=== PATIENT | male | born 1940 | race Caucasian/White ===

== ENCOUNTER 2018-03-11 18:12 | Emergency (ER) | payer MEDICARE, OTHER ==
[~2018-03-11] VITALS: Ht 182.9 cm; Wt 95.3 kg
[~2018-03-11 18:12] MED LIST: AC325T PO; ACID REFLUX TAB PO; ALPR.25T PO; ALPR.5T; ASP325T; FEXO180T84 PO; FEXO1TAB42 PO; FEXO60CA19; FISH OIL PO; NAPR500T8 PO; OMEP40CA36 PO; OXYC-12 PO; OXYC-188 PO; TMZP15C PO; ZYPREXA; [UNRECOGNIZED DRUG - CODE]
--- NOTE | 2018-03-11 18:24 | ED EENT ---
History of Present Illness General Stated Complaint: FALL Source: patient, family Exam Limitations: no limitations History of Present Illness Date Seen by Provider: Mar 11, 2018 Time Seen by Provider: 18:22 Initial Comments To ER by daughter with reports of a fall at home and facial injury. Patient was pushing a lawnmower when his legs gave out and he fell face first striking his nose on the ground. There is now a laceration rather deep to the inferior right naris. He is not on any anticoagulants. He is supposed to be on baby aspirin but states that he does not take. Timing/Duration: abrupt Severity: moderate Location: facial Allergies and Home Medications Allergies Coded Allergies: No Known Drug Allergies (Unverified , 06/20/11) Home Medications Amoxicillin/Potassium Clav 1 Each Tablet, 1 EACH PO BID Prescribed by: RENE DING on 03/11/181921 Fexofenadine Hcl 180 Mg Tablet, 180 MG PO DAILY, (Reported) Hydrocodone/Acetaminophen 1 Each Tablet, 1 EACH PO Q6H PRN for PAIN-MODERATE TO SEVERE Prescribed by: RENE DING on 03/11/181921 Naproxen 500 Mg Tablet.dr, 500 MG PO HS, (Reported) Omeprazole 40 Mg Capsule.dr, 40 MG PO DAILY, (Reported) Ondansetron 8 Mg Tab.rapdis, 8 MG PO Q6H PRN for NAUSEA/VOMITING-1ST LINE Prescribed by: RENE DING on 03/11/181921 Patient Home Medication List Home Medication List Reviewed: Yes Review of Systems Constitutional: see HPI Eyes: No Symptoms Reported Ears: No Symptoms Reported Nose: see HPI, other (laceration) Mouth: no symptoms reported Throat: no symptoms reported Respiratory: no symptoms reported Cardiovascular: no symptoms reported Musculoskeletal: no symptoms reported Skin: no symptoms reported Past Wladoql-Dezbna-Svfjla Hx Patient Social History Type Used: Cigarettes Former Smoker, Quit: Aug 23, 2009 Recent Foreign Travel: No Contact w/Someone Who Travel: No Recent Hopitalizations: No Seasonal Allergies Seasonal Allergies: No Past Medical History Currently Using CPAP: No Currently Using BIPAP: No Reproductive Disorders: No Sexually Transmitted Disease: No HIV/AIDS: No Adverse Reaction/Blood Tranf: No Physical Exam Vital Signs Vital Signs - First Documented 03/11/18 18:16 Temp 98.0 Pulse 93 Resp 18 B/P (MAP) 189/95 (126) Pulse Ox 97 O2 Delivery Room Air General Appearance: WD/WN, no apparent distress Eyes: bilateral eye normal inspection, bilateral eye PERRL, bilateral eye EOMI Ears: bilateral ear auricle normal, bilateral ear canal normal, bilateral ear TM normal Nose: other (no active bleeding but there is a very deep laceration at the inferior aspect of the right nare. There is no septal hematoma.) Neck: non-tender, full range of motion Neurologic/Psychiatric: alert, normal mood/affect, oriented x 3 Skin: normal color, warm/dry Procedures/Interventions Wound Location: Nose Wound Length (cm): 3 Wound's Depth, Shape: stellate Wound Explored: contaminated Irrigated w/ Saline (ccs): 60 Anesthesia: Lidocaine w/ Epi Volume Anesthetic (ccs): 2 Suture: Ethlion, Vicryl Suture Size: 3-0, 5-0 Number of Sutures: 12 Layer Closure?: 2 Number Deep Layer Sutures: 2 Progress Area was anesthetized with 2 mL of 2% lidocaine with epinephrine. Wound was then irrigated with chlorhexidine/saline solution. Any visible foreign bodies were removed manually. 2 buried sutures were then placed size 3-0 chromic gut. The skin was then closed with a total of 10 simple interrupted sutures size 5-0 Ethilon. Patient was given Rocephin intramuscularly and I'll place him on Augmentin in the outpatient setting Progress/Results/Core Measures My Orders Orders - RENE DING APRN Ct Head/Face/Cervical Wo (03/11/18 18:21) Ceftriaxone Injection (Rocephin Injectio (03/11/18 18:30) Lidocaine 1% Inj 50 Ml (Xylocaine 1% Inj (03/11/18 18:30) Lidocaine/Epi 2% 1:100,000 (Xylocaine/Ep (03/11/18 18:30) Dipht,Pertuss(Acell),Tet Adult (Boostrix (03/11/18 19:30) Medications Given in ED Current Medications Medications Dose Ordered Sig/Miki Route Start Time Stop Time Status Last Admin Dose Admin Ceftriaxone Sodium 1,000 mg ONCE ONCE IM 18 18:30 18 18:31 DC 03/11/18 18:43 1,000 MG Diphtheria/ Tetanus/Acell Pertussis 0.5 ml ONCE ONCE IM 03/11/18 19:30 4/18/18 19:31 DC 03/11/18 19:24 0.5 ML Lidocaine HCl 2.1 ml ONCE ONCE IJ 03/11/18 18:30 03/11/18 18:31 DC 03/11/18 18:44 2.1 ML Lidocaine/ Epinephrine 2 ml ONCE ONCE INJ 03/11/18 18:30 03/11/18 18:31 DC 03/11/18 18:43 2 ML Vital Signs/I&O 03/11/18 18:16 Temp 98.0 Pulse 93 Resp 18 B/P (MAP) 189/95 (126) Pulse Ox 97 O2 Delivery Room Air Diagonstic Imaging: CT Comments NAME: MARYANN LAU REC#: [id number] PT STATUS: REG ER : 1940 PHYSICIAN: RENE DING APRN ADMIT DATE: 03/11/18/ER Draft Date of Exam:03/11/18 CT HEAD/FACE/CERVICAL WO PROCEDURE: CT head, face, and cervical spine without contrast. TECHNIQUE: Multiple contiguous axial images were obtained through the head, neck, and facial bones without the use of intravenous contrast. Sagittal and coronal reformations through the cervical spine and facial bones were also performed. 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 There is generalized atrophy. There are chronic small vessel ischemic changes with some small lacunar infarcts. There are no masses, hemorrhages or CT evidence of acute infarct. IMPRESSION: Chronic ischemic changes. No acute abnormality is seen. CT FACIAL BONES: The mandible appears to be intact. The nasal bones are intact. Orbital queen and rims appear to be intact. Paranasal sinuses are clear. IMPRESSION: Negative CT facial bones. CT CERVICAL SPINE: Alignment is normal. There are no fractures. There are degenerative changes of the uncovertebral joints and the discs from C2-3 through C7-T1. IMPRESSION: Diffuse degenerative changes of the cervical spine. No fracture, misalignment or acute abnormalities. Dictated on workstation # [id number] Dict: 03/11/18 1843 Trans: 03/11/18 190 [facility] [id number] Interpreted by: BELKIS STAFFORD MD Electronically signed by: Departure Impression Primary Impression: Nasal laceration Disposition: 01 HOME, SELF-CARE Condition: Stable Departure-Patient Inst. Decision time for Depature: 19:20 Referrals: SHERIDAN DIEZ DO (PCP) Primary Care Physician AMNA SPENCE MD Patient Instructions: Laceration Repair With Stitches (DC) Add. Discharge Instructions: 1. Return to ER for any sign of infection which may include swelling redness or worsening pain or fevers. Take antibiotics as directed starting tomorrow. Be aware that the antibiotics may cause an upset stomach if you take this on an empty stomach so you should eat when you take the medications. Take pain medication as directed which unfortunately may also cause nausea. Take nausea medication as needed. I have sent your medications (nausea medication and antibiotic) to [facility]. The hydrocodone has to be taken as a paper copy 2. Call Dr. Spence, ear nose and throat physician tomorrow to make an appointment to be seen within the next week. Return here to the emergency room to have the stitches removed in 5-6 days at your convenience, you do not need an appointment. Scripts Ondansetron (Zofran Odt) 8 Mg Tab.rapdis 8 MG PO Q6H PRN for NAUSEA/VOMITING-1ST LINE, #10 TAB . Prov: RENE DING APRN 03/11/18 Amoxicillin/Potassium Clav (Augmentin 500-125 Tablet) 1 Each Tablet 1 EACH PO BID, #10 TAB . Prov: RENE DING APRN 03/11/18 Hydrocodone/Acetaminophen ([place] 5-325 Tablet) 1 Each Tablet 1 EACH PO Q6H PRN for PAIN-MODERATE TO SEVERE, #10 TAB Prov: RENE DING APRN 03/11/18 Images Mouth/Nose 1 - 2 - RENE DING APRN Mar 11, 2018 18:24
[2018-03-11] MEDS ORDERED: cefTRIAXone 1 GM (ROCEPHIN) VIAL IM ONE (18:30)
[2018-03-11] MEDS ORDERED: LIDOCAINE 1% INJ 50 ML (XYLOCAINE) VIAL IJ ONE (18:30)
[2018-03-11] MEDS ORDERED: LIDOCAINE/EPI 2% 1:100,00 (XYLOCAINE) 20 ML VIAL INJ ONE (18:30)
--- NOTE | 2018-03-11 19:02 | Diagnostic Imaging Report ---
PROCEDURE: CT head, face, and cervical spine without contrast. TECHNIQUE: Multiple contiguous axial images were obtained through the head, neck, and facial bones without the use of intravenous contrast. Sagittal and coronal reformations through the cervical spine and facial bones were also performed. 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 There is generalized atrophy. There are chronic small vessel ischemic changes with some small lacunar infarcts. There are no masses, hemorrhages or CT evidence of acute infarct. IMPRESSION: Chronic ischemic changes. No acute abnormality is seen. CT FACIAL BONES: The mandible appears to be intact. The nasal bones are intact. Orbital queen and rims appear to be intact. Paranasal sinuses are clear. IMPRESSION: Negative CT facial bones. CT CERVICAL SPINE: Alignment is normal. There are no fractures. There are degenerative changes of the uncovertebral joints and the discs from C2-3 through C7-T1. IMPRESSION: Diffuse degenerative changes of the cervical spine. No fracture, misalignment or acute abnormalities. Dictated by: Dictated on workstation # [id number]
[2018-03-11] MEDS ORDERED: ONDA8TAB9 PO ×2 (19:22→19:43)
[2018-03-11] MEDS ORDERED: HYDR-757 PO (19:22)
[2018-03-11] MEDS ORDERED: AMOX-355 PO ×2 (19:22→19:43)
[2018-03-11] MEDS ORDERED: TETANUS,DIPTH,PERTUSS P/F (BOOSTRIX) 0.5 ML VIAL IM ONE (19:30)
[2018-03-11 19:40] VITALS: BP 0/0
== END 2018-03-11 19:40 | disposition home or self-care (01) ==
LOC: EDUNIT# 18:12 → ER 18:13
DX: S01.21XA Laceration without foreign body of nose, initial encounter (principal); Z23 Encounter for immunization; Z87.891 Personal history of nicotine dependence; W01.198A Fall on same level from slipping, tripping and stumbling with subsequent striking against other object, initial encounter; Y92.007 Garden or yard of unspecified non-institutional (private) residence as the place of occurrence of the external cause
CPT/HCPCS: 12011; 70450; 70486; 72125; 90471; 90715; 96372

== ENCOUNTER 2018-03-18 11:23 | Emergency (ER) | payer MEDICARE, OTHER ==
[~2018-03-18] VITALS: Ht 182.9 cm; Wt 86.2 kg
[~2018-03-18 11:23] MED LIST changes: +AMOX-355 PO; +HYDR-757 PO; +ONDA8TAB9 PO
[2018-03-18 11:43] VITALS: BP 122/69
== END 2018-03-18 11:43 | disposition home or self-care (01) ==
LOC: EDUNIT# 11:23 → ER 11:24
DX: S01.21XD Laceration without foreign body of nose, subsequent encounter (principal); X58.XXXD Exposure to other specified factors, subsequent encounter

== ENCOUNTER → 2019-08-10 | Outpatient (CLI) | payer MEDICARE, OTHER ==
[~2019-08-10] MED LIST changes: +HYDR-4226 PO; -HYDR-757 PO
[2019-08-10 14:14] LABS: BASOPHILS % (AUTO) 0 % (0-10); EOSINOPHILS # (AUTO) 0.2 10^3/uL (0.0-0.3); EOSINOPHILS % (AUTO) 2 % (0-10); HEMATOCRIT 42 % (40-54); HEMOGLOBIN 14.7 G/DL (13.3-17.7); LYMPHOCYTES # (AUTO) 1.6 X 10^3 (1.0-4.0); LYMPHOCYTES % (AUTO) 16 % (12-44); MEAN CORPUSCULAR HEMOGLOBIN 32 PG (25-34); MEAN CORPUSCULAR HGB CONC 35 G/DL (32-36); MEAN CORPUSCULAR VOLUME 93 FL (80-99); MEAN PLATELET VOLUME 10.5 FL (7.4-10.4); MONOCYTES # (AUTO) 1.1 X 10^3 (0.0-1.0); MONOCYTES % (AUTO) 11 % (0-12); NEUTROPHILS # (AUTO) 7.2 X 10^3 (1.8-7.8); NEUTROPHILS % (AUTO) 71 % (42-75); PLATELET COUNT 222 10^3/uL (130-400); RED CELL DISTRIBUTION WIDTH 13.1 % (10.0-14.5)
[2019-08-10 14:35] LABS: ALANINE AMINOTRANSFERASE 16 U/L (0-55); ALBUMIN 4.1 GM/DL (3.2-4.5); ALKALINE PHOSPHATASE 109 U/L (40-136); BILIRUBIN,TOTAL 0.7 MG/DL (0.1-1.0); BUN/CREATININE RATIO 10; CALCIUM 8.8 MG/DL (8.5-10.1); CARBON DIOXIDE 26 MMOL/L (21-32); CHLORIDE 103 MMOL/L (98-107); CREATININE SERUM 0.68 MG/DL (0.60-1.30); GFR ESTIMATED > 60; GLUCOSE 97 MG/DL (70-105); POTASSIUM 4.3 MMOL/L (3.6-5.0); SODIUM 137 MMOL/L (135-145); TOTAL PROTEIN 6.7 GM/DL (6.4-8.2)
== END ==
LOC: CARD 13:52
PROVIDERS: ATTEND Family Medicine
DX: I49.9 Cardiac arrhythmia, unspecified (principal); R41.0 Disorientation, unspecified
CPT/HCPCS: 36415; 80053; 83735; 84443; 85025

== ENCOUNTER 2021-05-30 18:10 | Inpatient (IN) | payer MEDICARE, OTHER ==
[~2021-05-30] VITALS: Ht 180.4 cm; Wt 85.2 kg
[2021-05-30 18:40] LABS: BASOPHILS # (AUTO) 0.1 10^3/uL (0.0-0.1); BASOPHILS % (AUTO) 1 % (0-10); EOSINOPHILS % (AUTO) 0 % (0-10); HEMATOCRIT 45 % (40-54); HEMOGLOBIN 15.4 g/dL (13.3-17.7); LYMPHOCYTES # (AUTO) 1.6 10^3/uL (1.0-4.0); LYMPHOCYTES % (AUTO) 16 % (12-44); MEAN CORPUSCULAR HEMOGLOBIN 32 pg (25-34); MEAN CORPUSCULAR HGB CONC 34 g/dL (32-36); MEAN CORPUSCULAR VOLUME 93 fL (80-99); MEAN PLATELET VOLUME 10.6 fL (9.0-12.2); MONOCYTES % (AUTO) 11 % (0-12); NEUTROPHILS # (AUTO) 7.1 10^3/uL (1.8-7.8); NEUTROPHILS % (AUTO) 73 % (42-75); PLATELET COUNT 250 10^3/uL (130-400); WHITE BLOOD COUNT 9.8 10^3/uL (4.3-11.0)
--- NOTE | 2021-05-30 18:58 | ED Neurological Problem ---
General Chief Complaint: Neuro-Stroke Like Symptoms Stated Complaint: STROKE Nursing Triage Note: REPORTS HE HAS BEEN UNABLE TO WALK SINCE May. WAS BROUGHT IN BY EMS TO ROOM 3, PAGED OUT A STROKE ACTIVATION. Source: patient, EMS Exam Limitations: no limitations History of Present Illness Date Seen by Provider: May 30, 2021 Time Seen by Provider: 18:12 Initial Comments This is 80-year-old gentleman presents to the emergency room via EMS with right sided facial droop, weakness, and dysarthria. He called his family today stating that he could not walk. He had been crawling around the house and has abrasions on his knees and a skin tear on his right elbow. He denies any neck pain but to be because communication barrier with dysarthria is present, and a c-collar was placed. He reports being this way and unable to walk since May. He is alert and oriented but has notable dysarthria. He states he has no balance. Blood sugar for EMS was 69 and was 95 on arrival. He has history of right hip fracture and repair, hypertension, and GERD. He has a prior smoking history but does not currently smoke. He denies any alcohol use but his prior medical history notes a 6 pack daily drinker for 50 years on an H&P from 2016. Stroke activation was paged because the exact last known well time is uncertain. EMS reports oxygen saturation was 90% on room air. Nasal cannula was applied. Patient reports dual Covid vaccination. Allergies and Home Medications Allergies Coded Allergies: No Known Drug Allergies (Unverified , 06/20/11) Home Medications Amoxicillin/Potassium Clav 1 Each Tablet, 1 EACH PO BID . Prescribed by: RENE DING on 03/11/181942 Fexofenadine Hcl 180 Mg Tablet, 180 MG PO DAILY, (Reported) Hydrocodone/Acetaminophen 1 Each Tablet, 1 EACH PO Q6H PRN for PAIN-MODERATE TO SEVERE Prescribed by: RENE DING on 03/11/181921 Naproxen 500 Mg Tablet., 500 MG PO HS, (Reported) Omeprazole 40 Mg Capsule., 40 MG PO DAILY, (Reported) Ondansetron 8 Mg Tab.rapdis, 8 MG PO Q6H PRN for NAUSEA/VOMITING-1ST LINE . Prescribed by: RENE DING on 03/11/181942 Patient Home Medication List Home Medication List Reviewed: Yes Review of Systems Review of Systems Constitutional: no symptoms reported Eyes: No Symptoms Reported Ears, Nose, Mouth, Throat: no symptoms reported Respiratory: no symptoms reported Cardiovascular: no symptoms reported Gastrointestinal: no symptoms reported Genitourinary: no symptoms reported Musculoskeletal: no symptoms reported Skin: see HPI Psychiatric/Neurological: See HPI Endocrine: No Symptoms Reported Hematologic/Lymphatic: No Symptoms Reported Past Thpfkxs-Kbwver-Nluiwm Hx Patient Social History Tobacco Use?: No Smoking Status: Former Smoker Alcohol Use?: Yes (Prior daily drinker) Seasonal Allergies Seasonal Allergies: No Past Medical History Surgeries: Yes (T&A,HERNIA REPAIR [GROIN],CARPAL TUNNEL) Abdominal (Hernia), Adenoidectomy, Orthopedic (Right hip ORIF, carpal tunnel), Tonsillectomy Respiratory: No Currently Using CPAP: No Currently Using BIPAP: No Cardiac: No Neurological: No Reproductive Disorders: No Sexually Transmitted Disease: No HIV/AIDS: No Genitourinary: No Gastrointestinal: No Musculoskeletal: Yes Fractures (Hip) Endocrine: No HEENT: No Cancer: No Psychosocial: No Integumentary: No Blood Disorders: No Adverse Reaction/Blood Tranf: No Physical Exam Vital Signs Vital Signs - First Documented 05/30/21 18:10 Temp 36.4 Pulse 84 Resp 20 B/P (MAP) 163/85 (111) Pulse Ox 91 O2 Delivery Room Air Capillary Refill : Less Than 3 Seconds Height, Weight, BMI Height: 6'11.00" Weight: 190lbs. 6.4oz. 86.233107yx; 26.00 BMI Method:Estimated General Appearance: WD/WN, no apparent distress HEENT: normal ENT inspection, other (Mucous membranes dry) Neck: non-tender, normal inspection Respiratory: lungs clear, normal breath sounds, no respiratory distress Cardiovascular: regular rate, rhythm, no edema, no murmur Gastrointestinal: normal bowel sounds, non tender, soft Extremities: no pedal edema, other (Minor abrasions and erythema to the knees bilaterally. Skin tear to the right elbow with minor tenderness) Neurologic/Psychiatric: other (Right-sided facial droop and decreased hypertrichologist on the right. Stated disequilibrium has not yet been tested. Dysarthria.) Crainal Nerves: normal hearing, abnormal speech (Dysarthria), facial droop (Right side), gaze palsy (Reluctance with left lateral gaze) Motor/Sensory: weak motor strength RUE Skin: normal color, warm/dry, other (See above) Stroke NIH Stroke Scale Assessment Select: Initial Level of Consciousness: 0=Alert (0), Level of Consciousness- Questions: 0=Answers both month/age (0), LOC Commands: 0=Performs both tasks (0), Gaze: Partial Gaze Palsy (1), Visual Blanco: 0=No visual loss (0), Facial Movement (Facial Paresis): 1=Minor paralysis (1), Motor Function-Arms Right: 1=Drift (1), Motor Function-Arms Left: 0=No drift (0), Motor Function- Legs Right: 0=No drift (0), Motor Function-Legs Left: 0=No drift (0), Limb Ataxia: 1=Present in one limb (1), Sensory: 0=Normal:no loss (0), Best Language: 0=No aphasia (0), Dysarthria: 0=Normal (0), Extinction & Inattention: 0=No abnormality (0), Total: 4 Procedures/Interventions Suture Size: 3-0, 5-0 Progress/Results/Core Measures Results/Orders Lab Results Laboratory Tests Test 05/30/21 18:21 05/30/21 18:30 05/30/21 18:37 05/30/21 20:00 Range/Units Glucometer 95 70-110 MG/DL White Blood Count 9.8 4.3-11.0 10^3/uL Red Blood Count 4.88 4.30-5.52 10^6/uL Hemoglobin 15.4 13.3-17.7 g/dL Hematocrit 45 40-54 % Mean Corpuscular Volume 93 80-99 fL Mean Corpuscular Hemoglobin 32 25-34 pg Mean Corpuscular Hemoglobin Concent 34 32-36 g/dL Red Cell Distribution Width 12.8 10.0-14.5 % Platelet Count 250 130-400 10^3/uL Mean Platelet Volume 10.6 9.0-12.2 fL Immature Granulocyte % (Auto) 0 % Neutrophils (%) (Auto) 73 42-75 % Lymphocytes (%) (Auto) 16 12-44 % Monocytes (%) (Auto) 11 0-12 % Eosinophils (%) (Auto) 0 0-10 % Basophils (%) (Auto) 1 0-10 % Neutrophils # (Auto) 7.1 1.8-7.8 10^3/uL Lymphocytes # (Auto) 1.6 1.0-4.0 10^3/uL Monocytes # (Auto) 1.0 0.0-1.0 10^3/uL Eosinophils # (Auto) 0.0 0.0-0.3 10^3/uL Basophils # (Auto) 0.1 0.0-0.1 10^3/uL Immature Granulocyte # (Auto) 0.0 0.0-0.1 10^3/uL Prothrombin Time 15.6 H 12.2-14.7 SEC INR Comment 1.2 0.8-1.4 Activated Partial Thromboplast Time 30 24-35 SEC D-Dimer 0.69 H 0.00-0.49 UG/ML Sodium Level 142 135-145 MMOL/L Potassium Level 3.7 3.6-5.0 MMOL/L Chloride Level 106 98-107 MMOL/L Carbon Dioxide Level 21 21-32 MMOL/L Anion Gap 15 H 5-14 MMOL/L Blood Urea Nitrogen 13 7-18 MG/DL Creatinine 0.76 0.60-1.30 MG/DL Estimat Glomerular Filtration Rate > 60 BUN/Creatinine Ratio 17 Glucose Level 87 70-105 MG/DL Calcium Level 9.3 8.5-10.1 MG/DL Corrected Calcium 9.2 8.5-10.1 MG/DL Total Bilirubin 1.2 H 0.1-1.0 MG/DL Aspartate Amino Transf (AST/SGOT) 61 H 5-34 U/L Alanine Aminotransferase (ALT/SGPT) 28 0-55 U/L Alkaline Phosphatase 112 40-136 U/L Troponin I < 0.028 <0.028 NG/ML Total Protein 7.2 6.4-8.2 GM/DL Albumin 4.1 3.2-4.5 GM/DL Serum Alcohol < 10 <10 MG/DL Influenza Type A (RT-PCR) Not Detected Not Detecte Influenza Type B (RT-PCR) Not Detected Not Detecte SARS-CoV-2 RNA (RT-PCR) Not Detected Not Detecte Urine Color YELLOW Urine Clarity CLEAR Urine pH 6.5 5-9 Urine Specific Elizabeth 1.025 H 1.016-1.022 Urine Protein TRACE H NEGATIVE Urine Glucose (UA) NEGATIVE NEGATIVE Urine Ketones 3+ H NEGATIVE Urine Nitrite NEGATIVE NEGATIVE Urine Bilirubin NEGATIVE NEGATIVE Urine Urobilinogen 4.0 < = 1.0 MG/DL Urine Leukocyte Esterase NEGATIVE NEGATIVE Urine RBC (Auto) NEGATIVE NEGATIVE Urine RBC NONE /HPF Urine WBC 0-2 /HPF Urine Crystals PRESENT H /LPF Urine Amorphous Sediment RARE ALON URATES H /LPF Urine Bacteria TRACE /HPF Urine Casts NONE /LPF Urine Mucus SMALL H /LPF Urine Culture Indicated NO My Orders Orders - THANH DIAZ MD Cbc With Automated Diff (05/30/21 18:13) Protime With Inr (05/30/21 18:13) Partial Thromboplastin Time (05/30/21 18:13) Comprehensive Metabolic Panel (05/30/21 18:13) Fibrin Degradation Products (05/30/21 18:13) Troponin I (05/30/21 18:13) Ua Culture If Indicated (05/30/21 18:13) Chest 1 View, Ap/Pa Only (05/30/21 18:13) Catheter(Urinary) Insert & Ass 03,15 (05/30/21 18:13) Ekg Tracing (05/30/21 18:13) Nothing By Mouth (05/30/21 Dinner) Accucheck Stat ONCE (05/30/21 18:13) Ed Iv/Invasive Line Start (05/30/21 18:13) Ed Iv/Invasive Line Start (05/30/21 18:13) Vital Signs Stroke Patient Q15M (05/30/21 18:13) Ct Head Wo-R/O Stroke (05/30/21 18:13) O2 (05/30/21 18:13) Intake & Output 06,14,22 (05/30/21 18:13) Monitor-Rhythm Ecg Trace Only (05/30/21 18:13) Dysphagia Screening Tool (05/30/21 18:13) Lipid Panel (05/31/21 06:00) Ct Cervical Spine Wo (05/30/21 18:33) Covid 19 Inhouse Test (05/30/21 18:42) Influenza A And B By Pcr (05/30/21 18:42) Alcohol (05/30/21 18:30) Ct Angio Head/Neck (05/30/21 19:59) Iohexol Injection (Omnipaque 350 Mg/Ml 1 (05/30/21 20:15) Received Contrast (Hold Metformin- Contr (05/30/21 20:15) Sodium Chloride Flush (Catheter Flush Sy (05/30/21 20:15) Ns (Ivpb) (Sodium Chloride 0.9% Ivpb Bag (05/30/21 20:15) Medications Given in ED Vital Signs/I&O 05/30/21 18:10 Temp 36.4 Pulse 84 Resp 20 B/P (MAP) 163/85 (111) Pulse Ox 91 O2 Delivery Room Air Blood Pressure Mean: 111 FSBG Bedside Testing Finger Stick Blood Glucose: 95 Progress Progress Note #1: Time: 19:00 Progress Note Stroke activation was paged due to unknown last known well time. Work-up is pending. Patient is stable at this time. We have also decided to obtain a Covid swab as patient was initially hypoxic for EMS. Progress Note #2: Progress Note Covid screen was negative. CT imaging studies were negative. Case was reviewed with Dr. Villagran who recommended admission to complete the stroke work-up including MRI. Patient cleared dysphagia screen. I did attempt to get the patient up to walk. He was unable to get out of bed with 1 person assist. Iram fleming was not a thrombolytic candidate as his last known well time was 3 days ago. Initial ECG Impression Date: May 30, 2021 Initial ECG Impression Time: 20:39 Initial ECG Rate: 74 Initial ECG Rhythm: Normal Sinus Initial ECG Intervals: Normal Initial ECG Impression: Normal Comment Normal sinus rhythm with no ST elevation or depression. No abnormal intervals or axis deviation. Diagnostic Imaging Diagonstic Imaging: Xray Plain Films/CT/US/NM/MRI: chest Comments Chest x-ray viewed by me and report reviewed. See report below: NAME: MARYANN LAU [facility] REC#: [id number] PT STATUS: REG ER : 1940 PHYSICIAN: THANH DIAZ MD ADMIT DATE: 05/30/21/ER Signed Date of Exam:05/30/21 CHEST 1 VIEW, AP/PA ONLY EXAMINATION: Chest 1 view HISTORY: Inability to walk. Concern for stroke. COMPARISON: 06/12/2011. FINDINGS: The lung volumes are normal. No focal consolidation is seen. No large pleural effusion or pneumothorax is seen. The cardiomediastinal silhouette is normal in size and contour. There is calcified aortic atherosclerotic plaque. No acute osseous abnormality is seen. IMPRESSION: 1. No acute pleuroparenchymal process. Dictated by: Dictated on workstation # [id number] Dict: 05/30/212003 Trans: 05/30/212011 CVB Interpreted by: KONRAD CASTILLO DO Electronically signed by: KONRAD CASTILLO DO 05/30/212011 Diagonstic Imaging: CT Plain Films/CT/US/NM/MRI: head Comments NAME: MARYANN LAU REC#: [id number] PT STATUS: REG ER : 1940 PHYSICIAN: THANH DIAZ MD ADMIT DATE: 05/30/21/ER Signed Date of Exam:05/30/21 CT HEAD WO-R/O STROKE EXAMINATION: CT head without contrast. TECHNIQUE: Multiple contiguous axial images were obtained through the brain without the use of intravenous contrast. All CT scans use one or more of the following dose optimizing techniques: automated exposure control, MA and/or KvP adjustment based on patient size and exam type or iterative reconstruction. HISTORY: Inability to walk. Concern for stroke. COMPARISON: 03/11/2018. FINDINGS: Old infarcts are seen in the right temporal lobe and right frontal region. No new areas of large acute territorial ischemia are seen. No evidence of acute hemorrhage or mass. The ventricles and cortical sulci are mildly prominent. Scattered chronic microvascular disease seen in the periventricular and subcortical white matter. The basilar cisterns are patent. The orbits are normal. Paranasal sinuses are normal. Mastoid air cells are clear. No soft tissue abnormality is seen. No osseus lesions or fractures are seen. IMPRESSION: 1. No large acute territorial ischemia, mass, or hemorrhage. 2. 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 3. Generalized parenchymal volume loss with scattered chronic microvascular disease. Dictated by: Dictated on workstation # [id number] Dict: 05/30/211958 Trans: 05/30/212006 CVB Interpreted by: KONRAD CASTILLO DO Electronically signed by: KONRAD CASTILLO DO 05/30/212006 Diagonstic Imaging: CT Plain Films/CT/US/NM/MRI: c-spine Comments NAME: MARYANN LAU [facility] REC#: [id number] PT STATUS: REG ER : 1940 PHYSICIAN: THANH DIAZ MD ADMIT DATE: 05/30/21/ER Signed Date of Exam:05/30/21 CT CERVICAL SPINE WO PROCEDURE: CT cervical spine without contrast. TECHNIQUE: Multiple contiguous axial images were obtained through the cervical spine without the use of intravenous contrast. Sagittal and coronal reformations were then performed. Auto Exposure Controls were utilized during the CT exam to meet ALARA standards for radiation dose reduction. INDICATION: Inability to walk. Neck pain. COMPARISON: 03/11/2018. FINDINGS: No acute fracture or dislocation is seen in the cervical spine. Stable alignment of the cervical spine. The craniocervical junction is intact. Advanced degenerative changes are seen in the cervical spine with disc osteophyte complexes, buckling of ligamentum flavum, and uncovertebral arthropathy. These are greatest at the C5-C6 level. No evidence of acute spinal canal stenosis. No high density material seen within the spinal canal. The soft tissues of the neck are unremarkable. The included lung apices are clear. IMPRESSION: 1. No acute fracture or dislocation in the cervical spine. Dictated by: Dictated on workstation # [id number] Dict: 05/30/212000 Trans: 05/30/212006 CVB [id number] Interpreted by: KONRAD CASTILLO DO Electronically signed by: KONRAD CASTILLO DO 05/30/212006 Diagonstic Imaging: CT Plain Films/CT/US/NM/MRI: chest Comments NAME: MARYANN LAU [facility] REC#: [id number] PT STATUS: REG ER : 1940 PHYSICIAN: THANH DIAZ MD ADMIT DATE: 05/30/21/ER Signed Date of Exam:05/30/21 CT ANGIO HEAD/NECK PROCEDURE: CT angiography of the head and CT angiography of the neck with and without contrast. TECHNIQUE: Contiguous noncontrast images were obtained from the skull base through the vertex. After intravenous contrast administration, helical CT angiography of the neck was performed. Source data was reformatted into 3D MIP projections. Delayed post contrast acquisition was also obtained. Auto Exposure Controls were utilized during the CT exam to meet ALARA standards for radiation dose reduction. INDICATION: Inability to walk for 3 days. Concern for stroke. Comparison: CT head performed earlier the same date. FINDINGS: CTA Neck: The visualized portions of the aortic arch demonstrate atherosclerotic plaque without evidence of aneurysm or dissection. There is conventional branching pattern of the great vessels of the aorta. The brachiocephalic artery is normal in course and caliber. The right and left common carotid origins are unremarkable. The origin of the left subclavian artery is patent. The common carotid arteries and internal carotid arteries demonstrate a tortuous course. There is calcified atherosclerotic plaque in the bilateral carotid bulbs and proximal internal carotid arteries without flow-limiting stenosis. No evidence of dissection in the carotid systems. The external carotid arteries are patent and unremarkable. The left vertebral artery is dominant. The origin of the right vertebral artery is seen and is unremarkable. The origin of the left vertebral artery is seen and is unremarkable. There is no focal stenosis seen within the neck. There is no dissection. No acute osseous abnormality is seen in the cervical spine. Included views through the lung apices demonstrate centrilobular emphysema. CTA brain: Atherosclerotic plaque is seen in the queen of the bilateral terminal internal carotid arteries without significant stenosis. No stenosis is seen in the bilateral anterior, middle, and posterior cerebral arteries. No evidence of aneurysm the [place]. In the posterior circulation, both of the vertebral arteries demonstrate normal opacification. The right vertebral artery ends in PICA. Both the right and left PICA arteries are identified. The basilar artery is normal in course and caliber. The terminal branch vessels including the superior cerebellar arteries unremarkable. IMPRESSION: 1. No stenosis or aneurysm in the [place]. No large vessel occlusion. 2. No stenosis or dissection the bilateral carotid and vertebral arteries. Dictated by: Dictated on workstation # [id number] Dict: 05/30/212134 Trans: 05/30/212139 [facility] [id number] Interpreted by: KONRAD CASTILLO DO Electronically signed by: KONRAD CASTILLO DO 05/30/212139 Departure Impression Primary Impression: Right sided weakness Additional Impressions: Generalized weakness Dysarthria Urinary hesitancy Disposition: ADMITTED INPATIENT Condition: Improved Admissions Decision to Admit Reason: Admit from ER (General) Decision to Admit/Date: May 30, 2021 Time/Decision to Admit Time: 18:30 Departure-Patient Inst. Referrals: SHERIDAN DIEZ DO (PCP/Family) Primary Care Physician THANH DIAZ MD May 30, 2021 18:58
[2021-05-30 19:02] LABS: ALBUMIN 4.1 GM/DL (3.2-4.5); CHLORIDE 106 MMOL/L (98-107); POTASSIUM 3.7 MMOL/L (3.6-5.0); SODIUM 142 MMOL/L (135-145)
[2021-05-30 19:04] LABS: CALCIUM 9.3 MG/DL (8.5-10.1)
[2021-05-30 19:05] LABS: GLUCOSE 87 MG/DL (70-105); TOTAL PROTEIN 7.2 GM/DL (6.4-8.2)
[2021-05-30 19:06] LABS: BILIRUBIN,TOTAL 1.2 MG/DL (0.1-1.0); CARBON DIOXIDE 21 MMOL/L (21-32)
[2021-05-30 19:08] LABS: ALKALINE PHOSPHATASE 112 U/L (40-136); CREATININE SERUM 0.76 MG/DL (0.60-1.30); GFR ESTIMATED > 60
[2021-05-30 19:09] LABS: BUN/CREATININE RATIO 17
[2021-05-30 19:11] LABS: ALANINE AMINOTRANSFERASE 28 U/L (0-55)
[2021-05-30 19:14] LABS: FIBRIN DEGRADATION PRODUCTS 0.69 UG/ML (0.00-0.49); INR 1.2 (0.8-1.4); PROTHROMBIN TIME PATIENT 15.6 SEC (12.2-14.7)
--- NOTE | 2021-05-30 20:03 | Diagnostic Imaging Report ---
EXAMINATION: CT head without contrast. TECHNIQUE: Multiple contiguous axial images were obtained through the brain without the use of intravenous contrast. All CT scans use one or more of the following dose optimizing techniques: automated exposure control, MA and/or KvP adjustment based on patient size and exam type or iterative reconstruction. HISTORY: Inability to walk. Concern for stroke. COMPARISON: 03/11/2018. FINDINGS: Old infarcts are seen in the right temporal lobe and right frontal region. No new areas of large acute territorial ischemia are seen. No evidence of acute hemorrhage or mass. The ventricles and cortical sulci are mildly prominent. Scattered chronic microvascular disease seen in the periventricular and subcortical white matter. The basilar cisterns are patent. The orbits are normal. Paranasal sinuses are normal. Mastoid air cells are clear. No soft tissue abnormality is seen. No osseus lesions or fractures are seen. IMPRESSION: 1. No large acute territorial ischemia, mass, or hemorrhage. 2. 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 3. Generalized parenchymal volume loss with scattered chronic microvascular disease. Dictated by: Dictated on workstation # [id number]
--- NOTE | 2021-05-30 20:04 | Diagnostic Imaging Report ---
PROCEDURE: CT cervical spine without contrast. TECHNIQUE: Multiple contiguous axial images were obtained through the cervical spine without the use of intravenous contrast. Sagittal and coronal reformations were then performed. Auto Exposure Controls were utilized during the CT exam to meet ALARA standards for radiation dose reduction. INDICATION: Inability to walk. Neck pain. COMPARISON: 03/11/2018. FINDINGS: No acute fracture or dislocation is seen in the cervical spine. Stable alignment of the cervical spine. The craniocervical junction is intact. Advanced degenerative changes are seen in the cervical spine with disc osteophyte complexes, buckling of ligamentum flavum, and uncovertebral arthropathy. These are greatest at the C5-C6 level. No evidence of acute spinal canal stenosis. No high density material seen within the spinal canal. The soft tissues of the neck are unremarkable. The included lung apices are clear. IMPRESSION: 1. No acute fracture or dislocation in the cervical spine. Dictated by: Dictated on workstation # [id number]
--- NOTE | 2021-05-30 20:09 | Diagnostic Imaging Report ---
EXAMINATION: Chest 1 view HISTORY: Inability to walk. Concern for stroke. COMPARISON: 06/12/2011. FINDINGS: The lung volumes are normal. No focal consolidation is seen. No large pleural effusion or pneumothorax is seen. The cardiomediastinal silhouette is normal in size and contour. There is calcified aortic atherosclerotic plaque. No acute osseous abnormality is seen. IMPRESSION: 1. No acute pleuroparenchymal process. Dictated by: Dictated on workstation # [id number]
[2021-05-30] MEDS ORDERED: HOLD METFORMIN - RECEIVED CONTRAST 20 ML VIAL IV SCH (20:15)
[2021-05-30] MEDS ORDERED: CATHETER FLUSH 10 ML SYR IV PRN (20:15)
[2021-05-30] MEDS ORDERED: NS 100 ML (IVPB) BAG IV ONE (20:15)
[2021-05-30] MEDS ORDERED: IOHEXOL 350 MG/ML 100 ML (OMNIPAQUE 350) VIAL IV ONE (20:15)
[2021-05-30 20:32] LABS: BILIRUBIN,URINE NEGATIVE (NEGATIVE); CLARITY,URINE CLEAR; COLOR,URINE YELLOW; GLUCOSE, URINE (UA) NEGATIVE (NEGATIVE); KETONES,URINE 3+ (NEGATIVE); LEUKOCYTE ESTERASE ,URINE NEGATIVE (NEGATIVE); NITRITE,URINE NEGATIVE (NEGATIVE); PH,URINE 6.5 (5-9); PROTEIN,URINE TRACE (NEGATIVE)
[2021-05-30 21:07] LABS: AMORPHOUS SEDIMENT,UR RARE AMOR URATES /LPF; BACTERIA,URINE TRACE /HPF; WBC,URINE 0-2 /HPF
--- NOTE | 2021-05-30 21:39 | Diagnostic Imaging Report ---
PROCEDURE: CT angiography of the head and CT angiography of the neck with and without contrast. TECHNIQUE: Contiguous noncontrast images were obtained from the skull base through the vertex. After intravenous contrast administration, helical CT angiography of the neck was performed. Source data was reformatted into 3D MIP projections. Delayed post contrast acquisition was also obtained. Auto Exposure Controls were utilized during the CT exam to meet ALARA standards for radiation dose reduction. INDICATION: Inability to walk for 3 days. Concern for stroke. Comparison: CT head performed earlier the same date. FINDINGS: CTA Neck: The visualized portions of the aortic arch demonstrate atherosclerotic plaque without evidence of aneurysm or dissection. There is conventional branching pattern of the great vessels of the aorta. The brachiocephalic artery is normal in course and caliber. The right and left common carotid origins are unremarkable. The origin of the left subclavian artery is patent. The common carotid arteries and internal carotid arteries demonstrate a tortuous course. There is calcified atherosclerotic plaque in the bilateral carotid bulbs and proximal internal carotid arteries without flow-limiting stenosis. No evidence of dissection in the carotid systems. The external carotid arteries are patent and unremarkable. The left vertebral artery is dominant. The origin of the right vertebral artery is seen and is unremarkable. The origin of the left vertebral artery is seen and is unremarkable. There is no focal stenosis seen within the neck. There is no dissection. No acute osseous abnormality is seen in the cervical spine. Included views through the lung apices demonstrate centrilobular emphysema. CTA brain: Atherosclerotic plaque is seen in the queen of the bilateral terminal internal carotid arteries without significant stenosis. No stenosis is seen in the bilateral anterior, middle, and posterior cerebral arteries. No evidence of aneurysm the [place]. In the posterior circulation, both of the vertebral arteries demonstrate normal opacification. The right vertebral artery ends in PICA. Both the right and left PICA arteries are identified. The basilar artery is normal in course and caliber. The terminal branch vessels including the superior cerebellar arteries unremarkable. IMPRESSION: 1. No stenosis or aneurysm in the [place]. No large vessel occlusion. 2. No stenosis or dissection the bilateral carotid and vertebral arteries. Dictated by: Dictated on workstation # [id number]
[2021-05-31 01:00] VITALS: BP 164/89
[2021-05-31 04:55] LABS: TRIGLYCERIDES 60 MG/DL (<150); VLDL CHOLESTEROL 12 MG/DL (5-40)
[2021-05-31 05:00] LABS: CHOLESTEROL 149 MG/DL (< 200)
[2021-05-31 05:01] LABS: HDL CHOLESTEROL 47 MG/DL (40-60)
[2021-05-31 08:00] VITALS: BP 158/106
--- NOTE | 2021-05-31 08:49 | ST Cognitive Linguistic Eval ---
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 Carrera Medical History Reviewed History: Yes Social History Current Living Status: Alone Speech PLF-Current Status Prior Level of Function Patient lived home alone where he was independent for his daily needs. Subjective Patient was laying in his bed resting when I entered his room. He was pleasant and very talkative, although his speech is only about 50% intelligible at this time. Language Eval: Auditory Comprehends Simple Yes/No Ques: Functional Follows 1-Step Commands: Functional Follows General Conversations: Functional Language Eval: Verbal Language Completes Spontaneous Greeting: Functional Produces Auto, Serial Info: Functional Imitates Simple Words/Phrases: Functional Word Finding: Functional Requests Basic Needs: Functional States Basic Personal Info: Functional Objective Cognitive Domain Attention: Mild Memory: WNL Problem Solving: Mild Composite Severity Rating: Mild Objective Formal/Standardized Tests Subtests of the SLUMS, informal speech tasks, oral motor exam Results Patient present with a moderate speech deficit, mild cognitive function decrease Oral Motor/Speech Production 50% intelligible at this time due to dysarthria Impression Patient is a pleasant 80 y/o man who was brought to the ED following 4 days of inability to walk. He was reported to have crawled around his house for those 4 days and has knee abrasions and an upper are skin tear. The patient was pleasant and cooperative with the speech evaluation completed at bedside. He was very talkative, however only at 50% intelligible. He states he lives home alone since his passed. He agrees to receiving ST for his deficits with focus on improving speech production for effective communication. Speech Short Term Goals Short Term Goals Short Term Goals 1) Patient will complete OME for improving speech intelligibility at 75% or greater. 2) Patient will complete speech tasks for communicating wants/needs at 75% or greater. Speech Driver Operator Goals Nursing Home Goals Patient will improve communication/speech skills in order to effectively communicate. Speech-Plan Patient/Family Goals Patient/Family Goals: Patient plans on returning to his home, however at this time his actual discharge is unknown. Treatment Plan Speech Therapy Treatment Plan: Continue Plan of Care Treatment Duration: Jun 08, 2021 Frequency: 4 times per week (Patient will receive skilled ST 4-5x per week) Estimated Hrs Per Day: .25 hour per day Rehab Potential: Fair Barriers to Learning: Patient's recent CVA, decreased cognitive-communication abilities Pt/Family Agrees to Plan: Yes Safety Risks/Education Teaching Recipient: Patient Teaching Methods: Discussion Response to Teaching: Verbalize Understanding Education Topics Provided: Safety within his room, utilization of his call light Time Speech Therapy Time In: 08:15 Speech Therapy Time Out: 08:35 Total Billed Time: 20 Billed Treatment Time 1, LENNY ERWIN BETHANIA May 31, 2021 08:49
--- NOTE | 2021-05-31 11:22 | Physical Therapy Evaluation ---
PT Evaluation-General Medical Diagnosis Admission Date May 30, 2021 at 22:26 Medical Diagnosis: CVA with right sided weakness Onset Date: May 30, 2021 Therapy Diagnosis Therapy Diagnosis: impaired mobility, strength, endurance, balance Height/Weight Height (Feet): 6 Height (Inches): 11.00 Weight (Pounds): 190 Weight (Ounces): 6.4 Precautions Precautions/Isolations: Fall Prevention, Standard Precautions Referral Physician: Deandre Reason for Referral: Evaluation/Treatment Medical History Additional Medical History Past Medical History Surgeries: Yes (T&A,HERNIA REPAIR [GROIN],CARPAL TUNNEL) Abdominal (Hernia), Adenoidectomy, Orthopedic (Right hip ORIF, carpal tunnel), Tonsillectomy Respiratory: No Currently Using CPAP: No Currently Using BIPAP: No Cardiac: No Neurological: No Reproductive Disorders: No Sexually Transmitted Disease: No HIV/AIDS: No Genitourinary: No Gastrointestinal: No Musculoskeletal: Yes Fractures (Hip) Endocrine: No HEENT: No Cancer: No Psychosocial: No Integumentary: No Blood Disorders: No Reviewed History: Yes Social History Current Living Status: Alone Entry Into Home: Ramp Patient states he has a ramp to enter the home from the garage. Prior Prior Level of Function SCALE: Activities may be completed with or without assistive devices. 5-Dxqincekhy-sylzser completes the activity by him/herself with no assistance from a helper. 5-Set-up or Clean-up Assistance-helper sets up or cleans up; patient completes activity. [place] assists only prior to or following the activity. 4-Supervision or Touching Assistance-helper provides verbal cues and/or touching/steadying and/or contact guard assistance as patient completes activity. Assistance may be provided throughout the activity or intermittently. 3-Partial/Moderate Assistance-helper does LESS THAN HALF the effort. [place] lifts, holds or supports trunk or limbs, but provides less than half the effort. 2-Substantial/Maximal Assistance-helper does MORE THAN HALF the effort. [place] lifts or holds trunk or limbs and provides more than half the effort. 6-Afhxouxrh-jiaojc does ALL the effort. Patient does none of the effort to complete the activity. Or, the assistance of 2 or more helpers is required for the patient to complete the activity. If activity was not attempted, code reason: 7-Patient Refused. 9-Not Applicable-not attempted and the patient did not perform the activity before the current illness, exacerbation or injury. 10-Not Attempted due to Environmental Limitations-(lack of equipment, weather restraints, etc.). 88-Not Attempted due to Medical Conditions or Safety Concerns. Bed Mobility: 6 Transfers (B,C,W/C): 6 Gait: 6 Indoor Mobility (Ambulation): Independent Prior Devices Use: None PT Evaluation-Current Subjective Patient sitting on side of bed pre tx, working with OT, retropulsive with sitti ng, has no complaints of pain. Pt/Family Goals none stated Objective Patient Orientation: Person, Unable to Assess Patient's speech is difficult to understand ROM/Strength ROM Lower Extremities WNL Strength Lower Extremities LLE (hip flexion 4/5, knee flexion 5/5, knee extension 5/5, dorsiflexion 5/5), RLE (hip flexion 3/5, knee flexion 4/5, knee extension 4/5, dorsiflexion 5/5) Neuromuscular (Tone, Coordination, Reflexes) Patient appears to have intact peripheral vision but has trouble tracking in general. Sensory Sensation Right Lower Extremit: Intact Sensation Left Lower Extremity: Intact Transfers Roll Left to Right (QC): 3 Sit to Lying (QC): 3 Sit to Stand (QC): 3 Chair/Ssw-pe-Tzlau Xfer(QC): 3 Patient needs min assist for sit to supine and for bed mobility, mod assist for sit <-> stand and transfers. Patient is retropulsive in standing and leans to the right side, his right hand doesn't medical laboratory specialist a walker very well. Gait Does the Patient Walk?: Yes Mode of Locomotion: Walk Anticipated Mode of Locomotion: Walk Walk 10 feet (QC): 3 Distance: 10' Gait Assistive Device: FWW Comments/Gait Description Patient can ambulate forward and back 5' each way with mod assist, he shuffles and leans to the right as well as backward and has a lot of difficulty taking steps with either foot. Balance Sitting Static: Poor Sitting Dynamic: Poor Standing Static: Poor Standing Dynamic: Poor Assessment/Needs Patient in bed post tx with nurse call, family in the room, another healthcare worker is coming in for some testing. Patient has impaired mobility, strength, endurance, balance. He leans backward and to the right with standing and ambulation and needs mod assist for both of those. Rehab Potential: Guarded PT Intermediate Goals Food Scientist Goals PT Food Scientist Goals Time Frame: Jun 07, 2021 Roll Left & Right (QC): 4 Sit to Lying (QC): 4 Lying-Sitting on Side/Bed(QC): 4 Sit to Stand (QC): 3 (Elise) Chair/Aim-cx-Vxpsp Xfer(QC): 3 (Elise) Walk 10 feet (QC): 3 (Elise) Walk 50ft with 2 Turns (QC): 3 (Elise) PT Plan Problem List Problem List: Activity Tolerance, Functional Strength, Safety, Balance, Gait, Transfer, Bed Mobility, ROM Treatment/Plan Treatment Plan: Continue Plan of Care Treatment Plan: Bed Mobility, Education, Functional Activity Dustin, Functional Strength, Gait, Safety, Therapeutic Exercise, Transfers Treatment Duration: Jun 07, 2021 Frequency: 6 times per week Estimated Hrs Per Day: .25 hour per day Patient and/or Family Agrees t: Yes Safety Risks/Education Patient Education: Gait Training, Transfer Techniques, Correct Positioning, Safety Issues Teaching Recipient: Patient Teaching Methods: Demonstration, Discussion Response to Teaching: Reinforcement Needed Discharge Recommendations Plan Patient will perform bed mobility and transfer training, balance and endurance training, gait training, functional strengthening, and education, to improve functional mobility and independence at home. Therapy Discharge Recommendati: 24 Hour Supervision, Post Acute PT Time/GCodes Time In: 1041 Time Out: 1101 Total Billed Treatment Time: 20 Total Billed Treatment 1 visit LISSETH HalieBRENDA BENITEZ PT May 31, 2021 11:22
--- NOTE | 2021-05-31 11:51 | Occupational Therapy Eval ---
OT Evaluation-General/PLF Medical Diagnosis Admission Date May 30, 2021 at 22:26 Medical Diagnosis: CVA with right sided weakness Onset Date: May 30, 2021 Therapy Diagnosis Therapy Diagnosis: Decreased ADL status Height/Weight Height (Feet): 6 Height (Inches): 11.00 Weight (Pounds): 190 Weight (Ounces): 6.4 Precautions Precautions/Isolations: Fall Prevention, Standard Precautions Referral Physician: Deandre Referral Reason: Activity Tolerance, Self Care, Evaluation/Treatment, Strengthening/ROM Medical History Additional Medical History R hip PRIETO (use of wedge in R shoe when up), HTN, GERD, TIA (per daughter) Current History admits 05/30 after 4 days of crawling on floor due to R side weakness (estimated CVA on 05/27) Reviewed History: Yes Social History Home: Single Level Current Living Status: Alone Entry Into Home: Ramp Steps Into Home: 0 Daughter checks in every 2-3 days; completes IADLs outside the home including driving pt, states may have to quit her cell feed department supervisor job to assist with father. ADL-Prior Level of Function SCALE: Activities may be completed with or without assistive devices. 7-Uhzxldxqor-emztgdu completes the activity by him/herself with no assistance from a helper. 5-Set-up or Clean-up Assistance-helper sets up or cleans up; patient completes activity. [place] assists only prior to or following the activity. 4-Supervision or Touching Assistance-helper provides verbal cues and/or touching/steadying and/or contact guard assistance as patient completes activity. Assistance may be provided throughout the activity or intermittently. 3-Partial/Moderate Assistance-helper does LESS THAN HALF the effort. [place] li fts, holds or supports trunk or limbs, but provides less than half the effort. 2-Substantial/Maximal Assistance-helper does MORE THAN HALF the effort. [place] lifts or holds trunk or limbs and provides more than half the effort. 5-Vmvtwkhiw-rzfbap does ALL the effort. Patient does none of the effort to complete the activity. Or, the assistance of 2 or more helpers is required for the patient to complete the activity. If activity was not attempted, code reason: 7-Patient Refused. 9-Not Applicable-not attempted and the patient did not perform the activity before the current illness, exacerbation or injury. 10-Not Attempted due to Environmental Limitations-(lack of equipment, weather restraints, etc.). 88-Not Attempted due to Medical Conditions or Safety Concerns. ADL PLOF Comments Pt was IND without use of AD. Self Care: Independent Functional Cognition: Independent DME/Equipment: Bath Chair, Grab Bars, Shower DME/Equipment Comments owns walker Occupation: retired [employer] [address] Self: No OT Current Status Subjective Pt alert in bed. Pt has difficulty expressing self- dysarthria. Pt's daughter present through session; pt's son and daughter in law come in mid-session. Pt denies pain, expresses his sensation is "normal," then states L hand is "bumb," then later is able to state everything feels normal; still unclear due to pt's cognitive status and decreased attn to task to understand pt's true sensation. Mental Status/Objective Attachments: Puente Catheter, Telemetry Current Glasses/Contacts: No Hearing Aids: No Dentures/Partials: No Hand Dominance: Right Upper Extremity ROM WFL BUE (decreased R hand flexion/ extension AROM, full PROM) Upper Extremity Coordination Decreased R, WFL L Upper Extremity Sensation unsure, see subjective Upper Extremity Strength WFL proximally; R decreased finger flexors/ extensors. Edema: none noted. ADL-Treatment Eating (QC): 4 (will require SUP. Pt able to reach for water with L hand/ bring to mouth and drink, however, with food/ utensils may demo decreased safety) Oral Hygiene (QC): 4 (SBA, cues per clinical judgment.) Upper Body Dressing (QC): 3 (min A per clinical judgment; slight retropulsion EOB and decreased attn to task) Lower Body Dressing (QC): 2 (likely max A per clinical judgment.) On/Off Footwear (QC): 2 (max A at this time. ) Other Treatments Pt's ROM/ MMT assessed in bed. Expresses RUE "normal sensation," but "not strength." Pt/ daughter educated on sponge squeezes with red therapy sponge. Pt completes sit EOB, requires min A. EOB, pt demo's good balance. Completes WB/ shifting task with good ability. Demo's fair visual scanning. PT comes in to address LE movement, during this, pt retropulsive and leaning back, requires max A to right. Pt then sit to stand Ax2 (mod A) to reach walker, does not hold on to walker with R hand. Pt takes steps, difficulty with walker and sequencing. Pt completes INSPECTOR TYPE ambulation with OT/ PT/ son, completes with increased abilities, reaches EOB. Pt's son/ daughter in law address home environment with OT. all needs met, pt is left with PT end of session. Education OT Patient Education: Correct positioning, Exercise program, Home exercise program, Instructions to caregiver, Purpose of tx/functional activities, Safety issues, Transfer techniques Teaching Recipient: Patient Teaching Methods: Demonstration, Discussion Response to Teaching: Verbalize Understanding, Unable to Return Demonstration, Return Demonstration, Unable to Comprehend, Reinforcement Needed OT Arabic Teacher Goals Arabic Teacher Goals Time Frame: Jun 14, 2021 Eating (QC): 5 Oral Hygiene (QC): 5 Toileting Hygiene (QC): 3 Shower/Bathe Self (QC): 3 Upper Body Dressing (QC): 5 Lower Body Dressing (QC): 3 On/Off Footwear (QC): 2 Additional Goals: 1-Demonstrate ADL Tasks, 2-Verbalize Understanding, 3- ImproveStrength/Dustin 1=Demonstrate adherence to instructed precautions during ADL tasks. 2=Patient will verbalize/demonstrate understanding of assistive devices/modifications for ADL. 3=Patient will improve strength/tolerance for activity to enable patient to perform ADL's. OT Education/Plan Problem List/Assessment Assessment: Decreased Activ Tolerance, Decreased Safety Aware, Decreased UE Strength, Dependent Transfers, Impaired Bed Mobility, Impaired Cognition, Impaired Coordination, Impaired Funct Balance, Impaired I ADL's, Impaired Self- Care Skills, Restricted Funct UE ROM, Visual-Perceptual Deficit Discharge Recommendations Plan/Recommendations: Continue POC Therapy Discharge Recommendati: 24 Hour Supervision, Post Acute OT Equpiment Recommendations-D/C: Rails on Tub/Shower Treatment Plan/Plan of Care Treatment,Training & Education: Yes Patient would benefit from OT for education, treatment and training to promote independence in ADL's, mobility, safety and/or upper extremity function for ADL's. Plan of Care: ADL Retraining, Caregiver Training, Cognitive Retraining, Functional Mobility, Orthotic Fitting/Training, UE Funct Exercise/Act, UE Neuromus Re-Ed/Coord, Visual/Perceptual Retrain, W/C Management Training Treatment Duration: Jun 14, 2021 Frequency: 5 times per week Estimated Hrs Per Day: .25 hour per day Agreement: Yes Rehab Potential: Guarded Time/GCodes Start Time: 10:09 Stop Time: 11:02 Total Time Billed (hr/min): 53 Billed Treatment Time 1, EVM, ADL, EX 2 (53) ARACELI ZACARIAS OTR May 31, 2021 11:51
[2021-05-31 12:00] VITALS: BP 137/78
[2021-05-31] MEDS ORDERED: OMEP40CA6 PO (14:00)
[2021-05-31] MEDS ORDERED: MELO15TA39 PO (14:00)
[2021-05-31 16:00] VITALS: BP 116/78
[2021-05-31 17:47] LABS: BILIRUBIN,URINE 2+ (NEGATIVE); CLARITY,URINE CLEAR; COLOR,URINE YELLOW; GLUCOSE, URINE (UA) NEGATIVE (NEGATIVE); KETONES,URINE 1+ (NEGATIVE); LEUKOCYTE ESTERASE ,URINE TRACE (NEGATIVE); NITRITE,URINE NEGATIVE (NEGATIVE); PH,URINE 6.5 (5-9); PROTEIN,URINE 2+ (NEGATIVE)
[2021-05-31] MEDS ORDERED: ASPIRIN 81 MG CHEW (CHILDREN'S ASA) PO NR (18:00)
[2021-05-31] MEDS ORDERED: ACETAMINOPHEN 325 MG TABLET PO PRN (18:00)
--- NOTE | 2021-05-31 18:14 | History & Physical ---
History of Present Illness History of Present Illness Reason for visit/HPI This is a 80 year old male who was brought to the emergency room after he was found by his family at home unable to stand. Apparently, he had been unable to walk for 4 days and had been crawling to get around his house. They noted he had right sided facial droop and garbled speech. His CTA of the brain and neck showed no blockage and no acute ischemia. He has severe vertigo and was unable to walk on his own. It was decided to admit him and pursue MRI of the brain and start PT/OT and ST and look into rehab. Date of Admission May 30, 2021 at 22:26 Date Seen by a Provider: May 31, 2021 Time Seen by a Provider: 12:30 I consulted on this patient on 05/31/21 17:54 Attending Physician Nydia Diez DO Admitting Physician Nydia Diez DO Consult Allergies and Home Medications Allergies Coded Allergies: No Known Drug Allergies (Unverified , 06/20/11) Home Medications Meloxicam 15 Mg Tablet, 15 MG PO HS, (Reported) Last Action: Reviewed Omeprazole 40 Mg Capsule.dr, 40 MG PO DAILY PRN for HEARTBURN, (Reported) Last Action: Reviewed Patient Home Medication List Home Medication List Reviewed: Yes Past Xsabtmf-Zjotfj-Facswl Hx Past Med/Social Hx: Reviewed Nursing Past Med/Soc Hx Patient Social History Marrital Status: Smoking Status: Former Smoker Former Smoker, Quit: Aug 23, 2009 Type Used: Cigarettes Recent Foreign Travel: No Contact w/other who traveled: No Recent Hopitalizations: No Seasonal Allergies Seasonal Allergies: No Past Medical History Surgeries: Abdominal (Hernia), Adenoidectomy, Orthopedic (Right hip ORIF, carpal tunnel), Tonsillectomy Currently Using CPAP: No Currently Using BIPAP: No Reproductive: No Sexually Transmitted Disease: No HIV/AIDS: No Musculoskeletal: Fractures (Hip) History of Blood Disorders: No Adverse Reaction to Blood [place]: No Review of Systems Constitutional: weakness EENTM: No see HPI, No no symptoms reported, No ear discharge, No hearing loss, No ear pain, No blurred vision, No double vision, No eye pain, No tearing, No vision loss, No dental problems, No hoarseness, No mouth pain, No mouth swelling, No epistaxis, No nose congestion, No nose pain, No throat pain, No throat swelling, No other Respiratory: No no symptoms reported, No see HPI, No cough, No dyspnea on exertion, No hemoptysis, No orthopnea, No phlegm, No short of breath, No stridor, No wheezing, No other Gastrointestinal: No RUQ, No LUQ, No RLQ, No LLQ, No no symptoms reported, No see HPI, No abdominal pain, No constipation, No diarrhea, No dysphagia, No hematemesis, No heartburn, No jaundice, No loss of appetite, No melena, No nausea, No vomiting, No other Musculoskeletal: muscle weakness Psychiatric/Neurological: Weakness, Other (vertigo) Physical Exam Vital Signs Vital Signs - First Documented 05/30/21 18:10 Temp 36.4 Pulse 84 Resp 20 B/P (MAP) 163/85 (111) Pulse Ox 91 O2 Delivery Room Air Capillary Refill : Less Than 3 Seconds Height, Weight, BMI Height: 6'11.00" Weight: 190lbs. 6.4oz. 86.494776ug; 26.17 BMI Method:Estimated General Appearance: Mild Distress HEENT: Other (right facial droop) Neck: Supple Respiratory: Lungs Clear Cardiovascular: Regular Rate, Rhythm, Gallop/S4 Gastrointestinal: Normal Bowel Sounds, Non Tender, Soft Rectal: Deferred Back: No CVA Tenderness Extremity: Non Tender, No Calf Tenderness, No Pedal Edema Neurologic/Psychiatric: Alert, Oriented x3, Abnormal Gait, Facial Droop, Other (dysarthria) Skin: Warm/Dry Comments Laboratory Tests 05/30/21 18:21: Glucometer 95 05/30/21 18:30: White Blood Count 9.8, Red Blood Count 4.88, Hemoglobin 15.4, Hematocrit 45, Mean Corpuscular Volume 93, Mean Corpuscular Hemoglobin 32, Mean Corpuscular Hemoglobin Concent 34, Red Cell Distribution Width 12.8, Platelet Count 250, Mean Platelet Volume 10.6, Immature Granulocyte % (Auto) 0, Neutrophils (%) (Auto) 73, Lymphocytes (%) (Auto) 16, Monocytes (%) (Auto) 11, Eosinophils (%) (Auto) 0, Basophils (%) (Auto) 1, Neutrophils # (Auto) 7.1, Lymphocytes # (Auto) 1.6, Monocytes # (Auto) 1.0, Eosinophils # (Auto) 0.0, Basophils # (Auto) 0.1, Immature Granulocyte # (Auto) 0.0, Prothrombin Time 15.6H, INR Comment 1.2, Activated Partial Thromboplast Time 30, D-Dimer 0.69H, Sodium Level 142, Potas sium Level 3.7, Chloride Level 106, Carbon Dioxide Level 21, Anion Gap 15H, Blood Urea Nitrogen 13, Creatinine 0.76, Estimat Glomerular Filtration Rate > 60, BUN/Creatinine Ratio 17, Glucose Level 87, Calcium Level 9.3, Corrected Calcium 9.2, Total Bilirubin 1.2H, Aspartate Amino Transf (AST/SGOT) 61H, Alanine Aminotransferase (ALT/SGPT) 28, Alkaline Phosphatase 112, Troponin I < 0.028, Total Protein 7.2, Albumin 4.1, Serum Alcohol < 10 05/30/21 18:37: Influenza Type A (RT-PCR) Not Detected, Influenza Type B (RT-PCR) Not Detected, SARS-CoV-2 RNA (RT-PCR) Not Detected 05/30/21 20:00: Urine Color YELLOW, Urine Clarity CLEAR, Urine pH 6.5, Urine Specific [place] 1.025H, Urine Protein TRACEH, Urine Glucose (UA) NEGATIVE, Urine Ketones 3+H, Urine Nitrite NEGATIVE, Urine Bilirubin NEGATIVE, Urine Urobilinogen 4.0, Urine Leukocyte Esterase NEGATIVE, Urine RBC (Auto) NEGATIVE, Urine RBC NONE, Urine WBC 0-2, Urine Crystals PRESENTH, Urine Amorphous Sediment RARE ALON URATESH, Urine Bacteria TRACE, Urine Casts NONE, Urine Mucus SMALLH, Urine Culture Indicated NO 05/31/21 00:00: Urine Color [Pending], Urine Clarity [Pending], Urine pH [Pending], Urine Specific [place] [Pending], Urine Protein [Pending], Urine Glucose (UA) [Pending], Urine Ketones [Pending], Urine Nitrite [Pending], Urine Bilirubin [Pending], Urine Urobilinogen [Pending], Urine Leukocyte Esterase [Pending], Urine RBC (Auto) [Pending], Urine RBC [Pending], Urine WBC [Pending], Urine Crystals [Pending], Urine Bacteria [Pending], Urine Casts [Pending], Urine Mucus [Pending], Urine Culture Indicated [Pending] 05/31/21 04:28: Triglycerides Level 60, Cholesterol Level 149, LDL Cholesterol Direct 105, VLDL Cholesterol 12, HDL Cholesterol 47 Assessment/Plan Assessment and Plan 1. Acute CVA with Right Facial Droop, Vertigo and Dysarthria--admit and start aspirin 81mg daily and lipitor, start PT/OT/ST, Check MRI of Brain, will look into inpatient rehab 2. GERD--start famotodine Admission Diagnosis Admission Status: Inpatient Order (span 2 midnights) Reason for Inpatient Admission: Will need therapies and monitoring/treatment until rehab bed or SNF available NYDIA DIEZ DO May 31, 2021 18:14
[2021-05-31 18:33] LABS: RBC,URINE 25-50 /HPF
[2021-05-31 18:34] LABS: BACTERIA,URINE TRACE /HPF
[2021-05-31] MEDS: FAMOTIDINE 20 MG (PEPCID) TABLET PO SCH (19:40)
[2021-05-31 19:58] VITALS: BP 104/83
[2021-06-01] VITALS: BP 133/62
[2021-06-01 03:21] VITALS: BP 127/68
[2021-06-01 08:00] VITALS: BP 149/83
[2021-06-01] MEDS ORDERED: ASPIRIN 81 MG CHEW (CHILDREN'S ASA) PO SCH (09:00)
--- NOTE | 2021-06-01 09:09 | Speech Therapy Daily Note ---
Speech Daily Progress Note Subjective Date Seen by Provider: Jun 01, 2021 Time Seen by Provider: 00:15 Patient was resting in his bed following his breakfast which was still in front of him. The patient was more alert and demonstrated increased intelligibility today. Patient was focused on exercising his right hand with the sponge provided by OT. Objective Patient completed a series of speech exercises with 75% accuracy given 10% verbal and/or visual cuing. Assessment Assessment Current Status: Good Progress Treatment Plan Continue Plan of Care Speech Short Term Goals Short Term Goals Short Term Goals 1) Patient will complete OME for improving speech intelligibility at 75% or greater. 2) Patient will complete speech tasks for communicating wants/needs at 75% or greater. Speech Skilled Nursing Goals Sales Contracts Analyst Goals Patient will improve communication/speech skills in order to effectively communicate. Speech-Plan Patient/Family Goals Patient/Family Goals: Patient plans on returning to his home upon discharge. Treatment Plan Speech Therapy Treatment Plan: Continue Plan of Care Treatment Duration: Jun 08, 2021 Frequency: 4 times per week (Patient will receive skilled ST 4-5x per week) Estimated Hrs Per Day: .25 hour per day Rehab Potential: Guarded Barriers to Learning: Patient's recent CVA, age Pt/Family Agrees to Plan: Yes Safety Risks/Education Teaching Recipient: Patient Teaching Methods: Demonstration, Discussion Response to Teaching: Verbalize Understanding, Return Demonstration Education Topics Provided: Continued safety and communication Time Speech Therapy Time In: 08:30 Speech Therapy Time Out: 08:45 Total Billed Time: 15 Billed Treatment Time 1, YUAN Cortez Jun 01, 2021 09:09
--- NOTE | 2021-06-01 09:15 | Diagnostic Imaging Report ---
PROCEDURE: MR imaging of the brain without contrast. TECHNIQUE: Multiplanar, multisequence MR imaging of the brain was performed without contrast. INDICATION: Right weakness, dysarthria, generalized weakness. History of previous strokes. FINDINGS: There is prominence of ventricles and sulci. There is moderately severe chronic microvascular ischemic disease. There are multifocal small areas of diffusion restriction within the subcortical white matter bilaterally left greater than right compatible with embolic CVA. There is no hydrocephalus. No midline shift. No mass, hemorrhage or extra-axial fluid collection. Sinuses and mastoid air cells are clear. Globes and intraorbital structures are unremarkable. IMPRESSION: Multifocal small areas of diffusion restriction in the subcortical white matter bilaterally left greater than right, suspect for embolic CVA. Atrophy and moderately severe chronic microvascular ischemic disease. Dictated by: Dictated on workstation # [id number]
[2021-06-01] MEDS: FAMOTIDINE 20 MG (PEPCID) TABLET PO SCH (10:11)
[2021-06-01] MEDS ORDERED: ATOR20TA66 PO (10:31)
[2021-06-01] MEDS ORDERED: ASPI81TA64 PO (10:31)
[2021-06-01] MEDS ORDERED: ACET325T49 PO (10:31)
[2021-06-01] MEDS ORDERED: FAMO20TA5 PO (10:31)
--- NOTE | 2021-06-01 10:40 | Discharge Summary ---
Discharge Summary Hospital Course Was the Problem List Reviewed?: Yes Hospital Course Date of Admission: May 30, 2021 at 22:26 Admission Diagnosis : Family Physician/Provider: Nydia Carrera DO Date of Discharge: 06/01/21 Discharge Diagnosis: 1. 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 GERD--on famotodine Hospital Course: This is a 80 year old male brought to the emergency room after a 4 day history of not being able to walk. He was found by his family and noted to have right facial droop and garbled speech. His stroke workup including CTA of head and neck were negative. He was admitted to cardiac stepdown and started on aspirin, lipitor and therapies including ST/OT and PT. He underwent an MRI which showed bilateral emboli. An echo had been done and cardiology was consulted. He will likely need eliquis. He does qualify for inpatient rehab and there is a bed available so he will be transferred to the IRF. The family is working on power of fruit loader and at this point would like to take him home under the care of his daughter but they do realize this may not be possible. Labs and Pending Lab Test: Home Meds Active Children's Aspirin (Aspirin) 81 Mg Tab.chew 81 Mg PO DAILY Famotidine 20 Mg Tablet 20 Mg PO BID Acetaminophen 325 Mg Tablet 650 Mg PO Q4H PRN Atorvastatin Calcium 20 Mg Tablet 20 Mg PO HS 30 Days Reported Omeprazole 40 Mg Capsule.dr 40 Mg PO DAILY PRN Meloxicam 15 Mg Tablet 15 Mg PO HS Assessment/Pt Instructions 1. 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 GERD--on famotodine Discharge Instructions Discharge Diet: Cardiac Diet Activity as Tolerated: Yes Discharge Physical Examination Vital Signs Vital Signs Date Time Temp Pulse Resp B/P (MAP) Pulse Ox O2 Delivery O2 Flow Rate FiO2 06/01/21 07:00 67 06/01/21 03:21 36.4 16 127/68 (87) 91 Room Air General Appearance: No Apparent Distress Respiratory: Lungs Clear Cardiovascular: Regular Rate, Rhythm Gastrointestinal: Normal Bowel Sounds, Non Tender, Soft Extremity: Non Tender, No Calf Tenderness, No Pedal Edema Skin: Warm/Dry Neurologic/Psychiatric: Alert, Facial Droop, Motor Weakness (right arm), Other (dysarthria) Allergies: Coded Allergies: No Known Drug Allergies (Unverified , 06/20/11) Discharge Summary Date of Admission May 30, 2021 at 22:26 Date of Discharge Discharge Date: Jun 01, 2021 NYDIA CARRERA DO Jun 01, 2021 10:40
== END 2021-06-01 10:58 | DRG 65 ==
LOC: EDUNIT# 18:10 → ER 18:12 → CSD 22:26
PROVIDERS: ADMIT Family Medicine; ATTEND Family Medicine
DX: I63.9 Cerebral infarction, unspecified (principal); G81.91 Hemiplegia, unspecified affecting right dominant side; R47.1 Dysarthria and anarthria; K21.9 Gastro-esophageal reflux disease without esophagitis; Z20.822 Contact with and (suspected) exposure to COVID-19; R29.810 Facial weakness; R42 Dizziness and giddiness; R29.704 NIHSS score 4; R39.11 Hesitancy of micturition; Z87.891 Personal history of nicotine dependence
CPT/HCPCS: 36415; 51702; 70450; 70496; 70498; 70551; 71045; 72125; 80053; 80061; 80320; 81000; 82947; 84484; 85025; 85379; 85610; 85730; 87636; 93005; 93041; 93306

== ENCOUNTER 2021-06-01 10:22 | Inpatient (IN) | payer MEDICARE, OTHER ==
[~2021-06-01] VITALS: Ht 182 cm; Wt 88.7 kg
[~2021-06-01 10:22] MED LIST changes: +MELO15TA39 PO; +OMEP40CA6 PO
[2021-06-01] MEDS ORDERED: ATOR20TA66 PO (10:31)
[2021-06-01] MEDS ORDERED: ASPI81TA64 PO (10:31)
[2021-06-01] MEDS ORDERED: ACET325T49 PO (10:31)
[2021-06-01] MEDS ORDERED: FAMO20TA5 PO (10:31)
[2021-06-01] MEDS ORDERED: diphenhydrAMINE 25 MG TAB (BENADRYL) PO PRN (10:45)
[2021-06-01] MEDS ORDERED: BISACODYL 10 MG SUPP (DULCOLAX) PR PRN (10:45)
[2021-06-01] MEDS ORDERED: LACTULOSE SYRUP 10GM/15ML (ENULOSE) 30ML UDC PO PRN (10:45)
[2021-06-01] MEDS ORDERED: HYDROcodone/APAP 5 MG/325 MG (LORTAB) TAB PO PRN (10:45)
[2021-06-01] MEDS ORDERED: ACETAMINOPHEN 325 MG TABLET PO PRN ×2 (10:45→13:00)
[2021-06-01] MEDS ORDERED: FLEET ENEMA ADULT 1 EA BTL PR PRN (10:45)
[2021-06-01] MEDS ORDERED: guaiFENesin/CODEINE (ROBITUSSIN AC) 10ML UDC PO PRN (10:45)
[2021-06-01] MEDS ORDERED: ONDANSETRON 4 MG (ZOFRAN) ORAL DISSOLVE TAB PO PRN (10:45)
[2021-06-01] MEDS ORDERED: LOPERAMIDE 2 MG (IMODIUM) TABLET PO PRN (10:45)
[2021-06-01] MEDS ORDERED: DOCUSATE SODIUM 100 MG (COLACE) CAP PO PRN (10:45)
[2021-06-01] MEDS ORDERED: CALCIUM CARBONATE 500 MG (TUMS) TAB.CHEW PO PRN (10:45)
--- NOTE | 2021-06-01 11:36 | Physical Therapy Evaluation ---
PT Evaluation-General Medical Diagnosis Admission Date 06/01/2021 Medical Diagnosis: CVA with right sided weakness Onset Date: Jun 01, 2021 Therapy Diagnosis Therapy Diagnosis: weakness; abn gait Height/Weight Height (Feet): 6 Height (Inches): 11.00 Weight (Pounds): 190 Weight (Ounces): 6.4 Precautions Precautions/Isolations: Standard Precautions Referral Physician: Sushant Reason for Referral: Evaluation/Treatment Medical History Additional Medical History R hip fx in the past; GERD Current History Post acute hospital stay due to right sided weakness and found to have a CVA. Family had found pt at home with inability to stand and reports that he had been crawling in his home for the past 4 days. Admitted to ARU for medical managment and skilled therapy services. Reviewed History: Yes Social History Home: Single Level Current Living Status: Alone Entry Into Home: Stairs With Railing Pt lives alone with good family support; unsure if he has steps or handrail, pt poor historian. Prior Prior Level of Function SCALE: Activities may be completed with or without assistive devices. 5-Rmcawijmje-wdfizyr completes the activity by him/herself with no assistance from a helper. 5-Set-up or Clean-up Assistance-helper sets up or cleans up; patient completes activity. [place] assists only prior to or following the activity. 4-Supervision or Touching Assistance-helper provides verbal cues and/or to uching/steadying and/or contact guard assistance as patient completes activity. Assistance may be provided throughout the activity or intermittently. 3-Partial/Moderate Assistance-helper does LESS THAN HALF the effort. [place] lifts, holds or supports trunk or limbs, but provides less than half the effort. 2-Substantial/Maximal Assistance-helper does MORE THAN HALF the effort. [place] lifts or holds trunk or limbs and provides more than half the effort. 5-Jfeyowvwk-zugfrx does ALL the effort. Patient does none of the effort to complete the activity. Or, the assistance of 2 or more helpers is required for the patient to complete the activity. If activity was not attempted, code reason: 7-Patient Refused. 9-Not Applicable-not attempted and the patient did not perform the activity before the current illness, exacerbation or injury. 10-Not Attempted due to Environmental Limitations-(lack of equipment, weather restraints, etc.). 88-Not Attempted due to Medical Conditions or Safety Concerns. Bed Mobility: 6 Transfers (B,C,W/C): 6 Gait: 6 Stairs: 6 Indoor Mobility (Ambulation): Independent Stairs: Needed Some Help Prior Device Use: Unsure if pt has a walker or not PT Evaluation-Current Subjective Pt agrees to PT. Pt gives many details of lengths of his tub, and rooms in his home, unsure of the accuracy of the details he provides. No complaints of pain. Reports his daughter assists as needed. Objective Patient Orientation: Person, Confused, Situation ROM/Strength ROM Lower Extremities Left LE AROM WNL; right LE AAROM WNL Strength Lower Extremities L LE strength is WFL; right LE strength is grossly 3/5 Integumentary/Posture Integumentary Refer to nursing notes for full assessment. Bowel Incontinence: No Bladder Incontinence: [place] Posture rounded shoulders, forward head; lacks full extension in standing. Neuromuscular (Tone, Coordination, Reflexes) intact and functional. Sensory Vision: Functional Hearing: Impaired Hand Dominance: Right Sensation Right Lower Extremit: Intact Sensation Left Lower Extremity: Intact Transfers Roll Left & Right (QC): 3 Sit to Lying (QC): 2 (assist with trunk and both legs) Lying to Sitting/Side of Bed(Q: 2 (heavy assist to lift his trunk) Sit to Stand (QC): 3 (mod assist with assist to hold righthand and cues for safety.) Chair/Mra-rh-Ksofc Xfer(QC): 3 Toilet Transfer (QC): 3 Car Transfer (QC): 3 Heavy cues during all bed mobility and transfers for sequencing, task initiation and staying on task to complete skill. Pt takes extra time to complete and needs cues to initiate. Easily distracted . Gait Does the Patient Walk?: Yes Mode of Locomotion: Walk Walk 10 feet (QC): 3 (assist to keep right hand on walker; cues for posture and step length) Walk 50 ft with 2 Turns(QC): 3 Walk 150 ft (QC): 88 (unable to walk this distance. ) Walking 10ft/uneven surface-QC: 88 (poor foot clearance and unsafe) Gait Assistive Device: FWW Comments/Gait Description Pt walks with slow gait, decreased step length B, decreased foot clearance B and narrow JEFF. Unsteady with gait, requires min assist for balance and assist to keep right hand on walker. Constant cue to stay on task. Wheelchair Training Does the Pt Use a Wheelchair?: No Wheel 50 ft with 2 turns (QC): 9 Wheel 150 ft (QC): 9 Stairs 1 Step (curb) (QC): 88 4 Steps (QC): 88 12 Steps (QC): 88 Decreased safety awareness; impaired balance; impaired ability to safely use right LE for stairs. Unsafe to attempt stairs or curb this date. Balance Sitting Static: Fair Sitting Dynamic: Fair Standing Static: Poor Standing Dynamic: Poor Picking up an Object (QC): 88 Treatment Co treat with OT partial treatment as the skill of 2 clinicians indicated due to the need for heavy verbal cues for safety and task completion; need for heavy assist to complete tasks. OT addressed UE use and placment as PT addressed gross motor tasks associated with transfers and gait as pt initiated and performed ADL care with OT. Pt completed undressing and bathing. Slow with task completion; heavy cues required. Assessment/Needs Post CVA with right sided weakness. Impaired bed mobility, transfers and gait, requiring assist for all with verbal and tactile cues implemented. Pt is easily distracted and is off topic easily. He requires cues and assist to initiate and complete tasks and is unable to safely mobilize without assist. He will benefit from skilled PT to address these deficits to allow him to return home as before. His PLOF was indep to mod indep with all mobility. Rehab Potential: Guarded PT Short Term Goals Short Term Goals Time Frame: Jun 13, 2021 Roll Left & Right: 4 Sit to lyin Lying to sitting on side of be: 4 Sit to stand: 4 Chair/eeh-rs-zuupz transfer: 4 Toilet transfer: 4 Walk 10 feet: 4 Walk 50 feet with two turns: 4 Walk 150 feet: 4 PT Penitentiary Goals Bioprocess Development Engineer Goals PT Penitentiary Goals Time Frame: Jun 29, 2021 Roll Left & Right (QC): 6 Sit to Lying (QC): 6 Lying-Sitting on Side/Bed(QC): 6 Sit to Stand (QC): 6 Chair/Dnv-jl-Pzcld Xfer(QC): 6 Toilet Transfer (QC): 6 Car Transfer (QC): 6 Does the Patient Walk: Yes Walk 10 feet (QC): 6 Walk 50ft with 2 Turns (QC): 6 Walk 150 ft (QC): 6 Walking 10ft on Uneven Surface: 4 1 Step (curb) (QC): 6 4 Steps (QC): 6 12 Steps (QC): 4 Picking up an Object (QC): 4 Wheel 50 feet with 2 turns (QC: 9 Wheel 150 feet: 9 PT Plan Problem List Problem List: Activity Tolerance, Functional Strength, Safety, Balance, Gait, Transfer, Bed Mobility Treatment/Plan Treatment Plan: Continue Plan of Care Treatment Plan: Bed Mobility, Education, Functional Activity Dustin, Functional Strength, Group Therapy, Gait, Safety, Therapeutic Exercise, Transfers Treatment Duration: Jun 29, 2021 Frequency: At least 5 of 7 days/Wk (IRF) Estimated Hrs Per Day: 1.5 hours per day Patient and/or Family Agrees t: Yes Safety Risks/Education Patient Education: Transfer Techniques, Safety Issues Teaching Recipient: Patient Teaching Methods: Demonstration, Discussion Response to Teaching: Reinforcement Needed Discharge Recommendations Therapy Discharge Recommendati: Post Acute PT Time/GCodes Time In: 1050 Time Out: 1100 ([id number] (co treat with OT)) Total Billed Treatment Time: 40 Total Billed Treatment visit EVM 10 FA 30 (co treat) JAY SERRA PT Jun 01, 2021 11:36
--- NOTE | 2021-06-01 11:39 | PM&R Post Admission Assessment ---
PM&R Date of Visit: Jun 01, 2021 Time of Visit: 11:35 History of Present Illness Pt is a 80yoCM with a PMH of GERD who is being admitted to IRU due to acute CVA. He was found by his family unable to walk which is a large departure from his baseline functional status. MRI revealed findings for embolic CVA. He still has generalized weakness throughout. He reports feeling better than he did on arrival to the hospital but is still quite weak. I saw him due OT treatment for shower and he was in the chair. He had somewhat slurred speech though I am unsure if this is his baseline. Past Ufihiol-Xnqfvc-Gwoefv Hx Past Med/Social Hx: Reviewed Nursing Past Med/Soc Hx Patient Social History Employed/Student: retired Smoking Status: Former Smoker Former Smoker, Quit: Aug 23, 2009 Type Used: Cigarettes Recent Hopitalizations: No Seasonal Allergies Seasonal Allergies: No Past Medical History Surgeries: Abdominal, Adenoidectomy, Orthopedic, Tonsillectomy Currently Using CPAP: No Currently Using BIPAP: No Reproductive: No Sexually Transmitted Disease: No HIV/AIDS: No Musculoskeletal: Fractures History of Blood Disorders: No Adverse Reaction to Blood [place]: No Family History Reviewed Nursing Family Hx No Pertinent Family Hx Occupation: retired [employer] PM&R Allergy/Meds/Data Review Allergies Coded Allergies: No Known Drug Allergies (Unverified , 06/20/11) Home Medications Scheduled Aspirin (Children's Aspirin), 81 MG PO DAILY Atorvastatin Calcium (Atorvastatin Calcium), 20 MG PO HS Famotidine (Famotidine), 20 MG PO BID Scheduled PRN Acetaminophen (Acetaminophen), 650 MG PO Q4H PRN for PAIN-MILD (1-4) Discontinued Medications Amoxicillin/Potassium Clav (Augmentin 500-125 Tablet), 1 EACH PO BID Discontinued Reason: No Longer Taking Fexofenadine Hcl (Corinne Allergy), 180 MG PO DAILY, (Reported) Discontinued Reason: No Longer Taking Hydrocodone/Acetaminophen (Hydrocodone/Acetaminophen 5 MG/325 MG TAB), 1 EACH PO Q6H PRN for PAIN-MODERATE TO SEVERE Discontinued Reason: No Longer Taking Meloxicam (Meloxicam), 15 MG PO HS, (Reported) Naproxen (Naproxen), 500 MG PO HS, (Reported) Discontinued Reason: No Longer Taking Omeprazole (Omeprazole), 40 MG PO DAILY, (Reported) Discontinued Reason: No Longer Taking Omeprazole (Omeprazole), 40 MG PO DAILY PRN for HEARTBURN, (Reported) Ondansetron (Zofran Odt), 8 MG PO Q6H PRN for NAUSEA/VOMITING-1ST LINE Discontinued Reason: No Longer Taking Physical Exam Physical Exam Vital Signs Capillary Refill : Height, Weight, BMI Height: 6'11.00" Weight: 190lbs. 6.4oz. [id number]; 26.17 BMI Method:Estimated PM&R Medical Assessment & Plan REHAB/MEDICAL ASSESSMENT AND PLAN: REHAB IMPAIRMENT GROUP: [ ] ETIOLOGIC DIAGNOSIS: [ (condition that led to rehab admission) ] The comorbidities that impact the patients function and/or functional outcome by: [ ] REHAB PLAN: The patient is being admitted to our comprehensive inpatient rehabilitation facility and can tolerate the intensity of service consisting of at least: 180 minutes of therapy a day, 5 out of 7 days a week Rehab treatment will consist of: [ (write brief focus that includes physician, rehab nursing and therapies/modalitiesIPOC will have more specifics) ] The patient/family has a good understanding of our discharge process and will benefit from an interdisciplinary inpatient rehabilitation program. The patient has potential to make improvement and is in need of at least two of the following multidisciplinary therapies including but not limited to physical, occupational, speech, and prosthetics and orthotics. Additionally the patient will need services from respiratory, nutritional services, wound care, psychology, etc. (Customize this to each patient). Given the patients complex condition and risk of further medical complications, rehabilitation services cannot be safely or effectively provided at a lower level of care such as a fci facility. BARRIERS TO DISCHARGE: [ ] ESTIMATED LOS: [ ] DISPOSITION: [ ] RELEVANT CHANGES SINCE PREADMISSION SCREENING: I have compared the patients medical and functional status at the time of the preadmission screening and there are: [no changes] [changes as follows: (if there is a discrepancy between the IGC/Etiologic stated on the PAS, address/clarify this as well) ] PROGNOSIS: [ ] REHABILITATION GOALS: 1. [ (specific to the patient) ] All the above goals were reviewed with the patient and he/she is in agreement. By signing this document, I acknowledge that I have personally performed a full physical examination on this patient within 24 hours of admission to this inpatient rehabilitation facility and have determined the patient to be able to tolerate the above course of treatment at an intensive level for a reasonable period of time. I will be completing a detailed individualized Plan of Care for this patient by day #4 of the patients stay based upon the Preadmission Screen, the Post-Admission Evaluation, and the therapy evaluations. ARPAN HAMMOND MD Jun 01, 2021 11:39
--- NOTE | 2021-06-01 12:22 | ST Cognitive Linguistic Eval ---
Speech Evaluation-General Medical Diagnosis CVA with right sided weakness Onset Date: Jun 01, 2021 Therapy Diagnosis Therapy Diagnosis: Cognitive-communication, Dysarthria Referral Referring Physician: Dr. Canchola Medical History Reviewed History: Yes Social History Current Living Status: Alone Speech PLF-Current Status Prior Level of Function Patient lives at home alone where he was independent for his daily needs. Subjective Patient was pleasant and cooperative with the cognitive assessment. Language Eval: Auditory Comprehends Simple Yes/No Ques: Functional Indent/Objects Multiple [place]: Functional Ident/Pics in Multiple Blanco: Functional Follows 1-Step Commands: Functional Follows Complex Directions: Mild Follows General Conversations: Functional Language Eval: Verbal Language Completes Spontaneous Greeting: Functional Produces Auto, Serial Info: Functional Imitates Simple Words/Phrases: Functional Word Finding: Functional Requests Basic Needs: Functional States Basic Personal Info: Functional Expresses Complex Ideas: Mild Objective Cognitive Domain Attention: Mild Memory: WNL Problem Solving: Functional Executive Functions: Mild Visuospatial Skills: WNL Composite Severity Rating: Mild Clock Drawing Severity Rating: Mild Objective Formal/Standardized Tests [facility] Status ([facility]) Results , Mild Neurocognitive Disorder Oral Motor/Speech Production Patient's intelligibility is at 60% at this time Impression Patient is a pleasant 80 y/o male who was admitted to the ARU s/p CVA with right sided weakness. Patient was admitted to the hospital via ED with CVA symptoms for the prior 4 days. He was reported to have lost his ability to walk and was crawling around his house prior to notifying family. He does have abrasions on his knees and a skin tear on his upper right arm sustained while crawling in his home. The patient is talkative, however his speech is currently at 60% intelligible. This percentage is up slightly from the initial evaluation yesterday. The patient exhibits MNCD range of function on the UMS. The patient will receive skilled ST based on his deficits and right sided facial weakness. Speech Patient Assess Expression of Ideas/Wants: Frequently (2) Understanding Verbal Content: Usually Understands (3) Brief Interview-Mental Status: Yes Repetition of Three Words: Three (3) Temporal Orientation: Year: Correct (3) Temporal Orientation: Month: Accurate within 5 days(2) Temporal Orientation: Day: Correct (1) Recall : Wear to say "Sock": Yes,after cueing (1) Recall : Color: No, could not recall (0) Recall : Bed: Yes,after cueing (1) Memory/Recall Ability: Current season, That he or she is in a hsp/hsp unit Speech Short Term Goals Short Term Goals Short Term Goals 1) Patient will complete OME for improving speech intelligibility to 75% or greater. 2) Patient will complete speech tasks for communicating wants/needs at 75% or greater. Speech Fpc Goals Fpc Goals Patient will improve communication/speech skills in order to effectively communicate. Speech-Plan Patient/Family Goals Patient/Family Goals: Patient plans on returning to his home, however at this time his actual discharge is unknown. Treatment Plan Speech Therapy Treatment Plan: Continue Plan of Care Treatment Duration: Jun 15, 2021 Frequency: 4 times per week (Patient will receive skilled ST 4-5x per week) Estimated Hrs Per Day: .5 hour per day Rehab Potential: Guarded Barriers to Learning: Patient's recent CVA, decreased cognitive-communication abilities Pt/Family Agrees to Plan: Yes Safety Risks/Education Teaching Recipient: Patient Teaching Methods: Discussion Response to Teaching: Verbalize Understanding Education Topics Provided: Safety within his room, utilization of call light for wants/needs Time Speech Therapy Time In: 12:15 Speech Therapy Time Out: 12:45 Total Billed Time: 30 Billed Treatment Time 1, LENNY ERWIN [address] ST Jun 01, 2021 12:22
[2021-06-01] MEDS ORDERED: HOLD METFORMIN - RECEIVED CONTRAST 20 ML VIAL IV SCH (13:00)
[2021-06-01] MEDS ORDERED: CATHETER FLUSH 10 ML SYR IV PRN (13:00)
--- NOTE | 2021-06-01 13:00 | Occupational Therapy Eval ---
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 Daughter found pt, pt was brought to [facility] for work ups 05/31. Pt admits to ARU 06/01. Reviewed History: Yes Social History Home: Single Level Current Living Status: Alone Entry Into Home: Stairs With Railing ADL-Prior Level of Function SCALE: Activities may be completed with or without assistive devices. 9-Yjlqbcmkea-zmcjdfr completes the activity by him/herself with no assistance from a helper. 5-Set-up or Clean-up Assistance-helper sets up or cleans up; patient completes activity. [place] assists only prior to or following the activity. 4-Supervision or Touching Assistance-helper provides verbal cues and/or touching/steadying and/or contact guard assistance as patient completes ac tivity. Assistance may be provided throughout the activity or intermittently. 3-Partial/Moderate Assistance-helper does LESS THAN HALF the effort. Epping lifts, holds or supports trunk or limbs, but provides less than half the effort. 2-Substantial/Maximal Assistance-helper does MORE THAN HALF the effort. [place] lifts or holds trunk or limbs and provides more than half the effort. 3-Djejqcwaw-ohdows does ALL the effort. Patient does none of the effort to complete the activity. Or, the assistance of 2 or more helpers is required for the patient to complete the activity. If activity was not attempted, code reason: 7-Patient Refused. 9-Not Applicable-not attempted and the patient did not perform the activity before the current illness, exacerbation or injury. 10-Not Attempted due to Environmental Limitations-(lack of equipment, weather restraints, etc.). 88-Not Attempted due to Medical Conditions or Safety Concerns. ADL PLOF Comments Pt IND wihtin the home without use of AE, though has walker. Pt expresses completes all IADLs IND in home, daughter (Merline) takes pt to/from store. Self Care: Independent Functional Cognition: Independent DME/Equipment: Bath Chair, Shower DME/Equipment Comments shower, sc, walker Occupation: retried RR Drive Self: No OT Current Status Subjective Pt alert, upright in bed upon entry. Pt utilizes BUE, though R with less coordination/ proprioception based on use. Pt requires increased cues for redirection and cues for pronunciation during treatment (dysarthria). Pt is educated on ARU and transfer. Educated on ARU expectations. Pt agrees to OT/ PT co-treat and evaluations. Pt does not state pain, expresses concerns with R hand activity. PT evaluation: 2934-3429 OT evaluation: 2691-5252 (10) PT/OT co-treat: 9720-0228 (30)OT addresses UE strength, problem solving, ADLs, sequencing, safety while PT addresses functional transfers, strength, ambulation, etc. OT individual tx; 8010-8136 (30) Total: 70 Mental Status/Objective Patient Orientation: Person, Place, Situation Current Glasses/Contacts: Yes (states does not wear all the time.) Hearing Aids: No Dentures/Partials: No Hand Dominance: Right Upper Extremity ROM WFLLUE Decreased R shoulder activity, decreased finger flexion/ extension Upper Extremity Coordination Decreased R (unable to make fist or oppose, though fair movement) WFL L Upper Extremity Sensation WFL BUE Upper Extremity Strength Decreased RUE (4-/5 shoulder, 5/5 bicep, 2/5 fingers) L 4+/5 Edema: none noted. ADL-Treatment Eating (QC): 5 (s/u per clinical judgment) Oral Hygiene (QC): 5 (s/u per clinical judgment) Shower/Bathe Self (QC): 3 (pt completes UB, denies washing hair, pt requires assist with washing LEs/ bottom) Upper Body Dressing (QC): 2 (max A, cues for sequencing. ) Lower Body Dressing (QC): 1 (TD due to Ax2 at this time for safety) On/Off Footwear (QC): 2 (max A BLE (pt able to doff with increased time)) Toileting Hygiene (QC): 1 (TD at this time post BM) Other Treatments PT evaluation: 2999-9368 OT evaluation: 4905-3423 (10) PT/OT co-treat: 6536-7417 (30)OT addresses UE strength, problem solving, ADLs, sequencing, safety while PT addresses functional transfers, strength, ambulation, etc. OT individual tx; 3333-6551 (30) Pt eating fruit with L hand IND. Pt bed mob SBA-CGA. Sit to stand with CGA. Pt ambulates with walker with cues for hand positioning with increased time and CGAx2 for safety. Completes transfer to 2nd floor via w/c. Pt completes car transfer (increased cues for body position/ safety). Is pushed to shower room with w/c and completes sit to stand CGA, sits on sc. During shower, pt requests BM. Pt able to have small, soft BM during showering. Pt utilizes BUE, though R unable to hold onto wash cloth to wash L axilla. Pt talks throughout shower, cues for redirection/ attention to task. Pt repeats self intermittently. Pt then completes dressing as outlined on sc, requires Ax2 for safety for transfers and completes w/c to room. Pt sit to stand CGA, ambulates to recliner with chair alarm on, all needs met, call light in reach. Pt is educated on ARU expectations and future therapy this date. No questions at this time and denies ordering food as he just finished breakfast prior to transfer. Education OT Patient Education: Correct positioning, Modified ADL techniques, Purpose of tx/functional activities, Rehab process, Safety issues, Transfer techniques Teaching Recipient: Patient Teaching Methods: Demonstration, Discussion Response to Teaching: Verbalize Understanding, Return Demonstration, Unable to Comprehend, Reinforcement Needed OT Short Term Goals Short Term Goals Eatin Oral hygiene: 6 Toileting hygiene: 3 Shower/bathe self: 3 Upper body dressin Lower body dressin Putting on/taking off footwear: 3 OT Halfway Goals Tree Marker Goals Time Frame: Jun 15, 2021 Eating (QC): 6 Oral Hygiene (QC): 6 Toileting Hygiene (QC): 6 Shower/Bathe Self (QC): 6 Upper Body Dressing (QC): 6 Lower Body Dressing (QC): 6 On/Off Footwear (QC): 6 Additional Goals: 1-Demonstrate ADL Tasks, 2-Verbalize Understanding, 3- ImproveStrength/Dustin 1=Demonstrate adherence to instructed precautions during ADL tasks. 2=Patient will verbalize/demonstrate understanding of assistive devices/modifications for ADL. 3=Patient will improve strength/tolerance for activity to enable patient to perform ADL's. OT Education/Plan Problem List/Assessment Assessment: Decreased Activ Tolerance, Decreased Safety Aware, Decreased UE Strength, Dependent Transfers, Impaired Bed Mobility, Impaired Cognition, Impaired Coordination, Impaired Funct Balance, Impaired I ADL's, Impaired Self- Care Skills, Restricted Funct UE ROM Discharge Recommendations Plan/Recommendations: Continue POC Therapy Discharge Recommendati: 24 Hour Supervision, Post Acute OT Treatment Plan/Plan of Care Treatment,Training & Education: Yes Patient would benefit from OT for education, treatment and training to promote independence in ADL's, mobility, safety and/or upper extremity function for ADL's. Plan of Care: ADL Retraining, Caregiver Training, Cognitive Retraining, Functional Mobility, Group Exercise/Act as Ind, Orthotic Fitting/Training, UE Funct Exercise/Act, UE Neuromus Re-Ed/Coord, W/C Management Training Treatment Duration: Jun 15, 2021 Frequency: At least 5 of 7 days/Wk (IRF) Estimated Hrs Per Day: 1.5 hours per day Agreement: Yes Rehab Potential: Guarded Time/GCodes Start Time: 11:00 Stop Time: 12:10 Total Time Billed (hr/min): 70 Billed Treatment Time PT evaluation: 7851-4058 OT evaluation: 4106-6043 (10) PT/OT co-treat: 1362-0975 (30)OT addresses UE strength, problem solving, ADLs, sequencing, safety while PT addresses functional transfers, strength, ambulation, etc. OT individual tx; 4391-9620 (30) Total: 70 1, EVM (10), EX, ADL 3= 70 ARACELI ZACARIAS OTR Jun 01, 2021 13:00
--- NOTE | 2021-06-01 13:17 | Consultation-Cardiology ---
HPI-Cardiology Cardiology Consultation Date of Consultation 06/01/21 Date of Admission Time Seen by Provider: 13:13 Indication: Subacute CVA HPI 80-year-old gentleman admitted with acute CVA, had 4 days history of weakness on the right side, was unable to walk, was found by his family to have slurred speech and facial droop. Admitted to cardiac stepdown unit then transferred to the inpatient rehab unit. Denied any chest pain, no palpitation, no shortness of breath. No syncope Home Medications & Allergies Allergies: Coded Allergies: No Known Drug Allergies (Unverified , 06/20/11) Home Medication List Reviewed: Yes AUP-[id number]-Nhwblx Hx Patient Social History Marital Status: Employed/Student: retired Smoking Status: Former Smoker Type Used: Cigarettes Recent Hopitalizations: No Past Medical History Discussed below Family Medical History Significant Family History: No Pertinent Family Hx Family Medical Hx Noncontributory Review of Systems-General Review of Systems Constitutional: see HPI, malaise EENTM: see HPI, no symptoms reported Respiratory: see HPI; No cough, No dyspnea on exertion, No hemoptysis, No orthopnea, No phlegm, No short of breath, No stridor, No wheezing, No other Cardiovascular: see HPI; No chest pain, No edema, No Hx of Intervention, No palpitations, No syncope, No vascular heart diseas, No other Gastrointestinal: no symptoms reported, see HPI Genitourinary: no symptoms reported, see HPI Musculoskeletal: no symptoms reported, see HPI Skin: no symptoms reported, see HPI Psychiatric/Neurological: No Symptoms Reported, See HPI, Weakness (Right side weakness and facial droop), Other Physical Exam Physical Exam Vital Signs Capillary Refill : Height, Weight, BMI Height: 6'11.00" Weight: 190lbs. 6.4oz. [id number]; 26.17 BMI Method:Estimated General Appearance: No Apparent Distress, WD/WN Eyes: Bilateral Eye Normal Inspection, Bilateral Eye PERRL, Bilateral Eye EOMI HEENT: PERRL/EOMI, TMs Normal, Normal ENT Inspection, Pharynx Normal, Moist Mucous Membranes Neck: Full Range of Motion, Normal Inspection, Non Tender, Supple, Carotid Bruit Respiratory: Chest Non Tender, Normal Breath Sounds, No Accessory Muscle Use, No Respiratory Distress Cardiovascular: Regular Rate, Rhythm, No Edema, No Gallop, No JVD, No Murmur, Normal Peripheral Pulses Gastrointestinal: Normal Bowel Sounds, No Organomegaly, No Pulsatile Mass, Non Tender, Soft Back: Normal Inspection, No CVA Tenderness, No Vertebral Tenderness Extremity: Normal Capillary Refill, Normal Inspection, Normal Range of Motion, Non Tender, No Calf Tenderness, No Pedal Edema Neurologic/Psychiatric: Alert, Oriented x3, Facial Droop, Motor Weakness (Right side weakness) Skin: Normal Color, Warm/Dry Lymphatic: No Adenopathy A/P-Cardiology Admission Diagnosis CVA Assessment/Plan Subacute CVA, 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 Echocardiogram did not show any significant abnormality, carotid ultrasound did not have any significant obstructive disease. Patient was started on aspirin, adding Plavix to his current medication and monitor, I am considering loop monitor implant. Right hemiparesis, facial droop, secondary CVA, starting physical therapy. Questionable hyperlipidemia, I will evaluate lipid profile Hypertension, monitor blood pressure. RAUL MCMULLEN MD Jun 01, 2021 13:17
--- NOTE | 2021-06-01 14:23 | PM&R Post Admission Assessment ---
ARPAN FRIEDMAN MD 06/01/21 1423: PM&R HP Date of Visit: Jun 01, 2021 Time of Visit: 11:35 History of Present Illness Pt is a 80yoCM with a PMH of GERD who is being admitted to IRU due to acute CVA. He was found by his family unable to walk which is a large departure from his baseline functional status. MRI revealed findings for embolic CVA. He still has generalized weakness throughout. He reports feeling better than he did on arrival to the hospital but is still quite weak. I saw him due OT treatment for shower and he was in the chair. He had somewhat slurred speech though I am unsure if this is his baseline. Past Jmxzhjv-Dvqbte-Wisuhm Hx Past Med/Social Hx: Reviewed Nursing Past Med/Soc Hx Patient Social History Marrital Status: Employed/Student: retired Smoking Status: Former Smoker Former Smoker, Quit: Aug 23, 2009 Type Used: Cigarettes Recent Hopitalizations: No Seasonal Allergies Seasonal Allergies: No Past Medical History Surgeries: Abdominal, Adenoidectomy, Orthopedic, Tonsillectomy Currently Using CPAP: No Currently Using BIPAP: No Reproductive: No Sexually Transmitted Disease: No HIV/AIDS: No Musculoskeletal: Fractures History of Blood Disorders: No Adverse Reaction to Blood Jennings: No Family History Reviewed Nursing Family Hx No Pertinent Family Hx Prior Level of Function Bed Mobility: 6 Transfers: 6 Gait: 6 Stairs: 6 Indoor Mobility (Ambulation): Independent Stairs: Needed Some Help Unsure if pt has a walker or not Self Care: Independent Functional Cognition: Independent Occupation: retried [employer] Self: No Current Level of Fuctioning Roll Left to Right: 3 Sit to Lyin (assist with trunk and both legs) Lying to Sitting/Side of Bed: 2 (heavy assist to lift his trunk) Sit to Stand: 3 (mod assist with assist to hold righthand and cues for safety.) Chair/Ikz-ry-Gpgsk Xfer: 3 Car Transfer: 3 Does the Patient Walk: Yes Mode of Locomotion: Walk Walk 10 feet: 3 (assist to keep right hand on walker; cues for posture and step length) Walk 50 ft with 2 Turns: 3 Walk 150 ft: 88 (unable to walk this distance. ) Walking 10ft on uneven surface: 88 (poor foot clearance and unsafe) Gait Assistive Device: FWW Does the Pt Use a Wheelchair: No Wheel 50 ft with 2 turns: 9 Wheel 150 ft: 9 1 Step (curb): 88 4 Steps: 88 12 Steps: 88 Picking up an Object: 88 Eatin (s/u per clinical judgment) Oral Hygiene: 5 (s/u per clinical judgment) Shower/Bathe Self: 3 (pt completes UB, denies washing hair, pt requires assist with washing LEs/ bottom) Upper Body Dressin (max A, cues for sequencing. ) Lower Body Dressin (TD due to Ax2 at this time for safety) On/Off Footwear: 2 (max A BLE (pt able to doff with increased time)) Toileting Hygiene: 1 (TD at this time post BM) PM&R Allergy/Meds/Data Review Allergies Coded Allergies: No Known Drug Allergies (Unverified , 06/20/11) Home Medications Scheduled Aspirin (Children's Aspirin), 81 MG PO DAILY Atorvastatin Calcium (Atorvastatin Calcium), 20 MG PO HS Famotidine (Famotidine), 20 MG PO BID Scheduled PRN Acetaminophen (Acetaminophen), 650 MG PO Q4H PRN for PAIN-MILD (1-4) Discontinued Medications Amoxicillin/Potassium Clav (Augmentin 500-125 Tablet), 1 EACH PO BID Discontinued Reason: No Longer Taking Fexofenadine Hcl (Corinne Allergy), 180 MG PO DAILY, (Reported) Discontinued Reason: No Longer Taking Hydrocodone/Acetaminophen (Hydrocodone/Acetaminophen 5 MG/325 MG TAB), 1 EACH PO Q6H PRN for PAIN-MODERATE TO SEVERE Discontinued Reason: No Longer Taking Meloxicam (Meloxicam), 15 MG PO HS, (Reported) Naproxen (Naproxen), 500 MG PO HS, (Reported) Discontinued Reason: No Longer Taking Omeprazole (Omeprazole), 40 MG PO DAILY, (Reported) Discontinued Reason: No Longer Taking Omeprazole (Omeprazole), 40 MG PO DAILY PRN for HEARTBURN, (Reported) Ondansetron (Zofran Odt), 8 MG PO Q6H PRN for NAUSEA/VOMITING-1ST LINE Discontinued Reason: No Longer Taking Current Medications Current Medications Reviewed Review of Systems Constitutional: No chills, No fever EENTM: no symptoms reported Respiratory: No cough, No short of breath Cardiovascular: No chest pain, No palpitations Gastrointestinal: No abdominal pain Musculoskeletal: see HPI Skin: no symptoms reported Psychiatric/Neurological: See HPI Physical Exam Physical Exam Vital Signs Vital Signs - First Documented 06/01/21 13:24 Pulse 76 Capillary Refill : Height, Weight, BMI Height: 6'11.00" Weight: 190lbs. 6.4oz. [id number]; 26.17 BMI Method:Estimated General Appearance: No Apparent Distress, WD/WN Eyes: Bilateral Eye Normal Inspection, Bilateral Eye PERRL, Bilateral Eye EOMI HEENT: PERRL/EOMI, TMs Normal, Moist Mucous Membranes; No Scleral Icterus (L), No Scleral Icterus (R) Neck: Normal Inspection, Carotid Bruit Respiratory: Lungs Clear, No Accessory Muscle Use, No Respiratory Distress Cardiovascular: Regular Rate, Rhythm, No Edema, No Murmur, Normal Peripheral Pulses Gastrointestinal: Normal Bowel Sounds, Non Tender, Soft Back: Normal Inspection Extremity: Normal Capillary Refill, Normal Inspection, No Calf Tenderness, No Pedal Edema Neurologic/Psychiatric: Alert, Oriented x3, Normal Mood/Affect, Facial Droop, Motor Weakness (generalized, right worse than left) Skin: Normal Color, Warm/Dry PM&R Medical Assessment & Plan REHAB/MEDICAL ASSESSMENT AND PLAN: REHAB IMPAIRMENT GROUP: [ ] ETIOLOGIC DIAGNOSIS: [ (condition that led to rehab admission) ] The comorbidities that impact the patients function and/or functional outcome by: [ ] REHAB PLAN: The patient is being admitted to our comprehensive inpatient rehabilitation facility and can tolerate the intensity of service consisting of at least: 180 minutes of therapy a day, 5 out of 7 days a week Rehab treatment will consist of: [ (write brief focus that includes physician, rehab nursing and therapies/modalitiesIPOC will have more specifics) ] The patient/family has a good understanding of our discharge process and will benefit from an interdisciplinary inpatient rehabilitation program. The patient has potential to make improvement and is in need of at least two of the following multidisciplinary therapies including but not limited to physical, occupational, speech, and prosthetics and orthotics. Additionally the patient will need services from respiratory, nutritional services, wound care, psychology, etc. (Customize this to each patient). Given the patients complex condition and risk of further medical complications, rehabilitation services cannot be safely or effectively provided at a lower level of care such as a nursing home facility. BARRIERS TO DISCHARGE: [ ] ESTIMATED LOS: [ ] DISPOSITION: [ ] RELEVANT CHANGES SINCE PREADMISSION SCREENING: I have compared the patients medical and functional status at the time of the preadmission screening and there are: [no changes] [changes as follows: (if there is a discrepancy between the IGC/Etiologic stated on the PAS, address/clarify this as well) ] PROGNOSIS: [ ] REHABILITATION GOALS: 1. [ (specific to the patient) ] All the above goals were reviewed with the patient and he/she is in agreement. By signing this document, I acknowledge that I have personally performed a full physical examination on this patient within 24 hours of admission to this inpatient rehabilitation facility and have determined the patient to be able to tolerate the above course of treatment at an intensive level for a reasonable period of time. I will be completing a detailed individualized Plan of Care for this patient by day #4 of the patients stay based upon the Preadmission Screen, the Post-Admission Evaluation, and the therapy evaluations. A/P Acute CVA GERD Plan: Admit to IRU for intensive therapy to regain strength PT/OT/GAS JOCKEY Cardiology consult, appreciate recs Continue secondary prevention for stroke Monitor telemetry Admission Dx/Comorbidities: (1) CVA (cerebral vascular accident) Qualifiers: Qualified Codes: I63.40 - Cerebral infarction due to embolism of unspecified cerebral artery ICD Codes: I63.9 - Cerebral infarction, unspecified (2) Right sided weakness Status: Acute ICD Codes: R53.1 - Weakness (3) Generalized weakness Status: Acute ICD Codes: R53.1 - Weakness (4) Dysarthria Status: Acute ICD Codes: R47.1 - Dysarthria and anarthria IRVING STANLEY DO 06/01/21 1609: PM&R HP Date of Visit: Jun 01, 2021 Time of Visit: 00:00 History of Present Illness See Dr. Friedman note Past Hkosfqv-Jvaymr-Ysayxc Hx Past Med/Social Hx: Reviewed Nursing Past Med/Soc Hx, Reviewed and Corrections made PM&R Allergy/Meds/Data Review Allergies Coded Allergies: No Known Drug Allergies (Unverified , 06/20/11) Home Medications Scheduled Aspirin (Children's Aspirin), 81 MG PO DAILY Atorvastatin Calcium (Atorvastatin Calcium), 20 MG PO HS Famotidine (Famotidine), 20 MG PO BID Scheduled PRN Acetaminophen (Acetaminophen), 650 MG PO Q4H PRN for PAIN-MILD (1-4) Discontinued Medications Amoxicillin/Potassium Clav (Augmentin 500-125 Tablet), 1 EACH PO BID Discontinued Reason: No Longer Taking Fexofenadine Hcl (Corinne Allergy), 180 MG PO DAILY, (Reported) Discontinued Reason: No Longer Taking Hydrocodone/Acetaminophen (Hydrocodone/Acetaminophen 5 MG/325 MG TAB), 1 EACH PO Q6H PRN for PAIN-MODERATE TO SEVERE Discontinued Reason: No Longer Taking Meloxicam (Meloxicam), 15 MG PO HS, (Reported) Naproxen (Naproxen), 500 MG PO HS, (Reported) Discontinued Reason: No Longer Taking Omeprazole (Omeprazole), 40 MG PO DAILY, (Reported) Discontinued Reason: No Longer Taking Omeprazole (Omeprazole), 40 MG PO DAILY PRN for HEARTBURN, (Reported) Ondansetron (Zofran Odt), 8 MG PO Q6H PRN for NAUSEA/VOMITING-1ST LINE Discontinued Reason: No Longer Taking Current Medications Current Medications Reviewed Review of Systems Constitutional: see HPI Physical Exam Physical Exam General Appearance: No Apparent Distress, WD/WN, Chronically ill PM&R Medical Assessment & Plan REHAB/MEDICAL ASSESSMENT AND PLAN: REHAB IMPAIRMENT GROUP: CVA ETIOLOGIC DIAGNOSIS: CVA The comorbidities that impact the patients function and/or functional outcome by: Dysarthria, major deficits from stroke, subtle confusion, fall risk REHAB PLAN: The patient is being admitted to our comprehensive inpatient rehabilitation facility and can tolerate the intensity of service consisting of at least: 180 minutes of therapy a day, 5 out of 7 days a week Rehab treatment will consist of: PT and OT will help with ambulatory skills and increase independence in ADLs in order to regain enough function to return to independent living The patient/family has a good understanding of our discharge process and will benefit from an interdisciplinary inpatient rehabilitation program. The patient has potential to make improvement and is in need of at least two of the follow ing multidisciplinary therapies including but not limited to physical, occupational, speech, and prosthetics and orthotics. Additionally the patient will need services from respiratory, nutritional services, wound care, psychology, etc. (Customize this to each patient). Given the patients complex condition and risk of further medical complications, rehabilitation services cannot be safely or effectively provided at a lower level of care such as a nursing home facility. BARRIERS TO DISCHARGE: Confusion with dysarthria ESTIMATED LOS: 14 days DISPOSITION: Home with family RELEVANT CHANGES SINCE PREADMISSION SCREENING: I have compared the patients medical and functional status at the time of the preadmission screening and there are: no changes PROGNOSIS: Guarded REHABILITATION GOALS: 1. PT and OT will help with ambulatory skills and increase independence in ADLs in order to regain enough function to return to independent living All the above goals were reviewed with the patient and he/she is in agreement. By signing this document, I acknowledge that I have personally performed a full physical examination on this patient within 24 hours of admission to this inpatient rehabilitation facility and have determined the patient to be able to tolerate the above course of treatment at an intensive level for a reasonable period of time. I will be completing a detailed individualized Plan of Care for this patient by day #4 of the patients stay based upon the Preadmission Screen, the Post-Admission Evaluation, and the therapy evaluations. A/P Acute CVA GERD Plan: Admit to IRU for intensive therapy to regain strength PT/OT/GAS JOCKEY Cardiology consult, appreciate recs Continue secondary prevention for stroke Monitor telemetry Admission Dx/Comorbidities: (1) CVA (cerebral vascular accident) Qualifiers: Qualified Codes: I63.40 - Cerebral infarction due to embolism of unspecified cerebral artery ICD Codes: I63.9 - Cerebral infarction, unspecified (2) Right sided weakness Status: Acute ICD Codes: R53.1 - Weakness (3) Generalized weakness Status: Acute ICD Codes: R53.1 - Weakness (4) Dysarthria Status: Acute ICD Codes: R47.1 - Dysarthria and anarthria Admission Dx/Comorbidities: (1) CVA (cerebral vascular accident) Qualifiers: Qualified Codes: I63.40 - Cerebral infarction due to embolism of unspecified cerebral artery ICD Codes: I63.9 - Cerebral infarction, unspecified (2) Right sided weakness Status: Acute ICD Codes: R53.1 - Weakness (3) Generalized weakness Status: Acute ICD Codes: R53.1 - Weakness (4) Dysarthria Status: Acute ICD Codes: R47.1 - Dysarthria and anarthria (5) Urinary hesitancy Status: Acute ICD Codes: R39.11 - Hesitancy of micturition ARPAN FRIEDMAN MD Jun 01, 2021 14:23 IRVING STANLEY DO Jun 01, 2021 16:09
--- NOTE | 2021-06-01 14:24 | Therapy Group Daily Note ---
Therapy Daily Group Note Patient Education Topic Home Safety Exercises LE Seated Exercise, UE Exercise Session Ratio (pt:therapist): 3:1 Goal of Session: Education on ARU Expectations, Home Safety Strategies, UE/LE Strengthing Goal Met for this Session: Yes Pt Benefit of Group: Contributions to Others, F/U Use of Strategies @Home, Increased Functional Safety, Increased Functional Strength, Improved Cognition, Recognition of Peers, Socialization Other/Notes Pt transported via w/c to [facility] for OT/PT group. Group consisted of introductions(name, place living, what happened to your first car), socialization, B UE/LE seated exercises, fine motor task with visual scanning/perception and environmental safety education. Pt introduced self appropriately after prompts and actively listened to peers. Pt was able to complete B UE/LE seated exercises with verbal and gestural cues. Pt was able to manipulate small objects, scan for correct match then place in designated area with minmal assist. Pt acknowledged understanding of educational topic by nodding head yes. After session, pt lying in bed with call light/phone in reach. Start Time: 13:00 Stop Time: 14:00 Total Billed Treatment Time: 60 Total Billed Treatment 1-GRP JAY BONILLA Jun 01, 2021 14:24
[2021-06-01] MEDS: ENOXAPARIN 40 MG/0.4 ML (LOVENOX) SYR SC SCH (15:07)
--- NOTE | 2021-06-01 16:09 | Individualized Plan of Care ---
Individualized Plan of Care Rehab Nursing IPOC Order Admission Date Jun 01, 2021 at 10:50 Current Orders Orders Admission Order(Inpt,Obs,Sdc) (06/01/21 10:35) Vital Signs: Per Unit Policy ( ,16,00 (06/01/21 10:35) Keron Young (06/01/21 10:35) Sequential Compression Device .admit (06/01/21 10:35) Binder Coverstitch-Inpt Rehab Con (06/01/21 10:35) Rehab Nursing Orders-Ipoc (06/01/21 10:35) Physical Therapy Rehab Orders (06/01/21 10:35) Occupational Therapy Rehab Ord (06/01/21 10:35) Speech Therapy Rehab Orders (06/01/21 10:35) Cbc With Automated Diff (06/02/21 06:00) Comprehensive Metabolic Panel (06/02/21 06:00) Precautions (Aru) (06/01/21 10:35) Rehab-Intensity Of Therapy (06/01/21 10:35) Initiate Admission Nursing Pro .admission (06/01/21 10:35) Acetaminophen Tablet/Caplet (Tylenol T (06/01/21 10:45) Alprazolam Tablet (Xanax Tablet) (06/01/21 10:45) Calcium Carbonate Chew Tablet (Antacid C (06/01/21 10:45) Diphenhydramine Tablet (Benadryl Tablet) (06/01/21 10:45) Docusate Sodium Capsule (Colace Capsule) (06/01/21 21:00) Docusate Sodium Capsule (Colace Capsule) (06/01/21 10:45) Bisacodyl Suppository (Dulcolax Supposit (06/01/21 10:45) Lactulose Oral Solution (Enulose Oral So (06/01/21 10:45) Na Phos/Na Biphos Enema (Fleet Enema Jori (06/01/21 10:45) Guaifenesin/Codeine Syrup (Robitussin Ac (06/01/21 10:45) Hydrocodone/Apap 5/325 Tablet (Lortab 5 (06/01/21 10:45) Loperamide Tablet (Imodium Tablet) (06/01/21 10:45) Melatonin Tablet (Melatonin Tablet) (06/01/21 10:45) Polyethylene Glycol Powder Pkt (Miralax (06/01/21 21:00) Ondansetron Oral Dissolve Tab (Zofran (06/01/21 10:45) Senna S Tablet (Senokot S Tablet) (06/01/21 21:00) Initiate Admission Nursing Pro .admission (06/01/21 10:35) Admission Arrival Bed Request (06/01/21 11:24) Patient Visit (06/01/21 ) Speech Sound Lang Comp (06/01/21 ) Treat. Speech/Lang/Voice (06/01/21 ) General/Regular (06/01/21 Lunch) Code/Resuscitation (06/01/21 12:52) Telemetry (06/01/21 12:52) Aspirin Chewable Tablet (Baby Aspirin Ch (06/02/21 09:00) Atorvastatin Tablet (Lipitor Tablet) (06/01/21 21:00) Famotidine Tablet (Pepcid Tablet) (06/01/21 21:00) Received Contrast (Hold Metformin- Contr (06/01/21 13:00) Sodium Chloride Flush (Catheter Flush Sy (06/01/21 13:00) Consult Cardiology (06/01/21 12:52) Telemetry Nursing Assessment ( (06/01/21 12:52) Catheter(Urinary) Discontinue (06/01/21 12:52) Enoxaparin Injection (Lovenox Injection) (06/01/21 13:00) Clopidogrel Tablet (Plavix Tablet) (06/02/21 09:00) Patient Visit (06/01/21 ) Pt Eval Moderate Complexity (06/01/21 ) Functional Activities, Ea 15 (06/01/21 ) Patient Visit (06/01/21 ) Encourage Po Fluids (06/02/21 08:04) Patient Visit (06/02/21 ) Exercise Therap, Ea 15 Min (06/02/21 ) Benzocaine 20% Oral Gel (Orajel 20% Max (06/02/21 13:30) Intake & Output 06,14,22 (06/02/21 14:44) Rehab Nursing Orders: Ongoing Assess. of Cognitive Status, Ongoing Assess. of Function Status, Bladder Management, Bladder Scan, Bladder Training, Bowel Management, Identify & Edu Concerns re:Sexualty, Disease Management & Educaiton, DVT Prophylaxis, Fall Prevention, Fluid/Electrolyte/Nutrition Mgmt, Infection Prevention, Medication Management & Education, Management of Risks & Complications, Management of Skin Intergrity, Nutrition Management, Pain Management, Patient/Family Support, Safety Management Intensity of Therapy to be met Patient to be seen: Min.3h per day/5 of 7d PT IPOC Problem List: Activity Tolerance, Functional Strength, Safety, Balance, Gait, Transfer, Bed Mobility Treatment Plan: Continue Plan of Care Bed Mobility, Education, Functional Activity Dustin, Functional Strength, Group Therapy, Gait, Safety, Therapeutic Exercise, Transfers Treatment Duration: Jun 29, 2021 Frequency: At least 5 of 7 days/Wk (IRF) Estimated Hrs Per Day: 1.5 hours per day OT IPOC Problems: Decreased Activ Tolerance, Decreased Safety Aware, Decreased UE Strength, Dependent Transfers, Impaired Bed Mobility, Impaired Cognition, Impaired Coordination, Impaired Funct Balance, Impaired I ADL's, Impaired Self- Care Skills, Restricted Funct UE ROM OT Treatment, Training and Edu: Yes Plan of Care: ADL Retraining, Caregiver Training, Cognitive Retraining, Functional Mobility, Group Exercise/Act as Ind, Orthotic Fitting/Training, UE Funct Exercise/Act, UE Neuromus Re-Ed/Coord, W/C Management Training Treatment Duration: Jun 15, 2021 Frequency: At least 5 of 7 days/Wk (IRF) Estimated Hrs Per Day: 1.[address] IPOC Speech Therapy Treatment Plan: Continue Plan of Care Treatment Duration: Jun 15, 2021 Frequency: 4 times per week (Patient will receive skilled ST 4-5x per week) Estimated Hrs Per Day: .5 hour per day Binder Coverstitch/Case Mgmt Binder Coverstitch/Case Managemen: Discharge Planning Dietitian/Heat Treat Furnace Operator Dietitian/Heat Treat Furnace Operator to monitor nutritional status and make changes and/or recommendations as needed and work with speech pathology on dietary upgrades as the occur. Physician IPOC Medical Issues being managed closely and that require the 24 hour availability of a physician: Patient with recent stroke with confusion and word salad with right-sided weakness with new onset acute kidney injury will require cardiology monitoring of telemetry for source of stroke and monitor closely for acute renal failure. Medical Issues: Bowel/Bladder Function, DVT Prophylaxis, Falls Precautions, Fluid/Electrolyte/Nutrition Balance, Infection Protection, Pain Management Brief Synthesis of Preadmission Screen, Post-Admission Evaluation, and Therapy Evaluations: PT and OT will focus on regaining right-sided weakness strength with the use of assistive devices in order to increase independence in ADLs and ST will focus on cognition and increase problem-solving skills. Medical Prognosis: Fair Anticipated Length of Stay: 14 days IRVING STANLEY DO Jun 01, 2021 16:09
[2021-06-01 20:00] VITALS: BP 132/66
[2021-06-01] MEDS: SENNA W/DOCUSATE (SENOKOT S) TABLET PO SCH (21:00)
[2021-06-01] MEDS: polyethylene glycoL POWDER 17 GM (MIRALAX) PACK PO SCH (21:00)
[2021-06-01] MEDS: FAMOTIDINE 20 MG (PEPCID) TABLET PO SCH (21:07)
[2021-06-01] MEDS: MELATONIN 3 MG TABLET PO PRN (21:08)
[2021-06-01] MEDS: DOCUSATE SODIUM 100 MG (COLACE) CAP PO SCH (21:08)
[2021-06-02] MEDS: ALPRAZolam 0.25 MG (XANAX) TAB PO PRN ×2 (00:36→20:40)
[2021-06-02 06:17] LABS: BASOPHILS % (AUTO) 0 % (0-10); EOSINOPHILS # (AUTO) 0.3 10^3/uL (0.0-0.3); EOSINOPHILS % (AUTO) 4 % (0-10); HEMATOCRIT 31 % (40-54); HEMOGLOBIN 9.7 g/dL (13.3-17.7); LYMPHOCYTES # (AUTO) 1.1 10^3/uL (1.0-4.0); LYMPHOCYTES % (AUTO) 14 % (12-44); MEAN CORPUSCULAR HEMOGLOBIN 32 pg (25-34); MEAN CORPUSCULAR HGB CONC 31 g/dL (32-36); MEAN CORPUSCULAR VOLUME 103 fL (80-99); MONOCYTES % (AUTO) 12 % (0-12); NEUTROPHILS # (AUTO) 5.3 10^3/uL (1.8-7.8); NEUTROPHILS % (AUTO) 69 % (42-75); PLATELET COUNT 305 10^3/uL (130-400); WHITE BLOOD COUNT 7.7 10^3/uL (4.3-11.0)
[2021-06-02 06:24] LABS: ALBUMIN 3.4 GM/DL (3.2-4.5)
[2021-06-02 06:26] LABS: CALCIUM 8.5 MG/DL (8.5-10.1)
[2021-06-02 06:27] LABS: TOTAL PROTEIN 5.9 GM/DL (6.4-8.2)
[2021-06-02 06:29] LABS: BILIRUBIN,TOTAL 0.8 MG/DL (0.1-1.0)
[2021-06-02 06:30] LABS: CREATININE SERUM 1.67 MG/DL (0.60-1.30)
[2021-06-02 07:30] VITALS: BP 139/68
--- NOTE | 2021-06-02 08:04 | PM&R Progress Note ---
Subjective HPI/CC On Admission Date Seen by Provider: Jun 02, 2021 Time Seen by Provider: 12:45 Subjective/Events-last exam 06/02/2021: This visit is via video chat due to Covid related restriction for this provider Patient difficult to understand Word salad most of the time Confused Hemoglobin went from 15.4-9.7 which is unusual Creatinine 1.6 so will encourage oral fluids Dr. Myles evaluated him Mumbles a lot Right hand is improving Review of Systems Neurological: Weakness, Incoordination, Change in speech, Confusion Objective Exam Vital Signs Vital Signs Date Time Temp Pulse Resp B/P (MAP) Pulse Ox O2 Delivery O2 Flow Rate FiO2 06/02/21 12:42 82 06/02/21 09:00 Room Air 06/02/21 07:30 36.4 18 139/68 (91) 90 Capillary Refill : General Appearance: No Apparent Distress, WD/WN, Chronically ill HEENT: PERRL/EOMI, TMs Normal, Moist Mucous Membranes; No Scleral Icterus (L), No Scleral Icterus (R) Neck: Normal Inspection, Carotid Bruit Respiratory: Lungs Clear, No Accessory Muscle Use, No Respiratory Distress Cardiovascular: Regular Rate, Rhythm, No Edema, No Murmur, Normal Peripheral Pulses Gastrointestinal: Normal Bowel Sounds, Non Tender, Soft Back: Normal Inspection Extremity: Normal Capillary Refill, Normal Inspection, No Calf Tenderness, No Pedal Edema Neurologic/Psychiatric: Alert, Oriented x3, Normal Mood/Affect, Facial Droop, Motor Weakness (generalized, right worse than left) Skin: Normal Color, Warm/Dry Results/Procedures Lab Laboratory Tests 06/02/21 05:10 Patient resulted labs reviewed. FIM Transfers Therapy Code Descriptions/Definitions Functional [place] Measure: 0=Not Assessed/NA 4=Minimal Assistance 1=Total Assistance 5=Supervision or Setup 2=Maximal Assistance 6=Modified [place] 3=Moderate Assistance 7=Complete IndependenceSCALE: Activities may be completed with or without assistive devices. 5-Odvxpmexto-ryzyoen completes the activity by him/herself with no assistance from a helper. 5-Set-up or Clean-up Assistance-helper sets up or cleans up; patient completes activity. [place] assists only prior to or following the activity. 4-Supervision or Touching Assistance-helper provides verbal cues and/or touching/steadying and/or contact guard assistance as patient completes activity. Assistance may be provided throughout the activity or intermittently. 3-Partial/Moderate Assistance-helper does LESS THAN HALF the effort. [place] lifts, holds or supports trunk or limbs, but provides less than half the effort. 2-Substantial/Maximal Assistance-helper does MORE THAN HALF the effort. [place] lifts or holds trunk or limbs and provides more than half the effort. 0-Wkurzhhfl-knqgkd does ALL the effort. Patient does none of the effort to complete the activity. Or, the assistance of 2 or more helpers is required for the patient to complete the activity. If activity was not attempted, code reason: 7-Patient Refused. 9-Not Applicable-not attempted and the patient did not perform the activity before the current illness, exacerbation or injury. 10-Not Attempted due to Environmental Limitations-(lack of equipment, weather restraints, etc.). 88-Not Attempted due to Medical Conditions or Safety Concerns. Roll Left to Right (QC): 3 Sit to Lying (QC): 2 (assist with trunk and both legs) Sit to Stand (QC): 3 (mod assist with assist to hold righthand and cues for safety.) Chair/Dah-uq-Gyojf Xfer(QC): 3 Car Transfer (QC): 3 Gait Training Does the Patient Walk?: Yes Walk 10 feet (QC): 3 (assist to keep right hand on walker; cues for posture and step length) Walk 50 ft with 2 Turns(QC): 3 Walk 150 ft (QC): 88 (unable to walk this distance. ) Walking 10ft/uneven surface-QC: 88 (poor foot clearance and unsafe) Gait Assistive Device: FWW Wheelchair Training Does the Pt Use a Wheelchair?: No Wheel 50 ft with 2 turns (QC): 9 Wheel 150 ft (QC): 9 Stair Training 1 Step (curb) (QC): 88 4 Steps (QC): 88 12 Steps (QC): 88 Balance Picking up an Object (QC): 88 ADL-Treatment Eating (QC): 5 (s/u per clinical judgment) Oral Hygiene (QC): 5 (s/u per clinical judgment) Shower/Bathe Self (QC): 3 (pt completes UB, denies washing hair, pt requires assist with washing LEs/ bottom) Upper Body Dressing (QC): 2 (max A, cues for sequencing. 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
[2021-06-02] MEDS: ASPIRIN 81 MG CHEW (CHILDREN'S ASA) PO SCH (08:14)
[2021-06-02] MEDS: SENNA W/DOCUSATE (SENOKOT S) TABLET PO SCH ×2 (08:14→20:40)
[2021-06-02] MEDS: CLOPIDOGREL 75 MG (PLAVIX) TABLET PO SCH (08:14)
[2021-06-02] MEDS: FAMOTIDINE 20 MG (PEPCID) TABLET PO SCH ×2 (08:14→20:40)
[2021-06-02] MEDS: DOCUSATE SODIUM 100 MG (COLACE) CAP PO SCH ×2 (08:14→20:40)
[2021-06-02] MEDS: polyethylene glycoL POWDER 17 GM (MIRALAX) PACK PO SCH ×2 (08:16→20:41)
--- NOTE | 2021-06-02 11:23 | Cardiology Progress Note ---
Subjective Date Seen by Provider: Jun 02, 2021 Time Seen by Provider: 11:21 Subjective/Events-last exam Patient was seen at bedside, laying down comfortably, complain of mild pain on his right upper extremity Review of Systems General: No Chills, No Night Sweats, No Fatigue, No Malaise, No Appetite, No Other HEENT: No Head Aches, No Visual Changes, No Eye Pain, No Ear Pain, No Dysphasia, No Sinus Congestion, No Post Nasal Drip, No Sore Throat, No Other Pulmonary: No Dyspnea, No Cough, No Pleuritic Chest Pain, No Other Cardiovascular: No: Chest Pain, Palpitations, Orthopnea, Paroxysmal Noc. Dyspnea, Edema, Lt Headedness, Other Objective-Cardiology Exam Last Set of Vital Signs Vital Signs 06/02/21 06/02/21 07:30 09:00 Temp 36.4 Pulse 83 Resp 18 B/P (MAP) 139/68 (91) Pulse Ox 90 O2 Delivery Room Air General: Alert, Oriented X3, Cooperative HEENT: Atraumatic, PERRLA Neck: Supple, No JVD, No Thyromegaly Lungs: Clear to Auscultation, Normal Air Movement Heart: Regular Rate, Normal S1, Normal S2, No Murmurs Abdomen: Normal Bowel Sounds, Soft, No Tenderness, No Hepatosplenomegaly, No Masses Extremities: No Clubbing, No Cyanosis, No Edema, Normal Pulses, No Tenderness/Swelling Skin: No Rashes, No Breakdown, No Significant Lesion Neuro: Other (Right hemiplegia, aphasia) Psych/Mental Status: Mental Status NL, Mood NL Results Lab Laboratory Tests 06/02/21 05:10 A/P-Cardiology Admission Diagnosis CVA Right hemiplegia Hypertension Assessment/Plan Subacute CVA, 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 Echocardiogram did not show any significant abnormality, carotid ultrasound did not have any significant obstructive disease. Continue on aspirin and Plavix, continue with PT/OT Right hemiparesis, facial droop, secondary CVA, starting physical therapy. Questionable hyperlipidemia, I will evaluate lipid profile Hypertension, monitor blood pressure. RAUL MCMULLEN MD Jun 02, 2021 11:23 am
[2021-06-02] MEDS: ENOXAPARIN 40 MG/0.4 ML (LOVENOX) SYR SC SCH (12:36)
--- NOTE | 2021-06-02 12:54 | Physical Therapy Daily Note ---
PT Daily Note-Current Subjective Pt sitting in recliner upon arrival. Pt agrees to PT. Pain Location: No Pain Reported Mental Status Patient Orientation: Person, Confused, Mumbles Transfers SCALE: Activities may be completed with or without assistive devices. 2-Ndhzacydmw-unzkrch completes the activity by him/herself with no assistance from a helper. 5-Set-up or Clean-up Assistance-helper sets up or cleans up; patient completes activity. [place] assists only prior to or following the activity. 4-Supervision or Touching Assistance-helper provides verbal cues and/or touching/steadying and/or contact guard assistance as patient completes activity. Assistance may be provided throughout the activity or intermittently. 3-Partial/Moderate Assistance-helper does LESS THAN HALF the effort. [place] lifts, holds or supports trunk or limbs, but provides less than half the effort. 2-Substantial/Maximal Assistance-helper does MORE THAN HALF the effort. [place] lifts or holds trunk or limbs and provides more than half the effort. 7-Erycvmnty-prgpoq does ALL the effort. Patient does none of the effort to complete the activity. Or, the assistance of 2 or more helpers is required for the patient to complete the activity. If activity was not attempted, code reason: 7-Patient Refused. 9-Not Applicable-not attempted and the patient did not perform the activity before the current illness, exacerbation or injury. 10-Not Attempted due to Environmental Limitations-(lack of equipment, weather restraints, etc.). 88-Not Attempted due to Medical Conditions or Safety Concerns. Exercises Seated Therapy Exercises: Ankle pumps, Long arc quads, Hip flexion, Hip abd/add, Glut set Seated Reps: 15 Treatments Pt continues to get off topic so RESORT MANAGER redirects. Pt completes Seated Ex with RB as needed. All needs met, call light in hand. Assessment Current Status: Fair Progress Pt gets easily distracted and needs redirection to stay on task. PT Short Term Goals Short Term Goals Time Frame: Jun 13, 2021 Roll Left & Right: 4 Sit to lyin Lying to sitting on side of be: 4 Sit to stand: 4 Chair/egp-ly-ezrns transfer: 4 Toilet transfer: 4 Walk 10 feet: 4 Walk 50 feet with two turns: 4 Walk 150 feet: 4 PT Nursing Home Goals Fireboat Operator Goals PT Fireboat Operator Goals Time Frame: Jun 29, 2021 Roll Left & Right (QC): 6 Sit to Lying (QC): 6 Lying-Sitting on Side/Bed(QC): 6 Sit to Stand (QC): 6 Chair/Pdk-gs-Znehv Xfer(QC): 6 Toilet Transfer (QC): 6 Car Transfer (QC): 6 Does the Patient Walk: Yes Walk 10 feet (QC): 6 Walk 50ft with 2 Turns (QC): 6 Walk 150 ft (QC): 6 Walking 10ft on Uneven Surface: 4 1 Step (curb) (QC): 6 4 Steps (QC): 6 12 Steps (QC): 4 Picking up an Object (QC): 4 Wheel 50 feet with 2 turns (QC: 9 Wheel 150 feet: 9 PT Plan Problem List Problem List: Activity Tolerance, Functional Strength, Safety Treatment/Plan Treatment Plan: Continue Plan of Care Treatment Plan: Bed Mobility, Education, Functional Activity Dustin, Functional Strength, Group Therapy, Gait, Safety, Therapeutic Exercise, Transfers Treatment Duration: Jun 29, 2021 Frequency: At least 5 of 7 days/Wk (IRF) Estimated Hrs Per Day: 1.5 hours per day Patient and/or Family Agrees t: Yes Safety Risks/Education Patient Education: Correct Positioning, Safety Issues Teaching Recipient: Patient Teaching Methods: Discussion Response to Teaching: Reinforcement Needed Time/GCodes Time In: 1130 Time Out: 1145 Total Billed Treatment Time: 15 Total Billed Treatment 1, EX (15m) CLAIR HAJI RESORT MANAGER Jun 02, 2021 12:54
[2021-06-02] MEDS: BENZOCAINE 20% ORAL GEL (ORALJEL MAX ST) MM PRN ×2 (14:16→19:42)
[2021-06-02 20:00] VITALS: BP 147/69
[2021-06-02] MEDS: MELATONIN 3 MG TABLET PO PRN (20:40)
[2021-06-03 06:19] LABS: BASOPHILS % (AUTO) 1 % (0-10); EOSINOPHILS # (AUTO) 0.2 10^3/uL (0.0-0.3); EOSINOPHILS % (AUTO) 2 % (0-10); HEMATOCRIT 45 % (40-54); HEMOGLOBIN 15.3 g/dL (13.3-17.7); LYMPHOCYTES # (AUTO) 2.2 10^3/uL (1.0-4.0); LYMPHOCYTES % (AUTO) 31 % (12-44); MEAN CORPUSCULAR HGB CONC 34 g/dL (32-36); MEAN CORPUSCULAR VOLUME 93 fL (80-99); MEAN PLATELET VOLUME 11.6 fL (9.0-12.2); MONOCYTES # (AUTO) 0.8 10^3/uL (0.0-1.0); MONOCYTES % (AUTO) 11 % (0-12); NEUTROPHILS # (AUTO) 3.9 10^3/uL (1.8-7.8); NEUTROPHILS % (AUTO) 55 % (42-75); PLATELET COUNT 222 10^3/uL (130-400); WHITE BLOOD COUNT 7.1 10^3/uL (4.3-11.0)
[2021-06-03 06:21] LABS: MEAN CORPUSCULAR HEMOGLOBIN 31 pg (25-34)
[2021-06-03 06:24] LABS: CHLORIDE 105 MMOL/L (98-107); POTASSIUM 3.6 MMOL/L (3.6-5.0); SODIUM 141 MMOL/L (135-145)
[2021-06-03 06:26] LABS: GLUCOSE 98 MG/DL (70-105); TOTAL PROTEIN 6.7 GM/DL (6.4-8.2)
[2021-06-03 06:27] LABS: CARBON DIOXIDE 22 MMOL/L (21-32)
[2021-06-03 06:28] LABS: BILIRUBIN,TOTAL 0.8 MG/DL (0.1-1.0)
[2021-06-03 06:29] LABS: ALKALINE PHOSPHATASE 101 U/L (40-136)
[2021-06-03 06:30] LABS: CREATININE SERUM 0.77 MG/DL (0.60-1.30); GFR ESTIMATED > 60
[2021-06-03 06:31] LABS: BUN/CREATININE RATIO 23
[2021-06-03 06:32] LABS: ALANINE AMINOTRANSFERASE 30 U/L (0-55)
[2021-06-03 07:30] VITALS: BP 110/62
--- NOTE | 2021-06-03 07:47 | PM&R Progress Note ---
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 Myles evaluated him Mumbles a lot Right hand is improving Review of Systems General: Fatigue, Malaise Neurological: Weakness Objective Exam Vital Signs Vital Signs Date Time Temp Pulse Resp B/P (MAP) Pulse Ox O2 Delivery O2 Flow Rate FiO2 06/03/21 19:00 79 06/03/21 09:00 Room Air 06/03/21 07:30 36.4 18 110/62 (78) 90 Capillary Refill : General Appearance: No Apparent Distress, WD/WN, Chronically ill HEENT: PERRL/EOMI, TMs Normal, Moist Mucous Membranes; No Scleral Icterus (L), No Scleral Icterus (R) Neck: Normal Inspection, Carotid Bruit Respiratory: Lungs Clear, No Accessory Muscle Use, No Respiratory Distress Cardiovascular: Regular Rate, Rhythm, No Edema, No Murmur, Normal Peripheral Pulses Gastrointestinal: Normal Bowel Sounds, Non Tender, Soft Back: Normal Inspection Extremity: Normal Capillary Refill, Normal Inspection, No Calf Tenderness, No Pedal Edema Neurologic/Psychiatric: Alert, Oriented x3, Normal Mood/Affect, Facial Droop, Motor Weakness (generalized, right worse than left) Skin: Normal Color, Warm/Dry Results/Procedures Lab Laboratory Tests 06/03/21 05:33 Patient resulted labs reviewed. FIM Transfers Therapy Code Descriptions/Definitions Functional [place] Measure: 0=Not Assessed/NA 4=Minimal Assistance 1=Total Assistance 5=Supervision or Setup 2=Maximal Assistance 6=Modified [place] 3=Moderate Assistance 7=Complete IndependenceSCALE: Activities may be completed with or without assistive devices. 4-Ksututiitq-lqbdguw completes the activity by him/herself with no assistance from a helper. 5-Set-up or Clean-up Assistance-helper sets up or cleans up; patient completes activity. [place] assists only prior to or following the activity. 4-Supervision or Touching Assistance-helper provides verbal cues and/or touching/steadying and/or contact guard assistance as patient completes activity. Assistance may be provided throughout the activity or intermittently. 3-Partial/Moderate Assistance-helper does LESS THAN HALF the effort. [place] lifts, holds or supports trunk or limbs, but provides less than half the effort. 2-Substantial/Maximal Assistance-helper does MORE THAN HALF the effort. [place] lifts or holds trunk or limbs and provides more than half the effort. 9-Nhgagojzb-hrouxc does ALL the effort. Patient does none of the effort to complete the activity. Or, the assistance of 2 or more helpers is required for the patient to complete the activity. If activity was not attempted, code reason: 7-Patient Refused. 9-Not Applicable-not attempted and the patient did not perform the activity before the current illness, exacerbation or injury. 10-Not Attempted due to Environmental Limitations-(lack of equipment, weather restraints, etc.). 88-Not Attempted due to Medical Conditions or Safety Concerns. Roll Left to Right (QC): 3 Sit to Lying (QC): 2 (assist with trunk and both legs) Sit to Stand (QC): 3 (mod assist with assist to hold righthand and cues for safety.) Chair/Wvb-cv-Wvfuj Xfer(QC): 3 Car Transfer (QC): 3 Gait Training Does the Patient Walk?: Yes Walk 10 feet (QC): 3 (assist to keep right hand on walker; cues for posture and step length) Walk 50 ft with 2 Turns(QC): 3 Walk 150 ft (QC): 88 (unable to walk this distance. ) Walking 10ft/uneven surface-QC: 88 (poor foot clearance and unsafe) Gait Assistive Device: FWW Wheelchair Training Does the Pt Use a Wheelchair?: No Wheel 50 ft with 2 turns (QC): 9 Wheel 150 ft (QC): 9 Stair Training 1 Step (curb) (QC): 88 4 Steps (QC): 88 12 Steps (QC): 88 Balance Picking up an Object (QC): 88 ADL-Treatment Eating (QC): 5 (s/u per clinical judgment) Oral Hygiene (QC): 5 (s/u per clinical judgment) Shower/Bathe Self (QC): 3 (pt completes UB, denies washing hair, pt requires assist with washing LEs/ bottom) Upper Body Dressing (QC): 2 (max A, cues for sequencing. 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 History of GERD Acute kidney injury 1.67 increasing oral fluids Plan: Check labs in the morning Intensive rehab Fall risk 06/03/2021: Lab abnormalities completely resolved Monitor closely Improved (1) CVA (cerebral vascular accident) Qualifiers: CVA mechanism: embolism Precerebral and cerebral artery: unspecified cerebral artery Qualified Codes: I63.40 - Cerebral infarction due to embolism of unspecified cerebral artery (2) Right sided weakness Status: Acute (3) Generalized weakness Status: Acute (4) Dysarthria Status: Acute (5) Urinary hesitancy Status: Acute IRVING STANLEY DO Jun 03, 2021 07:47
[2021-06-03] MEDS: SENNA W/DOCUSATE (SENOKOT S) TABLET PO SCH ×2 (09:00→21:00)
[2021-06-03] MEDS: polyethylene glycoL POWDER 17 GM (MIRALAX) PACK PO SCH ×2 (09:00→21:00)
[2021-06-03] MEDS: DOCUSATE SODIUM 100 MG (COLACE) CAP PO SCH ×2 (09:00→20:11)
[2021-06-03] MEDS: ASPIRIN 81 MG CHEW (CHILDREN'S ASA) PO SCH (09:22)
[2021-06-03] MEDS: CLOPIDOGREL 75 MG (PLAVIX) TABLET PO SCH (09:22)
[2021-06-03] MEDS: FAMOTIDINE 20 MG (PEPCID) TABLET PO SCH ×2 (09:22→20:11)
--- NOTE | 2021-06-03 11:47 | Cardiology Progress Note ---
Subjective Date Seen by Provider: Jun 03, 2021 Time Seen by Provider: 11:46 Subjective/Events-last exam Patient was seen and evaluated at bedside, sitting comfortably, no new complaint Review of Systems General: No Chills, No Night Sweats, No Fatigue, No Malaise, No Appetite, No Other HEENT: No Head Aches, No Visual Changes, No Eye Pain, No Ear Pain, No Dysphasia, No Sinus Congestion, No Post Nasal Drip, No Sore Throat, No Other Pulmonary: No Dyspnea, No Cough, No Pleuritic Chest Pain, No Other Cardiovascular: No: Chest Pain, Palpitations, Orthopnea, Paroxysmal Noc. Dyspnea, Edema, Lt Headedness, Other Objective-Cardiology Exam Last Set of Vital Signs Vital Signs 06/03/21 06/03/21 07:30 09:00 Temp 36.4 Pulse 60 Resp 18 B/P (MAP) 110/62 (78) Pulse Ox 90 O2 Delivery Room Air I&O Intake and Output 06/03/21 00:00 Intake Total 650 ml Output Total 300 ml Balance 350 ml Intake Oral 650 ml Output Urine Total 300 ml # Bowel Movements 1 General: Alert, Oriented X3, Cooperative HEENT: Atraumatic, PERRLA Neck: Supple, No JVD, No Thyromegaly Lungs: Clear to Auscultation, Normal Air Movement Heart: Regular Rate, Normal S1, Normal S2, No Murmurs Abdomen: Normal Bowel Sounds, Soft, No Tenderness, No Hepatosplenomegaly, No Masses Extremities: No Clubbing, No Cyanosis, No Edema, Normal Pulses, No Tenderne ss/Swelling Skin: No Rashes, No Breakdown, No Significant Lesion Neuro: Other (Right hemiplegia, aphasia) Psych/Mental Status: Mental Status NL, Mood NL Results Lab Laboratory Tests 06/03/21 05:33 A/P-Cardiology Admission Diagnosis CVA Right hemiplegia Hypertension Assessment/Plan Subacute CVA, 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 Echocardiogram did not show any significant abnormality, carotid ultrasound did not have any significant obstructive disease. Continue on aspirin and Plavix, continue with PT/OT Right hemiparesis, facial droop, secondary CVA, starting physical therapy. Questionable hyperlipidemia, I will evaluate lipid profile Hypertension, monitor blood pressure. RAUL MCMULLEN MD Jun 03, 2021 11:47 am
[2021-06-03] MEDS: BENZOCAINE 20% ORAL GEL (ORALJEL MAX ST) MM PRN ×2 (13:09→20:11)
[2021-06-03] MEDS: ENOXAPARIN 40 MG/0.4 ML (LOVENOX) SYR SC SCH (14:21)
[2021-06-03] MEDS: MAGIC MOUTHWASH (ADULT) PO SCH ×12 (14:56→20:11)
[2021-06-03] MEDS ORDERED: MAGIC MOUTHWASH, ADULT 155 ML BOTTLE PO SCH (17:00)
[2021-06-03 20:00] VITALS: BP 133/66
[2021-06-03] MEDS: MELATONIN 3 MG TABLET PO PRN (20:11)
[2021-06-03] MEDS: ALPRAZolam 0.25 MG (XANAX) TAB PO PRN (20:11)
--- NOTE | 2021-06-04 07:02 | PM&R Progress Note ---
Subjective HPI/CC On Admission Date Seen by Provider: Jun 04, 2021 Time Seen by Provider: 12:45 Subjective/Events-last exam 06/04/2021: This visit is via video chat due to Covid related restriction for this provider Patient seems to be improved Confusion is still undercurrent BP stable Dysphagia 2 diet working better Decreased garbled speech 06/03/2021: This visit is via video chat due to Covid related restriction for this provider Patient much more lucid Word salad is better Bowels are moving Trying to increase fluid intake Magic mouthwash for right upper lip that he continues to bite when he chews Really obsessed about his shaver 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 Myles evaluated him Mumbles a lot Right hand is improving Review of Systems General: Fatigue, Malaise Neurological: Weakness, Change in speech, Confusion Objective Exam Vital Signs Vital Signs Date Time Temp Pulse Resp B/P (MAP) Pulse Ox O2 Delivery O2 Flow Rate FiO2 06/04/21 18:52 84 06/04/21 09:00 Room Air 06/04/21 07:54 36.5 17 126/77 (93) 90 Capillary Refill : General Appearance: No Apparent Distress, WD/WN, Chronically ill HEENT: PERRL/EOMI, TMs Normal, Moist Mucous Membranes; No Scleral Icterus (L), No Scleral Icterus (R) Neck: Normal Inspection, Carotid Bruit Respiratory: Lungs Clear, No Accessory Muscle Use, No Respiratory Distress Cardiovascular: Regular Rate, Rhythm, No Edema, No Murmur, Normal Peripheral Pulses Gastrointestinal: Normal Bowel Sounds, Non Tender, Soft Back: Normal Inspection Extremity: Normal Capillary Refill, Normal Inspection, No Calf Tenderness, No Pedal Edema Neurologic/Psychiatric: Alert, Oriented x3, Normal Mood/Affect, Facial Droop, Motor Weakness (generalized, right worse than left) Skin: Normal Color, Warm/Dry Results/Procedures Lab Patient resulted labs reviewed. FIM Transfers Therapy Code Descriptions/Definitions Functional [place] Measure: 0=Not Assessed/NA 4=Minimal Assistance 1=Total Assistance 5=Supervision or Setup 2=Maximal Assistance 6=Modified [place] 3=Moderate Assistance 7=Complete IndependenceSCALE: Activities may be completed with or without assistive devices. 3-Gxaxkywcsb-tuzktgv completes the activity by him/herself with no assistance from a helper. 5-Set-up or Clean-up Assistance-helper sets up or cleans up; patient completes activity. [place] assists only prior to or following the activity. 4-Supervision or Touching Assistance-helper provides verbal cues and/or touching/steadying and/or contact guard assistance as patient completes activity. Assistance may be provided throughout the activity or intermittently. 3-Partial/Moderate Assistance-helper does LESS THAN HALF the effort. [place] lifts, holds or supports trunk or limbs, but provides less than half the effort. 2-Substantial/Maximal Assistance-helper does MORE THAN HALF the effort. [place] lifts or holds trunk or limbs and provides more than half the effort. 3-Pzopyabax-sqexel does ALL the effort. Patient does none of the effort to complete the activity. Or, the assistance of 2 or more helpers is required for the patient to complete the activity. If activity was not attempted, code reason: 7-Patient Refused. 9-Not Applicable-not attempted and the patient did not perform the activity before the current illness, exacerbation or injury. 10-Not Attempted due to Environmental Limitations-(lack of equipment, weather restraints, etc.). 88-Not Attempted due to Medical Conditions or Safety Concerns. Roll Left to Right (QC): 3 Sit to Lying (QC): 2 (assist with trunk and both legs) Sit to Stand (QC): 3 (mod assist with assist to hold righthand and cues for safety.) Chair/Mxy-es-Xnhye Xfer(QC): 3 Car Transfer (QC): 3 Gait Training Does the Patient Walk?: Yes Walk 10 feet (QC): 3 (assist to keep right hand on walker; cues for posture and step length) Walk 50 ft with 2 Turns(QC): 3 Walk 150 ft (QC): 88 (unable to walk this distance. ) Walking 10ft/uneven surface-QC: 88 (poor foot clearance and unsafe) Gait Assistive Device: FWW Wheelchair Training Does the Pt Use a Wheelchair?: No Wheel 50 ft with 2 turns (QC): 9 Wheel 150 ft (QC): 9 Stair Training 1 Step (curb) (QC): 88 4 Steps (QC): 88 12 Steps (QC): 88 Balance Picking up an Object (QC): 88 ADL-Treatment Eating (QC): 5 (s/u per clinical judgment) Oral Hygiene (QC): 5 (s/u per clinical judgment) Shower/Bathe Self (QC): 3 (pt completes UB, denies washing hair, pt requires assist with washing LEs/ bottom) Upper Body Dressing (QC): 2 (max A, cues for sequencing. 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 History of GERD Acute kidney injury 1.67 increasing oral fluids Plan: Check labs in the morning Intensive rehab Fall risk 06/03/2021: Lab abnormalities completely resolved Monitor closely Improved 06/04/21: Monitor closely Dysphagia 2 diet (1) CVA (cerebral vascular accident) Qualifiers: CVA mechanism: embolism Precerebral and cerebral artery: unspecified c erebral artery Qualified Codes: I63.40 - Cerebral infarction due to embolism of unspecified cerebral artery (2) Right sided weakness Status: Acute (3) Generalized weakness Status: Acute (4) Dysarthria Status: Acute (5) Urinary hesitancy Status: Acute IRVING STANLEY DO Jun 04, 2021 07:02
[2021-06-04 07:54] VITALS: BP 126/77
--- NOTE | 2021-06-04 08:46 | Cardiology Progress Note ---
Subjective Date Seen by Provider: Jun 04, 2021 Time Seen by Provider: 08:44 Subjective/Events-last exam Sitting up in chair, continues to have right sided weakness, denies any chest pain Review of Systems General: No Chills, No Night Sweats, No Fatigue, No Malaise, No Appetite, No Other HEENT: No Head Aches, No Visual Changes, No Eye Pain, No Ear Pain, No Dysphasia, No Sinus Congestion, No Post Nasal Drip, No Sore Throat, No Other Pulmonary: No Dyspnea, No Cough, No Pleuritic Chest Pain, No Other Cardiovascular: No: Chest Pain, Palpitations, Orthopnea, Paroxysmal Noc. Dyspnea, Edema, Lt Headedness, Other Objective-Cardiology Exam Last Set of Vital Signs Vital Signs 06/04/21 07:54 Temp 36.5 Pulse 84 Resp 17 B/P (MAP) 126/77 (93) Pulse Ox 90 O2 Delivery Room Air I&O Intake and Output 06/03/21 23:59 Intake Total 1575 ml Output Total 1190 ml Balance 385 ml Intake Oral 1575 ml Output Urine Total 1190 ml # Urine Diapers 2 # Bowel Movements 1 General: Alert, Oriented X3, Cooperative HEENT: Atraumatic, PERRLA Neck: Supple, No JVD, No Thyromegaly Lungs: Clear to Auscultation, Normal Air Movement Heart: Regular Rate, Normal S1, Normal S2, No Murmurs Abdomen: Normal Bowel Sounds, Soft, No Tenderness, No Hepatosplenomegaly, No Masses Extremities: No Clubbing, No Cyanosis, No Edema, Normal Pulses, No Tenderness/Swelling Skin: No Rashes, No Breakdown, No Significant Lesion Neuro: Other (Right hemiplegia, aphasia) Psych/Mental Status: Mental Status NL, Mood NL A/P-Cardiology Admission Diagnosis CVA Right hemiplegia Hypertension Assessment/Plan Subacute CVA, 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 Echocardiogram did not show any significant abnormality, carotid ultrasound did not have any significant obstructive disease. Continue on aspirin and Plavix, continue with PT/OT. Discussed possibility of LINq implantation, patient asking to wait and think about it. Continue on telemetry. Right hemiparesis, facial droop, secondary CVA, starting physical therapy. Questionable hyperlipidemia, I will evaluate lipid profile Hypertension, monitor blood pressure. Patient was seen and evaluated with Antonia, had a long discussion with the patient regarding the possibility of loop monitor Patient requested to wait and think about it We will continue on current medication, continue to monitor, monitor blood pressure and lipids Supervisory-Addendum Brief Supervisory Addendum Participated in pt care: history, MDM, physical Personally performed: exam, history, MDM Care discussed with: PA Results interpretation: Verified all documentation ANTONIA STANFORD Jun 04, 2021 8:46 am RAUL MCMULLEN MD Jun 04, 2021 10:11 am
[2021-06-04] MEDS: CLOPIDOGREL 75 MG (PLAVIX) TABLET PO SCH (09:18)
[2021-06-04] MEDS: ASPIRIN 81 MG CHEW (CHILDREN'S ASA) PO SCH (09:18)
[2021-06-04] MEDS: FAMOTIDINE 20 MG (PEPCID) TABLET PO SCH ×2 (09:18→21:40)
[2021-06-04] MEDS: DOCUSATE SODIUM 100 MG (COLACE) CAP PO SCH ×2 (09:18→21:40)
[2021-06-04] MEDS: MAGIC MOUTHWASH (ADULT) PO SCH ×16 (09:21→21:40)
[2021-06-04] MEDS: SENNA W/DOCUSATE (SENOKOT S) TABLET PO SCH ×2 (09:21→21:40)
[2021-06-04] MEDS: polyethylene glycoL POWDER 17 GM (MIRALAX) PACK PO SCH ×2 (09:21→21:40)
--- NOTE | 2021-06-04 11:17 | Speech Therapy Daily Note ---
Speech Daily Progress Note Subjective Date Seen by Provider: Jun 04, 2021 Time Seen by Provider: 00:30 Patient seen following his OT session which included his shower. He was observed giving his diet order to kitchen staff for the next few meals. Objective Patient completed speech activities with 60% intelligibility noted. He required frequent redirection and repetition of directions to complete. Patient is noted to perceverate on topics. Assessment Assessment Current Status: Fair Progress Treatment Plan Continue Plan of Care Speech Short Term Goals Short Term Goals Short Term Goals 1) Patient will complete OME for improving speech intelligibility to 75% or greater. 2) Patient will complete speech tasks for communicating wants/needs at 75% or greater. Speech Life Science Technician Goals Care Home Goals Patient will improve communication/speech skills in order to effectively communicate. Speech-Plan Patient/Family Goals Patient/Family Goals: Patient plans on returning to his home with family support. At this time however due to his debility this discharge situation may not be the safest. Treatment Plan Speech Therapy Treatment Plan: Continue Plan of Care Treatment Duration: Jun 15, 2021 Frequency: 4 times per week (Patient will receive skilled ST 4-5x per week) Estimated Hrs Per Day: .5 hour per day Rehab Potential: Guarded Barriers to Learning: Patient's CVA, confusion, difficulty focusing on tasks, age Pt/Family Agrees to Plan: Yes Safety Risks/Education Teaching Recipient: Patient Teaching Methods: Demonstration, Discussion Response to Teaching: Verbalize Understanding, Return Demonstration Education Topics Provided: Continued safety within his room, chair alarm in place Safety of oral intake strategies, diet level downgraded to Dysphagia II due to patient's biting upper lip while chewing Time Speech Therapy Time In: 10:30 Speech Therapy Time Out: 11:00 Total Billed Time: 30 Billed Treatment Time 1, SLKARINE, DYST YUAN Small Jun 04, 2021 11:17
--- NOTE | 2021-06-04 12:00 | Physical Therapy Daily Note ---
PT Daily Note-Current Subjective Pt sitting in recliner upon arrival. Pt agrees to PT. Pain Location: No Pain Reported Mental Status Patient Orientation: Person, Place, [place] Transfers SCALE: Activities may be completed with or without assistive devices. 7-Mfkshmkjdv-hlofjlf completes the activity by him/herself with no assistance from a helper. 5-Set-up or Clean-up Assistance-helper sets up or cleans up; patient completes activity. [place] assists only prior to or following the activity. 4-Supervision or Touching Assistance-helper provides verbal cues and/or touching/steadying and/or contact guard assistance as patient completes activity. Assistance may be provided throughout the activity or intermittently. 3-Partial/Moderate Assistance-helper does LESS THAN HALF the effort. [place] lifts, holds or supports trunk or limbs, but provides less than half the effort. 2-Substantial/Maximal Assistance-helper does MORE THAN HALF the effort. [place] lifts or holds trunk or limbs and provides more than half the effort. 0-Qitzbohki-zspckd does ALL the effort. Patient does none of the effort to complete the activity. Or, the assistance of 2 or more helpers is required for the patient to complete the activity. If activity was not attempted, code reason: 7-Patient Refused. 9-Not Applicable-not attempted and the patient did not perform the activity before the current illness, exacerbation or injury. 10-Not Attempted due to Environmental Limitations-(lack of equipment, weather restraints, etc.). 88-Not Attempted due to Medical Conditions or Safety Concerns. Sit to Stand (QC): 4 Toilet Transfer (QC): 4 Weight Bearing Full Weight Bearing Full Weight Bearing Gait Training Does the Patient Walk?: Yes Distance: 100' x2 Walk 10 feet (QC): 4 Walk 50 ft with 2 Turns(QC): 4 Walk 150 ft (QC): 4 Gait Persons Needed: 1 Gait Assistive Device: FWW Walks with very slow kamila. Exercises Seated Therapy Exercises: Ankle pumps, Long arc quads, Hip flexion, Glut set Seated Reps: 15 Treatments TF to standing and amb. in hallway. Pt takes short RB then completes Seated EX. Pt needs to return to room to use BR. Pt resting in recliner at end of tx. All needs met, call light in hand. Assessment Current Status: Fair Progress Pt is low activity tolerance and slow kamila at this time. PT Short Term Goals Short Term Goals Time Frame: Jun 13, 2021 Roll Left & Right: 4 Sit to lyin Lying to sitting on side of be: 4 Sit to stand: 4 Chair/iyl-fe-hgyvn transfer: 4 Toilet transfer: 4 Walk 10 feet: 4 Walk 50 feet with two turns: 4 Walk 150 feet: 4 PT Medical Center Director Goals Medical Center Director Goals PT Medical Center Director Goals Time Frame: Jun 29, 2021 Roll Left & Right (QC): 6 Sit to Lying (QC): 6 Lying-Sitting on Side/Bed(QC): 6 Sit to Stand (QC): 6 Chair/Rqq-pq-Mxnte Xfer(QC): 6 Toilet Transfer (QC): 6 Car Transfer (QC): 6 Does the Patient Walk: Yes Walk 10 feet (QC): 6 Walk 50ft with 2 Turns (QC): 6 Walk 150 ft (QC): 6 Walking 10ft on Uneven Surface: 4 1 Step (curb) (QC): 6 4 Steps (QC): 6 12 Steps (QC): 4 Picking up an Object (QC): 4 Wheel 50 feet with 2 turns (QC: 9 Wheel 150 feet: 9 PT Plan Problem List Problem List: Activity Tolerance, Functional Strength, Gait Treatment/Plan Treatment Plan: Continue Plan of Care Treatment Plan: Bed Mobility, Education, Functional Activity Dustin, Functional Strength, Group Therapy, Gait, Safety, Therapeutic Exercise, Transfers Treatment Duration: Jun 29, 2021 Frequency: At least 5 of 7 days/Wk (IRF) Estimated Hrs Per Day: 1.5 hours per day Patient and/or Family Agrees t: Yes Safety Risks/Education Patient Education: Gait Training, Transfer Techniques, Correct Positioning, Safety Issues Teaching Recipient: Patient Teaching Methods: Discussion Response to Teaching: Verbalize Understanding Time/GCodes Time In: 1100 Time Out: 1200 Total Billed Treatment Time: 60 Total Billed Treatment 1, GT x2 (25m), FA (15m) & EX (20m) CLAIR HAJI SKIING INSTRUCTOR Jun 04, 2021 12:00
--- NOTE | 2021-06-04 12:27 | Progress Note ---
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 Patient sitting up in chair. Has concerns about LINQ device. Objective Exam Vital Signs Date Time Temp Pulse Resp B/P (MAP) Pulse Ox O2 Delivery O2 Flow Rate FiO2 06/04/21 09:00 Room Air 06/04/21 07:54 36.5 84 17 126/77 (93) 90 Room Air 06/04/21 06:37 72 06/04/21 01:00 71 06/03/21 21:00 Room Air 06/03/21 20:00 36.4 75 18 133/66 (88) 94 Room Air 06/03/21 19:00 79 06/03/21 12:44 69 I & O 06/04/21 07:00 Intake Total 1125 ml Output Total 1000 ml Balance 125 ml Capillary Refill : General Appearance: No Apparent Distress Respiratory: Lungs Clear Cardiovascular: Regular Rate, Rhythm Gastrointestinal: normal bowel sounds, non tender, soft Extremity: Non Tender, No Calf Tenderness, No Pedal Edema Neurologic/Psychiatric: Alert, Oriented x3, Motor Weakness (right arm), Other (dysarthria) Assessment/Plan Assessment/Plan Assess & Plan/Chief Complaint 1. 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
--- NOTE | 2021-06-04 12:37 | Occupational Ther Daily Note ---
OT Current Status-Daily Note Subjective Pt alert, sitting in recliner. Nrsg present at beginning of treatment. Pt agrees to therapy. Difficulty with processing tasks and perseverates. Mental Status/Objective Patient Orientation: Person, Place, Time, Situation Attachments: IV ADL-Treatment Pt agrees to shower. Pt requires set up and SBA to complete shower, verbal cues to initiate and focus on task. SBA for toileting and CGA for toilet transfer. Due to time constraints, pt requires assistance to don/doff lower body clothing and footwear. Pt requires min A to don/doff shirt after set up. Pt takes increased time to complete tasks due to perseveration on thought and slow processing of tasks. After session, pt sitting in recliner with call light/phone in reach. AUTOMATIC MOUNTER took over care of pt. Chair alarm activated. Therapy Code Descriptions/Definitions Functional [place] Measure: 0=Not Assessed/NA 4=Minimal Assistance 1=Total Assistance 5=Supervision or Setup 2=Maximal Assistance 6=Modified [place] 3=Moderate Assistance 7=Complete IndependenceSCALE: Activities may be completed with or without assistive devices. 3-Imhrnprdko-bhjobvp completes the activity by him/herself with no assistance from a helper. 5-Set-up or Clean-up Assistance-helper sets up or cleans up; patient completes activity. [place] assists only prior to or following the activity. 4-Supervision or Touching Assistance-helper provides verbal cues and/or touching/steadying and/or contact guard assistance as patient completes activity. Assistance may be provided throughout the activity or intermittently. 3-Partial/Moderate Assistance-helper does LESS THAN HALF the effort. [place] lifts, holds or supports trunk or limbs, but provides less than half the effort. 2-Substantial/Maximal Assistance-helper does MORE THAN HALF the effort. [place] lifts or holds trunk or limbs and provides more than half the effort. 6-Sorapeenu-wetbpw does ALL the effort. Patient does none of the effort to complete the activity. Or, the assistance of 2 or more helpers is required for the patient to complete the activity. If activity was not attempted, code reason: 7-Patient Refused. 9-Not Applicable-not attempted and the patient did not perform the activity before the current illness, exacerbation or injury. 10-Not Attempted due to Environmental Limitations-(lack of equipment, weather restraints, etc.). 88-Not Attempted due to Medical Conditions or Safety Concerns. Shower/Bathe Self (QC): 3 Upper Body Dressing (QC): 3 Lower Body Dressing (QC): 2 On/Off Footwear: 2 Toileting Hygiene (QC): 4 Toilet Transfer (QC): 4 OT Short Term Goals Short Term Goals Eatin Oral hygiene: 6 Toileting hygiene: 3 Shower/bathe self: 3 Upper body dressin Lower body dressin Putting on/taking off footwear: 3 OT Chimney Builder Goals Senior Care Goals Time Frame: Jun 15, 2021 Eating (QC): 6 Oral Hygiene (QC): 6 Toileting Hygiene (QC): 6 Shower/Bathe Self (QC): 6 Upper Body Dressing (QC): 6 Lower Body Dressing (QC): 6 On/Off Footwear (QC): 6 Additional Goals: 1-Demonstrate ADL Tasks, 2-Verbalize Understanding, 3- ImproveStrength/Dustin 1=Demonstrate adherence to instructed precautions during ADL tasks. 2=Patient will verbalize/demonstrate understanding of assistive devices/modifications for ADL. 3=Patient will improve strength/tolerance for activity to enable patient to perform ADL's. OT Education/Plan Problem List/Assessment Assessment: Decreased Activ Tolerance, Decreased Safety Aware, Decreased UE Strength, Impaired Self-Care Skills, Restricted Funct UE ROM (R hand weakness and decreased movement) Discharge Recommendations Plan/Recommendations: Continue POC Treatment Plan/Plan of Care Patient would benefit from OT for education, treatment and training to promote independence in ADL's, mobility, safety and/or upper extremity function for ADL's. Plan of Care: ADL Retraining, Caregiver Training, Cognitive Retraining, Functional Mobility, Group Exercise/Act as Ind, Orthotic Fitting/Training, UE Funct Exercise/Act, UE Neuromus Re-Ed/Coord, W/C Management Training Treatment Duration: Jun 15, 2021 Frequency: At least 5 of 7 days/Wk (IRF) Estimated Hrs Per Day: 1.5 hours per day Agreement: Yes Rehab Potential: Guarded Time/GCodes Start Time: 09:30 Stop Time: 10:30 Total Time Billed (hr/min): 60 Billed Treatment Time 1 visit-ADL 4 (60 min) JAY BONILLA Jun 04, 2021 12:37
[2021-06-04] MEDS: ENOXAPARIN 40 MG/0.4 ML (LOVENOX) SYR SC SCH (13:02)
--- NOTE | 2021-06-04 14:35 | Therapy Group Daily Note ---
Therapy Daily Group Note Patient Education Topic Other List Below (hospital bed and mobility) Exercises LE Seated Exercise, UE Exercise Session Ratio (pt:therapist): 4:1 Goal of Session: Use of Adaptive Equipment Goal Met for this Session: Yes Pt Benefit of Group: Contributions to Others, F/U Use of Strategies @Home, Increased Functional Safety, Increased Functional Strength, Improved Cognition, Recognition of Peers, Socialization Other/Notes Pt transported via w/c to [facility] for OT/PT group. Group consisted of introductions (name, place born, favorite restaurant), socialization, B UE seated exercises, education on hospital bed and mobility. Pt able to introduce self appropriately and actively listening to peers. Pt acknowledged understanding by affirmative gestures. Pt requires verbals for processing. Pt was able to complete B UE seated exercises well. After session, pt sitting in recliner with call light/phone in reach. All needs met in room. Safety measures in place Start Time: 13:00 Stop Time: 14:00 Total Billed Treatment Time: 60 Total Billed Treatment 1-[facility] JAY BONILLA Jun 04, 2021 14:34
[2021-06-04 20:00] VITALS: BP 133/64
[2021-06-05 05:26] LABS: HEMATOCRIT 44 % (40-54); MEAN CORPUSCULAR HEMOGLOBIN 32 pg (25-34); MEAN CORPUSCULAR HGB CONC 34 g/dL (32-36); MEAN CORPUSCULAR VOLUME 93 fL (80-99); MEAN PLATELET VOLUME 11.4 fL (9.0-12.2); PLATELET COUNT 204 10^3/uL (130-400); WHITE BLOOD COUNT 7.6 10^3/uL (4.3-11.0)
[2021-06-05 05:36] LABS: ALBUMIN 3.9 GM/DL (3.2-4.5); CHLORIDE 107 MMOL/L (98-107); POTASSIUM 3.7 MMOL/L (3.6-5.0); SODIUM 142 MMOL/L (135-145)
[2021-06-05 05:37] LABS: CALCIUM 8.8 MG/DL (8.5-10.1)
[2021-06-05 05:38] LABS: TRIGLYCERIDES 56 MG/DL (<150); VLDL CHOLESTEROL 11 MG/DL (5-40)
[2021-06-05 05:39] LABS: GLUCOSE 102 MG/DL (70-105); TOTAL PROTEIN 6.7 GM/DL (6.4-8.2)
[2021-06-05 05:40] LABS: CARBON DIOXIDE 24 MMOL/L (21-32)
[2021-06-05 05:41] LABS: BILIRUBIN,TOTAL 0.8 MG/DL (0.1-1.0)
[2021-06-05 05:42] LABS: ALKALINE PHOSPHATASE 102 U/L (40-136); GFR ESTIMATED > 60
[2021-06-05 05:43] LABS: CHOLESTEROL 115 MG/DL (< 200)
[2021-06-05 05:44] LABS: BUN/CREATININE RATIO 14
[2021-06-05 05:45] LABS: ALANINE AMINOTRANSFERASE 36 U/L (0-55); HDL CHOLESTEROL 39 MG/DL (40-60)
[2021-06-05 07:45] VITALS: BP 144/83
--- NOTE | 2021-06-05 07:50 | Speech Therapy Daily Note ---
Speech Daily Progress Note Subjective Date Seen by Provider: Jun 05, 2021 Time Seen by Provider: 00:30 Patient had just received breakfast when I entered his room. He states the chopped foods has made it a lot better in regards to biting his lip. Objective Patient's speech for conversation this morning was very much improved with 80% intelligibility. Patient utilized compensatory strategies as trained during his meal at 80% with 20% verbal/visual cues. Assessment Assessment Current Status: Good Progress Treatment Plan Continue Plan of Care Speech Short Term Goals Short Term Goals Short Term Goals 1) Patient will complete OME for improving speech intelligibility to 75% or greater. 2) Patient will complete speech tasks for communicating wants/needs at 75% or greater. 3) Patient will tolerate least restrictive diet without s/s of aspiration at 90% or greater. 4) Patient will utilize compensatory strategies as trained for safe oral intake at 90% or greater with minimal cues. Speech Helper Coordinator Goals Half-Way Goals Patient will improve communication/speech skills in order to effectively communicate. Patient will maintain adequate nutrition/hydration via safe, effective swallow function. Speech-Plan Patient/Family Goals Patient/Family Goals: Patient plans on returning to his home where he lives alone. Rehab team will discuss discharge plans for safest location. Treatment Plan Speech Therapy Treatment Plan: Concurrent Therapy Treatment Duration: Jun 15, 2021 Frequency: 4 times per week (Patient will receive skilled ST 4-5x per week) Estimated Hrs Per Day: .5 hour per day Rehab Potential: Guarded Barriers to Learning: Patient's recent CVA, other health issues Pt/Family Agrees to Plan: Yes Safety Risks/Education Teaching Recipient: Patient Teaching Methods: Demonstration, Discussion Response to Teaching: Verbalize Understanding, Return Demonstration Education Topics Provided: Continued safety within his room, chair alarm on Continued safety of oral intake Time Speech Therapy Time In: 07:30 Speech Therapy Time Out: 08:00 Total Billed Time: 30 Billed Treatment Time 1, LENNY, YUAN Cheney Jun 05, 2021 07:50
[2021-06-05] MEDS: SENNA W/DOCUSATE (SENOKOT S) TABLET PO SCH ×2 (08:47→20:44)
[2021-06-05] MEDS: ASPIRIN 81 MG CHEW (CHILDREN'S ASA) PO SCH (08:47)
[2021-06-05] MEDS: MAGIC MOUTHWASH (ADULT) PO SCH ×16 (08:47→20:44)
[2021-06-05] MEDS: FAMOTIDINE 20 MG (PEPCID) TABLET PO SCH ×2 (08:47→20:44)
[2021-06-05] MEDS: DOCUSATE SODIUM 100 MG (COLACE) CAP PO SCH ×2 (08:47→20:44)
[2021-06-05] MEDS: CLOPIDOGREL 75 MG (PLAVIX) TABLET PO SCH (08:47)
[2021-06-05] MEDS: polyethylene glycoL POWDER 17 GM (MIRALAX) PACK PO SCH ×2 (09:06→21:00)
--- NOTE | 2021-06-05 09:09 | PM&R Progress Note ---
Subjective HPI/CC On Admission Date Seen by Provider: Jun 05, 2021 Time Seen by Provider: 13:00 Subjective/Events-last exam 06/05/2021: This visit is via video chat due to Covid related restriction for this provider Patient doing a lot better Prune juice helps his bowels more than MiraLAX he reports So very slow in activity Chopped meat has been helpful Magic mouthwash on the upper lip Ruminates about certain topics 06/04/2021: This visit is via video chat due to Covid related restriction for this provider Patient seems to be improved Confusion is still undercurrent BP stable Dysphagia 2 diet working better Decreased garbled speech 06/03/2021: This visit is via video chat due to Covid related restriction for this provider Patient much more lucid Word salad is better Bowels are moving Trying to increase fluid intake Magic mouthwash for right upper lip that he continues to bite when he chews Really obsessed about his shaver Increase right hand text transcriber 06/02/2021: This visit is via video chat due to Covid related restriction for this provider Patient difficult to understand Word salad most of the time Confused Hemoglobin went from 15.4-9.7 which is unusual Creatinine 1.6 so will encourage oral fluids Dr. Myles evaluated him Mumbles a lot Right hand is improving Review of Systems General: Fatigue, Malaise Neurological: Weakness, Confusion Objective Exam Vital Signs Vital Signs Date Time Temp Pulse Resp B/P (MAP) Pulse Ox O2 Delivery O2 Flow Rate FiO2 06/06/21 08:00 36.2 79 14 120/95 (103) 93 Room Air Capillary Refill : General Appearance: No Apparent Distress, WD/WN, Chronically ill HEENT: PERRL/EOMI, TMs Normal, Moist Mucous Membranes; No Scleral Icterus (L), No Scleral Icterus (R) Neck: Normal Inspection, Carotid Bruit Respiratory: Lungs Clear, No Accessory Muscle Use, No Respiratory Distress Cardiovascular: Regular Rate, Rhythm, No Edema, No Murmur, Normal Peripheral Pulses Gastrointestinal: Normal Bowel Sounds, Non Tender, Soft Back: Normal Inspection Extremity: Normal Capillary Refill, Normal Inspection, No Calf Tenderness, No Pedal Edema Neurologic/Psychiatric: Alert, Oriented x3, Normal Mood/Affect, Facial Droop, Motor Weakness (generalized, right worse than left) Skin: Normal Color, Warm/Dry Results/Procedures Lab Patient resulted labs reviewed. FIM Transfers Therapy Code Descriptions/Definitions Functional [place] Measure: 0=Not Assessed/NA 4=Minimal Assistance 1=Total Assistance 5=Supervision or Setup 2=Maximal Assistance 6=Modified [place] 3=Moderate Assistance 7=Complete IndependenceSCALE: Activities may be completed with or without assistive devices. 2-Oacfximslh-cgzrfzv completes the activity by him/herself with no assistance from a helper. 5-Set-up or Clean-up Assistance-helper sets up or cleans up; patient completes activity. [place] assists only prior to or following the activity. 4-Supervision or Touching Assistance-helper provides verbal cues and/or touching/steadying and/or contact guard assistance as patient completes activity. Assistance may be provided throughout the activity or intermittently. 3-Partial/Moderate Assistance-helper does LESS THAN HALF the effort. [place] lifts, holds or supports trunk or limbs, but provides less than half the effort. 2-Substantial/Maximal Assistance-helper does MORE THAN HALF the effort. [place] lifts or holds trunk or limbs and provides more than half the effort. 7-Kpmxvcxdd-wmgdrw does ALL the effort. Patient does none of the effort to complete the activity. Or, the assistance of 2 or more helpers is required for the patient to complete the activity. If activity was not attempted, code reason: 7-Patient Refused. 9-Not Applicable-not attempted and the patient did not perform the activity before the current illness, exacerbation or injury. 10-Not Attempted due to Environmental Limitations-(lack of equipment, weather restraints, etc.). 88-Not Attempted due to Medical Conditions or Safety Concerns. Roll Left to Right (QC): 3 Sit to Lying (QC): 2 (assist with trunk and both legs) Sit to Stand (QC): 4 Chair/Hzd-rm-Jytku Xfer(QC): 3 Car Transfer (QC): 3 Gait Training Does the Patient Walk?: Yes Distance: 100' x2 Walk 10 feet (QC): 4 Walk 50 ft with 2 Turns(QC): 4 Walk 150 ft (QC): 4 Walking 10ft/uneven surface-QC: 88 (poor foot clearance and unsafe) Gait Persons Needed: 1 Gait Assistive Device: FWW Wheelchair Training Does the Pt Use a Wheelchair?: No Wheel 50 ft with 2 turns (QC): 9 Wheel 150 ft (QC): 9 Stair Training 1 Step (curb) (QC): 88 4 Steps (QC): 88 12 Steps (QC): 88 Balance Picking up an Object (QC): 88 ADL-Treatment Eating (QC): 5 (s/u per clinical judgment) Oral Hygiene (QC): 5 (s/u per clinical judgment) Shower/Bathe Self (QC): 3 Upper Body Dressing (QC): 3 Lower Body Dressing (QC): 2 On/Off Footwear (QC): 2 Toileting Hygiene (QC): 4 Toilet Transfer (QC): 4 Assessment/Plan Assessment and Plan Assess & Plan/Chief Complaint Assessment: 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 History of GERD Acute kidney injury 1.67 increasing oral fluids Plan: Check labs in the morning Intensive rehab Fall risk 06/03/2021: Lab abnormalities completely resolved Monitor closely Improved 06/04/21: Monitor closely Dysphagia 2 diet 06/05/2021: Change of diet has been helpful Monitor closely (1) CVA (cerebral vascular accident) Qualifiers: CVA mechanism: embolism Precerebral and cerebral artery: unspecified cerebral artery Qualified Codes: I63.40 - Cerebral infarction due to embolism of unspecified cerebral artery (2) Right sided weakness Status: Acute (3) Generalized weakness Status: Acute (4) Dysarthria Status: Acute (5) Urinary hesitancy Status: Acute IRVING STANLEY DO Jun 05, 2021 09:09
--- NOTE | 2021-06-05 09:40 | Cardiology Progress Note ---
Subjective Date Seen by Provider: Jun 05, 2021 Time Seen by Provider: 08:25 Subjective/Events-last exam Sitting up in chair eating breakfast, denies any chest pain or dyspnea Review of Systems General: No Chills, No Night Sweats; Fatigue; No Malaise, No Appetite, No Other HEENT: No Head Aches, No Visual Changes, No Eye Pain, No Ear Pain, No Dysphasia, No Sinus Congestion, No Post Nasal Drip, No Sore Throat, No Other Pulmonary: No Dyspnea, No Cough, No Pleuritic Chest Pain, No Other Cardiovascular: No: Chest Pain, Palpitations, Orthopnea, Paroxysmal Noc. Dyspnea, Edema, Lt Headedness, Other Objective-Cardiology Exam Last Set of Vital Signs Vital Signs 06/05/21 06/05/21 06/05/21 07:45 09:00 12:54 Temp 36.3 Pulse 85 Resp 18 B/P (MAP) 144/83 (103) Pulse Ox 93 O2 Delivery Room Air I&O Intake and Output 06/05/21 00:00 Intake Total 1200 ml Output Total 850 ml Balance 350 ml Intake Oral 1200 ml Output Urine Total 850 ml # Urine Diapers 1 General: Alert, Oriented X3, Cooperative HEENT: Atraumatic, PERRLA Neck: Supple, No JVD, No Thyromegaly Lungs: Clear to Auscultation, Normal Air Movement Heart: Regular Rate, Normal S1, Normal S2, No Murmurs Abdomen: Normal Bowel Sounds, Soft, No Tenderness, No Hepatosplenomegaly, No Masses Extremities: No Clubbing, No Cyanosis, No Edema, Normal Pulses, No Tenderness/Swelling Skin: No Rashes, No Breakdown, No Significant Lesion Neuro: Other (Right hemiplegia, aphasia) Psych/Mental Status: Mental Status NL, Mood NL Results Lab Laboratory Tests 06/05/21 05:18 A/P-Cardiology Admission Diagnosis CVA Right hemiplegia Hypertension Assessment/Plan Subacute CVA, 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 Echocardiogram did not show any significant abnormality, carotid ult rasound did not have any significant obstructive disease. Continue on aspirin and Plavix, continue with PT/OT. Discussed possibility of LINq implantation, patient asking to wait and think about it. Continue on telemetry. Right hemiparesis, facial droop, secondary CVA, starting physical therapy. Hypertension, monitor blood pressure. Patient was seen and evaluated with Antonia, examination performed, management plan was discussed, agree with the current scribed note, I made few changes to the note using Italic font Supervisory-Addendum Brief Supervisory Addendum Participated in pt care: history, MDM, physical Personally performed: exam, history, MDM Care discussed with: MUSTAPHA Results interpretation: Verified all documentation ANTONIA STANFORD Jun 05, 2021 09:40 RAUL MCMULLEN MD Jun 05, 2021 14:07
--- NOTE | 2021-06-05 10:14 | Physical Therapy Daily Note ---
PT Daily Note-Current Subjective Pt sitting in recliner upon arrival. Pt agrees to PT. Mental Status Patient Orientation: Person, Place, [place] Transfers SCALE: Activities may be completed with or without assistive devices. 4-Idsinaohll-qyrqnii completes the activity by him/herself with no assistance from a helper. 5-Set-up or Clean-up Assistance-helper sets up or cleans up; patient completes activity. [place] assists only prior to or following the activity. 4-Supervision or Touching Assistance-helper provides verbal cues and/or touching/steadying and/or contact guard assistance as patient completes activity. Assistance may be provided throughout the activity or intermittently. 3-Partial/Moderate Assistance-helper does LESS THAN HALF the effort. [place] lifts, holds or supports trunk or limbs, but provides less than half the effort. 2-Substantial/Maximal Assistance-helper does MORE THAN HALF the effort. [place] lifts or holds trunk or limbs and provides more than half the effort. 3-Fxjjszlaq-vtumgz does ALL the effort. Patient does none of the effort to complete the activity. Or, the assistance of 2 or more helpers is required for the patient to complete the activity. If activity was not attempted, code reason: 7-Patient Refused. 9-Not Applicable-not attempted and the patient did not perform the activity before the current illness, exacerbation or injury. 10-Not Attempted due to Environmental Limitations-(lack of equipment, weather restraints, etc.). 88-Not Attempted due to Medical Conditions or Safety Concerns. Sit to Stand (QC): 4 Toilet Transfer (QC): 4 Weight Bearing Full Weight Bearing Full Weight Bearing Gait Training Does the Patient Walk?: Yes Distance: 100' x2 Walk 10 feet (QC): 4 Walk 50 ft with 2 Turns(QC): 4 Walk 150 ft (QC): 4 Gait Persons Needed: 1 Gait Assistive Device: FWW Very slow kamila, RB as needed for fatigue. Exercises Seated Therapy Exercises: Ankle pumps, Long arc quads, Hip flexion, Glut set Seated Reps: 15 NuStep Minutes: 15 NuStep Workload: 3 Treatments 900-1000: TF to standing and uses BR. Pt amb. in hallway with RB as needed for fatigue. Pt uses NuStep for 15m at WL 3. Pt takes short RB then amb. in hallway, returning to room to rest in recliner. All needs met, call light in hand. [id number]: Pt completes Seated EX in recliner. Pt declines needing to use BR. All needs met, call light in hand. PT Short Term Goals Short Term Goals Time Frame: Jun 13, 2021 Roll Left & Right: 4 Sit to lyin Lying to sitting on side of be: 4 Sit to stand: 4 Chair/shn-zd-nvemo transfer: 4 Toilet transfer: 4 Walk 10 feet: 4 Walk 50 feet with two turns: 4 Walk 150 feet: 4 PT Jail Goals Jail Goals PT Crm Technical Lead Goals Time Frame: Jun 29, 2021 Roll Left & Right (QC): 6 Sit to Lying (QC): 6 Lying-Sitting on Side/Bed(QC): 6 Sit to Stand (QC): 6 Chair/Qbc-zw-Kzdzo Xfer(QC): 6 Toilet Transfer (QC): 6 Car Transfer (QC): 6 Does the Patient Walk: Yes Walk 10 feet (QC): 6 Walk 50ft with 2 Turns (QC): 6 Walk 150 ft (QC): 6 Walking 10ft on Uneven Surface: 4 1 Step (curb) (QC): 6 4 Steps (QC): 6 12 Steps (QC): 4 Picking up an Object (QC): 4 Wheel 50 feet with 2 turns (QC: 9 Wheel 150 feet: 9 PT Plan Problem List Problem List: Activity Tolerance, Functional Strength, Gait, Transfer Treatment/Plan Treatment Plan: Continue Plan of Care Treatment Plan: Bed Mobility, Education, Functional Activity Dustin, Functional Strength, Group Therapy, Gait, Safety, Therapeutic Exercise, Transfers Treatment Duration: Jun 29, 2021 Frequency: At least 5 of 7 days/Wk (IRF) Estimated Hrs Per Day: 1.5 hours per day Patient and/or Family Agrees t: Yes Safety Risks/Education Patient Education: Gait Training, Transfer Techniques, Correct Positioning, Safety Issues Teaching Recipient: Patient Teaching Methods: Discussion Response to Teaching: Reinforcement Needed Time/GCodes Time In: 900 Time Out: 1345 Total Billed Treatment Time: 75 Total Billed Treatment 900-1000: 1, FA (15m), GT x2 (30m) & EX (15m) [id number]: 1, FA (15m) CLAIR HAJI PIPE CONNECTOR Jun 05, 2021 10:14
--- NOTE | 2021-06-05 10:57 | Occupational Ther Daily Note ---
OT Current Status-Daily Note Subjective Pt alert, sitting in recliner. Pt agrees to therapy. No c/o pain. Pt takes increased time to respond to questions and increased time to complete tasks. Pt will perseverate on one item and difficult to direct pt to resume task. Mental Status/Objective Patient Orientation: Person ADL-Treatment Pt agrees to shower. Pt completes shaving after assist to gather supplies. Pt takes increased time to complete due to perseveration on certain tasks and very slow movements. CGA for sit to stands. Uses FWW to ambulate and transfer, CGA. Min A for clothing manipulation during toileting. Pt able to complete shower with SBA and set up. Min A for upper body dressing. Max A for lower body dressing. Max A for footwear. Pt will not complete oral care, stating that he only uses [employer] Complete. After therapy, pt sitting in recliner with call light/phone in reach. Safety measures in place. All needs met. Therapy Code Descriptions/Definitions Functional [place] Measure: 0=Not Assessed/NA 4=Minimal Assistance 1=Total Assistance 5=Supervision or Setup 2=Maximal Assistance 6=Modified [place] 3=Moderate Assistance 7=Complete IndependenceSCALE: Activities may be completed with or without assistive devices. 5-Spcnvbsmkp-wjrhekm completes the activity by him/herself with no assistance f rom a helper. 5-Set-up or Clean-up Assistance-helper sets up or cleans up; patient completes activity. [place] assists only prior to or following the activity. 4-Supervision or Touching Assistance-helper provides verbal cues and/or touching/steadying and/or contact guard assistance as patient completes activity. Assistance may be provided throughout the activity or intermittently. 3-Partial/Moderate Assistance-helper does LESS THAN HALF the effort. [place] lifts, holds or supports trunk or limbs, but provides less than half the effort. 2-Substantial/Maximal Assistance-helper does MORE THAN HALF the effort. [place] lifts or holds trunk or limbs and provides more than half the effort. 5-Xymlprbfm-xkfkfs does ALL the effort. Patient does none of the effort to complete the activity. Or, the assistance of 2 or more helpers is required for the patient to complete the activity. If activity was not attempted, code reason: 7-Patient Refused. 9-Not Applicable-not attempted and the patient did not perform the activity before the current illness, exacerbation or injury. 10-Not Attempted due to Environmental Limitations-(lack of equipment, weather restraints, etc.). 88-Not Attempted due to Medical Conditions or Safety Concerns. Oral Hygiene (QC): 7 Shower/Bathe Self (QC): 4 Upper Body Dressing (QC): 3 Lower Body Dressing (QC): 2 On/Off Footwear: 2 Toileting Hygiene (QC): 4 Toilet Transfer (QC): 4 OT Short Term Goals Short Term Goals Eatin Oral hygiene: 6 Toileting hygiene: 3 Shower/bathe self: 3 Upper body dressin Lower body dressin Putting on/taking off footwear: 3 OT Contestant Coordinator Goals Contestant Coordinator Goals Time Frame: Jun 15, 2021 Eating (QC): 6 Oral Hygiene (QC): 6 Toileting Hygiene (QC): 6 Shower/Bathe Self (QC): 6 Upper Body Dressing (QC): 6 Lower Body Dressing (QC): 6 On/Off Footwear (QC): 6 Additional Goals: 1-Demonstrate ADL Tasks, 2-Verbalize Understanding, 3- ImproveStrength/[place] 1=Demonstrate adherence to instructed precautions during ADL tasks. 2=Patient will verbalize/demonstrate understanding of assistive devices/modifications for ADL. 3=Patient will improve strength/tolerance for activity to enable patient to perform ADL's. OT Education/Plan Problem List/Assessment Assessment: Decreased Activ Tolerance, Decreased Safety Aware, Impaired Cognition, Impaired Self-Care Skills Discharge Recommendations Plan/Recommendations: Continue POC Treatment Plan/Plan of Care Patient would benefit from OT for education, treatment and training to promote independence in ADL's, mobility, safety and/or upper extremity function for ADL's. Plan of Care: ADL Retraining, Caregiver Training, Cognitive Retraining, Functional Mobility, Group Exercise/Act as Ind, Orthotic Fitting/Training, UE Funct Exercise/Act, UE Neuromus Re-Ed/Coord, W/C Management Training Treatment Duration: Jun 15, 2021 Frequency: At least 5 of 7 days/Wk (IRF) Estimated Hrs Per Day: 1.5 hours per day Agreement: Yes Rehab Potential: Guarded Time/GCodes Start Time: 10:30 Stop Time: 12:10 Total Time Billed (hr/min): 100 Billed Treatment Time 1 visit-ADL 7 (100 min) JAY BONILLA Jun 05, 2021 10:57
[2021-06-05] MEDS: ENOXAPARIN 40 MG/0.4 ML (LOVENOX) SYR SC SCH (14:20)
[2021-06-05 20:00] VITALS: BP 139/72
[2021-06-05] MEDS: MELATONIN 3 MG TABLET PO PRN (20:44)
[2021-06-06] MEDS: ALPRAZolam 0.25 MG (XANAX) TAB PO PRN (01:52)
--- NOTE | 2021-06-06 07:39 | Occupational Ther Daily Note ---
OT Current Status-Daily Note Subjective Pt alert, in bathroom. Pt agrees to therapy. No c/o pain, c/o not being able to move bowels. Mental Status/Objective Patient Orientation: Person ADL-Treatment 1st session () Pt able to cleanse self after urination. Assist to don pants and hike over hips. Pt requires verbal cues for hand placement on FWW when transferring, will reach out and grab other objects when turning during transfer. Set up for meal and attempts to use R hand to eat, decreased coordination, then uses L hand. Pt able to don L sock after set up then assist to don R sock and both shoes. After therapy, pt sitting in recliner with call light/phone in reach. Chair alarm activated. Therapy Code Descriptions/Definitions Functional [place] Measure: 0=Not Assessed/NA 4=Minimal Assistance 1=Total Assistance 5=Supervision or Setup 2=Maximal Assistance 6=Modified [place] 3=Moderate Assistance 7=Complete IndependenceSCALE: Activities may be completed with or without assistive devices. 8-Hbjtfsehxb-veoyguv completes the activity by him/herself with no assistance from a helper. 5-Set-up or Clean-up Assistance-helper sets up or cleans up; patient completes activity. [place] assists only prior to or following the activity. 4-Supervision or Touching Assistance-helper provides verbal cues and/or touchin g/steadying and/or contact guard assistance as patient completes activity. Assistance may be provided throughout the activity or intermittently. 3-Partial/Moderate Assistance-helper does LESS THAN HALF the effort. [place] lifts, holds or supports trunk or limbs, but provides less than half the effort. 2-Substantial/Maximal Assistance-helper does MORE THAN HALF the effort. [place] lifts or holds trunk or limbs and provides more than half the effort. 6-Ajggxlbeb-iemapm does ALL the effort. Patient does none of the effort to complete the activity. Or, the assistance of 2 or more helpers is required for the patient to complete the activity. If activity was not attempted, code reason: 7-Patient Refused. 9-Not Applicable-not attempted and the patient did not perform the activity before the current illness, exacerbation or injury. 10-Not Attempted due to Environmental Limitations-(lack of equipment, weather restraints, etc.). 88-Not Attempted due to Medical Conditions or Safety Concerns. Eating (QC): 5 Oral Hygiene (QC): 7 Lower Body Dressing (QC): 2 On/Off Footwear: 2 Toileting Hygiene (QC): 3 Other Treatment 2nd session ([id number]) Pt requested to use bathroom. CGA to ambulate into bathroom. CGA for toilet transfer using FWW, grabbars and verbal cues for hand placement. Pt able to cleanse self after urination. Pt able to bend down and use R hand to bring briefs then pants up to knees. Using L hand hiked over L hip and assist to hike over R hip. Pt then ambulated to sink to wash hands, CGA. Pt ambulated back to recliner. After therapy, pt sitting in recliner with call light/phone in reach. All needs met in room. Chair alarm activated. OT Short Term Goals Short Term Goals Eatin Oral hygiene: 6 Toileting hygiene: 3 Shower/bathe self: 3 Upper body dressin Lower body dressin Putting on/taking off footwear: 3 OT Housekeeping Associate Goals Housekeeping Associate Goals Time Frame: Jun 15, 2021 Eating (QC): 6 Oral Hygiene (QC): 6 Toileting Hygiene (QC): 6 Shower/Bathe Self (QC): 6 Upper Body Dressing (QC): 6 Lower Body Dressing (QC): 6 On/Off Footwear (QC): 6 Additional Goals: 1-Demonstrate ADL Tasks, 2-Verbalize Understanding, 3- ImproveStrength/[place] 1=Demonstrate adherence to instructed precautions during ADL tasks. 2=Patient will verbalize/demonstrate understanding of assistive devices/modifications for ADL. 3=Patient will improve strength/tolerance for activity to enable patient to perform ADL's. OT Education/Plan Problem List/Assessment Assessment: Decreased Safety Aware, Decreased UE Strength, Impaired Cognition, Impaired Self-Care Skills, Restricted Funct UE ROM Discharge Recommendations Plan/Recommendations: Continue POC Treatment Plan/Plan of Care Patient would benefit from OT for education, treatment and training to promote independence in ADL's, mobility, safety and/or upper extremity function for ADL's. Plan of Care: ADL Retraining, Caregiver Training, Cognitive Retraining, Functional Mobility, Group Exercise/Act as Ind, Orthotic Fitting/Training, UE Funct Exercise/Act, UE Neuromus Re-Ed/Coord, W/C Management Training Treatment Duration: Jun 15, 2021 Frequency: At least 5 of 7 days/Wk (IRF) Estimated Hrs Per Day: 1.5 hours per day Agreement: Yes Rehab Potential: Guarded Time/GCodes Start Time: 10:45 Stop Time: 11:15 Total Time Billed (hr/min): 30 Billed Treatment Time 1 visit-ADL 2 (30 min) JAY BONILLA Jun 06, 2021 07:39
[2021-06-06 08:00] VITALS: BP 120/95
[2021-06-06] MEDS: FAMOTIDINE 20 MG (PEPCID) TABLET PO SCH ×2 (08:08→20:12)
[2021-06-06] MEDS: SENNA W/DOCUSATE (SENOKOT S) TABLET PO SCH ×2 (08:08→20:13)
[2021-06-06] MEDS: CLOPIDOGREL 75 MG (PLAVIX) TABLET PO SCH (08:08)
[2021-06-06] MEDS: DOCUSATE SODIUM 100 MG (COLACE) CAP PO SCH ×2 (08:08→20:13)
[2021-06-06] MEDS: ASPIRIN 81 MG CHEW (CHILDREN'S ASA) PO SCH (08:08)
[2021-06-06] MEDS: MAGIC MOUTHWASH (ADULT) PO SCH ×16 (08:09→20:12)
[2021-06-06] MEDS: polyethylene glycoL POWDER 17 GM (MIRALAX) PACK PO SCH ×2 (08:09→20:13)
--- NOTE | 2021-06-06 08:26 | PM&R Progress Note ---
Subjective HPI/CC On Admission Date Seen by Provider: Jun 06, 2021 Time Seen by Provider: 13:00 Subjective/Events-last exam 06/06/2021: This visit is via video chat due to Covid related restriction for this provider Patient doing well BM moving slowly Swallowed pills well Upper right lip improved Loop recorder placed today Son visited today Prune juice and Lactulose ordered 06/05/2021: This visit is via video chat due to Covid related restriction for this provider Patient doing a lot better Prune juice helps his bowels more than MiraLAX he reports So very slow in activity Chopped meat has been helpful Magic mouthwash on the upper lip Ruminates about certain topics 06/04/2021: This visit is via video chat due to Covid related restriction for this provider Patient seems to be improved Confusion is still undercurrent BP stable Dysphagia 2 diet working better Decreased garbled speech 06/03/2021: This visit is via video chat due to Covid related restriction for this provider Patient much more lucid Word salad is better Bowels are moving Trying to increase fluid intake Magic mouthwash for right upper lip that he continues to bite when he chews Really obsessed about his shaver Increase right hand special education associate 06/02/2021: This visit is via video chat due to Covid related restriction for this provider Patient difficult to understand Word salad most of the time Confused Hemoglobin went from 15.4-9.7 which is unusual Creatinine 1.6 so will encourage oral fluids Dr. Myles evaluated him Mumbles a lot Right hand is improving Review of Systems General: Fatigue Objective Exam Vital Signs Vital Signs Date Time Temp Pulse Resp B/P (MAP) Pulse Ox O2 Delivery O2 Flow Rate FiO2 06/06/21 09:00 Room Air 06/06/21 08:00 36.2 79 14 120/95 (103) 93 Capillary Refill : General Appearance: No Apparent Distress, WD/WN, Chronically ill HEENT: PERRL/EOMI, TMs Normal, Moist Mucous Membranes; No Scleral Icterus (L), No Scleral Icterus (R) Neck: Normal Inspection, Carotid Bruit Respiratory: Lungs Clear, No Accessory Muscle Use, No Respiratory Distress Cardiovascular: Regular Rate, Rhythm, No Edema, No Murmur, Normal Peripheral Pulses Gastrointestinal: Normal Bowel Sounds, Non Tender, Soft Back: Normal Inspection Extremity: Normal Capillary Refill, Normal Inspection, No Calf Tenderness, No Pedal Edema Neurologic/Psychiatric: Alert, Oriented x3, Normal Mood/Affect, Facial Droop, Motor Weakness (generalized, right worse than left) Skin: Normal Color, Warm/Dry Results/Procedures Lab Patient resulted labs reviewed. FIM Transfers Therapy Code Descriptions/Definitions Functional Cisco Measure: 0=Not Assessed/NA 4=Minimal Assistance 1=Total Assistance 5=Supervision or Setup 2=Maximal Assistance 6=Modified Cisco 3=Moderate Assistance 7=Complete IndependenceSCALE: Activities may be completed with or without assistive devices. 3-Icmaokrhxs-veczntx completes the activity by him/herself with no assistance from a helper. 5-Set-up or Clean-up Assistance-helper sets up or cleans up; patient completes activity. [place]ard assists only prior to or following the activity. 4-Supervision or Touching Assistance-helper provides verbal cues and/or touching/steadying and/or contact guard assistance as patient completes activity. Assistance may be provided throughout the activity or intermittently. 3-Partial/Moderate Assistance-helper does LESS THAN HALF the effort. Hilliard lifts, holds or supports trunk or limbs, but provides less than half the effort. 2-Substantial/Maximal Assistance-helper does MORE THAN HALF the effort. [place]ard lifts or holds trunk or limbs and provides more than half the effort. 4-Bzrlvnnqm-mdifqa does ALL the effort. Patient does none of the effort to complete the activity. Or, the assistance of 2 or more helpers is required for the patient to complete the activity. If activity was not attempted, code reason: 7-Patient Refused. 9-Not Applicable-not attempted and the patient did not perform the activity before the current illness, exacerbation or injury. 10-Not Attempted due to Environmental Limitations-(lack of equipment, weather restraints, etc.). 88-Not Attempted due to Medical Conditions or Safety Concerns. Roll Left to Right (QC): 3 Sit to Lying (QC): 2 (assist with trunk and both legs) Sit to Stand (QC): 4 Chair/Tai-wb-Yygyi Xfer(QC): 3 Car Transfer (QC): 3 Gait Training Does the Patient Walk?: Yes Distance: 100' x2 Walk 10 feet (QC): 4 Walk 50 ft with 2 Turns(QC): 4 Walk 150 ft (QC): 4 Walking 10ft/uneven surface-QC: 88 (poor foot clearance and unsafe) Gait Persons Needed: 1 Gait Assistive Device: FWW Wheelchair Training Does the Pt Use a Wheelchair?: No Wheel 50 ft with 2 turns (QC): 9 Wheel 150 ft (QC): 9 Stair Training 1 Step (curb) (QC): 88 4 Steps (QC): 88 12 Steps (QC): 88 Balance Picking up an Object (QC): 88 ADL-Treatment Eating (QC): 5 (s/u per clinical judgment) Oral Hygiene (QC): 7 Shower/Bathe Self (QC): 4 Upper Body Dressing (QC): 3 Lower Body Dressing (QC): 2 On/Off Footwear (QC): 2 Toileting Hygiene (QC): 4 Toilet Transfer (QC): 4 Assessment/Plan Assessment and Plan Assess & Plan/Chief Complaint Assessment: 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 History of GERD Acute kidney injury 1.67 increasing oral fluids Plan: Check labs in the morning Intensive rehab Fall risk 06/03/2021: Lab abnormalities completely resolved Monitor closely Improved 06/04/21: Monitor closely Dysphagia 2 diet 06/05/2021: Change of diet has been helpful Monitor closely 06/06/21: Maintain diet change Fall risk BM regimen (1) CVA (cerebral vascular accident) Qualifiers: CVA mechanism: embolism Precerebral and cerebral artery: unspecified cerebral artery Qualified Codes: I63.40 - Cerebral infarction due to embolism of unspecified cerebral artery (2) Right sided weakness Status: Acute (3) Generalized weakness Status: Acute (4) Dysarthria Status: Acute (5) Urinary hesitancy Status: Acute IRVING STANLEY DO Jun 06, 2021 08:26
--- NOTE | 2021-06-06 08:35 | Cardiology Progress Note ---
Subjective Date Seen by Provider: Jun 06, 2021 Time Seen by Provider: 08:34 Subjective/Events-last exam Patient is sitting up in chair, no new complaints. Review of Systems General: No Chills, No Night Sweats, No Fatigue, No Malaise, No Appetite, No Other HEENT: No Head Aches, No Visual Changes, No Eye Pain, No Ear Pain, No Dysphasia, No Sinus Congestion, No Post Nasal Drip, No Sore Throat, No Other Pulmonary: No Dyspnea, No Cough, No Pleuritic Chest Pain, No Other Cardiovascular: No: Chest Pain, Palpitations, Orthopnea, Paroxysmal Noc. Dyspnea, Edema, Lt Headedness, Other Objective-Cardiology Exam Last Set of Vital Signs Vital Signs 06/06/21 06/06/21 08:00 09:00 Temp 36.2 Pulse 79 Resp 14 B/P (MAP) 120/95 (103) Pulse Ox 93 O2 Delivery Room Air I&O Intake and Output 06/06/21 00:00 Intake Total 1300 ml Output Total 1425 ml Balance -125 ml Intake Oral 1300 ml Output Urine Total 1425 ml General: Alert, Oriented X3, Cooperative HEENT: Atraumatic, PERRLA Neck: Supple, No JVD, No Thyromegaly Lungs: Clear to Auscultation, Normal Air Movement Heart: Regular Rate, Normal S1, Normal S2, No Murmurs Abdomen: Normal Bowel Sounds, Soft, No Tenderness, No Hepatosplenomegaly, No Masses Extremities: No Clubbing, No Cyanosis, No Edema, Normal Pulses, No Tenderness/Swelling Skin: No Rashes, No Breakdown, No Significant Lesion Neuro: Other (Right hemiplegia, aphasia) Psych/Mental Status: Mental Status NL, Mood NL A/P-Cardiology Admission Diagnosis CVA Right hemiplegia Hypertension Assessment/Plan Subacute CVA, 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 Echocardiogram did not show any significant abnormality, carotid ultrasound did not have any significant obstructive disease. Continue on aspirin and Plavix, continue with PT/OT. Planning for LINq implantation for further evaluation to be done this afternoon. Right hemiparesis, facial droop, secondary CVA, starting physical therapy. Hypertension, controlled, monitor blood pressure. Patient was seen and evaluated with Antonia, examination performed, management plan was discussed, agree with the current scribed note, I made few changes to the note using Italic font I visited with the patient and his family, had a long discussion about the need for loop monitor for his cryptogenic stroke Continue with physical therapy, continue to monitor blood pressure and lipids Supervisory-Addendum Brief Supervisory Addendum Participated in pt care: history, MDM, physical Personally performed: exam, history, MDM Care discussed with: MUSTAPHA Results interpretation: Verified all documentation ANTONIA STANFORD Jun 06, 2021 8:35 am RAUL MCMULLEN MD Jun 06, 2021 3:10 pm
--- NOTE | 2021-06-06 08:56 | Speech Therapy Daily Note ---
Speech Daily Progress Note Subjective Date Seen by Provider: Jun 06, 2021 Time Seen by Provider: 00:30 The patient was resting in his recliner and using his electric razor. He states he really needs to get his hair cut. Speech is at 80-90% intelligible this am. Objective Patient completed OME x10 with visual/verbal cues at 90%. Slight right side facial droop continues. Assessment Assessment Current Status: Good Progress Treatment Plan Continue Plan of Care Speech Short Term Goals Short Term Goals Short Term Goals 1) Patient will complete OME for improving speech intelligibility to 75% or greater. 2) Patient will complete speech tasks for communicating wants/needs at 75% or greater. 3) Patient will tolerate least restrictive diet without s/s of aspiration at 90% or greater. 4) Patient will utilize compensatory strategies as trained for safe oral intake at 90% or greater with minimal cues. Speech Foundry Tender Goals Penitentiary Goals Patient will improve communication/speech skills in order to effectively communicate. Patient will maintain adequate nutrition/hydration via safe, effective swallow function. Speech-Plan Patient/Family Goals Patient/Family Goals: Patient plans on returning to his home where he lives alone, however the rehab team will be discussing his needs today. Treatment Plan Speech Therapy Treatment Plan: Continue Plan of Care Treatment Duration: Jun 15, 2021 Frequency: 4 times per week (Patient will receive skilled ST 4-5x per week) Estimated Hrs Per Day: .5 hour per day Rehab Potential: Guarded Barriers to Learning: Patient's recent CVA with debility, mild cognitive deficits Pt/Family Agrees to Plan: Yes Safety Risks/Education Teaching Recipient: Patient Teaching Methods: Demonstration, Discussion Response to Teaching: Verbalize Understanding, Return Demonstration Education Topics Provided: Patient safety within his room, communication of wants/needs Continued safety with oral intake Time Speech Therapy Time In: 08:30 Speech Therapy Time Out: 09:00 Total Billed Time: 30 Billed Treatment Time 1, LENNY, YUAN Cheney Jun 06, 2021 08:56
--- NOTE | 2021-06-06 09:55 | Physical Therapy Daily Note ---
PT Daily Note-Current Subjective Pt sitting in restroom upon arrival. Pt agrees to PT. Pain Location: No Pain Reported Mental Status Patient Orientation: Person, Confused, Place Transfers SCALE: Activities may be completed with or without assistive devices. 7-Eqncgdkprt-ntcmzkb completes the activity by him/herself with no assistance from a helper. 5-Set-up or Clean-up Assistance-helper sets up or cleans up; patient completes activity. [place] assists only prior to or following the activity. 4-Supervision or Touching Assistance-helper provides verbal cues and/or touching/steadying and/or contact guard assistance as patient completes activity. Assistance may be provided throughout the activity or intermittently. 3-Partial/Moderate Assistance-helper does LESS THAN HALF the effort. [place] lifts, holds or supports trunk or limbs, but provides less than half the effort. 2-Substantial/Maximal Assistance-helper does MORE THAN HALF the effort. [place] lifts or holds trunk or limbs and provides more than half the effort. 2-Zqnqyntfb-ezgfxw does ALL the effort. Patient does none of the effort to complete the activity. Or, the assistance of 2 or more helpers is required for the patient to complete the activity. If activity was not attempted, code reason: 7-Patient Refused. 9-Not Applicable-not attempted and the patient did not perform the activity before the current illness, exacerbation or injury. 10-Not Attempted due to Environmental Limitations-(lack of equipment, weather restraints, etc.). 88-Not Attempted due to Medical Conditions or Safety Concerns. Sit to Stand (QC): 4 Toilet Transfer (QC): 4 Weight Bearing Full Weight Bearing Full Weight Bearing Gait Training Does the Patient Walk?: Yes Distance: 150' Walk 10 feet (QC): 4 Walk 50 ft with 2 Turns(QC): 4 Walk 150 ft (QC): 4 Gait Persons Needed: 1 Gait Assistive Device: FWW Very slow kamila, VC for sequencing at times Treatments Pt spends first portion of tx using BR. After finishing, pt stands and amb. in hallway. Pt takes RB as needed for fatigue. Pt returns to room to rest at end of tx. All needs met, call light in hand. Assessment Current Status: Fair Progress Pt needs VC for sequencing and fatigues easily with slow kamila. PT Short Term Goals Short Term Goals Time Frame: Jun 13, 2021 Roll Left & Right: 4 Sit to lyin Lying to sitting on side of be: 4 Sit to stand: 4 Chair/vwl-wk-vkyze transfer: 4 Toilet transfer: 4 Walk 10 feet: 4 Walk 50 feet with two turns: 4 Walk 150 feet: 4 PT Lot Technician Goals Lot Technician Goals PT Lot Technician Goals Time Frame: Jun 29, 2021 Roll Left & Right (QC): 6 Sit to Lying (QC): 6 Lying-Sitting on Side/Bed(QC): 6 Sit to Stand (QC): 6 Chair/Wrt-jd-Oheeo Xfer(QC): 6 Toilet Transfer (QC): 6 Car Transfer (QC): 6 Does the Patient Walk: Yes Walk 10 feet (QC): 6 Walk 50ft with 2 Turns (QC): 6 Walk 150 ft (QC): 6 Walking 10ft on Uneven Surface: 4 1 Step (curb) (QC): 6 4 Steps (QC): 6 12 Steps (QC): 4 Picking up an Object (QC): 4 Wheel 50 feet with 2 turns (QC: 9 Wheel 150 feet: 9 PT Plan Problem List Problem List: Activity Tolerance, Functional Strength, Gait Treatment/Plan Treatment Plan: Continue Plan of Care Treatment Plan: Bed Mobility, Education, Functional Activity Dustin, Functional Strength, Group Therapy, Gait, Safety, Therapeutic Exercise, Transfers Treatment Duration: Jun 29, 2021 Frequency: At least 5 of 7 days/Wk (IRF) Estimated Hrs Per Day: 1.5 hours per day Patient and/or Family Agrees t: Yes Safety Risks/Education Patient Education: Gait Training, Transfer Techniques, Correct Positioning, Safety Issues Teaching Recipient: Patient Teaching Methods: Demonstration, Discussion Response to Teaching: Reinforcement Needed Time/GCodes Time In: 900 Time Out: 1000 Total Billed Treatment Time: 60 Total Billed Treatment 1, FA x2 (30m) & GT x2 (30m) CLAIR HAJI STRAND GALVANIZER Jun 06, 2021 09:55
[2021-06-06] MEDS: ENOXAPARIN 40 MG/0.4 ML (LOVENOX) SYR SC SCH (13:33)
--- NOTE | 2021-06-06 15:28 | Implantation of Loop Monitor ---
Implant of Loop Monitior IMPLANTATION OF LOOP MONITOR REPORT DATE OF PROCEDURE: 06/06/21 PREOP DIAGNOSIS: Cryptogenic stroke POSTOP DIAGNOSIS: Cryptogenic stroke PROCEDURE DETAILS: The patient is a 80 male with history of cryptogenic stroke requiring long-term surveillance. Therefore implantable loop recorder was discussed and agreed with the patient. Informed consent was taken. All risks and complications were discussed at length. The patient was draped and prepped in the usual sterile fashion. Local anesthesia was lidocaine, which was given in the substernal area close to the 4th intercostal space. Loop monitor [employer] with serial number [id number] implanted according to the protocol. Steri-Strips were placed at the end of the procedure. There were no complications and the patient tolerated the procedure well. ANESTHESIA: Local anesthesia with lidocaine. COMPLICATIONS: None CONTRAST/FLUOROSCOPY: None CONCLUSION: Successful implantation of a loop monitor with no complication FINAL DIAGNOSIS: Cryptogenic stroke Palpitation RAUL MCMULLEN MD Jun 06, 2021 15:28
--- NOTE | 2021-06-06 17:13 | Progress Note ---
Subjective Date Seen by a Provider: Jun 06, 2021 Time Seen by a Provider: 12:55 Subjective/Events-last exam Fwup Bilateral Embolic CVA with right arm weakness and dysarthria. Sitting up in chair. Son and DIL in room. Had long discussion about LINQ device as well as discussion about Power of County Surveyor, etc. Did discuss with him that if his symptoms do not improve that he may not be able to return to home Objective Exam Vital Signs Date Time Temp Pulse Resp B/P (MAP) Pulse Ox O2 Delivery O2 Flow Rate FiO2 06/06/21 09:00 Room Air 06/06/21 08:00 36.2 79 14 120/95 (103) 93 Room Air 06/05/21 21:00 Room Air 06/05/21 20:00 36.6 79 18 139/72 (94) 94 Room Air I & O 06/06/21 07:00 Intake Total 1250 ml Output Total 1200 ml Balance 50 ml Capillary Refill : General Appearance: No Apparent Distress Respiratory: Lungs Clear Cardiovascular: Regular Rate, Rhythm Gastrointestinal: normal bowel sounds, non tender, soft Extremity: Non Tender, No Calf Tenderness, No Pedal Edema Neurologic/Psychiatric: Alert, Oriented x3 Skin: Warm/Dry Assessment/Plan Assessment/Plan Assess & Plan/Chief Complaint 1. Bilateral Embolic CVA with Right arm weakness and Dysarthria--continue PT/OT/ST, likely cardiac etiology--cardiology discussed LINQ device and I discussed this with him again today along with his son and DIL--I also called Dr. Myles and he is planning on going by to discuss with them all as well, on plavix/aspirin for now, did discuss Power of stem mounter and putting someone on his accounts to make out checks/pay his bills SHERIDAN DIEZ DO Jun 06, 2021 17:13
--- NOTE | 2021-06-06 17:32 | Podiatry Progress Note ---
Standard Progress Note Progress Notes/Assess & Plan Date Seen by a Provider: Jun 06, 2021 Time Seen by a Provider: 17:31 Progress/Assessment & Plan Consultation dictated. Foot care given. Follow up as needed. Final Diagnosis Peripheral Neuropathy Onychomycosis BRENDA GRACE DPM Jun 06, 2021 17:32
--- NOTE | 2021-06-06 19:56 | CONSULTATION REPORT ---
DATE OF SERVICE: 06/06/2021 REASON FOR CONSULTATION: Foot care. HISTORY OF PRESENT ILLNESS: This 80-year-old male who was admitted for rehabilitation after a cerebrovascular accident. He has difficulty reaching for and caring for his feet. He is complaining about toenails specifically at this point. He has generalized weakness and is currently in a chair with little ability to care for his feet at this time. PAST MEDICAL HISTORY: Abdominal surgery, appendectomy, orthopedic and tonsillectomy. SOCIAL HISTORY: The patient has smoked extensively in the past, but quit in 2008. ALLERGIES: The patient has no known drug allergies. PHYSICAL EXAMINATION: LOWER EXTREMITY: On lower extremities examination, the patient has 1/4 dorsalis pedis pulse, 0/4 posterior tibial pulse bilaterally. Cap refill time is less than 3 seconds. Thin skin is noted bilaterally. NEUROLOGIC: The patient has diminished protective sensation with 10 gram monofilament wire examination bilaterally. Diminished vibratory sensation to the forefoot bilaterally. INTEGUMENTARY: The patient has a thick yellow dystrophic toenail with subungual debris R 1, 2, 3, 4 and 5; and L 1, 2, 4, 5 digits. There are no open skin lesions identified bilaterally. MUSCULOSKELETAL FINDINGS: The patient has 4/5 muscle strength to the four major quadrants of the foot bilaterally. He also has a limb length discrepancy with the right shorter than the left. ASSESSMENT: 1. Neuropathy. 2. Onychomycosis. 3. Limb length discrepancy, right shorter than left. PLAN: Various treatment options were discussed with the patient today. His toenails were debrided manually mechanically. Betadine applied, especially to the R 1, 2, 3, 4 and 5, and L 1, 2, 4 5 digits. The patient is encouraged to continue with his heel lift and shoe buildup on the right. The patient is welcome to follow up in my office upon discharge. Job ID: [id number] DocumentID: [id number] Dictated Date: 06/06/2021 17:31:05 Ornamental Painter Date: 06/06/2021 19:54:56 Dictated By: BRENDA GRACE DPM
[2021-06-06 20:30] VITALS: BP 150/56
[2021-06-07 07:30] VITALS: BP 123/65
[2021-06-07] MEDS: ASPIRIN 81 MG CHEW (CHILDREN'S ASA) PO SCH (08:30)
[2021-06-07] MEDS: polyethylene glycoL POWDER 17 GM (MIRALAX) PACK PO SCH ×2 (08:30→19:58)
[2021-06-07] MEDS: DOCUSATE SODIUM 100 MG (COLACE) CAP PO SCH ×2 (08:30→21:17)
[2021-06-07] MEDS: FAMOTIDINE 20 MG (PEPCID) TABLET PO SCH ×2 (08:30→21:17)
[2021-06-07] MEDS: CLOPIDOGREL 75 MG (PLAVIX) TABLET PO SCH (08:30)
[2021-06-07] MEDS: SENNA W/DOCUSATE (SENOKOT S) TABLET PO SCH ×2 (08:30→21:17)
[2021-06-07] MEDS: MAGIC MOUTHWASH (ADULT) PO SCH ×16 (08:31→21:17)
--- NOTE | 2021-06-07 08:38 | PM&R Progress Note ---
Subjective HPI/CC On Admission Date Seen by Provider: Jun 07, 2021 Time Seen by Provider: 13:00 Subjective/Events-last exam 06/07/2021: This visit is via video chat due to Covid related restriction for this provider Patient seems to be doing pretty well today Bowels moved yesterday Loop recorder maintained Sore in the right upper lip is better 06/06/2021: This visit is via video chat due to Covid related restriction for this provider Patient doing well BM moving slowly Swallowed pills well Upper right lip improved Loop recorder placed today Son visited today Prune juice and Lactulose ordered 06/05/2021: This visit is via video chat due to Covid related restriction for this provider Patient doing a lot better Prune juice helps his bowels more than MiraLAX he reports So very slow in activity Chopped meat has been helpful Magic mouthwash on the upper lip Ruminates about certain topics 06/04/2021: This visit is via video chat due to Covid related restriction for this provider Patient seems to be improved Confusion is still undercurrent BP stable Dysphagia 2 diet working better Decreased garbled speech 06/03/2021: This visit is via video chat due to Covid related restriction for this provider Patient much more lucid Word salad is better Bowels are moving Trying to increase fluid intake Magic mouthwash for right upper lip that he continues to bite when he chews Really obsessed about his shaver Increase right hand boxer operator 06/02/2021: This visit is via video chat due to Covid related restriction for this provider Patient difficult to understand Word salad most of the time Confused Hemoglobin went from 15.4-9.7 which is unusual Creatinine 1.6 so will encourage oral fluids Dr. Myles evaluated him Mumbles a lot Right hand is improving Review of Systems Neurological: Weakness, Incoordination, Confusion Objective Exam Vital Signs Vital Signs Date Time Temp Pulse Resp B/P (MAP) Pulse Ox O2 Delivery O2 Flow Rate FiO2 06/07/21 20:30 Room Air 06/07/21 20:00 36.6 61 18 147/65 (92) 95 Capillary Refill : General Appearance: No Apparent Distress, WD/WN, Chronically ill HEENT: PERRL/EOMI, TMs Normal, Moist Mucous Membranes; No Scleral Icterus (L), No Scleral Icterus (R) Neck: Normal Inspection, Carotid Bruit Respiratory: Lungs Clear, No Accessory Muscle Use, No Respiratory Distress Cardiovascular: Regular Rate, Rhythm, No Edema, No Murmur, Normal Peripheral Pulses Gastrointestinal: Normal Bowel Sounds, Non Tender, Soft Back: Normal Inspection Extremity: Normal Capillary Refill, Normal Inspection, No Calf Tenderness, No Pedal Edema Neurologic/Psychiatric: Alert, Oriented x3, Normal Mood/Affect, Facial Droop, Motor Weakness (generalized, right worse than left) Skin: Normal Color, Warm/Dry Results/Procedures Lab Patient resulted labs reviewed. FIM Transfers Therapy Code Descriptions/Definitions Functional [place] Measure: 0=Not Assessed/NA 4=Minimal Assistance 1=Total Assistance 5=Supervision or Setup 2=Maximal Assistance 6=Modified [place] 3=Moderate Assistance 7=Complete IndependenceSCALE: Activities may be completed with or without assistive devices. 0-Qjdjdkxkwd-ztmzjiy completes the activity by him/herself with no assistance from a helper. 5-Set-up or Clean-up Assistance-helper sets up or cleans up; patient completes activity. [place] assists only prior to or following the activity. 4-Supervision or Touching Assistance-helper provides verbal cues and/or touching/steadying and/or contact guard assistance as patient completes activity. Assistance may be provided throughout the activity or intermittently. 3-Partial/Moderate Assistance-helper does LESS THAN HALF the effort. [place] lifts, holds or supports trunk or limbs, but provides less than half the effort. 2-Substantial/Maximal Assistance-helper does MORE THAN HALF the effort. [place] lifts or holds trunk or limbs and provides more than half the effort. 6-Wwcewuqkb-ybltht does ALL the effort. Patient does none of the effort to complete the activity. Or, the assistance of 2 or more helpers is required for the patient to complete the activity. If activity was not attempted, code reason: 7-Patient Refused. 9-Not Applicable-not attempted and the patient did not perform the activity before the current illness, exacerbation or injury. 10-Not Attempted due to Environmental Limitations-(lack of equipment, weather restraints, etc.). 88-Not Attempted due to Medical Conditions or Safety Concerns. Roll Left to Right (QC): 3 Sit to Lying (QC): 2 (assist with trunk and both legs) Sit to Stand (QC): 4 Chair/Tgn-rw-Prbfp Xfer(QC): 3 Car Transfer (QC): 3 Gait Training Does the Patient Walk?: Yes Distance: 150' Walk 10 feet (QC): 4 Walk 50 ft with 2 Turns(QC): 4 Walk 150 ft (QC): 4 Walking 10ft/uneven surface-QC: 88 (poor foot clearance and unsafe) Gait Persons Needed: 1 Gait Assistive Device: FWW Wheelchair Training Does the Pt Use a Wheelchair?: No Wheel 50 ft with 2 turns (QC): 9 Wheel 150 ft (QC): 9 Stair Training 1 Step (curb) (QC): 88 4 Steps (QC): 88 12 Steps (QC): 88 Balance Picking up an Object (QC): 88 ADL-Treatment Eating (QC): 5 Oral Hygiene (QC): 7 Shower/Bathe Self (QC): 4 Upper Body Dressing (QC): 3 Lower Body Dressing (QC): 2 On/Off Footwear (QC): 2 Toileting Hygiene (QC): 3 Toilet Transfer (QC): 4 Assessment/Plan Assessment and Plan Assess & Plan/Chief Complaint Assessment: 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 History of GERD Acute kidney injury 1.67 increasing oral fluids Plan: Check labs in the morning Intensive rehab Fall risk 06/03/2021: Lab abnormalities completely resolved Monitor closely Improved 06/04/21: Monitor closely Dysphagia 2 diet 06/05/2021: Change of diet has been helpful Monitor closely 06/06/21: Maintain diet change Fall risk BM regimen 06/07/2021: Continue aggressive therapy Monitor confusion (1) CVA (cerebral vascular accident) Qualifiers: CVA mechanism: embolism Precerebral and cerebral artery: unspecified cerebral artery Qualified Codes: I63.40 - Cerebral infarction due to embolism of unspecified cerebral artery (2) Right sided weakness Status: Acute (3) Generalized weakness Status: Acute (4) Dysarthria Status: Acute (5) Urinary hesitancy Status: Acute IRVING STANLEY DO Jun 07, 2021 08:38
--- NOTE | 2021-06-07 09:05 | Speech Therapy Daily Note ---
Speech Daily Progress Note Subjective Date Seen by Provider: Jun 07, 2021 Time Seen by Provider: 00:30 Patient alert and very talkative today. His speech intelligibility was at 60% with noted frequent stutter. Objective Patient completed OME x10 with 20% verbal/visual cuing. Patient also demons trated safe oral intake of medications, one pill at a time with small sip after each one. No overt s/s of aspiration noted. Assessment Assessment Current Status: Good Progress Treatment Plan Continue Plan of Care Speech Short Term Goals Short Term Goals Short Term Goals 1) Patient will complete OME for improving speech intelligibility to 75% or greater. 2) Patient will complete speech tasks for communicating wants/needs at 75% or greater. 3) Patient will tolerate least restrictive diet without s/s of aspiration at 90% or greater. 4) Patient will utilize compensatory strategies as trained for safe oral intake at 90% or greater with minimal cues. Speech Chenille Machine Operator Goals [place] Machine Operator Goals Patient will improve communication/speech skills in order to effectively communicate. Patient will maintain adequate nutrition/hydration via safe, effective swallow function. Speech-Plan Patient/Family Goals Patient/Family Goals: Patient wants to discharge to his home where he lives alone. Based on his progress and independence level, the patient's discharge will be determined at a later date. Treatment Plan Speech Therapy Treatment Plan: Continue Plan of Care Treatment Duration: Jun 15, 2021 Frequency: 4 times per week (Patient will receive skilled ST 4-5x per week) Estimated Hrs Per Day: .5 hour per day Rehab Potential: Guarded Barriers to Learning: Patient's recent Pt/Family Agrees to Plan: Yes Safety Risks/Education Teaching Recipient: Patient Teaching Methods: Demonstration, Discussion Response to Teaching: Verbalize Understanding, Return Demonstration Education Topics Provided: Continued safety within his room, communication of his wants/needs Continued safe oral intake Time Speech Therapy Time In: 08:30 Speech Therapy Time Out: 09:00 Total Billed Time: 30 Billed Treatment Time 1, SLKARINE, YUAN Cheney Jun 07, 2021 09:05
--- NOTE | 2021-06-07 09:52 | Cardiology Progress Note ---
Subjective Date Seen by Provider: Jun 07, 2021 Time Seen by Provider: 09:51 Subjective/Events-last exam Patient was seen at bedside, sitting comfortably, no new complaint Review of Systems General: No Chills, No Night Sweats, No Fatigue, No Malaise, No Appetite, No Other HEENT: No Head Aches, No Visual Changes, No Eye Pain, No Ear Pain, No Dysphasia, No Sinus Congestion, No Post Nasal Drip, No Sore Throat, No Other Pulmonary: No Dyspnea, No Cough, No Pleuritic Chest Pain, No Other Cardiovascular: No: Chest Pain, Palpitations, Orthopnea, Paroxysmal Noc. Dyspnea, Edema, Lt Headedness, Other Objective-Cardiology Exam Last Set of Vital Signs Vital Signs 06/07/21 07:30 Temp 36.5 Pulse 80 Resp 12 B/P (MAP) 123/65 (84) Pulse Ox 93 O2 Delivery Room Air I&O Intake and Output 06/07/21 00:00 Intake Total 1330 ml Output Total 1300 ml Balance 30 ml Intake Oral 1330 ml Output Urine Total 1300 ml # Urine Diapers 1 # Bowel Movements 1 General: Alert, Oriented X3, Cooperative HEENT: Atraumatic, PERRLA Neck: Supple, No JVD, No Thyromegaly Lungs: Clear to Auscultation, Normal Air Movement Heart: Regular Rate, Normal S1, Normal S2, No Murmurs Abdomen: Normal Bowel Sounds, Soft, No Tenderness, No Hepatosplenomegaly, No Masses Extremities: No Clubbing, No Cyanosis, No Edema, Normal Pulses, No Tenderness/ Swelling Skin: No Rashes, No Breakdown, No Significant Lesion Neuro: Other (Right hemiplegia, aphasia) Psych/Mental Status: Mental Status NL, Mood NL A/P-Cardiology Admission Diagnosis CVA Right hemiplegia Hypertension Assessment/Plan Subacute CVA, 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 Echocardiogram did not show any significant abnormality, carotid ultra sound did not have any significant obstructive disease. Continue on aspirin and Plavix, continue with PT/OT. Status post loop recorder implant done on June 06, 2021, continue to monitor Right hemiparesis, facial droop, secondary CVA, starting physical therapy. Hypertension, controlled, monitor blood pressure. RAUL MCMULLEN MD Jun 07, 2021 09:52
--- NOTE | 2021-06-07 10:25 | Physical Therapy Daily Note ---
PT Daily Note-Current Subjective Pt sitting in recliner upon arrival. Pt agrees to PT. Pain Location: No Pain Reported Mental Status Patient Orientation: Person, Place, [place] Transfers SCALE: Activities may be completed with or without assistive devices. 8-Qelrjfaowb-rgdfwfw completes the activity by him/herself with no assistance from a helper. 5-Set-up or Clean-up Assistance-helper sets up or cleans up; patient completes activity. [place] assists only prior to or following the activity. 4-Supervision or Touching Assistance-helper provides verbal cues and/or touching/steadying and/or contact guard assistance as patient completes activity. Assistance may be provided throughout the activity or intermittently. 3-Partial/Moderate Assistance-helper does LESS THAN HALF the effort. [place] lifts, holds or supports trunk or limbs, but provides less than half the effort. 2-Substantial/Maximal Assistance-helper does MORE THAN HALF the effort. [place] lifts or holds trunk or limbs and provides more than half the effort. 0-Rhihhzeaz-nodqis does ALL the effort. Patient does none of the effort to complete the activity. Or, the assistance of 2 or more helpers is required for the patient to complete the activity. If activity was not attempted, code reason: 7-Patient Refused. 9-Not Applicable-not attempted and the patient did not perform the activity before the current illness, exacerbation or injury. 10-Not Attempted due to Environmental Limitations-(lack of equipment, weather restraints, etc.). 88-Not Attempted due to Medical Conditions or Safety Concerns. Sit to Stand (QC): 4 Toilet Transfer (QC): 4 Weight Bearing Full Weight Bearing Full Weight Bearing Gait Training Distance: 150' Walk 10 feet (QC): 4 Walk 50 ft with 2 Turns(QC): 4 Walk 150 ft (QC): 4 Gait Persons Needed: 1 Gait Assistive Device: FWW Exercises Seated Therapy Exercises: Ankle pumps, Long arc quads, Hip flexion, Hip abd/add, Glut set Seated Reps: 15 Treatments 900-930: Pt declines needing BR. Pt completes Seated Ex in recliner. SCHOOL ATTENDANCE SECRETARY gives redirection to stay on task. OT arrives for co-treat. [id number]: Pt transfers to standing and amb. in hallway with rest break as needed. Pt returns to room to use BR then showers (read OT note for specifics). PT departs at this time. Assessment Current Status: Good Progress Pt has improved with dynamic standing but still need assistance at this time. Pt is able to better assist with donning/doffing for LE dressing while toileting. PT Short Term Goals Short Term Goals Time Frame: Jun 13, 2021 Roll Left & Right: 4 Sit to lyin Lying to sitting on side of be: 4 Sit to stand: 4 Chair/ulz-sv-ceyce transfer: 4 Toilet transfer: 4 Walk 10 feet: 4 Walk 50 feet with two turns: 4 Walk 150 feet: 4 PT Senior Living Goals Senior Living Goals PT Vfx Artist Goals Time Frame: Jun 29, 2021 Roll Left & Right (QC): 6 Sit to Lying (QC): 6 Lying-Sitting on Side/Bed(QC): 6 Sit to Stand (QC): 6 Chair/Qsq-nm-Bfzpm Xfer(QC): 6 Toilet Transfer (QC): 6 Car Transfer (QC): 6 Does the Patient Walk: Yes Walk 10 feet (QC): 6 Walk 50ft with 2 Turns (QC): 6 Walk 150 ft (QC): 6 Walking 10ft on Uneven Surface: 4 1 Step (curb) (QC): 6 4 Steps (QC): 6 12 Steps (QC): 4 Picking up an Object (QC): 4 Wheel 50 feet with 2 turns (QC: 9 Wheel 150 feet: 9 PT Plan Problem List Problem List: Activity Tolerance, Functional Strength, Balance, Gait Treatment/Plan Treatment Plan: Continue Plan of Care Treatment Plan: Bed Mobility, Education, Functional Activity Dustin, Functional Strength, Group Therapy, Gait, Safety, Therapeutic Exercise, Transfers Treatment Duration: Jun 29, 2021 Frequency: At least 5 of 7 days/Wk (IRF) Estimated Hrs Per Day: 1.5 hours per day Patient and/or Family Agrees t: Yes Safety Risks/Education Patient Education: Gait Training, Transfer Techniques, Correct Positioning, Safety Issues Teaching Recipient: Patient Teaching Methods: Discussion Response to Teaching: Reinforcement Needed Time/GCodes Time In: 900 Time Out: 1015 Total Billed Treatment Time: 75 Total Billed Treatment Co-treat for 45m (930-1015) 1, EX (20m), FA x2 (30m) & GT x2 (25m) CLAIR HAJI SCHOOL ATTENDANCE SECRETARY Jun 07, 2021 10:25
--- NOTE | 2021-06-07 11:13 | Occupational Ther Daily Note ---
OT Current Status-Daily Note Subjective Pt alert, sitting in recliner. No c/o pain at this time. Pt still perseverating on getting toe nails cut. Pt agrees to therapy. Co-treat with PT ([id number]), 2 clinicians required for skilled instruction, modifications and care due to pt's decreased functional mobility and to improve dynamic standing balance and sequencing for safety during functional tasks. Mental Status/Objective Patient Orientation: Person, Confused Attachments: IV, Other-See Comments (loop recorder) ADL-Treatment PT focusing on transfers, ambulation and all mobility while OT focuses on B UE placement with mobility/transfers and ADLs. Pt requires verbal cues for hand placement with sit to stand and transfers. Pt able to doff both socks and don L sock, assist with R sock and B shoes. Pt able to ambulate with 1 recovery break around [facility] area. Pt then ambulated back to room and completed toilet transfer with PT. Pt demonstrating increased control and strength of R UE during toilet hygiene and clothing manipulation. Pt transferred into shower with PT. Pt then was able to take shower sitting on shower bench using hand held shower and grabbars with SBA, pt did not stand to complete hygiene of buttocks. CGA in standing while pt stood to dry buttocks/sri area. Min A for upper body dressing and mod A for lower body dressing, assist to thread R LE and hike over R hip. Pt stood at sink to complete oral care with CGA. Pt takes increased time to complete all tasks. After therapy, pt sitting in recliner with call light/phone in reach. Safety measures in place. All needs met in room. Therapy Code Descriptions/Definitions Functional [place] Measure: 0=Not Assessed/NA 4=Minimal Assistance 1=Total Assistance 5=Supervision or Setup 2=Maximal Assistance 6=Modified [place] 3=Moderate Assistance 7=Complete IndependenceSCALE: Activities may be completed with or without assistive devices. 1-Kblpcdgiyv-elrhavg completes the activity by him/herself with no assistance from a helper. 5-Set-up or Clean-up Assistance-helper sets up or cleans up; patient completes activity. [place] assists only prior to or following the activity. 4-Supervision or Touching Assistance-helper provides verbal cues and/or touching/steadying and/or contact guard assistance as patient completes activity. Assistance may be provided throughout the activity or intermittently. 3-Partial/Moderate Assistance-helper does LESS THAN HALF the effort. [place] lifts, holds or supports trunk or limbs, but provides less than half the effort. 2-Substantial/Maximal Assistance-helper does MORE THAN HALF the effort. [place] lifts or holds trunk or limbs and provides more than half the effort. 7-Vlvnnzfgs-ratvlg does ALL the effort. Patient does none of the effort to complete the activity. Or, the assistance of 2 or more helpers is required for the patient to complete the activity. If activity was not attempted, code reason: 7-Patient Refused. 9-Not Applicable-not attempted and the patient did not perform the activity before the current illness, exacerbation or injury. 10-Not Attempted due to Environmental Limitations-(lack of equipment, weather restraints, etc.). 88-Not Attempted due to Medical Conditions or Safety Concerns. Oral Hygiene (QC): 4 Shower/Bathe Self (QC): 3 Upper Body Dressing (QC): 3 Lower Body Dressing (QC): 2 On/Off Footwear: 2 Toileting Hygiene (QC): 3 Toilet Transfer (QC): 4 OT Short Term Goals Short Term Goals Eatin Oral hygiene: 6 Toileting hygiene: 3 Shower/bathe self: 3 Upper body dressin Lower body dressin Putting on/taking off footwear: 3 OT Chemistry Technologist Goals Intermediate Goals Time Frame: Jun 15, 2021 Eating (QC): 6 Oral Hygiene (QC): 6 Toileting Hygiene (QC): 6 Shower/Bathe Self (QC): 6 Upper Body Dressing (QC): 6 Lower Body Dressing (QC): 6 On/Off Footwear (QC): 6 Additional Goals: 1-Demonstrate ADL Tasks, 2-Verbalize Understanding, 3- ImproveStrength/Dustin 1=Demonstrate adherence to instructed precautions during ADL tasks. 2=Patient will verbalize/demonstrate understanding of assistive devices/modifi cations for ADL. 3=Patient will improve strength/tolerance for activity to enable patient to perform ADL's. OT Education/Plan Problem List/Assessment Assessment: Decreased Activ Tolerance, Decreased Safety Aware, Impaired Coordination, Impaired Funct Balance, Impaired Self-Care Skills, Restricted Funct UE ROM Discharge Recommendations Plan/Recommendations: Continue POC Treatment Plan/Plan of Care Patient would benefit from OT for education, treatment and training to promote independence in ADL's, mobility, safety and/or upper extremity function for ADL's. Plan of Care: ADL Retraining, Caregiver Training, Cognitive Retraining, Functional Mobility, Group Exercise/Act as Ind, Orthotic Fitting/Training, UE Funct Exercise/Act, UE Neuromus Re-Ed/Coord, W/C Management Training Treatment Duration: Jun 15, 2021 Frequency: At least 5 of 7 days/Wk (IRF) Estimated Hrs Per Day: 1.5 hours per day Agreement: Yes Rehab Potential: Guarded Time/GCodes Start Time: 09:30 Stop Time: 11:00 Total Time Billed (hr/min): 90 Billed Treatment Time 1 visit-FA 1 (15 min) ADL 5 (75 min) co-treat with PT [id number], individual [id number] JAY BONILLA Jun 07, 2021 11:13
[2021-06-07] MEDS: ENOXAPARIN 40 MG/0.4 ML (LOVENOX) SYR SC SCH (13:55)
--- NOTE | 2021-06-07 18:50 | Progress Note ---
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 Had LINQ device implanted yesterday. Objective Exam Vital Signs Date Time Temp Pulse Resp B/P (MAP) Pulse Ox O2 Delivery O2 Flow Rate FiO2 06/07/21 09:55 Room Air 06/07/21 07:30 36.5 80 12 123/65 (84) 93 Room Air 06/06/21 20:30 93 Room Air 06/06/21 20:30 37.0 96 20 150/56 (87) 92 Room Air I & O 06/07/21 07:00 Intake Total 1230 ml Output Total 800 ml Balance 430 ml Capillary Refill : General Appearance: No Apparent Distress Respiratory: Lungs Clear Cardiovascular: Regular Rate, Rhythm Gastrointestinal: normal bowel sounds, non tender, soft Extremity: Non Tender, No Calf Tenderness, No Pedal Edema Neurologic/Psychiatric: Alert, Oriented x3 Skin: Other (Left chest wall with dry dressing in place) Assessment/Plan Assessment/Plan Assess & Plan/Chief Complaint 1. 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
[2021-06-07 20:00] VITALS: BP 147/65
[2021-06-07] MEDS: MELATONIN 3 MG TABLET PO PRN (21:17)
[2021-06-08 08:01] VITALS: BP 135/62
--- NOTE | 2021-06-08 08:05 | PM&R Progress Note ---
Subjective HPI/CC On Admission Date Seen by Provider: Jun 08, 2021 Time Seen by Provider: 13:00 Subjective/Events-last exam 06/08/2021: This visit is via video chat due to Covid related restriction for this provider Patient has no new issues Bowels moved today after warm prune juice Working on his right hand with handwriting We will discontinue the Hep-Lock 06/07/2021: This visit is via video chat due to Covid related restriction for this provider Patient seems to be doing pretty well today Bowels moved yesterday Loop recorder maintained Sore in the right upper lip is better 06/06/2021: This visit is via video chat due to Covid related restriction for this provider Patient doing well BM moving slowly Swallowed pills well Upper right lip improved Loop recorder placed today Son visited today Prune juice and Lactulose ordered 06/05/2021: This visit is via video chat due to Covid related restriction for this provider Patient doing a lot better Prune juice helps his bowels more than MiraLAX he reports So very slow in activity Chopped meat has been helpful Magic mouthwash on the upper lip Ruminates about certain topics 06/04/2021: This visit is via video chat due to Covid related restriction for this provider Patient seems to be improved Confusion is still undercurrent BP stable Dysphagia 2 diet working better Decreased garbled speech 06/03/2021: This visit is via video chat due to Covid related restriction for this provider Patient much more lucid Word salad is better Bowels are moving Trying to increase fluid intake Magic mouthwash for right upper lip that he continues to bite when he chews Really obsessed about his shaver Increase right hand printing table hand 06/02/2021: This visit is via video chat due to Covid related restriction for this provider Patient difficult to understand Word salad most of the time Confused Hemoglobin went from 15.4-9.7 which is unusual Creatinine 1.6 so will encourage oral fluids Dr. Myles evaluated him Mumbles a lot Right hand is improving Review of Systems General: Fatigue, Malaise Neurological: Weakness, Incoordination, Change in speech, Confusion Objective Exam Vital Signs Vital Signs Date Time Temp Pulse Resp B/P (MAP) Pulse Ox O2 Delivery O2 Flow Rate FiO2 06/08/21 20:30 Room Air 7/16/21 19:40 37.0 82 20 131/73 (92) 93 Capillary Refill : General Appearance: No Apparent Distress, WD/WN, Chronically ill HEENT: PERRL/EOMI, TMs Normal, Moist Mucous Membranes; No Scleral Icterus (L), No Scleral Icterus (R) Neck: Normal Inspection, Carotid Bruit Respiratory: Lungs Clear, No Accessory Muscle Use, No Respiratory Distress Cardiovascular: Regular Rate, Rhythm, No Edema, No Murmur, Normal Peripheral Pulses Gastrointestinal: Normal Bowel Sounds, Non Tender, Soft Back: Normal Inspection Extremity: Normal Capillary Refill, Normal Inspection, No Calf Tenderness, No Pedal Edema Neurologic/Psychiatric: Alert, Oriented x3, Normal Mood/Affect, Facial Droop, Motor Weakness (generalized, right worse than left) Skin: Normal Color, Warm/Dry Results/Procedures Lab Patient resulted labs reviewed. FIM Transfers Therapy Code Descriptions/Definitions Functional [place] Measure: 0=Not Assessed/NA 4=Minimal Assistance 1=Total Assistance 5=Supervision or Setup 2=Maximal Assistance 6=Modified [place] 3=Moderate Assistance 7=Complete IndependenceSCALE: Activities may be completed with or without assistive devices. 0-Fsxulmpsgt-vwkcbbf completes the activity by him/herself with no assistance from a helper. 5-Set-up or Clean-up Assistance-helper sets up or cleans up; patient completes activity. [place] assists only prior to or following the activity. 4-Supervision or Touching Assistance-helper provides verbal cues and/or touching/steadying and/or contact guard assistance as patient completes activity. Assistance may be provided throughout the activity or intermittently. 3-Partial/Moderate Assistance-helper does LESS THAN HALF the effort. [place] lifts, holds or supports trunk or limbs, but provides less than half the effort. 2-Substantial/Maximal Assistance-helper does MORE THAN HALF the effort. [place] lifts or holds trunk or limbs and provides more than half the effort. 9-Stdpeuypa-cnrpdc does ALL the effort. Patient does none of the effort to complete the activity. Or, the assistance of 2 or more helpers is required for the patient to complete the activity. If activity was not attempted, code reason: 7-Patient Refused. 9-Not Applicable-not attempted and the patient did not perform the activity before the current illness, exacerbation or injury. 10-Not Attempted due to Environmental Limitations-(lack of equipment, weather restraints, etc.). 88-Not Attempted due to Medical Conditions or Safety Concerns. Roll Left to Right (QC): 3 Sit to Lying (QC): 2 (assist with trunk and both legs) Sit to Stand (QC): 4 Chair/Bql-zg-Fdgfd Xfer(QC): 3 Car Transfer (QC): 3 Gait Training Does the Patient Walk?: Yes Distance: 150' Walk 10 feet (QC): 4 Walk 50 ft with 2 Turns(QC): 4 Walk 150 ft (QC): 4 Walking 10ft/uneven surface-QC: 88 (poor foot clearance and unsafe) Gait Persons Needed: 1 Gait Assistive Device: FWW Wheelchair Training Does the Pt Use a Wheelchair?: No Wheel 50 ft with 2 turns (QC): 9 Wheel 150 ft (QC): 9 Stair Training 1 Step (curb) (QC): 88 4 Steps (QC): 88 12 Steps (QC): 88 Balance Picking up an Object (QC): 88 ADL-Treatment Eating (QC): 5 Oral Hygiene (QC): 4 Shower/Bathe Self (QC): 3 Upper Body Dressing (QC): 3 Lower Body Dressing (QC): 2 On/Off Footwear (QC): 2 Toileting Hygiene (QC): 3 Toilet Transfer (QC): 4 Assessment/Plan Assessment and Plan Assess & Plan/Chief Complaint Assessment: 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 History of GERD Acute kidney injury 1.67 increasing oral fluids Plan: Check labs in the morning Intensive rehab Fall risk 06/03/2021: Lab abnormalities completely resolved Monitor closely Improved 06/04/21: Monitor closely Dysphagia 2 diet 06/05/2021: Change of diet has been helpful Monitor closely 06/06/21: Maintain diet change Fall risk BM regimen 06/07/2021: Continue aggressive therapy Monitor confusion 06/08/2021: Monitor blood pressure Bowel regimen Check meds and labs (1) CVA (cerebral vascular accident) Qualifiers: CVA mechanism: embolism Precerebral and cerebral artery: unspecified cerebral artery Qualified Codes: I63.40 - Cerebral infarction due to embolism of unspecified cerebral artery (2) Right sided weakness Status: Acute (3) Generalized weakness Status: Acute (4) Dysarthria Status: Acute (5) Urinary hesitancy Status: Acute IRVING STANLEY DO Jun 08, 2021 08:05
--- NOTE | 2021-06-08 08:48 | Speech Therapy Daily Note ---
Speech Daily Progress Note Subjective Date Seen by Provider: Jun 08, 2021 Time Seen by Provider: 00:30 Patient was resting in his recliner visiting with his doctor when I entered his room. He was alert and participated well. Objective Patient completed OME x15 with 10% visual/verbal cues. Patient demonstrated safe oral intake with a snack of cookie and ice water without difficulty. Assessment Assessment Current Status: Good Progress Treatment Plan Continue Plan of Care Speech Short Term Goals Short Term Goals Short Term Goals 1) Patient will complete OME for improving speech intelligibility to 75% or greater. 2) Patient will complete speech tasks for communicating wants/needs at 75% or greater. 3) Patient will tolerate least restrictive diet without s/s of aspiration at 90% or greater. 4) Patient will utilize compensatory strategies as trained for safe oral intake at 90% or greater with minimal cues. Speech Tea Taster Goals Tea Taster Goals Patient will improve communication/speech skills in order to effectively communicate. Patient will maintain adequate nutrition/hydration via safe, effective swallow function. Speech-Plan Patient/Family Goals Patient/Family Goals: Patient plans on returning to his home where he lives alone, however based on his progress he may have to go to a facility short term for further rehabilitation. Treatment Plan Speech Therapy Treatment Plan: Continue Plan of Care Treatment Duration: Jun 15, 2021 Frequency: 4 times per week (Patient will receive skilled ST 4-5x per week) Estimated Hrs Per Day: .5 hour per day Rehab Potential: Guarded Barriers to Learning: Patient's recent CVA and debility, mild cognitive deficit and dysarthria Pt/Family Agrees to Plan: Yes Safety Risks/Education Teaching Recipient: Patient Teaching Methods: Demonstration, Discussion Response to Teaching: Verbalize Understanding, Return Demonstration Education Topics Provided: Continued safety and adequate articulation for effective communication Continued safety with all oral intake Time Speech Therapy Time In: 08:30 Speech Therapy Time Out: 09:00 Total Billed Time: 30 Billed Treatment Time 1DAXA SLTS No WHORTON, BETHANIA ST Jun 08, 2021 08:48
[2021-06-08] MEDS: CLOPIDOGREL 75 MG (PLAVIX) TABLET PO SCH (08:57)
[2021-06-08] MEDS: FAMOTIDINE 20 MG (PEPCID) TABLET PO SCH ×2 (08:57→20:40)
[2021-06-08] MEDS: MAGIC MOUTHWASH (ADULT) PO SCH ×16 (08:58→20:39)
[2021-06-08] MEDS: polyethylene glycoL POWDER 17 GM (MIRALAX) PACK PO SCH ×2 (08:58→20:07)
[2021-06-08] MEDS: DOCUSATE SODIUM 100 MG (COLACE) CAP PO SCH ×2 (08:58→20:40)
[2021-06-08] MEDS: ASPIRIN 81 MG CHEW (CHILDREN'S ASA) PO SCH (08:58)
[2021-06-08] MEDS: SENNA W/DOCUSATE (SENOKOT S) TABLET PO SCH ×2 (08:58→20:40)
--- NOTE | 2021-06-08 09:40 | Cardiology Progress Note ---
Progress Note-Cardiology Events since last exam Date Seen by Provider: Jun 08, 2021 Time Seen by Provider: 09:36 Events since last exam We are seeing him due to cerebrovascular accident. He is depressed about his progress with rehab. He denies chest discomfort, dyspnea, palpitations, syncope, or ankle edema. Certain portions of this document may have been dictated utilizing voice recognition technology. Inherent to this technology, typographical and grammatical errors may exist. As much as I am diligent to identify and correct these mistakes, some errors may remain in the document. Vitals Last set of Vitals Signs Vital Signs 06/08/21 08:01 Temp 36.7 Pulse 72 Resp 14 B/P (MAP) 135/62 (86) Pulse Ox 93 O2 Delivery Room Air Exam Vital Signs Vital Signs Date Time Temp Pulse Resp B/P (MAP) Pulse Ox O2 Delivery O2 Flow Rate FiO2 06/08/21 08:01 36.7 72 14 135/62 (86) 93 Room Air Physical Exam General: Alert. No acute distress. Eye: No xanthelasma. HENT: Normocephalic. Neck: Jugular venous pressure does not appear elevated. Respiratory: Lungs are clear to auscultation. Respirations are non-labored. Breath sounds are equal. Symmetrical chest wall expansion. Cardiovascular: Normal rate. Regular rhythm. No murmur. No gallop. No edema. Gastrointestinal: Soft. Normal bowel sounds. Skin: Warm. Dry. Neurologic: Alert and oriented to person, place, time. Cranial nerves 3-11 grossly intact. Right-sided weakness. Possible dysarthria. Psychiatric: Cooperative. Somewhat depressed affect. Diagnosis/Problems Diagnosis/Problems (1) CVA (cerebral vascular accident) Assessment & Plan: He continues with inpatient physical rehab. No recurrent neurologic complaints. This appeared to be embolic. His echocardiogram during his inpatient admission did not reveal any structural heart disease to explain cardiac source of embolus. He now has an implantable loop recorder for prolonged surveillance for atrial fibrillation detection. (2) Mixed hyperlipidemia Assessment & Plan: He is now on high-dose statin due to the recent cerebrovascular accident. This will need to be followed after discharge. (3) Status post placement of implantable loop recorder Assessment & Plan: He has an implantable loop recorder in place. The site appears to be healing well. Once he is discharged, we will be monitoring this through our office. Problem Qualifiers (1) CVA (cerebral vascular accident): CVA mechanism: embolism Precerebral and cerebral artery: unspecified cerebral artery Qualified Codes: I63.40 - Cerebral infarction due to embolism of unspecified cerebral artery JERED GARCIA JR, MD Jun 08, 2021 09:40
--- NOTE | 2021-06-08 12:07 | Occupational Ther Daily Note ---
OT Current Status-Daily Note Subjective Pt alert, lying in bed. Pt agrees to therapy. No c/o pain. Mental Status/Objective Patient Orientation: Person, Time Attachments: IV ADL-Treatment Supine to EOB min A. Assist to don pants, mod A. Pt able to open containers assist for small packages, uses regular utensils with L hand to feed self. R UE is progressing with movement and strength. Pt is able to don L sock, assist with R sock, doffs both by self. Pt able to don L shoe and assist for R shoe and to tie shoes. Will address possible use of elastic shoe laces. Therapy Code Descriptions/Definitions Functional [place] Measure: 0=Not Assessed/NA 4=Minimal Assistance 1=Total Assistance 5=Supervision or Setup 2=Maximal Assistance 6=Modified [place] 3=Moderate Assistance 7=Complete IndependenceSCALE: Activities may be completed with or without assistive devices. 3-Nrizfzjnbb-vitqzhk completes the activity by him/herself with no assistance from a helper. 5-Set-up or Clean-up Assistance-helper sets up or cleans up; patient completes activity. [place] assists only prior to or following the activity. 4-Supervision or Touching Assistance-helper provides verbal cues and/or touching/steadying and/or contact guard assistance as patient completes activity. Assistance may be provided throughout the activity or intermittently. 3-Partial/Moderate Assistance-helper does LESS THAN HALF the effort. [place] lifts, holds or supports trunk or limbs, but provides less than half the effort. 2-Substantial/Maximal Assistance-helper does MORE THAN HALF the effort. [place] lifts or holds trunk or limbs and provides more than half the effort. 4-Lmzkfzztd-azifme does ALL the effort. Patient does none of the effort to complete the activity. Or, the assistance of 2 or more helpers is required for the patient to complete the activity. If activity was not attempted, code reason: 7-Patient Refused. 9-Not Applicable-not attempted and the patient did not perform the activity before the current illness, exacerbation or injury. 10-Not Attempted due to Environmental Limitations-(lack of equipment, weather restraints, etc.). 88-Not Attempted due to Medical Conditions or Safety Concerns. Eating (QC): 5 Lower Body Dressing (QC): 2 On/Off Footwear: 2 Toileting Hygiene (QC): 3 Toilet Transfer (QC): 4 (CGA) Other Treatment Pt completed 1# hand wt exercises with R UE, 20 bicep curls, 20 shldr flex, 10 wrist ext, 10 wrist flex. Pt then ambulated around ARU using FWW working on functional mobility. Pt then requested to use bathroom. Pt is CGA for toilet transfer and min A for toileting. After session, pt left in care of FIELD PARTY MANAGER. Call light/phone in reach. Safety measures in place. All needs met. OT Short Term Goals Short Term Goals Eatin Oral hygiene: 6 Toileting hygiene: 3 Shower/bathe self: 3 Upper body dressin Lower body dressin Putting on/taking off footwear: 3 OT Mcfp Goals [employer] Structure Builder And Servicer Goals Time Frame: Jun 15, 2021 Eating (QC): 6 Oral Hygiene (QC): 6 Toileting Hygiene (QC): 6 Shower/Bathe Self (QC): 6 Upper Body Dressing (QC): 6 Lower Body Dressing (QC): 6 On/Off Footwear (QC): 6 Additional Goals: 1-Demonstrate ADL Tasks, 2-Verbalize Understanding, 3-ImproveStrength/Dustin 1=Demonstrate adherence to instructed precautions during ADL tasks. 2=Patient will verbalize/demonstrate understanding of assistive devices/modifications for ADL. 3=Patient will improve strength/tolerance for activity to enable patient to perform ADL's. OT Education/Plan Problem List/Assessment Assessment: Decreased Safety Aware, Decreased UE Strength, Impaired Self-Care Skills, Restricted Funct UE ROM Discharge Recommendations Plan/Recommendations: Continue POC Treatment Plan/Plan of Care Patient would benefit from OT for education, treatment and training to promote independence in ADL's, mobility, safety and/or upper extremity function for ADL's. Plan of Care: ADL Retraining, Caregiver Training, Cognitive Retraining, Functional Mobility, Group Exercise/Act as Ind, Orthotic Fitting/Training, UE Funct Exercise/Act, UE Neuromus Re-Ed/Coord, W/C Management Training Treatment Duration: Jun 15, 2021 Frequency: At least 5 of 7 days/Wk (IRF) Estimated Hrs Per Day: 1.5 hours per day Agreement: Yes Rehab Potential: Guarded Time/GCodes Start Time: 07:30 Stop Time: 08:30 Total Time Billed (hr/min): 60 Billed Treatment Time 1 visit-ADL 3 (45 min) EX 1 (15 min) JAY BONILLA Jun 08, 2021 12:07
--- NOTE | 2021-06-08 12:18 | Physical Therapy Daily Note ---
PT Daily Note-Current Subjective Pt agreeable to therapy. He was accurate with conversation roughly 75% Transfers SCALE: Activities may be completed with or without assistive devices. 5-Tbdjhuxxeq-golqlda completes the activity by him/herself with no assistance from a helper. 5-Set-up or Clean-up Assistance-helper sets up or cleans up; patient completes activity. [place] assists only prior to or following the activity. 4-Supervision or Touching Assistance-helper provides verbal cues and/or touching/steadying and/or contact guard assistance as patient completes activity. Assistance may be provided throughout the activity or intermittently. 3-Partial/Moderate Assistance-helper does LESS THAN HALF the effort. [place] lifts, holds or supports trunk or limbs, but provides less than half the effort. 2-Substantial/Maximal Assistance-helper does MORE THAN HALF the effort. [place] lifts or holds trunk or limbs and provides more than half the effort. 8-Kghcsubgw-olliyy does ALL the effort. Patient does none of the effort to complete the activity. Or, the assistance of 2 or more helpers is required for the patient to complete the activity. If activity was not attempted, code reason: 7-Patient Refused. 9-Not Applicable-not attempted and the patient did not perform the activity before the current illness, exacerbation or injury. 10-Not Attempted due to Environmental Limitations-(lack of equipment, weather restraints, etc.). 88-Not Attempted due to Medical Conditions or Safety Concerns. Roll Left & Right (QC): 5 Sit to Lying (QC): 5 Lying to Sitting/Side of Bed(Q: 5 Sit to Stand (QC): 5 Chair/Syj-js-Pwree Xfer(QC): 5 Weight Bearing Full Weight Bearing Full Weight Bearing Gait Training Gait Persons Needed: 1 Gait Assistive Device: FWW Ambulate 150ft x 3 with FWW and verbal cues for upright posture and large strides. Ambulate in Solo Step device (I) of device 100ft x 2 trials including up and over a 3 inch step with no device and no hand held assist. Exercises Standing: Hip Abduction, Heel/toe raises, 3 way Ex=Flex, Abd, Ext, Marching, Mini squats, Retro gait, Sit to Stand, Side steps Standing Reps: 15 Neuromuscular Standing with no device in Solo step worked on side stepping and standing dynamic balalnce. Assessment Current Status: Good Progress Pt is making progress. He had difficulty with shuffled gait when ambulating without device. During 3 inch step training he had 2 LOB episodes where the Solo step prevented a fall.Pt will benefit from continued PT PT Short Term Goals Short Term Goals Time Frame: Jun 13, 2021 Roll Left & Right: 4 Sit to lyin Lying to sitting on side of be: 4 Sit to stand: 4 Chair/bog-my-haygx transfer: 4 Toilet transfer: 4 Walk 10 feet: 4 Walk 50 feet with two turns: 4 Walk 150 feet: 4 PT Half-Way Goals Half-Way Goals PT Half-Way Goals Time Frame: Jun 29, 2021 Roll Left & Right (QC): 6 Sit to Lying (QC): 6 Lying-Sitting on Side/Bed(QC): 6 Sit to Stand (QC): 6 Chair/Tkw-sv-Kdrxu Xfer(QC): 6 Toilet Transfer (QC): 6 Car Transfer (QC): 6 Does the Patient Walk: Yes Walk 10 feet (QC): 6 Walk 50ft with 2 Turns (QC): 6 Walk 150 ft (QC): 6 Walking 10ft on Uneven Surface: 4 1 Step (curb) (QC): 6 4 Steps (QC): 6 12 Steps (QC): 4 Picking up an Object (QC): 4 Wheel 50 feet with 2 turns (QC: 9 Wheel 150 feet: 9 PT Plan Treatment/Plan Treatment Plan: Continue Plan of Care Treatment Plan: Bed Mobility, Education, Functional Activity Dustin, Functional Strength, Group Therapy, Gait, Safety, Therapeutic Exercise, Transfers Treatment Duration: Jun 29, 2021 Frequency: At least 5 of 7 days/Wk (IRF) Estimated Hrs Per Day: 1.5 hours per day Patient and/or Family Agrees t: Yes Time/GCodes Time In: 1000 Time Out: 1100 Total Billed Treatment Time: 60 Total Billed Treatment visit, gt 30 min, FA 15 min, ex 15 min HANNAH PHILLIPS PT Jun 08, 2021 12:18
--- NOTE | 2021-06-08 12:23 | Progress Note ---
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 Sitting up in chair. Still complains of right arm not working. Objective Exam Vital Signs Date Time Temp Pulse Resp B/P (MAP) Pulse Ox O2 Delivery O2 Flow Rate FiO2 06/08/21 09:00 Room Air 06/08/21 08:01 36.7 72 14 135/62 (86) 93 Room Air 06/07/21 20:30 Room Air 06/07/21 20:00 36.6 61 18 147/65 (92) 95 Room Air I & O 06/08/21 07:00 Intake Total 1300 ml Balance 1300 ml Capillary Refill : General Appearance: No Apparent Distress Neck: Supple Respiratory: Lungs Clear Cardiovascular: Regular Rate, Rhythm Extremity: Non Tender, No Calf Tenderness Neurologic/Psychiatric: Alert, Oriented x3 Assessment/Plan Assessment/Plan Assess & Plan/Chief Complaint 1. 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
[2021-06-08] MEDS: ENOXAPARIN 40 MG/0.4 ML (LOVENOX) SYR SC SCH (13:57)
--- NOTE | 2021-06-08 14:53 | Therapy Group Daily Note ---
Therapy Daily Group Note Patient Education Topic Home Safety, Other List Below (pain management) Exercises LE Seated Exercise, UE Exercise Session Ratio (pt:therapist): 8:2 Goal of Session: Education on ARU Expectations, Home Safety Strategies, UE/LE Strengthing, Other (list) (pain management) Goal Met for this Session: Yes Pt Benefit of Group: Contributions to Others, F/U Use of Strategies @Home, Increased Functional Safety, Increased Functional Strength, Improved Cognition, Recognition of Peers, Socialization Other/Notes Pt ambulated using FWW to therapy gym for OT/PT group. Group consisted of introductions (name, place living, childhood memory), socialization, B UE/LE seated exercises, education of pain management and home safety activity. Pt introduced self appropriately and actively listened to peers. Pt was able to complete B UE/LE seated exercises, tolerated well. Pt acknowledged understanding of pain management education by gestures. Pt attended to home safety activity though did not verbalize. After therapy, pt sitting in recliner with call light/phone in reach. All needs met in room. Start Time: 13:00 Stop Time: 14:00 Total Billed Treatment Time: 60 Total Billed Treatment 1-GRP JAY BONILLA Jun 08, 2021 14:53
[2021-06-08 19:40] VITALS: BP 131/73
[2021-06-09 07:30] VITALS: BP 128/59
--- NOTE | 2021-06-09 08:39 | PM&R Progress Note ---
Subjective HPI/CC On Admission Date Seen by Provider: Jun 09, 2021 Time Seen by Provider: 13:00 Subjective/Events-last exam 06/09/2021: This visit is via video chat due to Covid related restriction for this provider Patient doing pretty well today Right hand and arm much improved Shuffles around when he is tired Still chewing on his right upper lip We will try to contact dentistry to see if there is any help with that 06/08/2021: This visit is via video chat due to Covid related restriction for this provider Patient has no new issues Bowels moved today after warm prune juice Working on his right hand with handwriting We will discontinue the Hep-Lock 06/07/2021: This visit is via video chat due to Covid related restriction for this provider Patient seems to be doing pretty well today Bowels moved yesterday Loop recorder maintained Sore in the right upper lip is better 06/06/2021: This visit is via video chat due to Covid related restriction for this provider Patient doing well BM moving slowly Swallowed pills well Upper right lip improved Loop recorder placed today Son visited today Prune juice and Lactulose ordered 06/05/2021: This visit is via video chat due to Covid related restriction for this provider Patient doing a lot better Prune juice helps his bowels more than MiraLAX he reports So very slow in activity Chopped meat has been helpful Magic mouthwash on the upper lip Ruminates about certain topics 06/04/2021: This visit is via video chat due to Covid related restriction for this provider Patient seems to be improved Confusion is still undercurrent BP stable Dysphagia 2 diet working better Decreased garbled speech 06/03/2021: This visit is via video chat due to Covid related restriction for this provider Patient much more lucid Word salad is better Bowels are moving Trying to increase fluid intake Magic mouthwash for right upper lip that he continues to bite when he chews Really obsessed about his shaver Increase right hand sponge maker 06/02/2021: This visit is via video chat due to Covid related restriction for this provider Patient difficult to understand Word salad most of the time Confused Hemoglobin went from 15.4-9.7 which is unusual Creatinine 1.6 so will encourage oral fluids Dr. Myles evaluated him Mumbles a lot Right hand is improving Review of Systems General: Fatigue Neurological: Weakness, Incoordination Objective Exam Vital Signs Vital Signs Date Time Temp Pulse Resp B/P (MAP) Pulse Ox O2 Delivery O2 Flow Rate FiO2 06/09/21 10:00 Room Air 06/09/21 07:30 36.7 71 18 128/59 (82) 94 Capillary Refill : General Appearance: No Apparent Distress, WD/WN, Chronically ill HEENT: PERRL/EOMI, TMs Normal, Moist Mucous Membranes; No Scleral Icterus (L), No Scleral Icterus (R) Neck: Normal Inspection, Carotid Bruit Respiratory: Lungs Clear, No Accessory Muscle Use, No Respiratory Distress Cardiovascular: Regular Rate, Rhythm, No Edema, No Murmur, Normal Peripheral Pulses Gastrointestinal: Normal Bowel Sounds, Non Tender, Soft Back: Normal Inspection Extremity: Normal Capillary Refill, Normal Inspection, No Calf Tenderness, No Pedal Edema Neurologic/Psychiatric: Alert, Oriented x3, Normal Mood/Affect, Facial Droop, Motor Weakness (generalized, right worse than left) Skin: Normal Color, Warm/Dry Results/Procedures Lab Patient resulted labs reviewed. FIM Transfers Therapy Code Descriptions/Definitions Functional [place] Measure: 0=Not Assessed/NA 4=Minimal Assistance 1=Total Assistance 5=Supervision or Setup 2=Maximal Assistance 6=Modified [place] 3=Moderate Assistance 7=Complete IndependenceSCALE: Activities may be completed with or without assistive devices. 8-Aowncisxjd-fiuxwkh completes the activity by him/herself with no assistance from a helper. 5-Set-up or Clean-up Assistance-helper sets up or cleans up; patient completes activity. [place] assists only prior to or following the activity. 4-Supervision or Touching Assistance-helper provides verbal cues and/or touching/steadying and/or contact guard assistance as patient completes activity. Assistance may be provided throughout the activity or intermittently. 3-Partial/Moderate Assistance-helper does LESS THAN HALF the effort. [place] lifts, holds or supports trunk or limbs, but provides less than half the effort. 2-Substantial/Maximal Assistance-helper does MORE THAN HALF the effort. [place] lifts or holds trunk or limbs and provides more than half the effort. 1-Srsfuskod-whytvm does ALL the effort. Patient does none of the effort to complete the activity. Or, the assistance of 2 or more helpers is required for the patient to complete the activity. If activity was not attempted, code reason: 7-Patient Refused. 9-Not Applicable-not attempted and the patient did not perform the activity before the current illness, exacerbation or injury. 10-Not Attempted due to Environmental Limitations-(lack of equipment, weather restraints, etc.). 88-Not Attempted due to Medical Conditions or Safety Concerns. Roll Left to Right (QC): 5 Sit to Lying (QC): 5 Sit to Stand (QC): 5 Chair/Dwv-cc-Ajwze Xfer(QC): 5 Car Transfer (QC): 3 Gait Training Does the Patient Walk?: Yes Distance: 150' Walk 10 feet (QC): 4 Walk 50 ft with 2 Turns(QC): 4 Walk 150 ft (QC): 4 Walking 10ft/uneven surface-QC: 88 (poor foot clearance and unsafe) Gait Persons Needed: 1 Gait Assistive Device: FWW Wheelchair Training Does the Pt Use a Wheelchair?: No Wheel 50 ft with 2 turns (QC): 9 Wheel 150 ft (QC): 9 Stair Training 1 Step (curb) (QC): 88 4 Steps (QC): 88 12 Steps (QC): 88 Balance Picking up an Object (QC): 88 ADL-Treatment Eating (QC): 5 Oral Hygiene (QC): 4 Shower/Bathe Self (QC): 3 Upper Body Dressing (QC): 3 Lower Body Dressing (QC): 2 On/Off Footwear (QC): 2 Toileting Hygiene (QC): 3 Toilet Transfer (QC): 4 (CGA) Assessment/Plan Assessment and Plan Assess & Plan/Chief Complaint Assessment: 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 History of GERD Acute kidney injury 1.67 increasing oral fluids Plan: Check labs in the morning Intensive rehab Fall risk 06/03/2021: Lab abnormalities completely resolved Monitor closely Improved 06/04/21: Monitor closely Dysphagia 2 diet 06/05/2021: Change of diet has been helpful Monitor closely 06/06/21: Maintain diet change Fall risk BM regimen 06/07/2021: Continue aggressive therapy Monitor confusion 06/08/2021: Monitor blood pressure Bowel regimen Check meds and labs 06/09/2021: Monitor progress Pain control Fall risk (1) CVA (cerebral vascular accident) Assessment & Plan: He continues with inpatient physical rehab. No recurrent neurologic complaints. This appeared to be embolic. His echocardiogram during his inpatient admission did not reveal any structural heart disease to explain cardiac source of embolus. He now has an implantable loop recorder for prolonged surveillance for atrial fibrillation detection. Qualifiers: CVA mechanism: embolism Precerebral and cerebral artery: unspecified cerebral artery Qualified Codes: I63.40 - Cerebral infarction due to embolism of unspecified cerebral artery (2) Mixed hyperlipidemia Assessment & Plan: He is now on high-dose statin due to the recent cerebrovascular accident. This will need to be followed after discharge. (3) Status post placement of implantable loop recorder Assessment & Plan: He has an implantable loop recorder in place. The site appears to be healing well. Once he is discharged, we will be monitoring this through our office. IRVING STANLEY DO Jun 09, 2021 08:39
[2021-06-09] MEDS: DOCUSATE SODIUM 100 MG (COLACE) CAP PO SCH ×2 (09:50→20:45)
[2021-06-09] MEDS: CLOPIDOGREL 75 MG (PLAVIX) TABLET PO SCH (09:50)
[2021-06-09] MEDS: polyethylene glycoL POWDER 17 GM (MIRALAX) PACK PO SCH ×2 (09:50→19:33)
[2021-06-09] MEDS: ASPIRIN 81 MG CHEW (CHILDREN'S ASA) PO SCH (09:50)
[2021-06-09] MEDS: SENNA W/DOCUSATE (SENOKOT S) TABLET PO SCH ×2 (09:50→20:45)
[2021-06-09] MEDS: FAMOTIDINE 20 MG (PEPCID) TABLET PO SCH ×2 (09:50→20:45)
[2021-06-09] MEDS: MAGIC MOUTHWASH (ADULT) PO SCH ×16 (09:51→20:46)
--- NOTE | 2021-06-09 13:28 | Physical Therapy Daily Note ---
PT Daily Note-Current Subjective Pt up with nursing, agreeable to PT. Mental Status Patient Orientation: Person, Place, Time, Situation Transfers SCALE: Activities may be completed with or without assistive devices. 5-Rydekbebln-plzwwgd completes the activity by him/herself with no assistance from a helper. 5-Set-up or Clean-up Assistance-helper sets up or cleans up; patient completes activity. [place] assists only prior to or following the activity. 4-Supervision or Touching Assistance-helper provides verbal cues and/or touchin g/steadying and/or contact guard assistance as patient completes activity. Assistance may be provided throughout the activity or intermittently. 3-Partial/Moderate Assistance-helper does LESS THAN HALF the effort. [place] lifts, holds or supports trunk or limbs, but provides less than half the effort. 2-Substantial/Maximal Assistance-helper does MORE THAN HALF the effort. [place] lifts or holds trunk or limbs and provides more than half the effort. 9-Sivwuqnzo-vqlwrv does ALL the effort. Patient does none of the effort to complete the activity. Or, the assistance of 2 or more helpers is required for the patient to complete the activity. If activity was not attempted, code reason: 7-Patient Refused. 9-Not Applicable-not attempted and the patient did not perform the activity before the current illness, exacerbation or injury. 10-Not Attempted due to Environmental Limitations-(lack of equipment, weather restraints, etc.). 88-Not Attempted due to Medical Conditions or Safety Concerns. Sit to Stand (QC): 5 Toilet Transfer (QC): 5 Weight Bearing Right Lower Extremity: Right Full Weight Bearing Left Lower Extremity: Left Full Weight Bearing Gait Training Does the Patient Walk?: Yes Distance: 150 Walk 10 feet (QC): 5 Walk 50 ft with 2 Turns(QC): 5 Walk 150 ft (QC): 5 Gait Persons Needed: 1 Gait Assistive Device: FWW Slow, shuffling gait with FWW, narrow JEFF but no [place] LOB. Exercises NuStep Minutes: 10 NuStep Workload: 1 Treatments NuStep for (B) integration, reciprocal movement, functional activity tolerance. Gait training with FWW. Returned to up in chair with needs met, alarm activated. Assessment Current Status: Good Progress Pt tolerated well. SBA for safety. PT Short Term Goals Short Term Goals Time Frame: Jun 13, 2021 Roll Left & Right: 4 Sit to lyin Lying to sitting on side of be: 4 Sit to stand: 4 Chair/ukt-up-qikxg transfer: 4 Toilet transfer: 4 Walk 10 feet: 4 Walk 50 feet with two turns: 4 Walk 150 feet: 4 PT Care Home Goals Care Home Goals PT Subacute Nurse Goals Time Frame: Jun 29, 2021 Roll Left & Right (QC): 6 Sit to Lying (QC): 6 Lying-Sitting on Side/Bed(QC): 6 Sit to Stand (QC): 6 Chair/Bnm-eg-Etutb Xfer(QC): 6 Toilet Transfer (QC): 6 Car Transfer (QC): 6 Does the Patient Walk: Yes Walk 10 feet (QC): 6 Walk 50ft with 2 Turns (QC): 6 Walk 150 ft (QC): 6 Walking 10ft on Uneven Surface: 4 1 Step (curb) (QC): 6 4 Steps (QC): 6 12 Steps (QC): 4 Picking up an Object (QC): 4 Wheel 50 feet with 2 turns (QC: 9 Wheel 150 feet: 9 PT Plan Problem List Problem List: Activity Tolerance, Functional Strength, Safety, Balance, Gait, Transfer, Bed Mobility Treatment/Plan Treatment Plan: Continue Plan of Care Treatment Plan: Bed Mobility, Education, Functional Activity Dustin, Functional Strength, Group Therapy, Gait, Safety, Therapeutic Exercise, Transfers Treatment Duration: Jun 29, 2021 Frequency: At least 5 of 7 days/Wk (IRF) Estimated Hrs Per Day: 1.5 hours per day Patient and/or Family Agrees t: Yes Time/GCodes Time In: 1020 Time Out: 1050 Total Billed Treatment Time: 30 Total Billed Treatment 1, GT x 20', Ex x 10' PEARL DANIELLE DPT Jun 09, 2021 13:28
[2021-06-09] MEDS: ENOXAPARIN 40 MG/0.4 ML (LOVENOX) SYR SC SCH (14:27)
[2021-06-09 20:00] VITALS: BP 143/64
--- NOTE | 2021-06-10 07:02 | PM&R Progress Note ---
Subjective HPI/CC On Admission Date Seen by Provider: Jun 10, 2021 Time Seen by Provider: 10:00 Subjective/Events-last exam 06/10/2021: No major issues Right hand is moving a lot better Bowels moved today May try to get some wax the use for orthodontics to prevent chewing on the right upper lip 06/09/2021: This visit is via video chat due to Covid related restriction for this provider Patient doing pretty well today Right hand and arm much improved Shuffles around when he is tired Still chewing on his right upper lip We will try to contact dentistry to see if there is any help with that 06/08/2021: This visit is via video chat due to Covid related restriction for this provider Patient has no new issues Bowels moved today after warm prune juice Working on his right hand with handwriting We will discontinue the Hep-Lock 06/07/2021: This visit is via video chat due to Covid related restriction for this provider Patient seems to be doing pretty well today Bowels moved yesterday Loop recorder maintained Sore in the right upper lip is better 06/06/2021: This visit is via video chat due to Covid related restriction for this provider Patient doing well BM moving slowly Swallowed pills well Upper right lip improved Loop recorder placed today Son visited today Prune juice and Lactulose ordered 06/05/2021: This visit is via video chat due to Covid related restriction for this provider Patient doing a lot better Prune juice helps his bowels more than MiraLAX he reports So very slow in activity Chopped meat has been helpful Magic mouthwash on the upper lip Ruminates about certain topics 06/04/2021: This visit is via video chat due to Covid related restriction for this provider Patient seems to be improved Confusion is still undercurrent BP stable Dysphagia 2 diet working better Decreased garbled speech 06/03/2021: This visit is via video chat due to Covid related restriction for this provider Patient much more lucid Word salad is better Bowels are moving Trying to increase fluid intake Magic mouthwash for right upper lip that he continues to bite when he chews Really obsessed about his shaver Increase right hand smudger 06/02/2021: This visit is via video chat due to Covid related restriction for this provider Patient difficult to understand Word salad most of the time Confused Hemoglobin went from 15.4-9.7 which is unusual Creatinine 1.6 so will encourage oral fluids Dr. Myles evaluated him Mumbles a lot Right hand is improving Review of Systems General: Fatigue, Malaise Neurological: Weakness, Incoordination Objective Exam Vital Signs Vital Signs Date Time Temp Pulse Resp B/P (MAP) Pulse Ox O2 Delivery O2 Flow Rate FiO2 06/10/21 20:29 Room Air 06/10/21 20:00 36.4 74 16 119/58 (78) 93 Capillary Refill : General Appearance: No Apparent Distress, WD/WN, Chronically ill HEENT: PERRL/EOMI, TMs Normal, Moist Mucous Membranes; No Scleral Icterus (L), No Scleral Icterus (R) Neck: Normal Inspection, Carotid Bruit Respiratory: Lungs Clear, No Accessory Muscle Use, No Respiratory Distress Cardiovascular: Regular Rate, Rhythm, No Edema, No Murmur, Normal Peripheral Pulses Gastrointestinal: Normal Bowel Sounds, Non Tender, Soft Back: Normal Inspection Extremity: Normal Capillary Refill, Normal Inspection, No Calf Tenderness, No Pedal Edema Neurologic/Psychiatric: Alert, Oriented x3, Normal Mood/Affect, Facial Droop, Motor Weakness (generalized, right worse than left) Skin: Normal Color, Warm/Dry Results/Procedures Lab Patient resulted labs reviewed. FIM Transfers Therapy Code Descriptions/Definitions Functional [place] Measure: 0=Not Assessed/NA 4=Minimal Assistance 1=Total Assistance 5=Supervision or Setup 2=Maximal Assistance 6=Modified [place] 3=Moderate Assistance 7=Complete IndependenceSCALE: Activities may be completed with or without assistive devices. 0-Xlkmvzyolk-ipvzukl completes the activity by him/herself with no assistance from a helper. 5-Set-up or Clean-up Assistance-helper sets up or cleans up; patient completes activity. [place] assists only prior to or following the activity. 4-Supervision or Touching Assistance-helper provides verbal cues and/or touching/steadying and/or contact guard assistance as patient completes activity. Assistance may be provided throughout the activity or intermittently. 3-Partial/Moderate Assistance-helper does LESS THAN HALF the effort. [place] lifts, holds or supports trunk or limbs, but provides less than half the effort. 2-Substantial/Maximal Assistance-helper does MORE THAN HALF the effort. [place] lifts or holds trunk or limbs and provides more than half the effort. 6-Gpynjgsyq-yamksk does ALL the effort. Patient does none of the effort to complete the activity. Or, the assistance of 2 or more helpers is required for the patient to complete the activity. If activity was not attempted, code reason: 7-Patient Refused. 9-Not Applicable-not attempted and the patient did not perform the activity before the current illness, exacerbation or injury. 10-Not Attempted due to Environmental Limitations-(lack of equipment, weather restraints, etc.). 88-Not Attempted due to Medical Conditions or Safety Concerns. Roll Left to Right (QC): 5 Sit to Lying (QC): 5 Sit to Stand (QC): 5 Chair/Hrd-wk-Hgqie Xfer(QC): 5 Car Transfer (QC): 3 Gait Training Does the Patient Walk?: Yes Distance: 150 Walk 10 feet (QC): 5 Walk 50 ft with 2 Turns(QC): 5 Walk 150 ft (QC): 5 Walking 10ft/uneven surface-QC: 88 (poor foot clearance and unsafe) Gait Persons Needed: 1 Gait Assistive Device: FWW Wheelchair Training Does the Pt Use a Wheelchair?: No Wheel 50 ft with 2 turns (QC): 9 Wheel 150 ft (QC): 9 Stair Training 1 Step (curb) (QC): 88 4 Steps (QC): 88 12 Steps (QC): 88 Balance Picking up an Object (QC): 88 ADL-Treatment Eating (QC): 5 Oral Hygiene (QC): 4 Shower/Bathe Self (QC): 3 Upper Body Dressing (QC): 3 Lower Body Dressing (QC): 2 On/Off Footwear (QC): 2 Toileting Hygiene (QC): 3 Toilet Transfer (QC): 4 (CGA) Assessment/Plan Assessment and Plan Assess & Plan/Chief Complaint Assessment: 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 History of GERD Acute kidney injury 1.67 increasing oral fluids Plan: Check labs in the morning Intensive rehab Fall risk 06/03/2021: Lab abnormalities completely resolved Monitor closely Improved 06/04/21: Monitor closely Dysphagia 2 diet 06/05/2021: Change of diet has been helpful Monitor closely 06/06/21: Maintain diet change Fall risk BM regimen 06/07/2021: Continue aggressive therapy Monitor confusion 06/08/2021: Monitor blood pressure Bowel regimen Check meds and labs 06/09/2021: Monitor progress Pain control Fall risk 06/10/2021: Try to acquire wax to prevent chewing on right upper lip (1) CVA (cerebral vascular accident) Assessment & Plan: He continues with inpatient physical rehab. No recurrent neurologic complaints. This appeared to be embolic. His echocardiogram during his inpatient admission did not reveal any structural heart disease to explain cardiac source of embolus. He now has an implantable loop recorder for prolonged surveillance for atrial fibrillation detection. Qualifiers: CVA mechanism: embolism Precerebral and cerebral artery: unspecified cerebral artery Qualified Codes: I63.40 - Cerebral infarction due to embolism of unspecified cerebral artery (2) Mixed hyperlipidemia Assessment & Plan: He is now on high-dose statin due to the recent cerebrovascular accident. This will need to be followed after discharge. (3) Status post placement of implantable loop recorder Assessment & Plan: He has an implantable loop recorder in place. The site appears to be healing well. Once he is discharged, we will be monitoring this through our office. IRVING STANLEY DO Jun 10, 2021 07:02
[2021-06-10 07:30] VITALS: BP 150/65
[2021-06-10] MEDS: MAGIC MOUTHWASH (ADULT) PO SCH ×16 (09:50→20:12)
[2021-06-10] MEDS: FAMOTIDINE 20 MG (PEPCID) TABLET PO SCH ×2 (09:50→20:11)
[2021-06-10] MEDS: ASPIRIN 81 MG CHEW (CHILDREN'S ASA) PO SCH (09:50)
[2021-06-10] MEDS: DOCUSATE SODIUM 100 MG (COLACE) CAP PO SCH ×2 (09:50→20:11)
[2021-06-10] MEDS: SENNA W/DOCUSATE (SENOKOT S) TABLET PO SCH ×2 (09:50→20:11)
[2021-06-10] MEDS: CLOPIDOGREL 75 MG (PLAVIX) TABLET PO SCH (09:50)
[2021-06-10] MEDS: polyethylene glycoL POWDER 17 GM (MIRALAX) PACK PO SCH ×2 (09:51→19:44)
[2021-06-10] MEDS: ENOXAPARIN 40 MG/0.4 ML (LOVENOX) SYR SC SCH (14:03)
[2021-06-10 20:00] VITALS: BP 119/58
--- NOTE | 2021-06-11 06:01 | PM&R Progress Note ---
Subjective HPI/CC On Admission Date Seen by Provider: Jun 11, 2021 Time Seen by Provider: 09:00 Subjective/Events-last exam 06/11/2021: Pt doing pretty well Wax for his right upper lip, hopefully will be able to be obtained Labs are good Overall doing much better 06/10/2021: No major issues Right hand is moving a lot better Bowels moved today May try to get some wax the use for orthodontics to prevent chewing on the right upper lip 06/09/2021: This visit is via video chat due to Covid related restriction for this provider Patient doing pretty well today Right hand and arm much improved Shuffles around when he is tired Still chewing on his right upper lip We will try to contact dentistry to see if there is any help with that 06/08/2021: This visit is via video chat due to Covid related restriction for this provider Patient has no new issues Bowels moved today after warm prune juice Working on his right hand with handwriting We will discontinue the Hep-Lock 06/07/2021: This visit is via video chat due to Covid related restriction for this provider Patient seems to be doing pretty well today Bowels moved yesterday Loop recorder maintained Sore in the right upper lip is better 06/06/2021: This visit is via video chat due to Covid related restriction for this provider Patient doing well BM moving slowly Swallowed pills well Upper right lip improved Loop recorder placed today Son visited today Prune juice and Lactulose ordered 06/05/2021: This visit is via video chat due to Covid related restriction for this provider Patient doing a lot better Prune juice helps his bowels more than MiraLAX he reports So very slow in activity Chopped meat has been helpful Magic mouthwash on the upper lip Ruminates about certain topics 06/04/2021: This visit is via video chat due to Covid related restriction for this provider Patient seems to be improved Confusion is still undercurrent BP stable Dysphagia 2 diet working better Decreased garbled speech 06/03/2021: This visit is via video chat due to Covid related restriction for this provider Patient much more lucid Word salad is better Bowels are moving Trying to increase fluid intake Magic mouthwash for right upper lip that he continues to bite when he chews Really obsessed about his shaver 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 Myles evaluated him Mumbles a lot Right hand is improving Review of Systems General: Fatigue, Malaise Neurological: Weakness Objective Exam Vital Signs Vital Signs Date Time Temp Pulse Resp B/P (MAP) Pulse Ox O2 Delivery O2 Flow Rate FiO2 06/11/21 20:30 Room Air 06/11/21 20:00 36.6 82 16 136/61 (86) 93 Capillary Refill : General Appearance: No Apparent Distress, WD/WN, Chronically ill HEENT: PERRL/EOMI, TMs Normal, Moist Mucous Membranes; No Scleral Icterus (L), No Scleral Icterus (R) Neck: Normal Inspection, Carotid Bruit Respiratory: Lungs Clear, No Accessory Muscle Use, No Respiratory Distress Cardiovascular: Regular Rate, Rhythm, No Edema, No Murmur, Normal Peripheral Pulses Gastrointestinal: Normal Bowel Sounds, Non Tender, Soft Back: Normal Inspection Extremity: Normal Capillary Refill, Normal Inspection, No Calf Tenderness, No Pedal Edema Neurologic/Psychiatric: Alert, Oriented x3, Normal Mood/Affect, Facial Droop, Motor Weakness (generalized, right worse than left) Skin: Normal Color, Warm/Dry Results/Procedures Lab Laboratory Tests 06/11/21 06:18 Patient resulted labs reviewed. FIM Transfers Therapy Code Descriptions/Definitions Functional [place] Measure: 0=Not Assessed/NA 4=Minimal Assistance 1=Total Assistance 5=Supervision or Setup 2=Maximal Assistance 6=Modified [place] 3=Moderate Assistance 7=Complete IndependenceSCALE: Activities may be completed with or without assistive devices. 9-Jumlroffus-txciidh completes the activity by him/herself with no assistance from a helper. 5-Set-up or Clean-up Assistance-helper sets up or cleans up; patient completes activity. [place] assists only prior to or following the activity. 4-Supervision or Touching Assistance-helper provides verbal cues and/or morena minerva/steadying and/or contact guard assistance as patient completes activity. Assistance may be provided throughout the activity or intermittently. 3-Partial/Moderate Assistance-helper does LESS THAN HALF the effort. [place] lifts, holds or supports trunk or limbs, but provides less than half the effort. 2-Substantial/Maximal Assistance-helper does MORE THAN HALF the effort. [place] lifts or holds trunk or limbs and provides more than half the effort. 3-Ljlhnryrf-vhpjcq does ALL the effort. Patient does none of the effort to complete the activity. Or, the assistance of 2 or more helpers is required for the patient to complete the activity. If activity was not attempted, code reason: 7-Patient Refused. 9-Not Applicable-not attempted and the patient did not perform the activity b efore the current illness, exacerbation or injury. 10-Not Attempted due to Environmental Limitations-(lack of equipment, weather restraints, etc.). 88-Not Attempted due to Medical Conditions or Safety Concerns. Roll Left to Right (QC): 5 Sit to Lying (QC): 5 Sit to Stand (QC): 5 Chair/Cjx-ys-Vcdod Xfer(QC): 5 Car Transfer (QC): 3 Gait Training Does the Patient Walk?: Yes Distance: 150 Walk 10 feet (QC): 5 Walk 50 ft with 2 Turns(QC): 5 Walk 150 ft (QC): 5 Walking 10ft/uneven surface-QC: 88 (poor foot clearance and unsafe) Gait Persons Needed: 1 Gait Assistive Device: FWW Wheelchair Training Does the Pt Use a Wheelchair?: No Wheel 50 ft with 2 turns (QC): 9 Wheel 150 ft (QC): 9 Stair Training 1 Step (curb) (QC): 88 4 Steps (QC): 88 12 Steps (QC): 88 Balance Picking up an Object (QC): 88 ADL-Treatment Eating (QC): 5 Oral Hygiene (QC): 4 Shower/Bathe Self (QC): 3 Upper Body Dressing (QC): 3 Lower Body Dressing (QC): 2 On/Off Footwear (QC): 2 Toileting Hygiene (QC): 3 Toilet Transfer (QC): 4 (CGA) Assessment/Plan Assessment and Plan Assess & Plan/Chief Complaint Assessment: 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 History of GERD Acute kidney injury 1.67 increasing oral fluids Plan: Check labs in the morning Intensive rehab Fall risk 06/03/2021: Lab abnormalities completely resolved Monitor closely Improved 06/04/21: Monitor closely Dysphagia 2 diet 06/05/2021: Change of diet has been helpful Monitor closely 06/06/21: Maintain diet change Fall risk BM regimen 06/07/2021: Continue aggressive therapy Monitor confusion 06/08/2021: Monitor blood pressure Bowel regimen Check meds and labs 06/09/2021: Monitor progress Pain control Fall risk 06/10/2021: Try to acquire wax to prevent chewing on right upper lip 06/11/2021: Supportive care Improving every day (1) CVA (cerebral vascular accident) Assessment & Plan: He continues with inpatient physical rehab. No recurrent neurologic complaints. This appeared to be embolic. His echocardiogram during his inpatient admission did not reveal any structural heart disease to explain cardiac source of embolus. He now has an implantable loop recorder for prolonged surveillance for atrial fibrillation detection. Qualifiers: CVA mechanism: embolism Precerebral and cerebral artery: unspecified cerebral artery Qualified Codes: I63.40 - Cerebral infarction due to embolism of unspecified cerebral artery (2) Mixed hyperlipidemia Assessment & Plan: He is now on high-dose statin due to the recent cerebrovascular accident. This will need to be followed after discharge. (3) Status post placement of implantable loop recorder Assessment & Plan: He has an implantable loop recorder in place. The site appears to be healing well. Once he is discharged, we will be monitoring this through our office. IRVING STANLEY DO Jun 11, 2021 06:01
[2021-06-11 06:37] LABS: BASOPHILS # (AUTO) 0.1 10^3/uL (0.0-0.1); BASOPHILS % (AUTO) 1 % (0-10); EOSINOPHILS # (AUTO) 0.1 10^3/uL (0.0-0.3); EOSINOPHILS % (AUTO) 1 % (0-10); HEMATOCRIT 41 % (40-54); HEMOGLOBIN 13.9 g/dL (13.3-17.7); LYMPHOCYTES # (AUTO) 1.4 10^3/uL (1.0-4.0); LYMPHOCYTES % (AUTO) 20 % (12-44); MEAN CORPUSCULAR HEMOGLOBIN 32 pg (25-34); MEAN CORPUSCULAR HGB CONC 34 g/dL (32-36); MEAN CORPUSCULAR VOLUME 94 fL (80-99); MEAN PLATELET VOLUME 11.2 fL (9.0-12.2); MONOCYTES # (AUTO) 0.9 10^3/uL (0.0-1.0); MONOCYTES % (AUTO) 13 % (0-12); NEUTROPHILS # (AUTO) 4.4 10^3/uL (1.8-7.8); NEUTROPHILS % (AUTO) 64 % (42-75); PLATELET COUNT 241 10^3/uL (130-400); WHITE BLOOD COUNT 6.8 10^3/uL (4.3-11.0)
[2021-06-11 06:58] LABS: ALANINE AMINOTRANSFERASE 41 U/L (0-55); ALBUMIN 3.6 GM/DL (3.2-4.5); ALKALINE PHOSPHATASE 98 U/L (40-136); BILIRUBIN,TOTAL 0.7 MG/DL (0.1-1.0); BUN/CREATININE RATIO 11; CALCIUM 8.5 MG/DL (8.5-10.1); CARBON DIOXIDE 25 MMOL/L (21-32); CHLORIDE 107 MMOL/L (98-107); GFR ESTIMATED > 60; GLUCOSE 99 MG/DL (70-105); POTASSIUM 3.6 MMOL/L (3.6-5.0); SODIUM 141 MMOL/L (135-145); TOTAL PROTEIN 6.1 GM/DL (6.4-8.2)
[2021-06-11] MEDS: FAMOTIDINE 20 MG (PEPCID) TABLET PO SCH ×2 (07:36→20:35)
[2021-06-11] MEDS: ASPIRIN 81 MG CHEW (CHILDREN'S ASA) PO SCH (07:36)
[2021-06-11] MEDS: CLOPIDOGREL 75 MG (PLAVIX) TABLET PO SCH (07:36)
[2021-06-11] MEDS: SENNA W/DOCUSATE (SENOKOT S) TABLET PO SCH ×2 (07:36→20:35)
[2021-06-11] MEDS: DOCUSATE SODIUM 100 MG (COLACE) CAP PO SCH ×2 (07:36→20:35)
[2021-06-11 07:53] VITALS: BP 133/63
[2021-06-11] MEDS: MAGIC MOUTHWASH (ADULT) PO SCH ×16 (08:30→20:36)
--- NOTE | 2021-06-11 08:31 | Occupational Ther Daily Note ---
OT Current Status-Daily Note Subjective Pt alert, sitting in recliner. Pt agrees to therapy. No c/o pain. Mental Status/Objective Patient Orientation: Person, Place ADL-Treatment Pt is able to use regular utensils to feed self, opens lids by self then requires assist for smaller packages. Pt declines shower. Able to doff socks by self and dons shoes by self though requires assist to tie shoes. Therapy Code Descriptions/Definitions Functional [place] Measure: 0=Not Assessed/NA 4=Minimal Assistance 1=Total Assistance 5=Supervision or Setup 2=Maximal Assistance 6=Modified [place] 3=Moderate Assistance 7=Complete IndependenceSCALE: Activities may be completed with or without assistive devices. 5-Fbcahpuujv-ensmebk completes the activity by him/herself with no assistance from a helper. 5-Set-up or Clean-up Assistance-helper sets up or cleans up; patient completes activity. [place] assists only prior to or following the activity. 4-Supervision or Touching Assistance-helper provides verbal cues and/or touching/steadying and/or contact guard assistance as patient completes activity. Assistance may be provided throughout the activity or intermittently. 3-Partial/Moderate Assistance-helper does LESS THAN HALF the effort. [place] lifts, holds or supports trunk or limbs, but provides less than half the effort. 2-Substantial/Maximal Assistance-helper does MORE THAN HALF the effort. [place] lifts or holds trunk or limbs and provides more than half the effort. 1-Zasqowmof-cmkhue does ALL the effort. Patient does none of the effort to complete the activity. Or, the assistance of 2 or more helpers is required for the patient to complete the activity. If activity was not attempted, code reason: 7-Patient Refused. 9-Not Applicable-not attempted and the patient did not perform the activity before the current illness, exacerbation or injury. 10-Not Attempted due to Environmental Limitations-(lack of equipment, weather restraints, etc.). 88-Not Attempted due to Medical Conditions or Safety Concerns. Other Treatment Pt completed 10 min arm bike at 20 ceja resistance to increase strength and activity tolerance for daily functional tasks. Pt able to pull out [address] 5 with B UE due to decreased strength and coordination of R hand. After therapy, pt sitting in recliner with call light/phone in reach. All needs met in room. OT Short Term Goals Short Term Goals Eatin Oral hygiene: 6 Toileting hygiene: 3 Shower/bathe self: 3 Upper body dressin Lower body dressin Putting on/taking off footwear: 3 OT District Manager [employer] Goals District Manager [employer] Goals Time Frame: Jun 15, 2021 Eating (QC): 6 Oral Hygiene (QC): 6 Toileting Hygiene (QC): 6 Shower/Bathe Self (QC): 6 Upper Body Dressing (QC): 6 Lower Body Dressing (QC): 6 On/Off Footwear (QC): 6 Additional Goals: 1-Demonstrate ADL Tasks, 2-Verbalize Understanding, 3- ImproveStrength/Dustin 1=Demonstrate adherence to instructed precautions during ADL tasks. 2=Patient will verbalize/demonstrate understanding of assistive devices/modifications for ADL. 3=Patient will improve strength/tolerance for activity to enable patient to perform ADL's. OT Education/Plan Problem List/Assessment Assessment: Decreased Activ Tolerance, Decreased Safety Aware, Decreased UE Strength, Impaired Self-Care Skills, Restricted Funct UE ROM Discharge Recommendations Plan/Recommendations: Continue POC Treatment Plan/Plan of Care Patient would benefit from OT for education, treatment and training to promote independence in ADL's, mobility, safety and/or upper extremity function for ADL's. Plan of Care: ADL Retraining, Caregiver Training, Cognitive Retraining, Functional Mobility, Group Exercise/Act as Ind, Orthotic Fitting/Training, UE Funct Exercise/Act, UE Neuromus Re-Ed/Coord, W/C Management Training Treatment Duration: Jun 15, 2021 Frequency: At least 5 of 7 days/Wk (IRF) Estimated Hrs Per Day: 1.5 hours per day Agreement: Yes Rehab Potential: Guarded Time/GCodes Start Time: 08:00 Stop Time: 08:45 Total Time Billed (hr/min): 45 Billed Treatment Time 1 visit-ADL 2 (30 min) EX 1 (15 min) JAY BONILLA Jun 11, 2021 08:31
[2021-06-11] MEDS: polyethylene glycoL POWDER 17 GM (MIRALAX) PACK PO SCH ×2 (09:47→20:41)
--- NOTE | 2021-06-11 10:48 | Physical Therapy Daily Note ---
PT Daily Note-Current Subjective Pt agreeable to treatment. Pt denies pain. Pt requests BR when leaving room. "I better try atleast." Pt c/o "I got the feeling I got to go but when I sit - nothing!" Mental Status Patient Orientation: Person, Place Transfers SCALE: Activities may be completed with or without assistive devices. 7-Xzwxuzhddb-xkqofpe completes the activity by him/herself with no assistance from a helper. 5-Set-up or Clean-up Assistance-helper sets up or cleans up; patient completes activity. [place] assists only prior to or following the activity. 4-Supervision or Touching Assistance-helper provides verbal cues and/or touching/steadying and/or contact guard assistance as patient completes activity. Assistance may be provided throughout the activity or intermittently. 3-Partial/Moderate Assistance-helper does LESS THAN HALF the effort. [place] lifts, holds or supports trunk or limbs, but provides less than half the effort. 2-Substantial/Maximal Assistance-helper does MORE THAN HALF the effort. [place] lifts or holds trunk or limbs and provides more than half the effort. 6-Spgygxqje-kronjs does ALL the effort. Patient does none of the effort to complete the activity. Or, the assistance of 2 or more helpers is required for the patient to complete the activity. If activity was not attempted, code reason: 7-Patient Refused. 9-Not Applicable-not attempted and the patient did not perform the activity before the current illness, exacerbation or injury. 10-Not Attempted due to Environmental Limitations-(lack of equipment, weather restraints, etc.). 88-Not Attempted due to Medical Conditions or Safety Concerns. CGA-min A for sit-stand Weight Bearing Right Lower Extremity: Right Full Weight Bearing Left Lower Extremity: Left Full Weight Bearing Gait Training Gait Assistive Device: FWW Pt amb with FWW and CGA 2 x 110ft, slow shuffling gait pattern Exercises Seated Therapy Exercises: Ankle pumps, Long arc quads, Hip abd/add Seated Reps: 20 NuStep Minutes: 10 NuStep Workload: 1 Treatments Pt toileted with SBA for balance and vc's for sequence Assessment Current Status: Good Progress Pt forrest above well. Pt resting in recliner with call light and ambu alarm activated. All needs met. PT Short Term Goals Short Term Goals Time Frame: Jun 13, 2021 Roll Left & Right: 4 Sit to lyin Lying to sitting on side of be: 4 Sit to stand: 4 Chair/uqv-se-nxnxw transfer: 4 Toilet transfer: 4 Walk 10 feet: 4 Walk 50 feet with two turns: 4 Walk 150 feet: 4 PT Jail Goals Public Bath Attendant Goals PT Jail Goals Time Frame: Jun 29, 2021 Roll Left & Right (QC): 6 Sit to Lying (QC): 6 Lying-Sitting on Side/Bed(QC): 6 Sit to Stand (QC): 6 Chair/Qnw-fc-[place] Xfer(QC): 6 Toilet Transfer (QC): 6 Car Transfer (QC): 6 Does the Patient Walk: Yes Walk 10 feet (QC): 6 Walk 50ft with 2 Turns (QC): 6 Walk 150 ft (QC): 6 Walking 10ft on Uneven Surface: 4 1 Step (curb) (QC): 6 4 Steps (QC): 6 12 Steps (QC): 4 Picking up an Object (QC): 4 Wheel 50 feet with 2 turns (QC: 9 Wheel 150 feet: 9 PT Plan Treatment/Plan Treatment Plan: Continue Plan of Care Treatment Plan: Bed Mobility, Education, Functional Activity Dustin, Functional Strength, Group Therapy, Gait, Safety, Therapeutic Exercise, Transfers Treatment Duration: Jun 29, 2021 Frequency: At least 5 of 7 days/Wk (IRF) Estimated Hrs Per Day: 1.5 hours per day Patient and/or Family Agrees t: Yes Time/GCodes Time In: 1000 Time Out: 1100 Total Billed Treatment Time: 60 Total Billed Treatment 1, ther ex 30', FA 15', Gait 15' SILVIA KIRKPATRICK CPTA Jun 11, 2021 10:48
--- NOTE | 2021-06-11 11:53 | Speech Therapy Daily Note ---
Speech Daily Progress Note Subjective Date Seen by Provider: Jun 11, 2021 Time Seen by Provider: 00:30 Patient was resting in his recliner following his other therapies. Objective Patient answered questions related to his recent events at 85% with minimal cues and/or redirection. Patient demo safe oral intake of current diet with minimal cues to alternate food/drink. Assessment Assessment Current Status: Good Progress Treatment Plan Continue Plan of Care Speech Short Term Goals Short Term Goals Short Term Goals 1) Patient will complete OME for improving speech intelligibility to 75% or greater. 2) Patient will complete speech tasks for communicating wants/needs at 75% or greater. 3) Patient will tolerate least restrictive diet without s/s of aspiration at 90% or greater. 4) Patient will utilize compensatory strategies as trained for safe oral intake at 90% or greater with minimal cues. Speech Corporate Representative Goals Corporate Representative Goals Patient will improve communication/speech skills in order to effectively communicate. Patient will maintain adequate nutrition/hydration via safe, effective swallow function. Speech-Plan Patient/Family Goals Patient/Family Goals: Patient plans on returning to his home where he lives alone. Based on his progress, the patient may require an alternative discharge location. Patient will have home health and family support if he does return to his home. Treatment Plan Speech Therapy Treatment Plan: Continue Plan of Care Treatment Duration: Jun 15, 2021 Frequency: 4 times per week (Patient will receive skilled ST 4-5x per week) Estimated Hrs Per Day: .5 hour per day Rehab Potential: Guarded Barriers to Learning: Patient's decreased cognitive function, debility, age Pt/Family Agrees to Plan: Yes Safety Risks/Education Teaching Recipient: Patient Teaching Methods: Demonstration, Discussion Response to Teaching: Verbalize Understanding, Return Demonstration Education Topics Provided: Continued safety within his room, communication of wants/needs. Continued safety with all oral intake Time Speech Therapy Time In: 11:30 Speech Therapy Time Out: 12:00 Total Billed Time: 30 Billed Treatment Time 1, LENNY, YUAN Cheney Jun 11, 2021 11:53
[2021-06-11] MEDS: ENOXAPARIN 40 MG/0.4 ML (LOVENOX) SYR SC SCH (12:52)
--- NOTE | 2021-06-11 14:52 | Therapy Group Daily Note ---
Therapy Daily Group Note Patient Education Topic Fall Prevention, Exercises Exercises LE Seated Exercise, UE Exercise Session Ratio (pt:therapist): 4:1 Goal of Session: UE/LE Strengthing, Other (list) (fall prevention) Goal Met for this Session: Yes Pt Benefit of Group: Contributions to Others, F/U Use of Strategies @Home, Increased Functional Safety, Increased Functional Strength, Improved Cognition, Recognition of Peers, Socialization Other/Notes Pt ambulated using FWW to [facility] for OT/PT group. Group consisted of introductions (name, place living, rolling dice for random question), socialization, pt led B UE/LE seated exercises and fall prevention. Pt introduced self appropriately and actively listen to peers introduce themselves. Pt able to lead one exercise using exercise card then was able to complete other exercises lead by peers with verbal prompts to focus on exercises. Pt then acknowledged understanding of fall prevention by nodding head affirmatively. After group, pt lying in bed with call light/phone in reach. All needs met in room. Start Time: 13:00 Stop Time: 14:00 Total Billed Treatment Time: 60 Total Billed Treatment 1-JAY NOEL Jun 11, 2021 14:52
--- NOTE | 2021-06-11 17:51 | Progress Note ---
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 Sitting up in chair. Objective Exam Vital Signs Date Time Temp Pulse Resp B/P (MAP) Pulse Ox O2 Delivery O2 Flow Rate FiO2 06/11/21 09:00 Room Air 06/11/21 07:53 36.2 65 18 133/63 (86) 93 Room Air 06/10/21 20:29 Room Air 06/10/21 20:00 36.4 74 16 119/58 (78) 93 Room Air Capillary Refill : General Appearance: No Apparent Distress Neck: Supple Respiratory: Lungs Clear Cardiovascular: Regular Rate, Rhythm Gastrointestinal: normal bowel sounds, non tender, soft Extremity: Non Tender, No Calf Tenderness, No Pedal Edema Neurologic/Psychiatric: Alert, Oriented x3 Results Lab Laboratory Tests 06/11/21 06:18: White Blood Count 6.8, Red Blood Count 4.38, Hemoglobin 13.9, Hematocrit 41, Mean Corpuscular Volume 94, Mean Corpuscular Hemoglobin 32, Mean Corpuscular Hemoglobin Concent 34, Red Cell Distribution Width 12.9, Platelet Count 241, Mean Platelet Volume 11.2, Immature Granulocyte % (Auto) 1, Neutrophils (%) (Auto) 64, Lymphocytes (%) (Auto) 20, Monocytes (%) (Auto) 13H, Eosinophils (%) (Auto) 1, Basophils (%) (Auto) 1, Neutrophils # (Auto) 4.4, Lymphocytes # (Auto) 1.4, Monocytes # (Auto) 0.9, Eosinophils # (Auto) 0.1, Basophils # (Auto) 0.1, Immature Granulocyte # (Auto) 0.0, Sodium Level 141, Potassium Level 3.6, Chlor rick Level 107, Carbon Dioxide Level 25, Anion Gap 9, Blood Urea Nitrogen 8, Creatinine 0.70, Estimat Glomerular Filtration Rate > 60, BUN/Creatinine Ratio 11, Glucose Level 99, Calcium Level 8.5, Corrected Calcium 8.8, Total Bilirubin 0.7, Aspartate Amino Transf (AST/SGOT) 32, Alanine Aminotransferase (ALT/SGPT) 41, Alkaline Phosphatase 98, Total Protein 6.1L, Albumin 3.6 Assessment/Plan Assessment/Plan Assess & Plan/Chief Complaint 1. 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
[2021-06-11 20:00] VITALS: BP 136/61
[2021-06-11] MEDS: MELATONIN 3 MG TABLET PO PRN (20:35)
--- NOTE | 2021-06-12 05:26 | PM&R Progress Note ---
Subjective HPI/CC On Admission Date Seen by Provider: Jun 12, 2021 Time Seen by Provider: 09:00 Subjective/Events-last exam 06/12/2021: Pt doing pretty well Sleeps most of the time in between therapy Checked meds and labs No falls 06/11/2021: Pt doing pretty well Wax for his right upper lip, hopefully will be able to be obtained Labs are good Overall doing much better 06/10/2021: No major issues Right hand is moving a lot better Bowels moved today May try to get some wax the use for orthodontics to prevent chewing on the right upper lip 06/09/2021: This visit is via video chat due to Covid related restriction for this provider Patient doing pretty well today Right hand and arm much improved Shuffles around when he is tired Still chewing on his right upper lip We will try to contact dentistry to see if there is any help with that 06/08/2021: This visit is via video chat due to Covid related restriction for this provider Patient has no new issues Bowels moved today after warm prune juice Working on his right hand with handwriting We will discontinue the Hep-Lock 06/07/2021: This visit is via video chat due to Covid related restriction for this provider Patient seems to be doing pretty well today Bowels moved yesterday Loop recorder maintained Sore in the right upper lip is better 06/06/2021: This visit is via video chat due to Covid related restriction for this provider Patient doing well BM moving slowly Swallowed pills well Upper right lip improved Loop recorder placed today Son visited today Prune juice and Lactulose ordered 06/05/2021: This visit is via video chat due to Covid related restriction for this provider Patient doing a lot better Prune juice helps his bowels more than MiraLAX he reports So very slow in activity Chopped meat has been helpful Magic mouthwash on the upper lip Ruminates about certain topics 06/04/2021: This visit is via video chat due to Covid related restriction for this provider Patient seems to be improved Confusion is still undercurrent BP stable Dysphagia 2 diet working better Decreased garbled speech 06/03/2021: This visit is via video chat due to Covid related restriction for this provider Patient much more lucid Word salad is better Bowels are moving Trying to increase fluid intake Magic mouthwash for right upper lip that he continues to bite when he chews Really obsessed about his shaver Increase right hand lip and gate builder 06/02/2021: This visit is via video chat due to Covid related restriction for this provider Patient difficult to understand Word salad most of the time Confused Hemoglobin went from 15.4-9.7 which is unusual Creatinine 1.6 so will encourage oral fluids Dr. Myles evaluated him Mumbles a lot Right hand is improving Review of Systems General: Fatigue, Malaise Objective Exam Vital Signs Vital Signs Date Time Temp Pulse Resp B/P (MAP) Pulse Ox O2 Delivery O2 Flow Rate FiO2 06/12/21 20:30 Room Air 06/12/21 20:00 37.0 81 14 133/64 (87) 93 06/12/21 06:42 0.00 Capillary Refill : General Appearance: No Apparent Distress, WD/WN, Chronically ill HEENT: PERRL/EOMI, TMs Normal, Moist Mucous Membranes; No Scleral Icterus (L), No Scleral Icterus (R) Neck: Normal Inspection, Carotid Bruit Respiratory: Lungs Clear, No Accessory Muscle Use, No Respiratory Distress Cardiovascular: Regular Rate, Rhythm, No Edema, No Murmur, Normal Peripheral Pulses Gastrointestinal: Normal Bowel Sounds, Non Tender, Soft Back: Normal Inspection Extremity: Normal Capillary Refill, Normal Inspection, No Calf Tenderness, No Pedal Edema Neurologic/Psychiatric: Alert, Oriented x3, Normal Mood/Affect, Facial Droop, Motor Weakness (generalized, right worse than left) Skin: Normal Color, Warm/Dry Results/Procedures Lab Patient resulted labs reviewed. FIM Transfers Therapy Code Descriptions/Definitions Functional [place] Measure: 0=Not Assessed/NA 4=Minimal Assistance 1=Total Assistance 5=Supervision or Setup 2=Maximal Assistance 6=Modified [place] 3=Moderate Assistance 7=Complete IndependenceSCALE: Activities may be completed with or without assistive devices. 5-Fsrbkjxmwf-hrhokmx completes the activity by him/herself with no assistance from a helper. 5-Set-up or Clean-up Assistance-helper sets up or cleans up; patient completes activity. [place] assists only prior to or following the activity. 4-Supervision or Touching Assistance-helper provides verbal cues and/or touching/steadying and/or contact guard assistance as patient completes activity. Assistance may be provided throughout the activity or intermittently. 3-Partial/Moderate Assistance-helper does LESS THAN HALF the effort. [place] lifts, holds or supports trunk or limbs, but provides less than half the effort. 2-Substantial/Maximal Assistance-helper does MORE THAN HALF the effort. [place] lifts or holds trunk or limbs and provides more than half the effort. 5-Nfojfbvsy-nusvmv does ALL the effort. Patient does none of the effort to complete the activity. Or, the assistance of 2 or more helpers is required for the patient to complete the activity. If activity was not attempted, code reason: 7-Patient Refused. 9-Not Applicable-not attempted and the patient did not perform the activity before the current illness, exacerbation or injury. 10-Not Attempted due to Environmental Limitations-(lack of equipment, weather restraints, etc.). 88-Not Attempted due to Medical Conditions or Safety Concerns. Roll Left to Right (QC): 5 Sit to Lying (QC): 5 Sit to Stand (QC): 5 Chair/Lsd-ck-Ovvkc Xfer(QC): 5 Car Transfer (QC): 3 Gait Training Does the Patient Walk?: Yes Distance: 150 Walk 10 feet (QC): 5 Walk 50 ft with 2 Turns(QC): 5 Walk 150 ft (QC): 5 Walking 10ft/uneven surface-QC: 88 (poor foot clearance and unsafe) Gait Persons Needed: 1 Gait Assistive Device: FWW Wheelchair Training Does the Pt Use a Wheelchair?: No Wheel 50 ft with 2 turns (QC): 9 Wheel 150 ft (QC): 9 Stair Training 1 Step (curb) (QC): 88 4 Steps (QC): 88 12 Steps (QC): 88 Balance Picking up an Object (QC): 88 ADL-Treatment Eating (QC): 5 Oral Hygiene (QC): 4 Shower/Bathe Self (QC): 3 Upper Body Dressing (QC): 3 Lower Body Dressing (QC): 2 On/Off Footwear (QC): 2 Toileting Hygiene (QC): 3 Toilet Transfer (QC): 4 (CGA) Assessment/Plan Assessment and Plan Assess & Plan/Chief Complaint Assessment: 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 History of GERD Acute kidney injury 1.67 increasing oral fluids Plan: Check labs in the morning Intensive rehab Fall risk 06/03/2021: Lab abnormalities completely resolved Monitor closely Improved 06/04/21: Monitor closely Dysphagia 2 diet 06/05/2021: Change of diet has been helpful Monitor closely 06/06/21: Maintain diet change Fall risk BM regimen 06/07/2021: Continue aggressive therapy Monitor confusion 06/08/2021: Monitor blood pressure Bowel regimen Check meds and labs 06/09/2021: Monitor progress Pain control Fall risk 06/10/2021: Try to acquire wax to prevent chewing on right upper lip 06/11/2021: Supportive care Improving every day 06/12/2021: Fall risk Continue aggressive treatment (1) CVA (cerebral vascular accident) Assessment & Plan: He continues with inpatient physical rehab. No recurrent neurologic complaints. This appeared to be embolic. His echocardiogram during his inpatient admission did not reveal any structural heart disease to explain cardiac source of embolus. He now has an implantable loop recorder for prolonged surveillance for atrial fibrillation detection. Qualifiers: CVA mechanism: embolism Precerebral and cerebral artery: unspecified cerebral artery Qualified Codes: I63.40 - Cerebral infarction due to embolism of unspecified cerebral artery (2) Mixed hyperlipidemia Assessment & Plan: He is now on high-dose statin due to the recent cerebrovascular accident. This will need to be followed after discharge. (3) Status post placement of implantable loop recorder Assessment & Plan: He has an implantable loop recorder in place. The site appears to be healing well. Once he is discharged, we will be monitoring this through our office. IRVING STANLEY DO Jun 12, 2021 05:26
[2021-06-12] MEDS: ASPIRIN 81 MG CHEW (CHILDREN'S ASA) PO SCH (07:48)
[2021-06-12] MEDS: FAMOTIDINE 20 MG (PEPCID) TABLET PO SCH ×2 (07:48→20:20)
[2021-06-12] MEDS: DOCUSATE SODIUM 100 MG (COLACE) CAP PO SCH ×2 (07:48→20:20)
[2021-06-12] MEDS: CLOPIDOGREL 75 MG (PLAVIX) TABLET PO SCH (07:48)
[2021-06-12] MEDS: SENNA W/DOCUSATE (SENOKOT S) TABLET PO SCH ×2 (07:48→20:20)
[2021-06-12] MEDS: MAGIC MOUTHWASH (ADULT) PO SCH ×16 (07:49→20:20)
[2021-06-12 08:00] VITALS: BP 130/60
[2021-06-12] MEDS: polyethylene glycoL POWDER 17 GM (MIRALAX) PACK PO SCH ×2 (09:23→20:20)
--- NOTE | 2021-06-12 11:08 | Physical Therapy Daily Note ---
PT Daily Note-Current Subjective Pt sitting in recliner upon arrival. Pt agrees to PT. Pt declines need for BR. Pain Location: No Pain Reported Mental Status Patient Orientation: Person, Place, [place] Transfers SCALE: Activities may be completed with or without assistive devices. 7-Jebenokaac-vgpjpuj completes the activity by him/herself with no assistance f rom a helper. 5-Set-up or Clean-up Assistance-helper sets up or cleans up; patient completes activity. [place] assists only prior to or following the activity. 4-Supervision or Touching Assistance-helper provides verbal cues and/or touching/steadying and/or contact guard assistance as patient completes activity. Assistance may be provided throughout the activity or intermittently. 3-Partial/Moderate Assistance-helper does LESS THAN HALF the effort. [place] lifts, holds or supports trunk or limbs, but provides less than half the effort. 2-Substantial/Maximal Assistance-helper does MORE THAN HALF the effort. [place] lifts or holds trunk or limbs and provides more than half the effort. 6-Gvfxhwuer-zwurfj does ALL the effort. Patient does none of the effort to complete the activity. Or, the assistance of 2 or more helpers is required for the patient to complete the activity. If activity was not attempted, code reason: 7-Patient Refused. 9-Not Applicable-not attempted and the patient did not perform the activity before the current illness, exacerbation or injury. 10-Not Attempted due to Environmental Limitations-(lack of equipment, weather restraints, etc.). 88-Not Attempted due to Medical Conditions or Safety Concerns. Sit to Stand (QC): 4 Weight Bearing Right Lower Extremity: Right Full Weight Bearing Left Lower Extremity: Left Full Weight Bearing Treatments 900-1000: TF to standing and amb. in hallway. Pt completes Seated EX as well as uses NuStep for 15m at WL 5. Pt takes short RB then returns to room to rest in recliner with all needs met, call light in hand. [id number]: TF to standing and amb. ~150' in hallway before returning to room to rest in recliner. All needs met, call light in hand. Assessment Current Status: Good Progress Pt is improving with ambulation but still needs occasional rest breaks for fatigue as well as VC for picking up R foot bo. when fatigued. PT Short Term Goals Short Term Goals Time Frame: Jun 13, 2021 Roll Left & Right: 4 Sit to lyin Lying to sitting on side of be: 4 Sit to stand: 4 Chair/dbn-bf-thudo transfer: 4 Toilet transfer: 4 Walk 10 feet: 4 Walk 50 feet with two turns: 4 Walk 150 feet: 4 PT Jail Goals [employer] Supervisor Goals PT Jail Goals Time Frame: Jun 29, 2021 Roll Left & Right (QC): 6 Sit to Lying (QC): 6 Lying-Sitting on Side/Bed(QC): 6 Sit to Stand (QC): 6 Chair/Aoj-ay-Dgeuj Xfer(QC): 6 Toilet Transfer (QC): 6 Car Transfer (QC): 6 Does the Patient Walk: Yes Walk 10 feet (QC): 6 Walk 50ft with 2 Turns (QC): 6 Walk 150 ft (QC): 6 Walking 10ft on Uneven Surface: 4 1 Step (curb) (QC): 6 4 Steps (QC): 6 12 Steps (QC): 4 Picking up an Object (QC): 4 Wheel 50 feet with 2 turns (QC: 9 Wheel 150 feet: 9 PT Plan Problem List Problem List: Activity Tolerance, Functional Strength, Safety Treatment/Plan Treatment Plan: Continue Plan of Care Treatment Plan: Bed Mobility, Education, Functional Activity Dustin, Functional Strength, Group Therapy, Gait, Safety, Therapeutic Exercise, Transfers Treatment Duration: Jun 29, 2021 Frequency: At least 5 of 7 days/Wk (IRF) Estimated Hrs Per Day: 1.5 hours per day Patient and/or Family Agrees t: Yes Safety Risks/Education Patient Education: Gait Training, Transfer Techniques, Correct Positioning, Safety Issues Teaching Recipient: Patient Teaching Methods: Discussion Response to Teaching: Verbalize Understanding Time/GCodes Time In: 900 Time Out: 1000 Total Billed Treatment Time: 60 Total Billed Treatment 900-1000: 1, GT x2 (30m) & EX x2 (30m) 2854-1062: 1, GT (15m) CLAIR HAJI PTA Jun 12, 2021 11:08
--- NOTE | 2021-06-12 11:35 | Speech Therapy Daily Note ---
Speech Daily Progress Note Subjective Date Seen by Provider: Jun 12, 2021 Time Seen by Provider: 00:30 Patient was resting in his recliner when I entered his room. He reported he had a shower and got to go downstairs during his therapy. He was also excited about his new elastic shoe ties. Objective Patient completed speech tasks at the 80% accuracy range.with decreased cues. Assessment Assessment Current Status: Good Progress Treatment Plan Continue Plan of Care Speech Short Term Goals Short Term Goals Short Term Goals 1) Patient will complete OME for improving speech intelligibility to 75% or greater. 2) Patient will complete speech tasks for communicating wants/needs at 75% or greater. 3) Patient will tolerate least restrictive diet without s/s of aspiration at 90% or greater. 4) Patient will utilize compensatory strategies as trained for safe oral intake at 90% or greater with minimal cues. Speech Surveillance Director Goals Longterm Goals Patient will improve communication/speech skills in order to effectively communicate. Patient will maintain adequate nutrition/hydration via safe, effective swallow function. Speech-Plan Patient/Family Goals Patient/Family Goals: Patient plans on returning to his home where he lives alone. Patient's discharge location will be discussed at the weekly rehab mtg. Treatment Plan Speech Therapy Treatment Plan: Continue Plan of Care Treatment Duration: Jun 15, 2021 Frequency: 4 times per week (Patient will receive skilled ST 4-5x per week) Estimated Hrs Per Day: .5 hour per day Rehab Potential: Guarded Barriers to Learning: Patient's recent CVA, age, debility Pt/Family Agrees to Plan: Yes Safety Risks/Education Teaching Recipient: Patient Teaching Methods: Demonstration, Discussion Response to Teaching: Verbalize Understanding, Return Demonstration Education Topics Provided: Continued safety within his room, continued safety with oral intake on modified diet, debility Time Speech Therapy Time In: 11:30 Speech Therapy Time Out: 12:00 Total Billed Time: 30 Billed Treatment Time 1, LENNY, YUAN Cheney Jun 12, 2021 11:35
--- NOTE | 2021-06-12 12:10 | Occupational Ther Daily Note ---
OT Current Status-Daily Note Subjective Pt alert, sitting in recliner. Pt states that he is tired today. Agrees to therapy. No c/o pain at this time. Mental Status/Objective Patient Orientation: Person, Place, Time, Situation ADL-Treatment Pt agrees to shower. SBA for toilet transfer and SBA for toileting. SBA to transfer into shower then sitting on shower bench using hand held shower and grabbars with SBA, pt did not stand to complete hygiene of buttocks. CGA in standing while pt stood to dry buttocks/sri area. Set up for upper body luther ssing and min A for lower body dressing. Pt able to doff sock/shoes independently. Elastic shoelaces applied to assist with donning shoes, min A for R LE, dons L LE by self. Assist to don R sock and dons L sock by self. Pt takes increased time to complete all tasks. After therapy, pt sitting in recliner with call light/phone in reach. Safety measures in place. All needs met in room. Therapy Code Descriptions/Definitions Functional [place] Measure: 0=Not Assessed/NA 4=Minimal Assistance 1=Total Assistance 5=Supervision or Setup 2=Maximal Assistance 6=Modified [place] 3=Moderate Assistance 7=Complete IndependenceSCALE: Activities may be completed with or without assistive devices. 2-Lwhslyoydw-etjizhz completes the activity by him/herself with no assistance from a helper. 5-Set-up or Clean-up Assistance-helper sets up or cleans up; patient completes activity. [place] assists only prior to or following the activity. 4-Supervision or Touching Assistance-helper provides verbal cues and/or touching/steadying and/or contact guard assistance as patient completes activity. Assistance may be provided throughout the activity or intermittently. 3-Partial/Moderate Assistance-helper does LESS THAN HALF the effort. [place] lifts, holds or supports trunk or limbs, but provides less than half the effort. 2-Substantial/Maximal Assistance-helper does MORE THAN HALF the effort. [place] lifts or holds trunk or limbs and provides more than half the effort. 4-Mzywoutao-muespt does ALL the effort. Patient does none of the effort to com plete the activity. Or, the assistance of 2 or more helpers is required for the patient to complete the activity. If activity was not attempted, code reason: 7-Patient Refused. 9-Not Applicable-not attempted and the patient did not perform the activity before the current illness, exacerbation or injury. 10-Not Attempted due to Environmental Limitations-(lack of equipment, weather restraints, etc.). 88-Not Attempted due to Medical Conditions or Safety Concerns. Shower/Bathe Self (QC): 4 Upper Body Dressing (QC): 5 Lower Body Dressing (QC): 3 On/Off Footwear: 3 Toileting Hygiene (QC): 4 Toilet Transfer (QC): 4 OT Short Term Goals Short Term Goals Eatin Oral hygiene: 6 Toileting hygiene: 3 Shower/bathe self: 3 Upper body dressin Lower body dressin Putting on/taking off footwear: 3 OT Driller Multiple Spindle Goals Prison Goals Time Frame: Jun 15, 2021 Eating (QC): 6 Oral Hygiene (QC): 6 Toileting Hygiene (QC): 6 Shower/Bathe Self (QC): 6 Upper Body Dressing (QC): 6 Lower Body Dressing (QC): 6 On/Off Footwear (QC): 6 Additional Goals: 1-Demonstrate ADL Tasks, 2-Verbalize Understanding, 3- ImproveStrength/Dustin 1=Demonstrate adherence to instructed precautions during ADL tasks. 2=Patient will verbalize/demonstrate understanding of assistive devices/modifications for ADL. 3=Patient will improve strength/tolerance for activity to enable patient to perform ADL's. OT Education/Plan Problem List/Assessment Assessment: Impaired Self-Care Skills, Restricted Funct UE ROM Discharge Recommendations Plan/Recommendations: Continue POC Treatment Plan/Plan of Care Patient would benefit from OT for education, treatment and training to promote independence in ADL's, mobility, safety and/or upper extremity function for ADL's. Plan of Care: ADL Retraining, Caregiver Training, Cognitive Retraining, Functional Mobility, Group Exercise/Act as Ind, Orthotic Fitting/Training, UE Funct Exercise/Act, UE Neuromus Re-Ed/Coord, W/C Management Training Treatment Duration: Jun 15, 2021 Frequency: At least 5 of 7 days/Wk (IRF) Estimated Hrs Per Day: 1.5 hours per day Agreement: Yes Rehab Potential: Guarded Time/GCodes Start Time: 10:15 Stop Time: 11:30 Total Time Billed (hr/min): 75 Billed Treatment Time 1 visit-ADL 5 (75 min) JAY BONILLA Jun 12, 2021 12:10
[2021-06-12] MEDS: ENOXAPARIN 40 MG/0.4 ML (LOVENOX) SYR SC SCH (13:51)
[2021-06-12 20:00] VITALS: BP 133/64
[2021-06-12] MEDS: ALPRAZolam 0.25 MG (XANAX) TAB PO PRN (20:20)
[2021-06-12] MEDS: MELATONIN 3 MG TABLET PO PRN (20:20)
--- NOTE | 2021-06-13 06:17 | PM&R Progress Note ---
Subjective HPI/CC On Admission Date Seen by Provider: Jun 13, 2021 Time Seen by Provider: 10:00 Subjective/Events-last exam 06/13/2021: Pt doing pretty well Denies any significant new issues Working with therapy No more concerns No falls 06/12/2021: Pt doing pretty well Sleeps most of the time in between therapy Checked meds and labs No falls 06/11/2021: Pt doing pretty well Wax for his right upper lip, hopefully will be able to be obtained Labs are good Overall doing much better 06/10/2021: No major issues Right hand is moving a lot better Bowels moved today May try to get some wax the use for orthodontics to prevent chewing on the right upper lip 06/09/2021: This visit is via video chat due to Covid related restriction for this provider Patient doing pretty well today Right hand and arm much improved Shuffles around when he is tired Still chewing on his right upper lip We will try to contact dentistry to see if there is any help with that 06/08/2021: This visit is via video chat due to Covid related restriction for this provider Patient has no new issues Bowels moved today after warm prune juice Working on his right hand with handwriting We will discontinue the Hep-Lock 06/07/2021: This visit is via video chat due to Covid related restriction for this provider Patient seems to be doing pretty well today Bowels moved yesterday Loop recorder maintained Sore in the right upper lip is better 06/06/2021: This visit is via video chat due to Covid related restriction for this provider Patient doing well BM moving slowly Swallowed pills well Upper right lip improved Loop recorder placed today Son visited today Prune juice and Lactulose ordered 06/05/2021: This visit is via video chat due to Covid related restriction for this provider Patient doing a lot better Prune juice helps his bowels more than MiraLAX he reports So very slow in activity Chopped meat has been helpful Magic mouthwash on the upper lip Ruminates about certain topics 06/04/2021: This visit is via video chat due to Covid related restriction for this provider Patient seems to be improved Confusion is still undercurrent BP stable Dysphagia 2 diet working better Decreased garbled speech 06/03/2021: This visit is via video chat due to Covid related restriction for this provider Patient much more lucid Word salad is better Bowels are moving Trying to increase fluid intake Magic mouthwash for right upper lip that he continues to bite when he chews Really obsessed about his shaver 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 Myles evaluated him Mumbles a lot Right hand is improving Review of Systems General: Fatigue, Malaise Objective Exam Vital Signs Vital Signs Date Time Temp Pulse Resp B/P (MAP) Pulse Ox O2 Delivery O2 Flow Rate FiO2 06/13/21 20:30 Room Air 06/13/21 20:00 36.6 70 14 132/59 (83) 92 06/12/21 06:42 0.00 Capillary Refill : General Appearance: No Apparent Distress, WD/WN, Chronically ill HEENT: PERRL/EOMI, TMs Normal, Moist Mucous Membranes; No Scleral Icterus (L), No Scleral Icterus (R) Neck: Normal Inspection, Carotid Bruit Respiratory: Lungs Clear, No Accessory Muscle Use, No Respiratory Distress Cardiovascular: Regular Rate, Rhythm, No Edema, No Murmur, Normal Peripheral Pulses Gastrointestinal: Normal Bowel Sounds, Non Tender, Soft Back: Normal Inspection Extremity: Normal Capillary Refill, Normal Inspection, No Calf Tenderness, No Pedal Edema Neurologic/Psychiatric: Alert, Oriented x3, Normal Mood/Affect, Facial Droop, Motor Weakness (generalized, right worse than left) Skin: Normal Color, Warm/Dry Results/Procedures Lab Patient resulted labs reviewed. FIM Transfers Therapy Code Descriptions/Definitions Functional [place] Measure: 0=Not Assessed/NA 4=Minimal Assistance 1=Total Assistance 5=Supervision or Setup 2=Maximal Assistance 6=Modified Renick 3=Moderate Assistance 7=Complete IndependenceSCALE: Activities may be completed with or without assistive devices. 2-Uwjkphoiey-ovpuieg completes the activity by him/herself with no assistance from a helper. 5-Set-up or Clean-up Assistance-helper sets up or cleans up; patient completes activity. [place] assists only prior to or following the activity. 4-Supervision or Touching Assistance-helper provides verbal cues and/or touching/steadying and/or contact guard assistance as patient completes activity. Assistance may be provided throughout the activity or intermittently. 3-Partial/Moderate Assistance-helper does LESS THAN HALF the effort. [place] lifts, holds or supports trunk or limbs, but provides less than half the effort. 2-Substantial/Maximal Assistance-helper does MORE THAN HALF the effort. [place] lifts or holds trunk or limbs and provides more than half the effort. 8-Gkoqbksia-idjtck does ALL the effort. Patient does none of the effort to complete the activity. Or, the assistance of 2 or more helpers is required for the patient to complete the activity. If activity was not attempted, code reason: 7-Patient Refused. 9-Not Applicable-not attempted and the patient did not perform the activity before the current illness, exacerbation or injury. 10-Not Attempted due to Environmental Limitations-(lack of equipment, weather restraints, etc.). 88-Not Attempted due to Medical Conditions or Safety Concerns. Roll Left to Right (QC): 5 Sit to Lying (QC): 5 Sit to Stand (QC): 4 Chair/Kuj-ji-Ofvgr Xfer(QC): 5 Car Transfer (QC): 3 Gait Training Does the Patient Walk?: Yes Distance: 150 Walk 10 feet (QC): 5 Walk 50 ft with 2 Turns(QC): 5 Walk 150 ft (QC): 5 Walking 10ft/uneven surface-QC: 88 (poor foot clearance and unsafe) Gait Persons Needed: 1 Gait Assistive Device: FWW Wheelchair Training Does the Pt Use a Wheelchair?: No Wheel 50 ft with 2 turns (QC): 9 Wheel 150 ft (QC): 9 Stair Training 1 Step (curb) (QC): 88 4 Steps (QC): 88 12 Steps (QC): 88 Balance Picking up an Object (QC): 88 ADL-Treatment Eating (QC): 5 Oral Hygiene (QC): 4 Shower/Bathe Self (QC): 4 Upper Body Dressing (QC): 5 Lower Body Dressing (QC): 3 On/Off Footwear (QC): 3 Toileting Hygiene (QC): 4 Toilet Transfer (QC): 4 Assessment/Plan Assessment and Plan Assess & Plan/Chief Complaint Assessment: 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 History of GERD Acute kidney injury 1.67 increasing oral fluids Plan: Check labs in the morning Intensive rehab Fall risk 06/03/2021: Lab abnormalities completely resolved Monitor closely Improved 06/04/21: Monitor closely Dysphagia 2 diet 06/05/2021: Change of diet has been helpful Monitor closely 06/06/21: Maintain diet change Fall risk BM regimen 06/07/2021: Continue aggressive therapy Monitor confusion 06/08/2021: Monitor blood pressure Bowel regimen Check meds and labs 06/09/2021: Monitor progress Pain control Fall risk 06/10/2021: Try to acquire wax to prevent chewing on right upper lip 06/11/2021: Supportive care Improving every day 06/12/2021: Fall risk Continue aggressive treatment 06/13/2021: Discharge plan for 06/19/2021 Continue aggressive treatment (1) CVA (cerebral vascular accident) Assessment & Plan: He continues with inpatient physical rehab. No recurrent neurologic complaints. This appeared to be embolic. His echocardiogram during his inpatient admission did not reveal any structural heart disease to explain cardiac source of embolus. He now has an implantable loop recorder for prolonged surveillance for atrial fibrillation detection. Qualifiers: CVA mechanism: embolism Precerebral and cerebral artery: unspecified cerebral artery Qualified Codes: I63.40 - Cerebral infarction due to embolism of unspecified cerebral artery (2) Mixed hyperlipidemia Assessment & Plan: He is now on high-dose statin due to the recent cerebrovascular accident. This will need to be followed after discharge. (3) Status post placement of implantable loop recorder Assessment & Plan: He has an implantable loop recorder in place. The site appears to be healing well. Once he is discharged, we will be monitoring this through our office. IRVING STANLEY DO Jun 13, 2021 06:17
[2021-06-13 07:45] VITALS: BP 118/60
--- NOTE | 2021-06-13 08:10 | Speech Therapy Daily Note ---
Speech Daily Progress Note Subjective Date Seen by Provider: Jun 13, 2021 Time Seen by Provider: 00:30 Patient was resting in his chair, stated he didn't have any pants on because he wet himself during the night. Objective Patient completed speech tasks at 80% with 10% cues. Intelligibility noted to be improved this am. Assessment Assessment Current Status: Good Progress Treatment Plan Continue Plan of Care Speech Short Term Goals Short Term Goals Short Term Goals 1) Patient will complete OME for improving speech intelligibility to 75% or greater. 2) Patient will complete speech tasks for communicating wants/needs at 75% or greater. 3) Patient will tolerate least restrictive diet without s/s of aspiration at 90% or greater. 4) Patient will utilize compensatory strategies as trained for safe oral intake at 90% or greater with minimal cues. Speech Wash Rack Operator Goals Fdc Goals Patient will improve communication/speech skills in order to effectively communicate. Patient will maintain adequate nutrition/hydration via safe, effective swallow f unction. Speech-Plan Patient/Family Goals Patient/Family Goals: Patient plans on returning to his home. Patient is not deemed safe to live alone due to his debility s/p CVA. Patient's discharge plan will be discussed at the Medicare mtg this morning with the rehab team. Treatment Plan Speech Therapy Treatment Plan: Continue Plan of Care Treatment Duration: Jun 15, 2021 Frequency: 4 times per week (Patient will receive skilled ST 4-5x per week) Estimated Hrs Per Day: .5 hour per day Rehab Potential: Guarded Barriers to Learning: Patient's recent CVA and other medical issues, age, debility Pt/Family Agrees to Plan: Yes Safety Risks/Education Teaching Recipient: Patient Teaching Methods: Demonstration, Discussion Response to Teaching: Verbalize Understanding, Return Demonstration Education Topics Provided: Continued safety within his room, continued safety with oral intake Time Speech Therapy Time In: 08:00 Speech Therapy Time Out: 08:30 Total Billed Time: 30 Billed Treatment Time 1, LENNY, YUAN Cheney Jun 13, 2021 08:10
[2021-06-13] MEDS: DOCUSATE SODIUM 100 MG (COLACE) CAP PO SCH ×2 (09:50→21:28)
[2021-06-13] MEDS: ASPIRIN 81 MG CHEW (CHILDREN'S ASA) PO SCH (09:50)
[2021-06-13] MEDS: SENNA W/DOCUSATE (SENOKOT S) TABLET PO SCH ×2 (09:50→21:28)
[2021-06-13] MEDS: polyethylene glycoL POWDER 17 GM (MIRALAX) PACK PO SCH ×2 (09:50→21:35)
[2021-06-13] MEDS: CLOPIDOGREL 75 MG (PLAVIX) TABLET PO SCH (09:50)
[2021-06-13] MEDS: FAMOTIDINE 20 MG (PEPCID) TABLET PO SCH ×2 (09:50→21:28)
[2021-06-13] MEDS: MAGIC MOUTHWASH (ADULT) PO SCH ×16 (09:51→21:27)
--- NOTE | 2021-06-13 12:44 | Occupational Ther Daily Note ---
OT Current Status-Daily Note Subjective Pt alert, lying in bed. Pt agrees to therapy. No c/o pain. Mental Status/Objective Patient Orientation: Person, Place, Time, Situation ADL-Treatment Supine to EOB independent. Set up for upper body drsg. SBA for lower body drsg. Educated pt on using sock aide to don R sock, pt demonstrated understanding. Will continue to work with sock aide due to difficulty donning R sock and difficulty with fine motor control of R hand. Pt able to doff socks independently dons L sock by self after set up. With elastic shoelaces, pt able to don/doff shoes by self after set up. Pt declines oral care at this time. Pt able to complete own shaving and cleanse electric razor independently. SBA for toilet transfer and toileting. Standing at sink, pt washes hands with SBA. After therapy, pt sitting in recliner with call light/phone in reach. All needs met in room. Safety measures in place. Therapy Code Descriptions/Definitions Functional [place] Measure: 0=Not Assessed/NA 4=Minimal Assistance 1=Total Assistance 5=Supervision or Setup 2=Maximal Assistance 6=Modified [place] 3=Moderate Assistance 7=Complete IndependenceSCALE: Activities may be completed with or without assistive devices. 0-Thmpceiscw-uvyqnoa completes the activity by him/herself with no assistance from a helper. 5-Set-up or Clean-up Assistance-helper sets up or cleans up; patient completes activity. [place] assists only prior to or following the activity. 4-Supervision or Touching Assistance-helper provides verbal cues and/or touching/steadying and/or contact guard assistance as patient completes activity. Assistance may be provided throughout the activity or intermittently. 3-Partial/Moderate Assistance-helper does LESS THAN HALF the effort. [place] lifts, holds or supports trunk or limbs, but provides less than half the effort. 2-Substantial/Maximal Assistance-helper does MORE THAN HALF the effort. [place] lifts or holds trunk or limbs and provides more than half the effort. 8-Cdxehcmix-oeimvy does ALL the effort. Patient does none of the effort to complete the activity. Or, the assistance of 2 or more helpers is required for the patient to complete the activity. If activity was not attempted, code reason: 7-Patient Refused. 9-Not Applicable-not attempted and the patient did not perform the activity before the current illness, exacerbation or injury. 10-Not Attempted due to Environmental Limitations-(lack of equipment, weather restraints, etc.). 88-Not Attempted due to Medical Conditions or Safety Concerns. Upper Body Dressing (QC): 5 Lower Body Dressing (QC): 4 On/Off Footwear: 5 Toileting Hygiene (QC): 4 Toilet Transfer (QC): 4 OT Short Term Goals Short Term Goals Eatin Oral hygiene: 6 Toileting hygiene: 3 Shower/bathe self: 3 Upper body dressin Lower body dressin Putting on/taking off footwear: 3 OT Pest Control Worker Goals Pest Control Worker Goals Time Frame: Jun 15, 2021 Eating (QC): 6 Oral Hygiene (QC): 6 Toileting Hygiene (QC): 6 Shower/Bathe Self (QC): 6 Upper Body Dressing (QC): 6 Lower Body Dressing (QC): 6 On/Off Footwear (QC): 6 Additional Goals: 1-Demonstrate ADL Tasks, 2-Verbalize Understanding, 3- ImproveStrength/Dustin 1=Demonstrate adherence to instructed precautions during ADL tasks. 2=Patient will verbalize/demonstrate understanding of assistive devices/modifications for ADL. 3=Patient will improve strength/tolerance for activity to enable patient to perform ADL's. OT Education/Plan Problem List/Assessment Assessment: Decreased Safety Aware, Impaired Self-Care Skills, Restricted Funct UE ROM Discharge Recommendations Plan/Recommendations: Continue POC Treatment Plan/Plan of Care Patient would benefit from OT for education, treatment and training to promote independence in ADL's, mobility, safety and/or upper extremity function for ADL's. Plan of Care: ADL Retraining, Caregiver Training, Cognitive Retraining, Functional Mobility, Group Exercise/Act as Ind, Orthotic Fitting/Training, UE Funct Exercise/Act, UE Neuromus Re-Ed/Coord, W/C Management Training Treatment Duration: Jun 15, 2021 Frequency: At least 5 of 7 days/Wk (IRF) Estimated Hrs Per Day: 1.5 hours per day Agreement: Yes Rehab Potential: Guarded Time/GCodes Start Time: 10:00 Stop Time: 11:00 Total Time Billed (hr/min): 60 Billed Treatment Time 1 visit-ADL 4 (60 min) JAY BONILLA Jun 13, 2021 12:44
--- NOTE | 2021-06-13 14:07 | Physical Therapy Daily Note ---
PT Daily Note-Current Subjective Pt agreeable and ready for PT. Pt says several times "Am I doing good?" Pt requests BR during therapy. Expresses "That is frustrating" when unable to have BM. Nursing notified. Otherwise, no complaints voiced. Pt in good spirits throughout treatment. Mental Status Patient Orientation: Person, Place, Situation Transfers SCALE: Activities may be completed with or without assistive devices. 8-Hbpxnidkmq-domxbfh completes the activity by him/herself with no assistance from a helper. 5-Set-up or Clean-up Assistance-helper sets up or cleans up; patient completes activity. [place] assists only prior to or following the activity. 4-Supervision or Touching Assistance-helper provides verbal cues and/or touching/steadying and/or contact guard assistance as patient completes activity. Assistance may be provided throughout the activity or intermittently. 3-Partial/Moderate Assistance-helper does LESS THAN HALF the effort. [place] lifts, holds or supports trunk or limbs, but provides less than half the effort. 2-Substantial/Maximal Assistance-helper does MORE THAN HALF the effort. [place] lifts or holds trunk or limbs and provides more than half the effort. 1-Hraljodus-tlbmaa does ALL the effort. Patient does none of the effort to complete the activity. Or, the assistance of 2 or more helpers is required for the patient to complete the activity. If activity was not attempted, code reason: 7-Patient Refused. 9-Not Applicable-not attempted and the patient did not perform the activity before the current illness, exacerbation or injury. 10-Not Attempted due to Environmental Limitations-(lack of equipment, weather restraints, etc.). 88-Not Attempted due to Medical Conditions or Safety Concerns. All transfers mod (I) chair, toilet and Nu-step x 2 bouts. Weight Bearing Right Lower Extremity: Right Full Weight Bearing Left Lower Extremity: Left Full Weight Bearing Gait Training Gait Assistive Device: FWW Pt amb with FWW and CGA 4 x 110ft at slow steady speed. Vc's to increase stride (R) LE. Exercises Seated Therapy Exercises: Ankle pumps, Long arc quads, Hip flexion, Hip abd/add Seated Reps: 20 NuStep Minutes: 13 NuStep Workload: 2 Treatments Pt was on Nu-step x 2min before requesting BR break. Pt resumed Nu-step following BR break and made a goal of achieving 600steps. Pt met goal. Assessment Current Status: Good Progress Pt showing improved mobility today with decreased dependence for transfers and decreased vc's for sequence required. Pt resting in recliner with ambu alarm activated and call light in reach. All needs met. PT Short Term Goals Short Term Goals Time Frame: Jun 13, 2021 Roll Left & Right: 4 Sit to lyin Lying to sitting on side of be: 4 Sit to stand: 4 Chair/mmy-ci-pitpr transfer: 4 Toilet transfer: 4 Walk 10 feet: 4 Walk 50 feet with two turns: 4 Walk 150 feet: 4 PT Solar Designer/Installer Goals Long-Term Goals PT Long-Term Goals Time Frame: Jun 29, 2021 Roll Left & Right (QC): 6 Sit to Lying (QC): 6 Lying-Sitting on Side/Bed(QC): 6 Sit to Stand (QC): 6 Chair/Eoo-rv-Wfzum Xfer(QC): 6 Toilet Transfer (QC): 6 Car Transfer (QC): 6 Does the Patient Walk: Yes Walk 10 feet (QC): 6 Walk 50ft with 2 Turns (QC): 6 Walk 150 ft (QC): 6 Walking 10ft on Uneven Surface: 4 1 Step (curb) (QC): 6 4 Steps (QC): 6 12 Steps (QC): 4 Picking up an Object (QC): 4 Wheel 50 feet with 2 turns (QC: 9 Wheel 150 feet: 9 PT Plan Treatment/Plan Treatment Plan: Continue Plan of Care Treatment Plan: Bed Mobility, Education, Functional Activity Dustin, Functional Strength, Group Therapy, Gait, Safety, Therapeutic Exercise, Transfers Treatment Duration: Jun 29, 2021 Frequency: At least 5 of 7 days/Wk (IRF) Estimated Hrs Per Day: 1.5 hours per day Patient and/or Family Agrees t: Yes Time/GCodes Time In: 1100 Time Out: 1200 Total Billed Treatment Time: 60 Total Billed Treatment 1, FA 15', Ex 30', Gait 15' SILVIA KIRKPATRICK CPTA Jun 13, 2021 14:07
[2021-06-13] MEDS: ENOXAPARIN 40 MG/0.4 ML (LOVENOX) SYR SC SCH (14:13)
--- NOTE | 2021-06-13 14:44 | Therapy Group Daily Note ---
Therapy Daily Group Note Patient Education Topic Other List Below (energy conservation) Exercises LE Seated Exercise, UE Exercise Session Ratio (pt:therapist): 3:1 Goal of Session: Energy Conservation Tech., UE/LE Strengthing Goal Met for this Session: Yes Pt Benefit of Group: Contributions to Others, F/U Use of Strategies @Home, Increased Functional Safety, Increased Functional Strength, Improved Cognition, Recognition of Peers, Socialization Other/Notes Pt ambulated using FWW to [facility] for OT/PT group. Group consisted of introductions (name, place living, childhood activity), socialization, seated B UE/LE exercises and energy conservation education. Pt introduced self appropriately and actively listened to peers. Pt completed B UE/LE seated exercises though was modified due to low activity tolerance. Pt gestured and nodding head to acknowledge understanding of energy conservation. After therapy, sitting in recliner with call light/phone in reach. All needs met in room. Daughter in room. Start Time: 13:00 Stop Time: 14:00 Total Billed Treatment Time: 60 Total Billed Treatment 1-GRP JAY BONILLA Jun 13, 2021 14:44
--- NOTE | 2021-06-13 17:50 | Progress Note ---
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 Sitting up in chair with son and daughter in law at bedside. In good spirits. Trying to use right hand. Objective Exam Vital Signs Date Time Temp Pulse Resp B/P (MAP) Pulse Ox O2 Delivery O2 Flow Rate FiO2 06/13/21 09:00 Room Air 06/13/21 07:45 36.8 75 14 118/60 (79) 93 Room Air 06/12/21 20:30 Room Air 06/12/21 20:00 37.0 81 14 133/64 (87) 93 Room Air Capillary Refill : General Appearance: No Apparent Distress Respiratory: Lungs Clear Cardiovascular: Regular Rate, Rhythm Neurologic/Psychiatric: Alert, Oriented x3 Assessment/Plan Assessment/Plan Assess & Plan/Chief Complaint 1. 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
[2021-06-13 20:00] VITALS: BP 132/59
[2021-06-13] MEDS: MELATONIN 3 MG TABLET PO PRN (21:28)
--- NOTE | 2021-06-14 06:34 | PM&R Progress Note ---
Subjective HPI/CC On Admission Date Seen by Provider: Jun 14, 2021 Time Seen by Provider: 12:00 Subjective/Events-last exam 06/14/2021: Pt doing pretty well No more issues Bowels moving pretty well No pain 06/13/2021: Pt doing pretty well Denies any significant new issues Working with therapy No more concerns No falls 06/12/2021: Pt doing pretty well Sleeps most of the time in between therapy Checked meds and labs No falls 06/11/2021: Pt doing pretty well Wax for his right upper lip, hopefully will be able to be obtained Labs are good Overall doing much better 06/10/2021: No major issues Right hand is moving a lot better Bowels moved today May try to get some wax the use for orthodontics to prevent chewing on the right upper lip 06/09/2021: This visit is via video chat due to Covid related restriction for this provider Patient doing pretty well today Right hand and arm much improved Shuffles around when he is tired Still chewing on his right upper lip We will try to contact dentistry to see if there is any help with that 06/08/2021: This visit is via video chat due to Covid related restriction for this provider Patient has no new issues Bowels moved today after warm prune juice Working on his right hand with handwriting We will discontinue the Hep-Lock 06/07/2021: This visit is via video chat due to Covid related restriction for this provider Patient seems to be doing pretty well today Bowels moved yesterday Loop recorder maintained Sore in the right upper lip is better 06/06/2021: This visit is via video chat due to Covid related restriction for this provider Patient doing well BM moving slowly Swallowed pills well Upper right lip improved Loop recorder placed today Son visited today Prune juice and Lactulose ordered 06/05/2021: This visit is via video chat due to Covid related restriction for this provider Patient doing a lot better Prune juice helps his bowels more than MiraLAX he reports So very slow in activity Chopped meat has been helpful Magic mouthwash on the upper lip Ruminates about certain topics 06/04/2021: This visit is via video chat due to Covid related restriction for this provider Patient seems to be improved Confusion is still undercurrent BP stable Dysphagia 2 diet working better Decreased garbled speech 06/03/2021: This visit is via video chat due to Covid related restriction for this provider Patient much more lucid Word salad is better Bowels are moving Trying to increase fluid intake Magic mouthwash for right upper lip that he continues to bite when he chews Really obsessed about his shaver Increase right hand compliance vice president 06/02/2021: This visit is via video chat due to Covid related restriction for this provider Patient difficult to understand Word salad most of the time Confused Hemoglobin went from 15.4-9.7 which is unusual Creatinine 1.6 so will encourage oral fluids Dr. Myles evaluated him Mumbles a lot Right hand is improving Review of Systems General: Fatigue, Malaise Neurological: Weakness, Incoordination Objective Exam Vital Signs Vital Signs Date Time Temp Pulse Resp B/P (MAP) Pulse Ox O2 Delivery O2 Flow Rate FiO2 06/14/21 21:00 Room Air 06/14/21 20:00 36.6 69 14 139/63 (88) 94 06/12/21 06:42 0.00 Capillary Refill : General Appearance: No Apparent Distress, WD/WN, Chronically ill HEENT: PERRL/EOMI, TMs Normal, Moist Mucous Membranes; No Scleral Icterus (L), No Scleral Icterus (R) Neck: Normal Inspection, Carotid Bruit Respiratory: Lungs Clear, No Accessory Muscle Use, No Respiratory Distress Cardiovascular: Regular Rate, Rhythm, No Edema, No Murmur, Normal Peripheral Pulses Gastrointestinal: Normal Bowel Sounds, Non Tender, Soft Back: Normal Inspection Extremity: Normal Capillary Refill, Normal Inspection, No Calf Tenderness, No Pedal Edema Neurologic/Psychiatric: Alert, Oriented x3, Normal Mood/Affect, Facial Droop, Motor Weakness (generalized, right worse than left) Skin: Normal Color, Warm/Dry Results/Procedures Lab Patient resulted labs reviewed. FIM Transfers Therapy Code Descriptions/Definitions Functional [place] Measure: 0=Not Assessed/NA 4=Minimal Assistance 1=Total Assistance 5=Supervision or Setup 2=Maximal Assistance 6=Modified [place] 3=Moderate Assistance 7=Complete IndependenceSCALE: Activities may be completed with or without assistive devices. 8-Tidlozbkhq-ppywhvx completes the activity by him/herself with no assistance from a helper. 5-Set-up or Clean-up Assistance-helper sets up or cleans up; patient completes activity. [place] assists only prior to or following the activity. 4-Supervision or Touching Assistance-helper provides verbal cues and/or touching/steadying and/or contact guard assistance as patient completes activity. Assistance may be provided throughout the activity or intermittently. 3-Partial/Moderate Assistance-helper does LESS THAN HALF the effort. [place] lifts, holds or supports trunk or limbs, but provides less than half the effort. 2-Substantial/Maximal Assistance-helper does MORE THAN HALF the effort. [place] lifts or holds trunk or limbs and provides more than half the effort. 3-Coesgppjy-wpcggw does ALL the effort. Patient does none of the effort to complete the activity. Or, the assistance of 2 or more helpers is required for the patient to complete the activity. If activity was not attempted, code reason: 7-Patient Refused. 9-Not Applicable-not attempted and the patient did not perform the activity before the current illness, exacerbation or injury. 10-Not Attempted due to Environmental Limitations-(lack of equipment, weather restraints, etc.). 88-Not Attempted due to Medical Conditions or Safety Concerns. Roll Left to Right (QC): 5 Sit to Lying (QC): 5 Sit to Stand (QC): 4 Chair/Bhw-kx-Blrwf Xfer(QC): 5 Car Transfer (QC): 3 Gait Training Does the Patient Walk?: Yes Distance: 150 Walk 10 feet (QC): 5 Walk 50 ft with 2 Turns(QC): 5 Walk 150 ft (QC): 5 Walking 10ft/uneven surface-QC: 88 (poor foot clearance and unsafe) Gait Persons Needed: 1 Gait Assistive Device: FWW Wheelchair Training Does the Pt Use a Wheelchair?: No Wheel 50 ft with 2 turns (QC): 9 Wheel 150 ft (QC): 9 Stair Training 1 Step (curb) (QC): 88 4 Steps (QC): 88 12 Steps (QC): 88 Balance Picking up an Object (QC): 88 ADL-Treatment Eating (QC): 5 Oral Hygiene (QC): 4 Shower/Bathe Self (QC): 4 Upper Body Dressing (QC): 5 Lower Body Dressing (QC): 4 On/Off Footwear (QC): 5 Toileting Hygiene (QC): 4 Toilet Transfer (QC): 4 Assessment/Plan Assessment and Plan Assess & Plan/Chief Complaint Assessment: 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 History of GERD Acute kidney injury 1.67 increasing oral fluids Plan: Check labs in the morning Intensive rehab Fall risk 06/03/2021: Lab abnormalities completely resolved Monitor closely Improved 06/04/21: Monitor closely Dysphagia 2 diet 06/05/2021: Change of diet has been helpful Monitor closely 06/06/21: Maintain diet change Fall risk BM regimen 06/07/2021: Continue aggressive therapy Monitor confusion 06/08/2021: Monitor blood pressure Bowel regimen Check meds and labs 06/09/2021: Monitor progress Pain control Fall risk 06/10/2021: Try to acquire wax to prevent chewing on right upper lip 06/11/2021: Supportive care Improving every day 06/12/2021: Fall risk Continue aggressive treatment 06/13/2021: Discharge plan for 06/19/2021 Continue aggressive treatment 06/14/2021: Much improved status Increase independence (1) CVA (cerebral vascular accident) Assessment & Plan: He continues with inpatient physical rehab. No recurrent neurologic complaints. This appeared to be embolic. His echocardiogram during his inpatient admission did not reveal any structural heart disease to explain cardiac source of embolus. He now has an implantable loop recorder for prolonged surveillance for atrial fibrillation detection. Qualifiers: CVA mechanism: embolism Precerebral and cerebral artery: unspecified cerebral artery Qualified Codes: I63.40 - Cerebral infarction due to embolism of unspecified cerebral artery (2) Mixed hyperlipidemia Assessment & Plan: He is now on high-dose statin due to the recent cerebrovascular accident. This will need to be followed after discharge. (3) Status post placement of implantable loop recorder Assessment & Plan: He has an implantable loop recorder in place. The site appears to be healing well. Once he is discharged, we will be monitoring this through our office. IRVING STANLEY DO Jun 14, 2021 06:34
--- NOTE | 2021-06-14 07:51 | Physical Therapy Daily Note ---
PT Daily Note-Current Subjective Agreeable to PT. No complaints. Transfers SCALE: Activities may be completed with or without assistive devices. 4-Tlamxgzkdl-ajejiqn completes the activity by him/herself with no assistance from a helper. 5-Set-up or Clean-up Assistance-helper sets up or cleans up; patient completes activity. [place] assists only prior to or following the activity. 4-Supervision or Touching Assistance-helper provides verbal cues and/or touching/steadying and/or contact guard assistance as patient completes activity. Assistance may be provided throughout the activity or intermittently. 3-Partial/Moderate Assistance-helper does LESS THAN HALF the effort. [place] lift s, holds or supports trunk or limbs, but provides less than half the effort. 2-Substantial/Maximal Assistance-helper does MORE THAN HALF the effort. [place] lifts or holds trunk or limbs and provides more than half the effort. 7-Vmandmedb-bzpxya does ALL the effort. Patient does none of the effort to complete the activity. Or, the assistance of 2 or more helpers is required for the patient to complete the activity. If activity was not attempted, code reason: 7-Patient Refused. 9-Not Applicable-not attempted and the patient did not perform the activity before the current illness, exacerbation or injury. 10-Not Attempted due to Environmental Limitations-(lack of equipment, weather restraints, etc.). 88-Not Attempted due to Medical Conditions or Safety Concerns. Sit to Stand (QC): 4 (SBA and takes extra time; uses arms to push up.) Weight Bearing Right Lower Extremity: Right Full Weight Bearing Left Lower Extremity: Left Full Weight Bearing Gait Training Walk 150 ft (QC): 4 (SBA with intermittent cues for posture and safety) Gait Assistive Device: FWW Short steps with decreased DF and heel strike; slow gait and tends to stop o ften. Stair Training Stair Training: Handrails/: 2 handrails 4 Steps (QC): 4 (SBA for safety. ) Treatments Functional gait training with FWW and stairs. Stood at sink to wash his hands before breakfast to work on functional dynamic balance. Pt in recliner with breakfast post treatment with needs met and chair alarm activated. Assessment Current Status: Good Progress Steady gait with improved transfers. PT Short Term Goals Short Term Goals Time Frame: Jun 13, 2021 Roll Left & Right: 4 Sit to lyin Lying to sitting on side of be: 4 Sit to stand: 4 (estefani) Chair/wki-bl-qihvc transfer: 4 Toilet transfer: 4 Walk 10 feet: 4 Walk 50 feet with two turns: 4 Walk 150 feet: 4 (met) PT Longterm Goals Longterm Goals PT Records Supervisor Goals Time Frame: Jun 29, 2021 Roll Left & Right (QC): 6 Sit to Lying (QC): 6 Lying-Sitting on Side/Bed(QC): 6 Sit to Stand (QC): 6 Chair/Xqi-af-Qukyt Xfer(QC): 6 Toilet Transfer (QC): 6 Car Transfer (QC): 6 Does the Patient Walk: Yes Walk 10 feet (QC): 6 Walk 50ft with 2 Turns (QC): 6 Walk 150 ft (QC): 6 Walking 10ft on Uneven Surface: 4 1 Step (curb) (QC): 6 4 Steps (QC): 6 12 Steps (QC): 4 Picking up an Object (QC): 4 Wheel 50 feet with 2 turns (QC: 9 Wheel 150 feet: 9 PT Plan Problem List Problem List: Activity Tolerance, Functional Strength, Safety, Balance, Gait, Transfer, Bed Mobility Treatment/Plan Treatment Plan: Continue Plan of Care Treatment Plan: Bed Mobility, Education, Functional Activity Dustin, Functional Strength, Group Therapy, Gait, Safety, Therapeutic Exercise, Transfers Treatment Duration: Jun 29, 2021 Frequency: At least 5 of 7 days/Wk (IRF) Estimated Hrs Per Day: 1.5 hours per day Patient and/or Family Agrees t: Yes Safety Risks/Education Patient Education: Steps Teaching Recipient: Patient Teaching Methods: Demonstration, Discussion Response to Teaching: Return Demonstration, Reinforcement Needed Time/GCodes Time In: 710 Time Out: 740 Total Billed Treatment Time: 30 Total Billed Treatment visit GT 30 JAY SERRA PT Jun 14, 2021 07:51
[2021-06-14 08:13] VITALS: BP 132/61
[2021-06-14] MEDS: SENNA W/DOCUSATE (SENOKOT S) TABLET PO SCH ×2 (08:36→20:51)
[2021-06-14] MEDS: CLOPIDOGREL 75 MG (PLAVIX) TABLET PO SCH (08:36)
[2021-06-14] MEDS: ASPIRIN 81 MG CHEW (CHILDREN'S ASA) PO SCH (08:36)
[2021-06-14] MEDS: polyethylene glycoL POWDER 17 GM (MIRALAX) PACK PO SCH ×2 (08:37→20:51)
[2021-06-14] MEDS: DOCUSATE SODIUM 100 MG (COLACE) CAP PO SCH ×2 (08:37→20:51)
[2021-06-14] MEDS: FAMOTIDINE 20 MG (PEPCID) TABLET PO SCH ×2 (08:37→20:51)
[2021-06-14] MEDS: MAGIC MOUTHWASH (ADULT) PO SCH ×16 (08:37→20:51)
--- NOTE | 2021-06-14 11:07 | Speech Therapy Daily Note ---
Speech Daily Progress Note Subjective Date Seen by Provider: Jun 14, 2021 Time Seen by Provider: 00:30 Patient was resting in his recliner after just finishing his shower with OT. Objective Patient completed a series of speech activities and OME with 80% accuracy. Patient's intelligibility continues to be at 80 to 90% for most of his communication. Assessment Assessment Current Status: Good Progress Treatment Plan Continue Plan of Care Speech Short Term Goals Short Term Goals Short Term Goals 1) Patient will complete OME for improving speech intelligibility to 75% or grea ter. 2) Patient will complete speech tasks for communicating wants/needs at 75% or greater. 3) Patient will tolerate least restrictive diet without s/s of aspiration at 90% or greater. 4) Patient will utilize compensatory strategies as trained for safe oral intake at 90% or greater with minimal cues. Speech Nursing Home Goals Rotary Cutter Goals Patient will improve communication/speech skills in order to effectively communicate. Patient will maintain adequate nutrition/hydration via safe, effective swallow function. Speech-Plan Patient/Family Goals Patient/Family Goals: Patient is scheduled to return to his home 06/19 with a schedule of caregivers to be with him 16/06 until he goes to live with his son and daughter in law. Treatment Plan Speech Therapy Treatment Plan: Continue Plan of Care Treatment Duration: Jun 15, 2021 Frequency: 4 times per week (Patient will receive skilled ST 4-5x per week) Estimated Hrs Per Day: .5 hour per day Rehab Potential: Guarded Barriers to Learning: Patient's recent CVA with debility, dysarthria which is resolving well, mild cognitive deficits Pt/Family Agrees to Plan: Yes Safety Risks/Education Teaching Recipient: Patient Teaching Methods: Demonstration, Discussion Response to Teaching: Verbalize Understanding, Return Demonstration Education Topics Provided: Continued safety within his room, communication of wants/needs Continued safety with oral intake/modified diet Time Speech Therapy Time In: 11:00 Speech Therapy Time Out: 11:30 Total Billed Time: 30 Billed Treatment Time 1LENNY, YUAN Cheney Jun 14, 2021 11:07
--- NOTE | 2021-06-14 11:36 | Occupational Ther Daily Note ---
OT Current Status-Daily Note Subjective Pt sleeping in bed, woke to name. Pt took increased time to fully wake and participate in therapy. No c/o pain. Mental Status/Objective Patient Orientation: Person, Place, Time, Situation Attachments: Other-See Comments (loop recorder) ADL-Treatment Pt agrees to shower after encouragement. Pt ambulated using FWW to bathroom and transferred to toilet with SBA. Completed toileting with SBA using grabbars and FWW. Pt then transferred into shower with SBA. Sitting on shower bench, pt completed shower using hand held shower and grabbars with supervision for safety. After set up, pt able to don/doff upper body clothing. After set up, pt able to don/doff lower body clothing with SBA. Pt doffs socks by self then uses sock aide to don R sock after set up. Dons L sock by self after set up. Pt able to don/doff shoes by self after set up using elastic shoelaces. Pt ambulates back to recliner using FWW. Chair alarm set. Left in care of TECHNICAL SPECIALIST [facility]. All needs met. Therapy Code Descriptions/Definitions Functional [place] Measure: 0=Not Assessed/NA 4=Minimal Assistance 1=Total Assistance 5=Supervision or Setup 2=Maximal Assistance 6=Modified [place] 3=Moderate Assistance 7=Complete IndependenceSCALE: Activities may be completed with or without assistive devices. 3-Glbyepwado-lycgupq completes the activity by him/herself with no assistance from a helper. 5-Set-up or Clean-up Assistance-helper sets up or cleans up; patient completes activity. [place] assists only prior to or following the activity. 4-Supervision or Touching Assistance-helper provides verbal cues and/or touching/steadying and/or contact guard assistance as patient completes activity. Assistance may be provided throughout the activity or intermittently. 3-Partial/Moderate Assistance-helper does LESS THAN HALF the effort. [place] lifts, holds or supports trunk or limbs, but provides less than half the effort. 2-Substantial/Maximal Assistance-helper does MORE THAN HALF the effort. [place] lifts or holds trunk or limbs and provides more than half the effort. 4-Phfefygaz-feqahz does ALL the effort. Patient does none of the effort to complete the activity. Or, the assistance of 2 or more helpers is required for the patient to complete the activity. If activity was not attempted, code reason: 7-Patient Refused. 9-Not Applicable-not attempted and the patient did not perform the activity before the current illness, exacerbation or injury. 10-Not Attempted due to Environmental Limitations-(lack of equipment, weather restraints, etc.). 88-Not Attempted due to Medical Conditions or Safety Concerns. Shower/Bathe Self (QC): 4 Upper Body Dressing (QC): 5 Lower Body Dressing (QC): 4 On/Off Footwear: 4 Toileting Hygiene (QC): 4 Toilet Transfer (QC): 4 Pt would like to have sock aide for home use. OT Short Term Goals Short Term Goals Eatin Oral hygiene: 6 Toileting hygiene: 3 Shower/bathe self: 3 Upper body dressin Lower body dressin Putting on/taking off footwear: 3 OT Fpc Goals Secretary Goals Time Frame: Jun 15, 2021 Eating (QC): 6 Oral Hygiene (QC): 6 Toileting Hygiene (QC): 6 Shower/Bathe Self (QC): 6 Upper Body Dressing (QC): 6 Lower Body Dressing (QC): 6 On/Off Footwear (QC): 6 Additional Goals: 1-Demonstrate ADL Tasks, 2-Verbalize Understanding, 3-ImproveStrength/Dustin 1=Demonstrate adherence to instructed precautions during ADL tasks. 2=Patient will verbalize/demonstrate understanding of assistive devices/modifications for ADL. 3=Patient will improve strength/tolerance for activity to enable patient to perform ADL's. OT Education/Plan Problem List/Assessment Assessment: Decreased Safety Aware, Impaired Self-Care Skills Discharge Recommendations Plan/Recommendations: Continue POC Treatment Plan/Plan of Care Patient would benefit from OT for education, treatment and training to promote independence in ADL's, mobility, safety and/or upper extremity function for ADL's. Plan of Care: ADL Retraining, Caregiver Training, Cognitive Retraining, Functional Mobility, Group Exercise/Act as Ind, Orthotic Fitting/Training, UE Funct Exercise/Act, UE Neuromus Re-Ed/Coord, W/C Management Training Treatment Duration: Jun 15, 2021 Frequency: At least 5 of 7 days/Wk (IRF) Estimated Hrs Per Day: 1.5 hours per day Agreement: Yes Rehab Potential: Guarded Time/GCodes Start Time: 09:45 Stop Time: 11:00 Total Time Billed (hr/min): 75 Billed Treatment Time 1 visit-ADL 5 (75 min) JAY BONILLA Jun 14, 2021 11:36
--- NOTE | 2021-06-14 12:53 | Physical Therapy Daily Note ---
PT Daily Note-Current Subjective Agreeable and without complaint. Transfers SCALE: Activities may be completed with or without assistive devices. 6-Xotembzdcl-viukajr completes the activity by him/herself with no assistance from a helper. 5-Set-up or Clean-up Assistance-helper sets up or cleans up; patient completes activity. [place] assists only prior to or following the activity. 4-Supervision or Touching Assistance-helper provides verbal cues and/or touching/steadying and/or contact guard assistance as patient completes activity. Assistance may be provided throughout the activity or intermittently. 3-Partial/Moderate Assistance-helper does LESS THAN HALF the effort. [place] lift s, holds or supports trunk or limbs, but provides less than half the effort. 2-Substantial/Maximal Assistance-helper does MORE THAN HALF the effort. [place] lifts or holds trunk or limbs and provides more than half the effort. 3-Fgoollymf-knblqv does ALL the effort. Patient does none of the effort to complete the activity. Or, the assistance of 2 or more helpers is required for the patient to complete the activity. If activity was not attempted, code reason: 7-Patient Refused. 9-Not Applicable-not attempted and the patient did not perform the activity before the current illness, exacerbation or injury. 10-Not Attempted due to Environmental Limitations-(lack of equipment, weather restraints, etc.). 88-Not Attempted due to Medical Conditions or Safety Concerns. Sit to Stand (QC): 4 (SBA with sit to stand from multiple surfaces; occas cues for hand placement. ) Weight Bearing Right Lower Extremity: Right Full Weight Bearing Left Lower Extremity: Left Full Weight Bearing Gait Training Walk 150 ft (QC): 4 (SBA; cues for step length and step through, able to follow cues and improve gait pattern; requires cuing throughout gait sequence.) Gait Assistive Device: FWW Exercises NuStep Minutes: 15 Treatments functional transfers, gait and strengthening. Pt takes extra time to complete all tasks and requires heavy cuing to stay on task. Assessment Current Status: Good Progress Pt able to correct gait with cues. PT Short Term Goals Short Term Goals Time Frame: Jun 13, 2021 Roll Left & Right: 4 Sit to lyin Lying to sitting on side of be: 4 Sit to stand: 4 (estefani) Chair/oms-oz-kyzwh transfer: 4 Toilet transfer: 4 Walk 10 feet: 4 Walk 50 feet with two turns: 4 Walk 150 feet: 4 (met) PT Senior Care Goals Emergency Room Registered Nurse Goals PT Senior Care Goals Time Frame: Jun 29, 2021 Roll Left & Right (QC): 6 Sit to Lying (QC): 6 Lying-Sitting on Side/Bed(QC): 6 Sit to Stand (QC): 6 Chair/Dni-wj-Vwjoh Xfer(QC): 6 Toilet Transfer (QC): 6 Car Transfer (QC): 6 Does the Patient Walk: Yes Walk 10 feet (QC): 6 Walk 50ft with 2 Turns (QC): 6 Walk 150 ft (QC): 6 Walking 10ft on Uneven Surface: 4 1 Step (curb) (QC): 6 4 Steps (QC): 6 12 Steps (QC): 4 Picking up an Object (QC): 4 Wheel 50 feet with 2 turns (QC: 9 Wheel 150 feet: 9 PT Plan Problem List Problem List: Activity Tolerance, Functional Strength, Safety Treatment/Plan Treatment Plan: Continue Plan of Care Treatment Plan: Bed Mobility, Education, Functional Activity Dustin, Functional Strength, Group Therapy, Gait, Safety, Therapeutic Exercise, Transfers Treatment Duration: Jun 29, 2021 Frequency: At least 5 of 7 days/Wk (IRF) Estimated Hrs Per Day: 1.5 hours per day Patient and/or Family Agrees t: Yes Time/GCodes Time In: 1145 Time Out: 1230 Total Billed Treatment Time: 45 Total Billed Treatment visit GT 30 EX 15 JAY SERRA PT Jun 14, 2021 12:53
--- NOTE | 2021-06-14 17:06 | Progress Note ---
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 Doing PT in gym. No complaints. Objective Exam Vital Signs Date Time Temp Pulse Resp B/P (MAP) Pulse Ox O2 Delivery O2 Flow Rate FiO2 06/14/21 08:42 Room Air 06/14/21 08:13 37.0 78 18 132/61 (84) 94 Room Air 06/13/21 20:30 Room Air 06/13/21 20:00 36.6 70 14 132/59 (83) 92 Room Air Capillary Refill : General Appearance: No Apparent Distress Respiratory: Lungs Clear Cardiovascular: Regular Rate, Rhythm Neurologic/Psychiatric: Alert Assessment/Plan Assessment/Plan Assess & Plan/Chief Complaint 1. 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
[2021-06-14 20:00] VITALS: BP 139/63
[2021-06-14] MEDS: MELATONIN 3 MG TABLET PO PRN (20:51)
--- NOTE | 2021-06-15 06:21 | PM&R Progress Note ---
Subjective HPI/CC On Admission Date Seen by Provider: Jun 15, 2021 Time Seen by Provider: 10:00 Subjective/Events-last exam 06/15/21: Pt dong very well Walking around well Really likes a lot of attention so he sets off his alarm for nurses to come in 06/14/2021: Pt doing pretty well No more issues Bowels moving pretty well No pain 06/13/2021: Pt doing pretty well Denies any significant new issues Working with therapy No more concerns No falls 06/12/2021: Pt doing pretty well Sleeps most of the time in between therapy Checked meds and labs No falls 06/11/2021: Pt doing pretty well Wax for his right upper lip, hopefully will be able to be obtained Labs are good Overall doing much better 06/10/2021: No major issues Right hand is moving a lot better Bowels moved today May try to get some wax the use for orthodontics to prevent chewing on the right upper lip 06/09/2021: This visit is via video chat due to Covid related restriction for this provider Patient doing pretty well today Right hand and arm much improved Shuffles around when he is tired Still chewing on his right upper lip We will try to contact dentistry to see if there is any help with that 06/08/2021: This visit is via video chat due to Covid related restriction for this provider Patient has no new issues Bowels moved today after warm prune juice Working on his right hand with handwriting We will discontinue the Hep-Lock 06/07/2021: This visit is via video chat due to Covid related restriction for this provider Patient seems to be doing pretty well today Bowels moved yesterday Loop recorder maintained Sore in the right upper lip is better 06/06/2021: This visit is via video chat due to Covid related restriction for this provider Patient doing well BM moving slowly Swallowed pills well Upper right lip improved Loop recorder placed today Son visited today Prune juice and Lactulose ordered 06/05/2021: This visit is via video chat due to Covid related restriction for this provider Patient doing a lot better Prune juice helps his bowels more than MiraLAX he reports So very slow in activity Chopped meat has been helpful Magic mouthwash on the upper lip Ruminates about certain topics 06/04/2021: This visit is via video chat due to Covid related restriction for this provider Patient seems to be improved Confusion is still undercurrent BP stable Dysphagia 2 diet working better Decreased garbled speech 06/03/2021: This visit is via video chat due to Covid related restriction for this provider Patient much more lucid Word salad is better Bowels are moving Trying to increase fluid intake Magic mouthwash for right upper lip that he continues to bite when he chews Really obsessed about his shaver 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 Myles evaluated him Mumbles a lot Right hand is improving Review of Systems General: Fatigue Neurological: Weakness, Incoordination Objective Exam Vital Signs Vital Signs Date Time Temp Pulse Resp B/P (MAP) Pulse Ox O2 Delivery O2 Flow Rate FiO2 06/15/21 21:20 Room Air 06/15/21 20:00 36.6 79 20 140/64 (89) 95 06/12/21 06:42 0.00 Capillary Refill : General Appearance: No Apparent Distress, WD/WN, Chronically ill HEENT: PERRL/EOMI, TMs Normal, Moist Mucous Membranes; No Scleral Icterus (L), No Scleral Icterus (R) Neck: Normal Inspection, Carotid Bruit Respiratory: Lungs Clear, No Accessory Muscle Use, No Respiratory Distress Cardiovascular: Regular Rate, Rhythm, No Edema, No Murmur, Normal Peripheral Pulses Gastrointestinal: Normal Bowel Sounds, Non Tender, Soft Back: Normal Inspection Extremity: Normal Capillary Refill, Normal Inspection, No Calf Tenderness, No Pedal Edema Neurologic/Psychiatric: Alert, Oriented x3, Normal Mood/Affect, Facial Droop, Motor Weakness (generalized, right worse than left) Skin: Normal Color, Warm/Dry Results/Procedures Lab Patient resulted labs reviewed. FIM Transfers Therapy Code Descriptions/Definitions Functional [place] Measure: 0=Not Assessed/NA 4=Minimal Assistance 1=Total Assistance 5=Supervision or Setup 2=Maximal Assistance 6=Modified [place] 3=Moderate Assistance 7=Complete IndependenceSCALE: Activities may be completed with or without assistive devices. 2-Fqnbbqsocn-lhrhvuv completes the activity by him/herself with no assistance from a helper. 5-Set-up or Clean-up Assistance-helper sets up or cleans up; patient completes activity. [place] assists only prior to or following the activity. 4-Supervision or Touching Assistance-helper provides verbal cues and/or touching/steadying and/or contact guard assistance as patient completes activity. Assistance may be provided throughout the activity or intermittently. 3-Partial/Moderate Assistance-helper does LESS THAN HALF the effort. [place] lifts, holds or supports trunk or limbs, but provides less than half the effort. 2-Substantial/Maximal Assistance-helper does MORE THAN HALF the effort. [place] lifts or holds trunk or limbs and provides more than half the effort. 9-Sbiupejtz-hiahsw does ALL the effort. Patient does none of the effort to co mplete the activity. Or, the assistance of 2 or more helpers is required for the patient to complete the activity. If activity was not attempted, code reason: 7-Patient Refused. 9-Not Applicable-not attempted and the patient did not perform the activity before the current illness, exacerbation or injury. 10-Not Attempted due to Environmental Limitations-(lack of equipment, weather restraints, etc.). 88-Not Attempted due to Medical Conditions or Safety Concerns. Roll Left to Right (QC): 5 Sit to Lying (QC): 5 Sit to Stand (QC): 4 (SBA with sit to stand from multiple surfaces; occas cues for hand placement. ) Chair/Uvt-hm-Dxvta Xfer(QC): 5 Car Transfer (QC): 3 Gait Training Does the Patient Walk?: Yes Distance: 150 Walk 10 feet (QC): 5 Walk 50 ft with 2 Turns(QC): 5 Walk 150 ft (QC): 4 (SBA; cues for step length and step through, able to follow cues and improve gait pattern; requires cuing throughout gait sequence.) Walking 10ft/uneven surface-QC: 88 (poor foot clearance and unsafe) Gait Persons Needed: 1 Gait Assistive Device: FWW Wheelchair Training Does the Pt Use a Wheelchair?: No Wheel 50 ft with 2 turns (QC): 9 Wheel 150 ft (QC): 9 Stair Training Stair Training: Handrails/: 2 handrails 1 Step (curb) (QC): 88 4 Steps (QC): 4 (SBA for safety. 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 to be c ryptogenic currently History of GERD Acute kidney injury 1.67 increasing oral fluids Plan: Check labs in the morning Intensive rehab Fall risk 06/03/2021: Lab abnormalities completely resolved Monitor closely Improved 06/04/21: Monitor closely Dysphagia 2 diet 06/05/2021: Change of diet has been helpful Monitor closely 06/06/21: Maintain diet change Fall risk BM regimen 06/07/2021: Continue aggressive therapy Monitor confusion 06/08/2021: Monitor blood pressure Bowel regimen Check meds and labs 06/09/2021: Monitor progress Pain control Fall risk 06/10/2021: Try to acquire wax to prevent chewing on right upper lip 06/11/2021: Supportive care Improving every day 06/12/2021: Fall risk Continue aggressive treatment 06/13/2021: Discharge plan for 06/19/2021 Continue aggressive treatment 06/14/2021: Much improved status Increase independence 06/15/21: Monitor closely Right hand weakness is improved (1) CVA (cerebral vascular accident) Assessment & Plan: He continues with inpatient physical rehab. No recurrent neurologic complaints. This appeared to be embolic. His echocardiogram during his inpatient admission did not reveal any structural heart disease to explain cardiac source of embolus. He now has an implantable loop recorder for prolonged surveillance for atrial fibrillation detection. Qualifiers: CVA mechanism: embolism Precerebral and cerebral artery: unspecified cerebral artery Qualified Codes: I63.40 - Cerebral infarction due to embolism of unspecified cerebral artery (2) Mixed hyperlipidemia Assessment & Plan: He is now on high-dose statin due to the recent cerebrovascular accident. This will need to be followed after discharge. (3) Status post placement of implantable loop recorder Assessment & Plan: He has an implantable loop recorder in place. The site appears to be healing well. Once he is discharged, we will be monitoring this through our office. IRVING STANLEY DO Jun 15, 2021 06:21
[2021-06-15 08:00] VITALS: BP 129/61
--- NOTE | 2021-06-15 09:08 | Speech Therapy Daily Note ---
Speech Daily Progress Note Subjective Date Seen by Provider: Jun 15, 2021 Time Seen by Provider: 00:30 Patient was napping in his bed when I entered his room. He alerted to his name and participated with therapy. Objective Patient completed a series of speech exercises for improving intelligibi lity/speech production with 80% given min to mod verbal/visual cues. Assessment Assessment Current Status: Good Progress Treatment Plan Continue Plan of Care Speech Short Term Goals Short Term Goals Short Term Goals 1) Patient will complete OME for improving speech intelligibility to 75% or greater. 2) Patient will complete speech tasks for communicating wants/needs at 75% or greater. 3) Patient will tolerate least restrictive diet without s/s of aspiration at 90% or greater. 4) Patient will utilize compensatory strategies as trained for safe oral intake at 90% or greater with minimal cues. Speech Escalator Operator Goals Custodial Goals Patient will improve communication/speech skills in order to effectively communicate. Patient will maintain adequate nutrition/hydration via safe, effective swallow function. Speech-Plan Patient/Family Goals Patient/Family Goals: Patient is scheduled to return to his home on 06/19/21 with family. His children will have a schedule so that he has /7 assistance. Plans are for the patient to relocate with his son and daughter in law at a later date. Treatment Plan Speech Therapy Treatment Plan: Continue Plan of Care Treatment Duration: Jun 19, 2021 Frequency: 4 times per week (Patient will receive skilled ST 4-5x per week) Estimated Hrs Per Day: .5 hour per day Rehab Potential: Guarded Barriers to Learning: Patient's recent CVA with debility, dysarthria, mild cognitive deficits Pt/Family Agrees to Plan: Yes Safety Risks/Education Teaching Recipient: Patient Teaching Methods: Demonstration, Discussion Response to Teaching: Verbalize Understanding, Return Demonstration Education Topics Provided: Continued safety within his room and upon his return home Continued safety with all oral intake Time Speech Therapy Time In: 09:00 Speech Therapy Time Out: 09:30 Total Billed Time: 30 Billed Treatment Time DAXA Simpson [facility] No [place], BETHAN[address] ST Jun 15, 2021 09:08
[2021-06-15] MEDS: DOCUSATE SODIUM 100 MG (COLACE) CAP PO SCH ×2 (09:19→21:20)
[2021-06-15] MEDS: CLOPIDOGREL 75 MG (PLAVIX) TABLET PO SCH (09:19)
[2021-06-15] MEDS: ASPIRIN 81 MG CHEW (CHILDREN'S ASA) PO SCH (09:19)
[2021-06-15] MEDS: SENNA W/DOCUSATE (SENOKOT S) TABLET PO SCH ×2 (09:19→21:20)
[2021-06-15] MEDS: MAGIC MOUTHWASH (ADULT) PO SCH ×16 (09:19→21:12)
[2021-06-15] MEDS: FAMOTIDINE 20 MG (PEPCID) TABLET PO SCH ×2 (09:19→21:12)
[2021-06-15] MEDS: polyethylene glycoL POWDER 17 GM (MIRALAX) PACK PO SCH ×2 (09:25→21:20)
--- NOTE | 2021-06-15 11:28 | Occupational Ther Daily Note ---
OT Current Status-Daily Note Subjective Pt alert, sitting in bathroom. Pt agrees to therapy. Nrsg in room. No c/o pain. Mental Status/Objective Patient Orientation: Person, Place, Time, Situation ADL-Treatment Pt able to complete toileting with SBA for safety. SBA for toilet transfers using FWW and grabbars. Ambulated using FWW to recliner. After set up, pt able to complete upper body dressing. Pt able to complete lower body dressing though today required gestural cues to thread R LE into pant leg then was able to complete with SBA. Pt remembers to use sock aide to assist with donning R sock, pt continues to need practice to become proficient with use. Pt doffs B socks independently and dons L sock independently. Pt dons/doffs shoes using elastic laces independently. Pt ambulated around ARU with 1 recovery break using FWW with close SBA. After therapy, pt sitting in recliner with call light/phone in reach. All needs met in room. Chair alarm activated. Therapy Code Descriptions/Definitions Functional [place] Measure: 0=Not Assessed/NA 4=Minimal Assistance 1=Total Assistance 5=Supervision or Setup 2=Maximal Assistance 6=Modified [place] 3=Moderate Assistance 7=Complete IndependenceSCALE: Activities may be completed with or without assistive devices. 3-Istchryvha-otkibjs completes the activity by him/herself with no assistance from a helper. 5-Set-up or Clean-up Assistance-helper sets up or cleans up; patient completes activity. [place] assists only prior to or following the activity. 4-Supervision or Touching Assistance-helper provides verbal cues and/or touching/steadying and/or contact guard assistance as patient completes activity. Assistance may be provided throughout the activity or intermittently. 3-Partial/Moderate Assistance-helper does LESS THAN HALF the effort. [place] lifts, holds or supports trunk or limbs, but provides less than half the effort. 2-Substantial/Maximal Assistance-helper does MORE THAN HALF the effort. [place] lifts or holds trunk or limbs and provides more than half the effort. 1-Myurqjwjf-vvjgsu does ALL the effort. Patient does none of the effort to complete the activity. Or, the assistance of 2 or more helpers is required for the patient to complete the activity. If activity was not attempted, code reason: 7-Patient Refused. 9-Not Applicable-not attempted and the patient did not perform the activity before the current illness, exacerbation or injury. 10-Not Attempted due to Environmental Limitations-(lack of equipment, weather restraints, etc.). 88-Not Attempted due to Medical Conditions or Safety Concerns. Upper Body Dressing (QC): 5 Lower Body Dressing (QC): 4 On/Off Footwear: 4 Toileting Hygiene (QC): 4 Toilet Transfer (QC): 4 OT Short Term Goals Short Term Goals Eatin Oral hygiene: 6 Toileting hygiene: 3 Shower/bathe self: 3 Upper body dressin Lower body dressin Putting on/taking off footwear: 3 OT Mcfp Goals Mcfp Goals Time Frame: Jun 15, 2021 Eating (QC): 6 Oral Hygiene (QC): 6 Toileting Hygiene (QC): 6 Shower/Bathe Self (QC): 6 Upper Body Dressing (QC): 6 Lower Body Dressing (QC): 6 On/Off Footwear (QC): 6 Additional Goals: 1-Demonstrate ADL Tasks, 2-Verbalize Understanding, 3- ImproveStrength/Dustin 1=Demonstrate adherence to instructed precautions during ADL tasks. 2=Patient will verbalize/demonstrate understanding of assistive devices/mod ifications for ADL. 3=Patient will improve strength/tolerance for activity to enable patient to perform ADL's. OT Education/Plan Problem List/Assessment Assessment: Decreased Activ Tolerance, Decreased UE Strength, Impaired Coordination, Impaired Self-Care Skills, Restricted Funct UE ROM Discharge Recommendations Plan/Recommendations: Continue POC Treatment Plan/Plan of Care Patient would benefit from OT for education, treatment and training to promote independence in ADL's, mobility, safety and/or upper extremity function for ADL's. Plan of Care: ADL Retraining, Caregiver Training, Cognitive Retraining, Functional Mobility, Group Exercise/Act as Ind, Orthotic Fitting/Training, UE Funct Exercise/Act, UE Neuromus Re-Ed/Coord, W/C Management Training Treatment Duration: Jun 15, 2021 Frequency: At least 5 of 7 days/Wk (IRF) Estimated Hrs Per Day: 1.5 hours per day Agreement: Yes Rehab Potential: Guarded Time/GCodes Start Time: 09:30 Stop Time: 10:15 Total Time Billed (hr/min): 45 Billed Treatment Time 1 visit-ADL 2 (35 min) FA 1 (10 min) JAY BONILLA Jun 15, 2021 11:28
--- NOTE | 2021-06-15 11:30 | Progress Note ---
Subjective Date Seen by a Provider: Jun 15, 2021 Time Seen by a Provider: 10:20 Subjective/Events-last exam Fwup acute respiratory distress, COVID-19 pneumonia, COPD, HTN, Class 3 obesity, DM--insulin requiring, KRYSTIN. Sitting up in chair. Right arm still weak but is a little bit stronger. Objective Exam Vital Signs Date Time Temp Pulse Resp B/P (MAP) Pulse Ox O2 Delivery O2 Flow Rate FiO2 06/15/21 09:26 Room Air 06/15/21 08:00 36.6 70 14 129/61 (83) 91 Room Air 06/14/21 21:00 Room Air 06/14/21 20:00 36.6 69 14 139/63 (88) 94 Room Air Capillary Refill : General Appearance: No Apparent Distress Neck: Supple Respiratory: Lungs Clear Cardiovascular: Regular Rate, Rhythm Extremity: Non Tender, No Calf Tenderness, No Pedal Edema Neurologic/Psychiatric: Alert, Oriented x3 Assessment/Plan Assessment/Plan Assess & Plan/Chief Complaint 1. 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
--- NOTE | 2021-06-15 12:03 | Physical Therapy Daily Note ---
PT Daily Note-Current Subjective Pt up in recliner upon arrival to room, agreeable to PT session this time. Appearance Following session, pt in recliner with chair alarm activated, tray table in front of pt call light and phone within reach. Pt educated to use call light if needing to get up. Mental Status Patient Orientation: Person Transfers SCALE: Activities may be completed with or without assistive devices. 8-Oobdmlcafn-ikpgtiq completes the activity by him/herself with no assistance from a helper. 5-Set-up or Clean-up Assistance-helper sets up or cleans up; patient completes activity. [place] assists only prior to or following the activity. 4-Supervision or Touching Assistance-helper provides verbal cues and/or touching/steadying and/or contact guard assistance as patient completes activity. Assistance may be provided throughout the activity or intermittently. 3-Partial/Moderate Assistance-helper does LESS THAN HALF the effort. [place] lifts, holds or supports trunk or limbs, but provides less than half the effort. 2-Substantial/Maximal Assistance-helper does MORE THAN HALF the effort. [place] lifts or holds trunk or limbs and provides more than half the effort. 3-Fmhombdeo-oznmox does ALL the effort. Patient does none of the effort to complete the activity. Or, the assistance of 2 or more helpers is required for the patient to complete the activity. If activity was not attempted, code reason: 7-Patient Refused. 9-Not Applicable-not attempted and the patient did not perform the activity before the current illness, exacerbation or injury. 10-Not Attempted due to Environmental Limitations-(lack of equipment, weather restraints, etc.). 88-Not Attempted due to Medical Conditions or Safety Concerns. Sit to Stand (QC): 4 Chair/Hpd-ba-Wtzvj Xfer(QC): 4 Car Transfer (QC): 4 Pt completed car transfer x 2 with SBA, VCS for sequencing Weight Bearing Right Lower Extremity: Right Full Weight Bearing Left Lower Extremity: Left Full Weight Bearing Gait Training Distance: 150' x 3 Gait Assistive Device: FWW VCS for increased stride length Stair Training #of Steps: 4 4 Steps (QC): 4 Exercises NuStep Minutes: 10 NuStep Workload: 3 Treatments Gait, car transfers, stairs and nustep to improve functional mobility, endurance and strength Assessment Current Status: Good Progress Pt tolerated well. Needs VCS for sequencing car transfer, better performance on second attempt PT Short Term Goals Short Term Goals Time Frame: Jun 13, 2021 Roll Left & Right: 4 Sit to lyin Lying to sitting on side of be: 4 Sit to stand: 4 (estefani) Chair/aev-et-nfbpo transfer: 4 Toilet transfer: 4 Walk 10 feet: 4 Walk 50 feet with two turns: 4 Walk 150 feet: 4 (met) PT Detention Goals Insole Tack Puller Hand Goals PT Detention Goals Time Frame: Jun 29, 2021 Roll Left & Right (QC): 6 Sit to Lying (QC): 6 Lying-Sitting on Side/Bed(QC): 6 Sit to Stand (QC): 6 Chair/Eeo-ji-Djlld Xfer(QC): 6 Toilet Transfer (QC): 6 Car Transfer (QC): 6 Does the Patient Walk: Yes Walk 10 feet (QC): 6 Walk 50ft with 2 Turns (QC): 6 Walk 150 ft (QC): 6 Walking 10ft on Uneven Surface: 4 1 Step (curb) (QC): 6 4 Steps (QC): 6 12 Steps (QC): 4 Picking up an Object (QC): 4 Wheel 50 feet with 2 turns (QC: 9 Wheel 150 feet: 9 PT Plan Problem List Problem List: Activity Tolerance, Functional Strength, Safety, Balance, Gait, Transfer, Bed Mobility, ROM Treatment/Plan Treatment Plan: Continue Plan of Care Treatment Plan: Bed Mobility, Education, Functional Activity Dustin, Functional Strength, Group Therapy, Gait, Safety, Therapeutic Exercise, Transfers Treatment Duration: Jun 29, 2021 Frequency: At least 5 of 7 days/Wk (IRF) Estimated Hrs Per Day: 1.5 hours per day Patient and/or Family Agrees t: Yes Time/GCodes Time In: 1100 Time Out: 1200 Total Billed Treatment Time: 60 Total Billed Treatment 1 visit FA (10') GT (20') Ex (30') BESSIE COLLINS PT Jun 15, 2021 12:03
--- NOTE | 2021-06-15 14:26 | Progress Note - Cardiology ---
Cardiology SOAP Progress Note Subjective: Sitting up in recliner at the bedside No c/o at this time Objective: I&O/Vital Signs 06/15/21 06/15/21 08:00 09:26 Temp 36.6 Pulse 70 Resp 14 B/P (MAP) 129/61 (83) Pulse Ox 91 O2 Delivery Room Air Room Air Weight (Pounds): 190 Weight (Ounces): 6.4 Weight (Calculated Kilograms): 86.007997 Constitutional: AAO x 3, well-developed, well-nourished Respiratory: No accessory muscle use, No respiratory distress; chest expansion is symmetric, chest is bilaterally symmetric Cardiovascular: regular rate-rhythm; No JVD; S1 and S2 Gastrointestional: No tender; soft, round, audible bowel sounds Extremities: no lower extremity edema bilateral Neurologic/Psychiatric: other (right sided hemiparesis/facial droop) Skin: No rash on exposed areas, No ulcerations on exposed areas A/P: Assessment: 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 Myles Echocardiogram by Dr. Myles did not show any significant abnormality, Carotid ultrasound did not have any significant obstructive disease Right hemiparesis, facial droop, secondary CVA Hypertension - controlled Plan: Continue current regimen ILR transmissions checked today by Za at 's - no arrhythmia seen thus far THOMAS HILARIO Jun 15, 2021 14:26
--- NOTE | 2021-06-15 14:51 | Therapy Group Daily Note ---
Therapy Daily Group Note Patient Education Topic Other List Below (memory, ARU description/expectations) Exercises LE Seated Exercise, UE Exercise Session Ratio (pt:therapist): 8:2 Goal of Session: Education on ARU Expectations, Memory Strategies, UE/LE Strengthing Goal Met for this Session: Yes Pt Benefit of Group: Contributions to Others, F/U Use of Strategies @Home, Increased Functional Safety, Increased Functional Strength, Improved Cognition, Recognition of Peers, Socialization Other/Notes Pt ambulated using FWW to [facility] for OT/PT group. Group consisted of introductions (name, place living, memory of historical event), socialization, ARU description/expectation, seated B UE/LE exercises and memory strategies/activity. Pt introduced self appropriately and actively listened to peers. Pt participated in B UE/LE seated exercises and tolerated well. Pt acknowledged understanding of educational topics by giving own personal strategies and experiences. After therapy, pt lying in bed with call light/phone in reach. Start Time: 13:00 Stop Time: 14:00 Total Billed Treatment Time: 60 Total Billed Treatment 1-GRP JAY BONILLA Jun 15, 2021 14:51
--- NOTE | 2021-06-15 15:10 | Occ Therapy Rehab Re-Cert ---
OT Re-Certification Form Plan of Care: ADL Retraining, Caregiver Training, Cognitive Retraining, Functional Mobility, Group Exercise/Act as Ind, Orthotic Fitting/Training, UE Funct Exercise/Act, UE Neuromus Re-Ed/Coord, W/C Management Training Pt making progress towards goals, requiring min cues/ SBA during tasks and increased problem solving/ attention to tasks. Continuation with all LTGs: Eating (QC): 6 Oral Hygiene (QC): 6 Toileting Hygiene (QC): 6 Shower/Bathe Self (QC): 6 Upper Body Dressing (QC): 6 Lower Body Dressing (QC): 6 On/Off Footwear (QC): 6 POC extended from 06/15/21-06/29/21. Treatment Duration: POC extended from 06/15/21-06/29/21. Frequency: At least 5 of 7 days/Wk (IRF) Estimated Hrs Per Day: 1.5 hours per day Agreement: Yes Rehab Potential: Fair OT Short Term Goals Short Term Goals Eatin Oral hygiene: 6 Toileting hygiene: 3 Shower/bathe self: 3 Upper body dressin Lower body dressin Putting on/taking off footwear: 3 OT Care Home Goals Care Home Goals Time Frame: Jun 15, 2021 Eating (QC): 6 Oral Hygiene (QC): 6 Toileting Hygiene (QC): 6 Shower/Bathe Self (QC): 6 Upper Body Dressing (QC): 6 Lower Body Dressing (QC): 6 On/Off Footwear (QC): 6 Additional Goals: 1-Demonstrate ADL Tasks, 2-Verbalize Understanding, 3- ImproveStrength/Dustin 1=Demonstrate adherence to instructed precautions during ADL tasks. 2=Patient will verbalize/demonstrate understanding of assistive devices/modifications for ADL. 3=Patient will improve strength/tolerance for activity to enable patient to perform ADL's. ARACELI ZACARIAS OTR Jun 15, 2021 15:10
--- NOTE | 2021-06-15 16:07 | Progress Note - Cardiology ---
Cardiology SOAP Progress Note Subjective: No cp or palp or syncope or shortness of breath Gen weakness and malaise No n/v/d Objective: I&O/Vital Signs 06/15/21 06/15/21 08:00 09:26 Temp 36.6 Pulse 70 Resp 14 B/P (MAP) 129/61 (83) Pulse Ox 91 O2 Delivery Room Air Room Air Weight (Pounds): 190 Weight (Ounces): 6.4 Weight (Calculated Kilograms): 86.348102 Constitutional: AAO x 3, well-developed, well-nourished Respiratory: No accessory muscle use, No respiratory distress; chest expansion is symmetric, chest is bilaterally symmetric Cardiovascular: regular rate-rhythm; No JVD; S1 and S2 Gastrointestional: No tender; soft, round, audible bowel sounds Extremities: no lower extremity edema bilateral Neurologic/Psychiatric: other (right sided hemiparesis/facial droop) Skin: No rash on exposed areas, No ulcerations on exposed areas A/P: Assessment: 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 Myles Echocardiogram by Dr. Myles did not show any significant abnormality, Carotid ultrasound did not have any significant obstructive disease Right hemiparesis, facial droop, secondary CVA Hypertension - controlled Plan: Continue current regimen ILR transmissions checked today by Za at '[facility] - no arrhythmia seen thus far JULISA URBANO MD FACP FAC CCDS Jun 15, 2021 16:07
[2021-06-15 20:00] VITALS: BP 140/64
[2021-06-15] MEDS: MELATONIN 3 MG TABLET PO PRN (21:12)
[2021-06-16 07:30] VITALS: BP 124/60
--- NOTE | 2021-06-16 07:39 | PM&R Progress Note ---
Subjective HPI/CC On Admission Date Seen by Provider: Jun 16, 2021 Time Seen by Provider: 07:00 Subjective/Events-last exam 06/16/2021: No major issues Checked meds and labs Feels pretty good Progressing nicely 06/15/21: Pt dong very well Walking around well Really likes a lot of attention so he sets off his alarm for nurses to come in 06/14/2021: Pt doing pretty well No more issues Bowels moving pretty well No pain 06/13/2021: Pt doing pretty well Denies any significant new issues Working with therapy No more concerns No falls 06/12/2021: Pt doing pretty well Sleeps most of the time in between therapy Checked meds and labs No falls 06/11/2021: Pt doing pretty well Wax for his right upper lip, hopefully will be able to be obtained Labs are good Overall doing much better 06/10/2021: No major issues Right hand is moving a lot better Bowels moved today May try to get some wax the use for orthodontics to prevent chewing on the right upper lip 06/09/2021: This visit is via video chat due to Covid related restriction for this provider Patient doing pretty well today Right hand and arm much improved Shuffles around when he is tired Still chewing on his right upper lip We will try to contact dentistry to see if there is any help with that 06/08/2021: This visit is via video chat due to Covid related restriction for this provider Patient has no new issues Bowels moved today after warm prune juice Working on his right hand with handwriting We will discontinue the Hep-Lock 06/07/2021: This visit is via video chat due to Covid related restriction for this provider Patient seems to be doing pretty well today Bowels moved yesterday Loop recorder maintained Sore in the right upper lip is better 06/06/2021: This visit is via video chat due to Covid related restriction for this provider Patient doing well BM moving slowly Swallowed pills well Upper right lip improved Loop recorder placed today Son visited today Prune juice and Lactulose ordered 06/05/2021: This visit is via video chat due to Covid related restriction for this provider Patient doing a lot better Prune juice helps his bowels more than MiraLAX he reports So very slow in activity Chopped meat has been helpful Magic mouthwash on the upper lip Ruminates about certain topics 06/04/2021: This visit is via video chat due to Covid related restriction for this provider Patient seems to be improved Confusion is still undercurrent BP stable Dysphagia 2 diet working better Decreased garbled speech 06/03/2021: This visit is via video chat due to Covid related restriction for this provider Patient much more lucid Word salad is better Bowels are moving Trying to increase fluid intake Magic mouthwash for right upper lip that he continues to bite when he chews Really obsessed about his shaver Increase 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 Myles evaluated him Mumbles a lot Right hand is improving Review of Systems General: Fatigue, Malaise Neurological: Weakness, Incoordination Objective Exam Vital Signs Vital Signs Date Time Temp Pulse Resp B/P (MAP) Pulse Ox O2 Delivery O2 Flow Rate FiO2 06/16/21 20:30 36.7 83 20 131/67 (88) 93 Room Air 0.00 0.00 Capillary Refill : General Appearance: No Apparent Distress, WD/WN, Chronically ill HEENT: PERRL/EOMI, TMs Normal, Moist Mucous Membranes; No Scleral Icterus (L), No Scleral Icterus (R) Neck: Normal Inspection, Carotid Bruit Respiratory: Lungs Clear, No Accessory Muscle Use, No Respiratory Distress Cardiovascular: Regular Rate, Rhythm, No Edema, No Murmur, Normal Peripheral Pulses Gastrointestinal: Normal Bowel Sounds, Non Tender, Soft Back: Normal Inspection Extremity: Normal Capillary Refill, Normal Inspection, No Calf Tenderness, No Pedal Edema Neurologic/Psychiatric: Alert, Oriented x3, Normal Mood/Affect, Facial Droop, Motor Weakness (generalized, right worse than left) Skin: Normal Color, Warm/Dry Results/Procedures Lab Patient resulted labs reviewed. FIM Transfers Therapy Code Descriptions/Definitions Functional Morse Measure: 0=Not Assessed/NA 4=Minimal Assistance 1=Total Assistance 5=Supervision or Setup 2=Maximal Assistance 6=Modified Morse 3=Moderate Assistance 7=Complete IndependenceSCALE: Activities may be completed with or without assistive devices. 3-Optpeijfzh-yohmbgz completes the activity by him/herself with no assistance from a helper. 5-Set-up or Clean-up Assistance-helper sets up or cleans up; patient completes activity. [place] assists only prior to or following the activity. 4-Supervision or Touching Assistance-helper provides verbal cues and/or touching/steadying and/or contact guard assistance as patient completes activity. Assistance may be provided throughout the activity or intermittently. 3-Partial/Moderate Assistance-helper does LESS THAN HALF the effort. [place] lifts, holds or supports trunk or limbs, but provides less than half the effort. 2-Substantial/Maximal Assistance-helper does MORE THAN HALF the effort. [place] lifts or holds trunk or limbs and provides more than half the effort. 6-Mzvhfoyqn-yqqbhx does ALL the effort. Patient does none of the effort to complete the activity. Or, the assistance of 2 or more helpers is required for the patient to complete the activity. If activity was not attempted, code reason: 7-Patient Refused. 9-Not Applicable-not attempted and the patient did not perform the activity before the current illness, exacerbation or injury. 10-Not Attempted due to Environmental Limitations-(lack of equipment, weather restraints, etc.). 88-Not Attempted due to Medical Conditions or Safety Concerns. Roll Left to Right (QC): 5 Sit to Lying (QC): 5 Sit to Stand (QC): 4 Chair/Oqi-ys-Fxrih Xfer(QC): 4 Car Transfer (QC): 4 Gait Training Does the Patient Walk?: Yes Distance: 150' x 3 Walk 10 feet (QC): 5 Walk 50 ft with 2 Turns(QC): 5 Walk 150 ft (QC): 4 (SBA; cues for step length and step through, able to follow cues and improve gait pattern; requires cuing throughout gait sequence.) Walking 10ft/uneven surface-QC: 88 (poor foot clearance and unsafe) Gait Persons Needed: 1 Gait Assistive Device: FWW Wheelchair Training Does the Pt Use a Wheelchair?: No Wheel 50 ft with 2 turns (QC): 9 Wheel 150 ft (QC): 9 Stair Training Stair Training: Handrails/: 2 handrails #of Steps: 4 1 Step (curb) (QC): 88 4 Steps (QC): 4 12 Steps (QC): 88 Balance Picking up an Object (QC): 88 ADL-Treatment Eating (QC): 5 Oral Hygiene (QC): 4 Shower/Bathe Self (QC): 4 Upper Body Dressing (QC): 5 Lower Body Dressing (QC): 4 On/Off Footwear (QC): 4 Toileting Hygiene (QC): 4 Toilet Transfer (QC): 4 Assessment/Plan Assessment and Plan Assess & Plan/Chief Complaint Assessment: 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 History of GERD Acute kidney injury 1.67 increasing oral fluids Plan: Check labs in the morning Intensive rehab Fall risk 06/03/2021: Lab abnormalities completely resolved Monitor closely Improved 06/04/21: Monitor closely Dysphagia 2 diet 06/05/2021: Change of diet has been helpful Monitor closely 06/06/21: Maintain diet change Fall risk BM regimen 06/07/2021: Continue aggressive therapy Monitor confusion 06/08/2021: Monitor blood pressure Bowel regimen Check meds and labs 06/09/2021: Monitor progress Pain control Fall risk 06/10/2021: Try to acquire wax to prevent chewing on right upper lip 06/11/2021: Supportive care Improving every day 06/12/2021: Fall risk Continue aggressive treatment 06/13/2021: Discharge plan for 06/19/2021 Continue aggressive treatment 06/14/2021: Much improved status Increase independence 06/15/21: Monitor closely Right hand weakness is improved 06/16/2021: Dramatic improvement Much improved range of motion right hand (1) CVA (cerebral vascular accident) Assessment & Plan: He continues with inpatient physical rehab. No recurrent neurologic complaints. This appeared to be embolic. His echocardiogram during his inpatient admission did not reveal any structural heart disease to explain cardiac source of embolus. He now has an implantable loop recorder for prolonged surveillance for atrial fibrillation detection. Qualifiers: CVA mechanism: embolism Precerebral and cerebral artery: unspecified cerebral artery Qualified Codes: I63.40 - Cerebral infarction due to embolism of unspecified cerebral artery (2) Mixed hyperlipidemia Assessment & Plan: He is now on high-dose statin due to the recent cerebrovascular accident. This will need to be followed after discharge. (3) Status post placement of implantable loop recorder Assessment & Plan: He has an implantable loop recorder in place. The site appears to be healing well. Once he is discharged, we will be monitoring this through our office. IRVING STANLEY DO Jun 16, 2021 07:39
[2021-06-16] MEDS: ASPIRIN 81 MG CHEW (CHILDREN'S ASA) PO SCH (08:33)
[2021-06-16] MEDS: DOCUSATE SODIUM 100 MG (COLACE) CAP PO SCH ×2 (08:33→20:30)
[2021-06-16] MEDS: SENNA W/DOCUSATE (SENOKOT S) TABLET PO SCH ×2 (08:33→20:30)
[2021-06-16] MEDS: CLOPIDOGREL 75 MG (PLAVIX) TABLET PO SCH (08:33)
[2021-06-16] MEDS: FAMOTIDINE 20 MG (PEPCID) TABLET PO SCH ×2 (08:33→20:30)
[2021-06-16] MEDS: MAGIC MOUTHWASH (ADULT) PO SCH ×16 (08:34→20:31)
[2021-06-16] MEDS: polyethylene glycoL POWDER 17 GM (MIRALAX) PACK PO SCH ×2 (09:52→20:31)
--- NOTE | 2021-06-16 11:06 | Physical Therapy Daily Note ---
PT Daily Note-Current Subjective Pt in recliner and ready for therapy. Pt denies pain. "Lets take the long walk" when given option of short cut or long walk. Mental Status Patient Orientation: Person, Place, Situation Transfers SCALE: Activities may be completed with or without assistive devices. 0-Ubxzyqvxgz-mfeuute completes the activity by him/herself with no assistance from a helper. 5-Set-up or Clean-up Assistance-helper sets up or cleans up; patient completes activity. [place] assists only prior to or following the activity. 4-Supervision or Touching Assistance-helper provides verbal cues and/or touching/steadying and/or contact guard assistance as patient completes activity. Assistance may be provided throughout the activity or intermittently. 3-Partial/Moderate Assistance-helper does LESS THAN HALF the effort. [place] lifts, holds or supports trunk or limbs, but provides less than half the effort. 2-Substantial/Maximal Assistance-helper does MORE THAN HALF the effort. [place] lifts or holds trunk or limbs and provides more than half the effort. 7-Dvwgjdhzq-xkwpsm does ALL the effort. Patient does none of the effort to complete the activity. Or, the assistance of 2 or more helpers is required for the patient to complete the activity. If activity was not attempted, code reason: 7-Patient Refused. 9-Not Applicable-not attempted and the patient did not perform the activity before the current illness, exacerbation or injury. 10-Not Attempted due to Environmental Limitations-(lack of equipment, weather restraints, etc.). 88-Not Attempted due to Medical Conditions or Safety Concerns. Mod (I) transfers from chair. Weight Bearing Right Lower Extremity: Right Full Weight Bearing Left Lower Extremity: Left Full Weight Bearing Gait Training Gait Assistive Device: FWW Pt amb with FWW and CGA x 450ft at slow but steady speed Exercises Seated Therapy Exercises: Ankle pumps, Long arc quads, Hip abd/add Seated Reps: 20 Assessment Current Status: Good Progress Pt forrest well with improved endurance and ability to ambulate. No LOB, no unsteadiness noted. Pt back to recliner with ambu alarm activated and all needs met post therapy. PT Short Term Goals Short Term Goals Time Frame: Jun 13, 2021 Roll Left & Right: 4 Sit to lyin Lying to sitting on side of be: 4 Sit to stand: 4 (estefani) Chair/hki-ru-etshs transfer: 4 Toilet transfer: 4 Walk 10 feet: 4 Walk 50 feet with two turns: 4 Walk 150 feet: 4 (met) PT Fdc Goals Hydraulic Jack Operator Goals PT Hydraulic Jack Operator Goals Time Frame: Jun 29, 2021 Roll Left & Right (QC): 6 Sit to Lying (QC): 6 Lying-Sitting on Side/Bed(QC): 6 Sit to Stand (QC): 6 Chair/Ani-io-Maneb Xfer(QC): 6 Toilet Transfer (QC): 6 Car Transfer (QC): 6 Does the Patient Walk: Yes Walk 10 feet (QC): 6 Walk 50ft with 2 Turns (QC): 6 Walk 150 ft (QC): 6 Walking 10ft on Uneven Surface: 4 1 Step (curb) (QC): 6 4 Steps (QC): 6 12 Steps (QC): 4 Picking up an Object (QC): 4 Wheel 50 feet with 2 turns (QC: 9 Wheel 150 feet: 9 PT Plan Treatment/Plan Treatment Plan: Continue Plan of Care Treatment Plan: Bed Mobility, Education, Functional Activity Dustin, Functional Strength, Group Therapy, Gait, Safety, Therapeutic Exercise, Transfers Treatment Duration: Jun 29, 2021 Frequency: At least 5 of 7 days/Wk (IRF) Estimated Hrs Per Day: 1.5 hours per day Patient and/or Family Agrees t: Yes Time/GCodes Time In: 923 Time Out: 935 Total Billed Treatment Time: 12 Total Billed Treatment 1, gait x 10' and ther ex 2' SILVIA KIRKPATRICK CPTA Jun 16, 2021 11:06
[2021-06-16 20:30] VITALS: BP 131/67
[2021-06-16] MEDS: MELATONIN 3 MG TABLET PO PRN (20:30)
--- NOTE | 2021-06-17 06:59 | PM&R Progress Note ---
Subjective HPI/CC On Admission Date Seen by Provider: Jun 17, 2021 Time Seen by Provider: 13:00 Subjective/Events-last exam 06/17/2021: Much improved status Family at bedside Using commode and dressing on his own No falls 06/16/2021: No major issues Checked meds and labs Feels pretty good Progressing nicely 06/15/21: Pt dong very well Walking around well Really likes a lot of attention so he sets off his alarm for nurses to come in 06/14/2021: Pt doing pretty well No more issues Bowels moving pretty well No pain 06/13/2021: Pt doing pretty well Denies any significant new issues Working with therapy No more concerns No falls 06/12/2021: Pt doing pretty well Sleeps most of the time in between therapy Checked meds and labs No falls 06/11/2021: Pt doing pretty well Wax for his right upper lip, hopefully will be able to be obtained Labs are good Overall doing much better 06/10/2021: No major issues Right hand is moving a lot better Bowels moved today May try to get some wax the use for orthodontics to prevent chewing on the right upper lip 06/09/2021: This visit is via video chat due to Covid related restriction for this provider Patient doing pretty well today Right hand and arm much improved Shuffles around when he is tired Still chewing on his right upper lip We will try to contact dentistry to see if there is any help with that 06/08/2021: This visit is via video chat due to Covid related restriction for this provider Patient has no new issues Bowels moved today after warm prune juice Working on his right hand with handwriting We will discontinue the Hep-Lock 06/07/2021: This visit is via video chat due to Covid related restriction for this provider Patient seems to be doing pretty well today Bowels moved yesterday Loop recorder maintained Sore in the right upper lip is better 06/06/2021: This visit is via video chat due to Covid related restriction for this provider Patient doing well BM moving slowly Swallowed pills well Upper right lip improved Loop recorder placed today Son visited today Prune juice and Lactulose ordered 06/05/2021: This visit is via video chat due to Covid related restriction for this provider Patient doing a lot better Prune juice helps his bowels more than MiraLAX he reports So very slow in activity Chopped meat has been helpful Magic mouthwash on the upper lip Ruminates about certain topics 06/04/2021: This visit is via video chat due to Covid related restriction for this provider Patient seems to be improved Confusion is still undercurrent BP stable Dysphagia 2 diet working better Decreased garbled speech 06/03/2021: This visit is via video chat due to Covid related restriction for this provider Patient much more lucid Word salad is better Bowels are moving Trying to increase fluid intake Magic mouthwash for right upper lip that he continues to bite when he chews Really obsessed about his shaver 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 Myles evaluated him Mumbles a lot Right hand is improving Review of Systems General: Fatigue, Malaise Neurological: Weakness, Incoordination, Change in speech Objective Exam Vital Signs Vital Signs Date Time Temp Pulse Resp B/P (MAP) Pulse Ox O2 Delivery O2 Flow Rate FiO2 06/17/21 20:00 93 Room Air 06/17/21 20:00 36.8 80 20 138/68 (91) 06/16/21 20:30 0.00 0.00 Capillary Refill : General Appearance: No Apparent Distress, WD/WN, Chronically ill HEENT: PERRL/EOMI, TMs Normal, Moist Mucous Membranes; No Scleral Icterus (L), No Scleral Icterus (R) Neck: Normal Inspection, Carotid Bruit Respiratory: Lungs Clear, No Accessory Muscle Use, No Respiratory Distress Cardiovascular: Regular Rate, Rhythm, No Edema, No Murmur, Normal Peripheral Pulses Gastrointestinal: Normal Bowel Sounds, Non Tender, Soft Back: Normal Inspection Extremity: Normal Capillary Refill, Normal Inspection, No Calf Tenderness, No Pedal Edema Neurologic/Psychiatric: Alert, Oriented x3, Normal Mood/Affect, Facial Droop, Motor Weakness (generalized, right worse than left) Skin: Normal Color, Warm/Dry Results/Procedures Lab Patient resulted labs reviewed. FIM Transfers Therapy Code Descriptions/Definitions Functional [place] Measure: 0=Not Assessed/NA 4=Minimal Assistance 1=Total Assistance 5=Supervision or Setup 2=Maximal Assistance 6=Modified [place] 3=Moderate Assistance 7=Complete IndependenceSCALE: Activities may be completed with or without assistive devices. 3-Qxsdlmuumc-mjhshfq completes the activity by him/herself with no assistance from a helper. 5-Set-up or Clean-up Assistance-helper sets up or cleans up; patient completes activity. [place] assists only prior to or following the activity. 4-Supervision or Touching Assistance-helper provides verbal cues and/or touching/steadying and/or contact guard assistance as patient completes activity. Assistance may be provided throughout the activity or intermittently. 3-Partial/Moderate Assistance-helper does LESS THAN HALF the effort. [place] lifts, holds or supports trunk or limbs, but provides less than half the effort. 2-Substantial/Maximal Assistance-helper does MORE THAN HALF the effort. [place] lifts or holds trunk or limbs and provides more than half the effort. 7-Jfozbynkh-hcrqnr does ALL the effort. Patient does none of the effort to complete the activity. Or, the assistance of 2 or more helpers is required for the patient to complete the activity. If activity was not attempted, code reason: 7-Patient Refused. 9-Not Applicable-not attempted and the patient did not perform the activity before the current illness, exacerbation or injury. 10-Not Attempted due to Environmental Limitations-(lack of equipment, weather restraints, etc.). 88-Not Attempted due to Medical Conditions or Safety Concerns. Roll Left to Right (QC): 5 Sit to Lying (QC): 5 Sit to Stand (QC): 4 Chair/Xic-qw-Eriqi Xfer(QC): 4 Car Transfer (QC): 4 Gait Training Does the Patient Walk?: Yes Distance: 150' x 3 Walk 10 feet (QC): 5 Walk 50 ft with 2 Turns(QC): 5 Walk 150 ft (QC): 4 (SBA; cues for step length and step through, able to follow cues and improve gait pattern; requires cuing throughout gait sequence.) Walking 10ft/uneven surface-QC: 88 (poor foot clearance and unsafe) Gait Persons Needed: 1 Gait Assistive Device: FWW Wheelchair Training Does the Pt Use a Wheelchair?: No Wheel 50 ft with 2 turns (QC): 9 Wheel 150 ft (QC): 9 Stair Training Stair Training: Handrails/: 2 handrails #of Steps: 4 1 Step (curb) (QC): 88 4 Steps (QC): 4 12 Steps (QC): 88 Balance Picking up an Object (QC): 88 ADL-Treatment Eating (QC): 5 Oral Hygiene (QC): 4 Shower/Bathe Self (QC): 4 Upper Body Dressing (QC): 5 Lower Body Dressing (QC): 4 On/Off Footwear (QC): 4 Toileting Hygiene (QC): 4 Toilet Transfer (QC): 4 Assessment/Plan Assessment and Plan Assess & Plan/Chief Complaint Assessment: 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 History of GERD Acute kidney injury 1.67 increasing oral fluids Plan: Check labs in the morning Intensive rehab Fall risk 06/03/2021: Lab abnormalities completely resolved Monitor closely Improved 06/04/21: Monitor closely Dysphagia 2 diet 06/05/2021: Change of diet has been helpful Monitor closely 06/06/21: Maintain diet change Fall risk BM regimen 06/07/2021: Continue aggressive therapy Monitor confusion 06/08/2021: Monitor blood pressure Bowel regimen Check meds and labs 06/09/2021: Monitor progress Pain control Fall risk 06/10/2021: Try to acquire wax to prevent chewing on right upper lip 06/11/2021: Supportive care Improving every day 06/12/2021: Fall risk Continue aggressive treatment 06/13/2021: Discharge plan for 06/19/2021 Continue aggressive treatment 06/14/2021: Much improved status Increase independence 06/15/21: Monitor closely Right hand weakness is improved 06/16/2021: Dramatic improvement Much improved range of motion right hand 06/17/2021: Supportive senior living on Friday (1) CVA (cerebral vascular accident) Assessment & Plan: He continues with inpatient physical rehab. No recurrent neurologic complaints. This appeared to be embolic. His echocardiogram during his inpatient admission did not reveal any structural heart disease to explain cardiac source of embolus. He now has an implantable loop recorder for prolonged surveillance for atrial fibrillation detection. Qualifiers: CVA mechanism: embolism Precerebral and cerebral artery: unspecified cerebral artery Qualified Codes: I63.40 - Cerebral infarction due to embolism of unspecified cerebral artery (2) Mixed hyperlipidemia Assessment & Plan: He is now on high-dose statin due to the recent cerebrovascular accident. This will need to be followed after discharge. (3) Status post placement of implantable loop recorder Assessment & Plan: He has an implantable loop recorder in place. The site appears to be healing well. Once he is discharged, we will be monitoring this through our office. IRVING STANLEY DO Jun 17, 2021 06:59
[2021-06-17 08:43] VITALS: BP 126/60
[2021-06-17] MEDS: polyethylene glycoL POWDER 17 GM (MIRALAX) PACK PO SCH ×2 (08:44→21:00)
[2021-06-17] MEDS: FAMOTIDINE 20 MG (PEPCID) TABLET PO SCH ×2 (08:45→20:57)
[2021-06-17] MEDS: DOCUSATE SODIUM 100 MG (COLACE) CAP PO SCH ×2 (08:45→21:00)
[2021-06-17] MEDS: SENNA W/DOCUSATE (SENOKOT S) TABLET PO SCH ×2 (08:45→21:00)
[2021-06-17] MEDS: ASPIRIN 81 MG CHEW (CHILDREN'S ASA) PO SCH (08:45)
[2021-06-17] MEDS: CLOPIDOGREL 75 MG (PLAVIX) TABLET PO SCH (08:45)
[2021-06-17] MEDS: MAGIC MOUTHWASH (ADULT) PO SCH ×16 (08:45→20:57)
[2021-06-17 20:00] VITALS: BP 138/68
--- NOTE | 2021-06-18 06:24 | PM&R Progress Note ---
Subjective HPI/CC On Admission Date Seen by Provider: Jun 18, 2021 Time Seen by Provider: 11:30 Subjective/Events-last exam 06/18/2021: Pt excited about DC tomorrow No falls No pain Check meds and labs 06/17/2021: Much improved status Family at bedside Using commode and dressing on his own No falls 06/16/2021: No major issues Checked meds and labs Feels pretty good Progressing nicely 06/15/21: Pt dong very well Walking around well Really likes a lot of attention so he sets off his alarm for nurses to come in 06/14/2021: Pt doing pretty well No more issues Bowels moving pretty well No pain 06/13/2021: Pt doing pretty well Denies any significant new issues Working with therapy No more concerns No falls 06/12/2021: Pt doing pretty well Sleeps most of the time in between therapy Checked meds and labs No falls 06/11/2021: Pt doing pretty well Wax for his right upper lip, hopefully will be able to be obtained Labs are good Overall doing much better 06/10/2021: No major issues Right hand is moving a lot better Bowels moved today May try to get some wax the use for orthodontics to prevent chewing on the right upper lip 06/09/2021: This visit is via video chat due to Covid related restriction for this provider Patient doing pretty well today Right hand and arm much improved Shuffles around when he is tired Still chewing on his right upper lip We will try to contact dentistry to see if there is any help with that 06/08/2021: This visit is via video chat due to Covid related restriction for this provider Patient has no new issues Bowels moved today after warm prune juice Working on his right hand with handwriting We will discontinue the Hep-Lock 06/07/2021: This visit is via video chat due to Covid related restriction for this provider Patient seems to be doing pretty well today Bowels moved yesterday Loop recorder maintained Sore in the right upper lip is better 06/06/2021: This visit is via video chat due to Covid related restriction for this provider Patient doing well BM moving slowly Swallowed pills well Upper right lip improved Loop recorder placed today Son visited today Prune juice and Lactulose ordered 06/05/2021: This visit is via video chat due to Covid related restriction for this provider Patient doing a lot better Prune juice helps his bowels more than MiraLAX he reports So very slow in activity Chopped meat has been helpful Magic mouthwash on the upper lip Ruminates about certain topics 06/04/2021: This visit is via video chat due to Covid related restriction for this provider Patient seems to be improved Confusion is still undercurrent BP stable Dysphagia 2 diet working better Decreased garbled speech 06/03/2021: This visit is via video chat due to Covid related restriction for this provider Patient much more lucid Word salad is better Bowels are moving Trying to increase fluid intake Magic mouthwash for right upper lip that he continues to bite when he chews Really obsessed about his shaver 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 Myles evaluated him Mumbles a lot Right hand is improving Review of Systems General: Fatigue, Malaise Neurological: Weakness Objective Exam Vital Signs Vital Signs Date Time Temp Pulse Resp B/P (MAP) Pulse Ox O2 Delivery O2 Flow Rate FiO2 06/18/21 21:00 93 Room Air 06/18/21 20:10 36.8 75 18 136/65 (88) 06/16/21 20:30 0.00 0.00 Capillary Refill : General Appearance: No Apparent Distress, WD/WN, Chronically ill HEENT: PERRL/EOMI, TMs Normal, Moist Mucous Membranes; No Scleral Icterus (L), No Scleral Icterus (R) Neck: Normal Inspection, Carotid Bruit Respiratory: Lungs Clear, No Accessory Muscle Use, No Respiratory Distress Cardiovascular: Regular Rate, Rhythm, No Edema, No Murmur, Normal Peripheral Pulses Gastrointestinal: Normal Bowel Sounds, Non Tender, Soft Back: Normal Inspection Extremity: Normal Capillary Refill, Normal Inspection, No Calf Tenderness, No Pedal Edema Neurologic/Psychiatric: Alert, Oriented x3, Normal Mood/Affect, Facial Droop, Motor Weakness (generalized, right worse than left) Skin: Normal Color, Warm/Dry Results/Procedures Lab Laboratory Tests 06/18/21 06:35 Patient resulted labs reviewed. FIM Transfers Therapy Code Descriptions/Definitions Functional [place] Measure: 0=Not Assessed/NA 4=Minimal Assistance 1=Total Assistance 5=Supervision or Setup 2=Maximal Assistance 6=Modified [place] 3=Moderate Assistance 7=Complete IndependenceSCALE: Activities may be completed with or without assistive devices. 8-Itxofwbmxj-kcwzldd completes the activity by him/herself with no assistance from a helper. 5-Set-up or Clean-up Assistance-helper sets up or cleans up; patient completes activity. [place] assists only prior to or following the activity. 4-Supervision or Touching Assistance-helper provides verbal cues and/or touching/steadying and/or contact guard assistance as patient completes activity. Assistance may be provided throughout the activity or intermittently. 3-Partial/Moderate Assistance-helper does LESS THAN HALF the effort. [place] lifts, holds or supports trunk or limbs, but provides less than half the effort. 2-Substantial/Maximal Assistance-helper does MORE THAN HALF the effort. [place] lifts or holds trunk or limbs and provides more than half the effort. 4-Oaikoyemm-ykxkte does ALL the effort. Patient does none of the effort to co mplete the activity. Or, the assistance of 2 or more helpers is required for the patient to complete the activity. If activity was not attempted, code reason: 7-Patient Refused. 9-Not Applicable-not attempted and the patient did not perform the activity before the current illness, exacerbation or injury. 10-Not Attempted due to Environmental Limitations-(lack of equipment, weather restraints, etc.). 88-Not Attempted due to Medical Conditions or Safety Concerns. Roll Left to Right (QC): 5 Sit to Lying (QC): 5 Sit to Stand (QC): 4 Chair/Pze-mu-Gghtl Xfer(QC): 4 Car Transfer (QC): 4 Gait Training Does the Patient Walk?: Yes Distance: 150' x 3 Walk 10 feet (QC): 5 Walk 50 ft with 2 Turns(QC): 5 Walk 150 ft (QC): 4 (SBA; cues for step length and step through, able to follow cues and improve gait pattern; requires cuing throughout gait sequence.) Walking 10ft/uneven surface-QC: 88 (poor foot clearance and unsafe) Gait Persons Needed: 1 Gait Assistive Device: FWW Wheelchair Training Does the Pt Use a Wheelchair?: No Wheel 50 ft with 2 turns (QC): 9 Wheel 150 ft (QC): 9 Stair Training Stair Training: Handrails/: 2 handrails #of Steps: 4 1 Step (curb) (QC): 88 4 Steps (QC): 4 12 Steps (QC): 88 Balance Picking up an Object (QC): 88 ADL-Treatment Eating (QC): 5 Oral Hygiene (QC): 4 Shower/Bathe Self (QC): 4 Upper Body Dressing (QC): 5 Lower Body Dressing (QC): 4 On/Off Footwear (QC): 4 Toileting Hygiene (QC): 4 Toilet Transfer (QC): 4 Assessment/Plan Assessment and Plan Assess & Plan/Chief Complaint Assessment: 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 History of GERD Acute kidney injury 1.67 increasing oral fluids Plan: Check labs in the morning Intensive rehab Fall risk 06/03/2021: Lab abnormalities completely resolved Monitor closely Improved 06/04/21: Monitor closely Dysphagia 2 diet 06/05/2021: Change of diet has been helpful Monitor closely 06/06/21: Maintain diet change Fall risk BM regimen 06/07/2021: Continue aggressive therapy Monitor confusion 06/08/2021: Monitor blood pressure Bowel regimen Check meds and labs 06/09/2021: Monitor progress Pain control Fall risk 06/10/2021: Try to acquire wax to prevent chewing on right upper lip 06/11/2021: Supportive care Improving every day 06/12/2021: Fall risk Continue aggressive treatment 06/13/2021: Discharge plan for 06/19/2021 Continue aggressive treatment 06/14/2021: Much improved status Increase independence 06/15/21: Monitor closely Right hand weakness is improved 06/16/2021: Dramatic improvement Much improved range of motion right hand 06/17/2021: Supportive alf on Friday06/18/2021: Discharge plan for tomorrow Much improved status (1) CVA (cerebral vascular accident) Assessment & Plan: He continues with inpatient physical rehab. No recurrent neurologic complaints. This appeared to be embolic. His echocardiogram during his inpatient admission did not reveal any structural heart disease to explain cardiac source of embolus. He now has an implantable loop recorder for prolonged surveillance for atrial fibrillation detection. Qualifiers: CVA mechanism: embolism Precerebral and cerebral artery: unspecified cerebral artery Qualified Codes: I63.40 - Cerebral infarction due to embolism of unspecified cerebral artery (2) Mixed hyperlipidemia Assessment & Plan: He is now on high-dose statin due to the recent cerebrova scular accident. This will need to be followed after discharge. (3) Status post placement of implantable loop recorder Assessment & Plan: He has an implantable loop recorder in place. The site appears to be healing well. Once he is discharged, we will be monitoring this through our office. IRVING STANLEY DO Jun 18, 2021 06:24
[2021-06-18 07:06] LABS: BASOPHILS # (AUTO) 0.1 10^3/uL (0.0-0.1); BASOPHILS % (AUTO) 1 % (0-10); EOSINOPHILS # (AUTO) 0.1 10^3/uL (0.0-0.3); EOSINOPHILS % (AUTO) 2 % (0-10); HEMATOCRIT 40 % (40-54); HEMOGLOBIN 13.3 g/dL (13.3-17.7); LYMPHOCYTES # (AUTO) 1.4 10^3/uL (1.0-4.0); LYMPHOCYTES % (AUTO) 25 % (12-44); MEAN CORPUSCULAR HEMOGLOBIN 32 pg (25-34); MEAN CORPUSCULAR HGB CONC 34 g/dL (32-36); MEAN CORPUSCULAR VOLUME 95 fL (80-99); MEAN PLATELET VOLUME 10.5 fL (9.0-12.2); MONOCYTES # (AUTO) 0.7 10^3/uL (0.0-1.0); MONOCYTES % (AUTO) 13 % (0-12); NEUTROPHILS # (AUTO) 3.4 10^3/uL (1.8-7.8); NEUTROPHILS % (AUTO) 59 % (42-75); PLATELET COUNT 294 10^3/uL (130-400); WHITE BLOOD COUNT 5.7 10^3/uL (4.3-11.0)
[2021-06-18 07:34] LABS: ALBUMIN 3.5 GM/DL (3.2-4.5); POTASSIUM 3.7 MMOL/L (3.6-5.0)
[2021-06-18 07:35] LABS: CALCIUM 8.5 MG/DL (8.5-10.1)
[2021-06-18 07:38] LABS: BILIRUBIN,TOTAL 0.7 MG/DL (0.1-1.0)
[2021-06-18 07:39] VITALS: BP 128/61
[2021-06-18 07:40] LABS: CREATININE SERUM 0.66 MG/DL (0.60-1.30)
[2021-06-18] MEDS: SENNA W/DOCUSATE (SENOKOT S) TABLET PO SCH ×2 (08:54→20:54)
[2021-06-18] MEDS: ASPIRIN 81 MG CHEW (CHILDREN'S ASA) PO SCH (08:54)
[2021-06-18] MEDS: DOCUSATE SODIUM 100 MG (COLACE) CAP PO SCH ×2 (08:54→20:55)
[2021-06-18] MEDS: MAGIC MOUTHWASH (ADULT) PO SCH ×16 (08:54→20:55)
[2021-06-18] MEDS: CLOPIDOGREL 75 MG (PLAVIX) TABLET PO SCH (08:55)
[2021-06-18] MEDS: polyethylene glycoL POWDER 17 GM (MIRALAX) PACK PO SCH ×2 (08:55→20:58)
[2021-06-18] MEDS: FAMOTIDINE 20 MG (PEPCID) TABLET PO SCH ×2 (08:55→20:55)
--- NOTE | 2021-06-18 09:21 | Speech Therapy Daily Note ---
Speech Daily Progress Note Subjective Date Seen by Provider: Jun 18, 2021 Time Seen by Provider: 00:30 Patient was resting in his recliner following his OT session which he showered today. Patient is excited about his return home tomorrow. Objective Patient completed a series of speech tasks for improved intelligibility at 80% with minimal cues. Assessment Assessment Current Status: Good Progress Treatment Plan Discontinue ST, Goals Met Speech Short Term Goals Short Term Goals Short Term Goals 1) Patient will complete OME for improving speech intelligibility to 75% or gr eater. 2) Patient will complete speech tasks for communicating wants/needs at 75% or greater. 3) Patient will tolerate least restrictive diet without s/s of aspiration at 90% or greater. 4) Patient will utilize compensatory strategies as trained for safe oral intake at 90% or greater with minimal cues. Speech Vp [employer] Goals Half-Way Goals Patient will improve communication/speech skills in order to effectively communicate. Patient will maintain adequate nutrition/hydration via safe, effective swallow function. Speech-Plan Patient/Family Goals Patient/Family Goals: Patient is scheduled to return to his home tomorrow with family staying with hime 16/06. Patient is also going to recieve skilled home health services. Treatment Plan Speech Therapy Treatment Plan: Discontinue ST, Goals Met Treatment Duration: Jun 19, 2021 Frequency: 4 times per week (Patient will receive skilled ST 4-5x per week) Estimated Hrs Per Day: .5 hour per day Rehab Potential: Fair Barriers to Learning: Patient's recent CVA with debility, age Pt/Family Agrees to Plan: Yes Safety Risks/Education Teaching Recipient: Patient Teaching Methods: Demonstration, Discussion Response to Teaching: Verbalize Understanding, Return Demonstration Education Topics Provided: Continued safety awareness within his home as well as safety of oral intake Time Speech Therapy Time In: 10:30 Speech Therapy Time Out: 11:00 Total Billed Time: 30 Billed Treatment Time 1, DYST, SLTS No QUALITY CODES EXPRESSION OF IDEAS/WANTS: 3 UNDERSTANDING VERBAL CONTENT: 4 BRIEF INTERVIEW MENTAL STATUS: YES REPETITION OF 3 WORDS: 3 TEMPORAL ORIENTATION: YEAR: CORRECT, MONTH: CORRECT, DAY: CORRECT RECALL SOCK: YES WITH CUE, COLOR: YES WITH CUE, BED: YES WITH CUE MEMORY/RECALL ABILITY: SEASON, LOCATION OF ROOM, THAT HE IS IN THE HOSPITAL [facility] Jun 18, 2021 09:21
--- NOTE | 2021-06-18 10:27 | Occupational Ther Daily Note ---
OT Current Status-Daily Note Subjective Pt alert, sitting in recliner. Pt agrees to therapy. No c/o pain. Mental Status/Objective Patient Orientation: Person, Place, Situation Attachments: Other-See Comments (loop recorder) ADL-Treatment Pt agrees to shower. Pt ambulates to retrieve clothing using FWW independently with safety concerns. Ambulates to bathroom and transfers to toilet using FWW and grabbars independently. Completes toileting independently. Sitting on shower bench, pt completes shower in sitting using grabbars and hand held shower. Pt dries all areas, using grabbar to stabilize when standing then dries all other areas in sitting. Pt completes upper body dressing by self. Threads feet in lower body clothing then stands to hike using grabbar to stabilize self while hiking pants. Pt had 1 LOB during pant hike, was able to regain own balance with grabbar. Pt able to don/doff socks and shoes by self. Standing at sink to complete oral care independently with safety concerns. Pt then completed toileting again. After session, pt sitting in recliner with call light/phone in reach. PBX OPERATOR in room. Therapy Code Descriptions/Definitions Functional [place] Measure: 0=Not Assessed/NA 4=Minimal Assistance 1=Total Assistance 5=Supervision or Setup 2=Maximal Assistance 6=Modified [place] 3=Moderate Assistance 7=Complete IndependenceSCALE: Activities may be completed with or without assistive devices. 2-Mcddcmslzi-sfxxxqp completes the activity by him/herself with no assistance from a helper. 5-Set-up or Clean-up Assistance-helper sets up or cleans up; patient completes activity. [place] assists only prior to or following the activity. 4-Supervision or Touching Assistance-helper provides verbal cues and/or touching/steadying and/or contact guard assistance as patient completes activit y. Assistance may be provided throughout the activity or intermittently. 3-Partial/Moderate Assistance-helper does LESS THAN HALF the effort. [place] lifts, holds or supports trunk or limbs, but provides less than half the effort. 2-Substantial/Maximal Assistance-helper does MORE THAN HALF the effort. [place] lifts or holds trunk or limbs and provides more than half the effort. 2-Tcrabbbad-ewtmls does ALL the effort. Patient does none of the effort to complete the activity. Or, the assistance of 2 or more helpers is required for the patient to complete the activity. If activity was not attempted, code reason: 7-Patient Refused. 9-Not Applicable-not attempted and the patient did not perform the activity before the current illness, exacerbation or injury. 10-Not Attempted due to Environmental Limitations-(lack of equipment, weather restraints, etc.). 88-Not Attempted due to Medical Conditions or Safety Concerns. Eating (QC): 6 (per clinical judgment) Oral Hygiene (QC): 6 Shower/Bathe Self (QC): 6 Upper Body Dressing (QC): 6 Lower Body Dressing (QC): 4 On/Off Footwear: 6 Toileting Hygiene (QC): 6 Toilet Transfer (QC): 6 Pt able to complete all tasks on own. Safety concerns due to balance issues and slow cognitive processing. OT Short Term Goals Short Term Goals Eatin Oral hygiene: 6 Toileting hygiene: 3 Shower/bathe self: 3 Upper body dressin Lower body dressin Putting on/taking off footwear: 3 OT Customs Director Goals Customs Director Goals Time Frame: Jun 15, 2021 Eating (QC): 6 (met) Oral Hygiene (QC): 6 (met) Toileting Hygiene (QC): 6 (met) Shower/Bathe Self (QC): 6 (met) Upper Body Dressing (QC): 6 (met) Lower Body Dressing (QC): 6 (not met) On/Off Footwear (QC): 6 (met) Additional Goals: 1-Demonstrate ADL Tasks, 2-Verbalize Understanding, 3- ImproveStrength/Dustin 1=Demonstrate adherence to instructed precautions during ADL tasks. 2=Patient will verbalize/demonstrate understanding of assistive devices/modifications for ADL. 3=Patient will improve strength/tolerance for activity to enable patient to perform ADL's. OT Education/Plan Problem List/Assessment Assessment: Decreased Safety Aware, Impaired Funct Balance, Impaired Self-Care Skills Discharge Recommendations Plan/Recommendations: Continue POC Therapy Discharge Recommendati: Scheduled Assistance, Post Acute OT Equpiment Recommendations-D/C: Rails on Tub/Shower, Bath Chair Treatment Plan/Plan of Care Patient would benefit from OT for education, treatment and training to promote independence in ADL's, mobility, safety and/or upper extremity function for ADL's. Plan of Care: ADL Retraining, Caregiver Training, Cognitive Retraining, Functional Mobility, Group Exercise/Act as Ind, Orthotic Fitting/Training, UE Funct Exercise/Act, UE Neuromus Re-Ed/Coord, W/C Management Training Treatment Duration: Jun 15, 2021 Frequency: At least 5 of 7 days/Wk (IRF) Estimated Hrs Per Day: 1.5 hours per day Agreement: Yes Rehab Potential: Fair Time/GCodes Start Time: 09:00 Stop Time: 10:30 Total Time Billed (hr/min): 90 Billed Treatment Time 1 visit-ADL 6 (90 min) JAY BONILLA Jun 18, 2021 10:27
--- NOTE | 2021-06-18 12:13 | Physical Therapy Daily Note ---
PT Daily Note-Current Subjective Pt agreeable. Pt denies pain. Pt states upon standing "I have to get my balance". 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 Pt reports he does his own cooking and cleaning at home. Pt jokes "I like a dirty house." Mental Status Patient Orientation: Person, Place, Situation Transfers SCALE: Activities may be completed with or without assistive devices. 6-Tpiocsltjb-fkvtzjk completes the activity by him/herself with no assistance from a helper. 5-Set-up or Clean-up Assistance-helper sets up or cleans up; patient completes activity. [place] assists only prior to or following the activity. 4-Supervision or Touching Assistance-helper provides verbal cues and/or touching/steadying and/or contact guard assistance as patient completes activity. Assistance may be provided throughout the activity or intermittently. 3-Partial/Moderate Assistance-helper does LESS THAN HALF the effort. [place] lifts, holds or supports trunk or limbs, but provides less than half the effort. 2-Substantial/Maximal Assistance-helper does MORE THAN HALF the effort. [place] lifts or holds trunk or limbs and provides more than half the effort. 6-Tlgjfzgpc-xyrtfl does ALL the effort. Patient does none of the effort to complete the activity. Or, the assistance of 2 or more helpers is required for the patient to complete the activity. If activity was not attempted, code reason: 7-Patient Refused. 9-Not Applicable-not attempted and the patient did not perform the activity before the current illness, exacerbation or injury. 10-Not Attempted due to Environmental Limitations-(lack of equipment, weather restraints, etc.). 88-Not Attempted due to Medical Conditions or Safety Concerns. Roll Left & Right (QC): 6 Sit to Lying (QC): 6 Lying to Sitting/Side of Bed(Q: 6 Sit to Stand (QC): 6 Chair/Nvk-ld-Cfngz Xfer(QC): 6 Toilet Transfer (QC): 6 Car Transfer (QC): 6 Weight Bearing Right Lower Extremity: Right Full Weight Bearing Left Lower Extremity: Left Full Weight Bearing Gait Training Does the Patient Walk?: Yes Walk 10 feet (QC): 6 Walk 50 ft with 2 Turns(QC): 6 Walk 150 ft (QC): 6 Walking 10ft/uneven surface-QC: 6 Gait Persons Needed: 1 Gait Assistive Device: FWW Pt amb with FWW and CGA 2 x 150ft at slow steady speed Wheelchair Training Does the Pt Use a Wheelchair?: No Stair Training Stair Training: Handrails/: 2 handrails #of Steps: 12 1 Step (curb) (QC): 6 4 Steps (QC): 6 12 Steps (QC): 6 Balance Picking up an Object (QC): 6 Special Test Comments Pt used FWW for support and performed task slow but careful and showed good awareness and balance Exercises NuStep Minutes: 16 NuStep Workload: 1 Assessment Current Status: Good Progress Pt progressing nicely all phases of rehab. Pt showing improved safety awareness with all mobility. Pt moves slowly and deliberately, no unsteadiness and no LOB with above treatment. Pt does amb with short stride, occ vc's to increase stride length. PT Short Term Goals Short Term Goals Time Frame: Jun 13, 2021 Roll Left & Right: 4 Sit to lyin Lying to sitting on side of be: 4 Sit to stand: 4 (estefani) Chair/ljs-uu-sufqq transfer: 4 Toilet transfer: 4 Walk 10 feet: 4 Walk 50 feet with two turns: 4 Walk 150 feet: 4 (met) PT Long-Term Goals Lumber Trimmer Goals PT Long-Term Goals Time Frame: Jun 29, 2021 Roll Left & Right (QC): 6 Sit to Lying (QC): 6 Lying-Sitting on Side/Bed(QC): 6 Sit to Stand (QC): 6 Chair/Qta-vg-Yjthw Xfer(QC): 6 Toilet Transfer (QC): 6 Car Transfer (QC): 6 Does the Patient Walk: Yes Walk 10 feet (QC): 6 Walk 50ft with 2 Turns (QC): 6 Walk 150 ft (QC): 6 Walking 10ft on Uneven Surface: 4 1 Step (curb) (QC): 6 4 Steps (QC): 6 12 Steps (QC): 4 Picking up an Object (QC): 4 Wheel 50 feet with 2 turns (QC: 9 Wheel 150 feet: 9 PT Plan Treatment/Plan Treatment Plan: Continue Plan of Care Treatment Plan: Bed Mobility, Education, Functional Activity Dustin, Functional Strength, Group Therapy, Gait, Safety, Therapeutic Exercise, Transfers Treatment Duration: Jun 29, 2021 Frequency: At least 5 of 7 days/Wk (IRF) Estimated Hrs Per Day: 1.5 hours per day Patient and/or Family Agrees t: Yes Time/GCodes Time In: 1100 Time Out: 1215 Total Billed Treatment Time: 75 Total Billed Treatment 1, gait 30', Ex 30', FA 15' SILVIA KIRKPATRICK CPTA Jun 18, 2021 12:13
--- NOTE | 2021-06-18 13:07 | Progress Note ---
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 C/O urinary frequency/nocturia. Objective Exam Vital Signs Date Time Temp Pulse Resp B/P (MAP) Pulse Ox O2 Delivery O2 Flow Rate FiO2 06/18/21 09:30 Room Air 06/18/21 07:39 36.6 64 14 128/61 (83) 92 Room Air 06/17/21 20:00 93 Room Air 06/17/21 20:00 36.8 80 20 138/68 (91) 93 Room Air Capillary Refill : General Appearance: No Apparent Distress Respiratory: Lungs Clear Cardiovascular: Regular Rate, Rhythm Neurologic/Psychiatric: Alert, Oriented x3 Results Lab Laboratory Tests 06/18/21 06:35: White Blood Count 5.7, Red Blood Count 4.19L, Hemoglobin 13.3, Hematocrit 40, Mean Corpuscular Volume 95, Mean Corpuscular Hemoglobin 32, Mean Corpuscular Hemoglobin Concent 34, Red Cell Distribution Width 13.1, Platelet Count 294, Mean Platelet Volume 10.5, Immature Granulocyte % (Auto) 1, Neutrophils (%) (Auto) 59, Lymphocytes (%) (Auto) 25, Monocytes (%) (Auto) 13H, Eosinophils (%) (Auto) 2, Basophils (%) (Auto) 1, Neutrophils # (Auto) 3.4, Lymphocytes # (Auto) 1.4, Monocytes # (Auto) 0.7, Eosinophils # (Auto) 0.1, Basophils # (Auto) 0.1, Immature Granulocyte # (Auto) 0.0, Sodium Level 142, Potassium Level 3.7, Chloride Level 108H, Carbon Dioxide Level 24, Anion Gap 10, Blood Urea Nitrogen 8, Creatinine 0.66, Estimat Glomerular Filtration Rate 116, BUN/Creatinine Ratio 12, Glucose Level 94, Calcium Level 8.5, Corrected Calcium 8.9, Total Bilirubin 0.7, Aspartate Amino Transf (AST/SGOT) 19, Alanine Aminotransferase (ALT/SGPT) 28, Alkaline Phosphatase 92, Total Protein 6.0L, Albumin 3.5 Assessment/Plan Assessment/Plan Assess & Plan/Chief Complaint 1. 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 Polyuria/Nocturia with history of BPH--start flomax SHERIDAN DIEZ DO Jun 18, 2021 13:07
[2021-06-18] MEDS ORDERED: TAMSULOSIN 0.4 MG (FLOMAX) CAP PO SCH (18:00)
[2021-06-18 20:10] VITALS: BP 136/65
[2021-06-18] MEDS: MELATONIN 3 MG TABLET PO PRN (20:55)
[2021-06-18] MEDS ORDERED: CLOP75TA28 PO (21:36)
[2021-06-18] MEDS ORDERED: TMSL.4C PO (21:36)
--- NOTE | 2021-06-18 21:37 | D/C HH Face to Face Order ---
D/C Face to Face Orders Reconcile Patient Problems Problems Reviewed?: Yes Instructions for Patient Home Health Patient Instructions/FollowUp: PCP Dr Carrera Physician to follow Patient: Deandre Discharge Diet for Home: Soft Diet Patient Problems: CVA Patient Data-Allergies,Ht & Wt Patient Allergies: Coded Allergies: No Known Drug Allergies (Unverified , 06/20/11) Height (Feet): 6 Height (Inches): 11.00 Weight (Pounds): 190 Weight (Ounces): 6.4 Home Health Need/Face to Face Date of Face to Face: Jun 18, 2021 Clinical Findings: Generalized weakness and fatigue, Instability, Muscle weakness, Unsteady gait I have seen Pt eova-[id number]: Yes Discharged To: Home Diagnosis/Conditions: CVA Patient is Homebound due to: CognItive deficits, Muscle weakness Homebound Status Due to the above stated illness, injury or surgical procedure (medical condition or diagnosis) and associated clinical findings, the patient is homebound because of his/her inability to leave home except with aid of a supportive device and/or person AND leaving the home requires a considerable and taxing effort or is medically contraindicated. Pt req the following assistanc: [facility] Nursing Orders Home Health Services Order: Nursing Services, Customer Records Division Supervisor-Evaluate & Treat, Physical Therapy-Evaluate & Treat, Speech Language-Evaluate & Treat Certify Stmt I certify that this patient is under my care and that I, a nurse practitioner or a physician; a faculty research assistant working with me, had a face to face encounter that - meets the physician face to face encounter requirements with this patient as dated. IRVING STANLEY DO Jun 18, 2021 21:37
--- NOTE | 2021-06-19 05:26 | Discharge Summary ---
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 History of GERD Acute kidney injury 1.67 increasing oral fluids Plan: Check labs in the morning Intensive rehab Fall risk 06/03/2021: Lab abnormalities completely resolved Monitor closely Improved 06/04/21: Monitor closely Dysphagia 2 diet 06/05/2021: Change of diet has been helpful Monitor closely 06/06/21: Maintain diet change Fall risk BM regimen 06/07/2021: Continue aggressive therapy Monitor confusion 06/08/2021: Monitor blood pressure Bowel regimen Check meds and labs 06/09/2021: Monitor progress Pain control Fall risk 06/10/2021: Try to acquire wax to prevent chewing on right upper lip 06/11/2021: Supportive care Improving every day 06/12/2021: Fall risk Continue aggressive treatment 06/13/2021: Discharge plan for 06/19/2021 Continue aggressive treatment 06/14/2021: Much improved status Increase independence 06/15/21: Monitor closely Right hand weakness is improved 06/16/2021: Dramatic improvement Much improved range of motion right hand 06/17/2021: Supportive correction on Friday06/18/2021: Discharge plan for tomorrow Much improved status Discharge Summary Discharge Physical Examination Allergies: Coded Allergies: No Known Drug Allergies (Unverified , 06/20/11) Vitals & I&Os Vital Signs Date Time Temp Pulse Resp B/P (MAP) Pulse Ox O2 Delivery O2 Flow Rate FiO2 06/19/21 12:41 36.5 79 16 140/62 92 Room Air 06/16/21 20:30 0.00 0.00 General Appearance: Alert, Oriented X3, Cooperative Respiratory: Clear to Auscultation Cardiovascular: Regular Rate Neuro: Normal Gait Psych/Mental Status: Mental Status NL Hospital Course Was the Problem List Reviewed?: Yes Hospital course: Pt had an uneventful 19 day hospital course after he was admitted following a stroke. He had right-sided weakness and right leg was much improved at time of discharge. Right hand was still very weak. He will have home health, he will move in with him daughter temporarily before moving back to his own home and he had no decompensation during his hospital stay. Speech therapy will work with him due to dysarthria and difficulty chewing. Overall he did very well. Labs (last 24 hrs) Laboratory Tests 06/02/21 05:10: White Blood Count 7.7, Red Blood Count 3.03L, Hemoglobin 9.7#L, Hematocrit 31L, Mean Corpuscular Volume 103H, Mean Corpuscular Hemoglobin 32, Mean Corpuscular Hemoglobin Concent 31L, Red Cell Distribution Width 15.4H, Platelet Count 305, Mean Platelet Volume 10.0, Immature Granulocyte % (Auto) 1, Neutrophils (%) (Auto) 69, Lymphocytes (%) (Auto) 14, Monocytes (%) (Auto) 12, Eosinophils (%) (Auto) 4, Basophils (%) (Auto) 0, Neutrophils # (Auto) 5.3, Lymphocytes # (Auto) 1.1, Monocytes # (Auto) 1.0, Eosinophils # (Auto) 0.3, Basophils # (Auto) 0.0, Immature Granulocyte # (Auto) 0.1, Sodium Level 141, Potassium Level 4.0, Chloride Level 103, Carbon Dioxide Level 28, Anion Gap 10, Blood Urea Nitrogen 17, Creatinine 1.67H, Estimat Glomerular Filtration Rate 40, BUN/Creatinine Ratio 10, Glucose Level 93, Calcium Level 8.5, Corrected Calcium 9.0, Total Bilirubin 0.8, Aspartate Amino Transf (AST/SGOT) 17, Alanine Aminotransferase (ALT/SGPT) 17, Alkaline Phosphatase 103, Total Protein 5.9L, Albumin 3.4 06/03/21 05:33: White Blood Count 7.1, Red Blood Count 4.86, Hemoglobin 15.3#, Hematocrit 45, Mean Corpuscular Volume 93, Mean Corpuscular Hemoglobin 31, Mean Corpuscular Hemoglobin Concent 34, Red Cell Distribution Width 12.9, Platelet Count 222, Mean Platelet Volume 11.6, Immature Granulocyte % (Auto) 0, Neutrophils (%) (Auto) 55, Lymphocytes (%) (Auto) 31, Monocytes (%) (Auto) 11, Eosinophils (%) (Auto) 2, Basophils (%) (Auto) 1, Neutrophils # (Auto) 3.9, Lymphocytes # (Auto) 2.2, Monocytes # (Auto) 0.8, Eosinophils # (Auto) 0.2, Basophils # (Auto) 0.0, Immature Granulocyte # (Auto) 0.0, Sodium Level 141, Potassium Level 3.6, Chloride Level 105, Carbon Dioxide Level 22, Anion Gap 14, Blood Urea Nitrogen 18, Creatinine 0.77, Estimat Glomerular Filtration Rate > 60, BUN/Creatinine Ratio 23, Glucose Level 98, Calcium Level 9.0, Corrected Calcium 9.0, Total Bilirubin 0.8, Aspartate Amino Transf (AST/SGOT) 34, Alanine Aminotransferase (ALT/SGPT) 30, Alkaline Phosphatase 101, Total Protein 6.7, Albumin 4.0 06/05/21 05:18: White Blood Count 7.6, Red Blood Count 4.73, Hemoglobin 15.0, Hematocrit 44, Mean Corpuscular Volume 93, Mean Corpuscular Hemoglobin 32, Mean Corpuscular Hemoglobin Concent 34, Red Cell Distribution Width 12.9, Platelet Count 204, Mean Platelet Volume 11.4, Sodium Level 142, Potassium Level 3.7, Chloride Level 107, Carbon Dioxide Level 24, Anion Gap 11, Blood Urea Nitrogen 10, Creatinine 0.70, Estimat Glomerular Filtration Rate > 60, BUN/Creatinine Ratio 14, Glucose Level 102, Calcium Level 8.8, Corrected Calcium 8.9, Total Bilirubin 0.8, Aspartate Amino Transf (AST/SGOT) 40H, Alanine Aminotransferase (ALT/SGPT) 36, Alkaline Phosphatase 102, Total Protein 6.7, Albumin 3.9, Triglycerides Level 56, Cholesterol Level 115, LDL Cholesterol Direct 67, VLDL Cholesterol 11, HDL Cholesterol 39L 06/11/21 06:18: White Blood Count 6.8, Red Blood Count 4.38, Hemoglobin 13.9, Hematocrit 41, Mean Corpuscular Volume 94, Mean Corpuscular Hemoglobin 32, Mean Corpuscular Hemoglobin Concent 34, Red Cell Distribution Width 12.9, Platelet Count 241, Mean Platelet Volume 11.2, Immature Granulocyte % (Auto) 1, Neutrophils (%) (Auto) 64, Lymphocytes (%) (Auto) 20, Monocytes (%) (Auto) 13H, Eosinophils (%) (Auto) 1, Basophils (%) (Auto) 1, Neutrophils # (Auto) 4.4, Lymphocytes # (Auto) 1.4, Monocytes # (Auto) 0.9, Eosinophils # (Auto) 0.1, Basophils # (Auto) 0.1, Immature Granulocyte # (Auto) 0.0, Sodium Level 141, Potassium Level 3.6, Chloride Level 107, Carbon Dioxide Level 25, Anion Gap 9, Blood Urea Nitrogen 8, Creatinine 0.70, Estimat Glomerular Filtration Rate > 60, BUN/Creatinine Ratio 11, Glucose Level 99, Calcium Level 8.5, Corrected Calcium 8.8, Total Bilirubin 0.7, Aspartate Amino Transf (AST/SGOT) 32, Alanine Aminotransferase (ALT/SGPT) 41, Alkaline Phosphatase 98, Total Protein 6.1L, Albumin 3.6 06/18/21 06:35: White Blood Count 5.7, Red Blood Count 4.19L, Hemoglobin 13.3, Hematocrit 40, Mean Corpuscular Volume 95, Mean Corpuscular Hemoglobin 32, Mean Corpuscular Hemoglobin Concent 34, Red Cell Distribution Width 13.1, Platelet Count 294, Mean Platelet Volume 10.5, Immature Granulocyte % (Auto) 1, Neutrophils (%) (Auto) 59, Lymphocytes (%) (Auto) 25, Monocytes (%) (Auto) 13H, Eosinophils (%) (Auto) 2, Basophils (%) (Auto) 1, Neutrophils # (Auto) 3.4, Lymphocytes # (Auto) 1.4, Monocytes # (Auto) 0.7, Eosinophils # (Auto) 0.1, Basophils # (Auto) 0.1, Immature Granulocyte # (Auto) 0.0, Sodium Level 142, Potassium Level 3.7, Chloride Level 108H, Carbon Dioxide Level 24, Anion Gap 10, Blood Urea Nitrogen 8, Creatinine 0.66, Estimat Glomerular Filtration Rate 116, BUN/Creatinine Ratio 12, Glucose Level 94, Calcium Level 8.5, Corrected Calcium 8.9, Total Bilirubin 0.7, Aspartate Amino Transf (AST/SGOT) 19, Alanine Aminotransferase (ALT/SGPT) 28, Alkaline Phosphatase 92, Total Protein 6.0L, Albumin 3.5 Pending Labs Laboratory Tests 06/02/21 05:10: White Blood Count 7.7, Red Blood Count 3.03, Hemoglobin 9.7, Hematocrit 31, Mean Corpuscular Volume 103, Mean Corpuscular Hemoglobin 32, Mean Corpuscular Hemoglobin Concent 31, Red Cell Distribution Width 15.4, Platelet Count 305, Mean Platelet Volume 10.0, Immature Granulocyte % (Auto) 1, Neutrophils (%) (Auto) 69, Lymphocytes (%) (Auto) 14, Monocytes (%) (Auto) 12, Eosinophils (%) (Auto) 4, Basophils (%) (Auto) 0, Neutrophils # (Auto) 5.3, Lymphocytes # (Auto) 1.1, Monocytes # (Auto) 1.0, Eosinophils # (Auto) 0.3, Basophils # (Auto) 0.0, Immature Granulocyte # (Auto) 0.1, Sodium Level 141, Potassium Level 4.0, Chloride Level 103, Carbon Dioxide Level 28, Anion Gap 10, Blood Urea Nitrogen 17, Creatinine 1.67, Estimat Glomerular Filtration Rate 40, BUN/Creatinine Ratio 10, Glucose Level 93, Calcium Level 8.5, Corrected Calcium 9.0, Total Bilirubin 0.8, Aspartate Amino Transf (AST/SGOT) 17, Alanine Aminotransferase (ALT/SGPT) 17, Alkaline Phosphatase 103, Total Protein 5.9, Albumin 3.4 06/03/21 05:33: White Blood Count 7.1, Red Blood Count 4.86, Hemoglobin 15.3, Hematocrit 45, Me an Corpuscular Volume 93, Mean Corpuscular Hemoglobin 31, Mean Corpuscular Hemoglobin Concent 34, Red Cell Distribution Width 12.9, Platelet Count 222, Mean Platelet Volume 11.6, Immature Granulocyte % (Auto) 0, Neutrophils (%) (Auto) 55, Lymphocytes (%) (Auto) 31, Monocytes (%) (Auto) 11, Eosinophils (%) (Auto) 2, Basophils (%) (Auto) 1, Neutrophils # (Auto) 3.9, Lymphocytes # (Auto) 2.2, Monocytes # (Auto) 0.8, Eosinophils # (Auto) 0.2, Basophils # (Auto) 0.0, Immature Granulocyte # (Auto) 0.0, Sodium Level 141, Potassium Level 3.6, Chloride Level 105, Carbon Dioxide Level 22, Anion Gap 14, Blood Urea Nitrogen 18, Creatinine 0.77, Estimat Glomerular Filtration Rate > 60, BUN/Creatinine Ratio 23, Glucose Level 98, Calcium Level 9.0, Corrected Calcium 9.0, Total Bilirubin 0.8, Aspartate Amino Transf (AST/SGOT) 34, Alanine Aminotransferase (ALT/SGPT) 30, Alkaline Phosphatase 101, Total Protein 6.7, Albumin 4.0 06/05/21 05:18: White Blood Count 7.6, Red Blood Count 4.73, Hemoglobin 15.0, Hematocrit 44, Mean Corpuscular Volume 93, Mean Corpuscular Hemoglobin 32, Mean Corpuscular Hemoglobin Concent 34, Red Cell Distribution Width 12.9, Platelet Count 204, Mean Platelet Volume 11.4, Sodium Level 142, Potassium Level 3.7, Chloride Level 107, Carbon Dioxide Level 24, Anion Gap 11, Blood Urea Nitrogen 10, Creatinine 0.70, Estimat Glomerular Filtration Rate > 60, BUN/Creatinine Ratio 14, Glucose Level 102, Calcium Level 8.8, Corrected Calcium 8.9, Total Bilirubin 0.8, Aspartate Amino Transf (AST/SGOT) 40, Alanine Aminotransferase (ALT/SGPT) 36, Alkaline Phosphatase 102, Total Protein 6.7, Albumin 3.9, Triglycerides Level 56, Cholesterol Level 115, LDL Cholesterol Direct 67, VLDL Cholesterol 11, HDL Cholesterol 39 06/11/21 06:18: White Blood Count 6.8, Red Blood Count 4.38, Hemoglobin 13.9, Hematocrit 41, Mean Corpuscular Volume 94, Mean Corpuscular Hemoglobin 32, Mean Corpuscular Hemoglobin Concent 34, Red Cell Distribution Width 12.9, Platelet Count 241, Mean Platelet Volume 11.2, Immature Granulocyte % (Auto) 1, Neutrophils (%) (Auto) 64, Lymphocytes (%) (Auto) 20, Monocytes (%) (Auto) 13, Eosinophils (%) (Auto) 1, Basophils (%) (Auto) 1, Neutrophils # (Auto) 4.4, Lymphocytes # (Auto) 1.4, Monocytes # (Auto) 0.9, Eosinophils # (Auto) 0.1, Basophils # (Auto) 0.1, Immature Granulocyte # (Auto) 0.0, Sodium Level 141, Potassium Level 3.6, Chloride Level 107, Carbon Dioxide Level 25, Anion Gap 9, Blood Urea Nitrogen 8, Creatinine 0.70, Estimat Glomerular Filtration Rate > 60, BUN/Creatinine Ratio 11, Glucose Level 99, Calcium Level 8.5, Corrected Calcium 8.8, Total Bilirubin 0.7, Aspartate Amino Transf (AST/SGOT) 32, Alanine Aminotransferase (ALT/SGPT) 41, Alkaline Phosphatase 98, Total Protein 6.1, Albumin 3.6 06/18/21 06:35: White Blood Count 5.7, Red Blood Count 4.19, Hemoglobin 13.3, Hematocrit 40, Mean Corpuscular Volume 95, Mean Corpuscular Hemoglobin 32, Mean Corpuscular Hemoglobin Concent 34, Red Cell Distribution Width 13.1, Platelet Count 294, Mean Platelet Volume 10.5, Immature Granulocyte % (Auto) 1, Neutrophils (%) (Auto) 59, Lymphocytes (%) (Auto) 25, Monocytes (%) (Auto) 13, Eosinophils (%) (Auto) 2, Basophils (%) (Auto) 1, Neutrophils # (Auto) 3.4, Lymphocytes # (Auto) 1.4, Monocytes # (Auto) 0.7, Eosinophils # (Auto) 0.1, Basophils # (Auto) 0.1, Immature Granulocyte # (Auto) 0.0, Sodium Level 142, Potassium Level 3.7, Chloride Level 108, Carbon Dioxide Level 24, Anion Gap 10, Blood Urea Nitrogen 8, Creatinine 0.66, Estimat Glomerular Filtration Rate 116, BUN/Creatinine Ratio 12, Glucose Level 94, Calcium Level 8.5, Corrected Calcium 8.9, Total Bilirubin 0.7, Aspartate Amino Transf (AST/SGOT) 19, Alanine Aminotransferase (ALT/SGPT) 28, Alkaline Phosphatase 92, Total Protein 6.0, Albumin 3.5 Discharge Home Medications: Active Scripts Active Clopidogrel (Clopidogrel Bisulfate) 75 Mg Tablet 75 Mg PO DAILY Flomax (Tamsulosin HCl) 0.4 Mg Cap 0.4 Mg PO DAILY@1800 Children's Aspirin (Aspirin) 81 Mg Tab.chew 81 Mg PO DAILY Famotidine 20 Mg Tablet 20 Mg PO BID Acetaminophen 325 Mg Tablet 650 Mg PO Q4H PRN Atorvastatin Calcium 20 Mg Tablet 20 Mg PO HS 30 Days Instructions to patient/family Please see electronic discharge instructions given to patient. Diagnosis/Problems Diagnosis/Problems (1) CVA (cerebral vascular accident) Qualifiers: Qualified Codes: I63.40 - Cerebral infarction due to embolism of unspecified cerebral artery (2) Right sided weakness Status: Acute (3) Generalized weakness Status: Acute (4) Dysarthria Status: Acute (5) Urinary hesitancy Status: Acute IRVING STANLEY DO Jun 19, 2021 05:26
[2021-06-19 08:00] VITALS: BP 140/62
[2021-06-19] MEDS: DOCUSATE SODIUM 100 MG (COLACE) CAP PO SCH (08:29)
[2021-06-19] MEDS: SENNA W/DOCUSATE (SENOKOT S) TABLET PO SCH (08:29)
[2021-06-19] MEDS: CLOPIDOGREL 75 MG (PLAVIX) TABLET PO SCH (08:29)
[2021-06-19] MEDS: FAMOTIDINE 20 MG (PEPCID) TABLET PO SCH (08:29)
[2021-06-19] MEDS: ASPIRIN 81 MG CHEW (CHILDREN'S ASA) PO SCH (08:29)
[2021-06-19] MEDS: MAGIC MOUTHWASH (ADULT) PO SCH ×4 (08:30)
[2021-06-19] MEDS: polyethylene glycoL POWDER 17 GM (MIRALAX) PACK PO SCH (08:30)
--- NOTE | 2021-06-19 10:26 | Therapy Team Discharge Summary ---
Therapy Discharge Summary Discharge Recommendations Date of Discharge Occupational Therapy Decreased Safety Aware, Impaired Funct Balance, Impaired Self-Care Skills Speech-Language Pathology The patient was admitted to the ARU s/p CVA with debility. The patient had mild cognitive deficits as indicated by the SLUMS. He also had dysarthria due to facial droop and mild slurring of speech. The patient is returning home with family members staying with him 16/06. He will also be receiving home health services. PT Applique Sewer Goals Intermediate Goals PT Applique Sewer Goals Time Frame: Jun 29, 2021 Roll Left to Right (QC): 6 Sit to Lying (QC): 6 Lying-Sitting on Side/Bed(QC): 6 Sit to Stand (QC): 6 Chair/Vhh-ux-Rwasv Xfer(QC): 6 Car Transfer (QC): 6 Does the Patient Walk: Yes Walk 10 feet (QC): 6 Walk 10ft-Uneven Surface(QC): 4 Walk 50ft with 2 Turns (QC): 6 Walk 150 ft (QC): 6 Wheel 50 feet with 2 turns (QC: 9 1 Step (curb) (QC): 6 4 Steps (QC): 6 12 Steps (QC): 4 Picking up an Object (QC): 4 OT Applique Sewer Goals Intermediate Goals Time Frame: Jun 15, 2021 Eating (QC): 6 (met) Oral Hygiene (QC): 6 (met) Shower/Bathe Self (QC): 6 (met) Upper Body Dressing (QC): 6 (met) Lower Body Dressing (QC): 6 (not met) On/Off Footwear (QC): 6 (met) Toileting Hygiene (QC): 6 (met) Toilet/Commode Transfer (QC): 6 Additional Goals: 1-Demonstrate ADL Tasks, 2-Verbalize Understanding, 3- ImproveStrength/Dustin 1=Demonstrate adherence to instructed precautions during ADL tasks. 2=Patient will verbalize/demonstrate understanding of assistive devices/modifications for ADL. 3=Patient will improve strength/tolerance for activity to enable patient to perform ADL's. Speech Intermediate Goals Intermediate Goals Patient will improve communication/speech skills in order to effectively communicate. Patient will maintain adequate nutrition/hydration via safe, effective swallow function. YUAN SANTOS Jun 19, 2021 10:26
[2021-06-19 12:41] VITALS: BP 140/62
--- NOTE | 2021-06-19 14:06 | Therapy Team Discharge Summary ---
Therapy Discharge Summary Discharge Recommendations Date of Discharge Jun 19, 2021 at 12:45 Physical Therapy Patient came to rehab following a CVA. Upon evaluation patient performed bed mobility with mod/min assist, supine <-> sit max assist, sit <-> stand and transfers mod assist, car transfer mod assist, ambulated 50' with at least 2 turns of 90 degrees with min assist using a rolling walker, no stairs. Patient has been performing bed mobility and transfer training, balance and endurance training, functional strengthening, gait training, and education. Patient has made good progress and has met all of his care home goals except for ambulation. Now, patient performs bed mobility and transfers with independence, car transfer independent, ambulates 150' with a rolling walker with CGA (including 50' with at least 2 turns of 90 degrees and 10' over an uneven surface), can go up and down 12 steps using 2 handrails with independence, and can merchandise pickup/receiving associate an object from the floor with independence. Patient has been discharged from this facility and will be discharged from PT at this time. Occupational Therapy Decreased Safety Aware, Impaired Funct Balance, Impaired Self-Care Skills PT Detention Goals Detention Goals PT Roll Tender Goals Time Frame: Jun 29, 2021 Roll Left to Right (QC): 6 Sit to Lying (QC): 6 Lying-Sitting on Side/Bed(QC): 6 Sit to Stand (QC): 6 Chair/Cjv-ra-Ojqvi Xfer(QC): 6 Car Transfer (QC): 6 Does the Patient Walk: Yes Walk 10 feet (QC): 6 Walk 10ft-Uneven Surface(QC): 4 Walk 50ft with 2 Turns (QC): 6 Walk 150 ft (QC): 6 Wheel 50 feet with 2 turns (QC: 9 1 Step (curb) (QC): 6 4 Steps (QC): 6 12 Steps (QC): 4 Picking up an Object (QC): 4 OT Detention Goals Detention Goals Time Frame: Jun 15, 2021 Eating (QC): 6 (met) Oral Hygiene (QC): 6 (met) Shower/Bathe Self (QC): 6 (met) Upper Body Dressing (QC): 6 (met) Lower Body Dressing (QC): 6 (not met) On/Off Footwear (QC): 6 (met) Toileting Hygiene (QC): 6 (met) Toilet/Commode Transfer (QC): 6 Additional Goals: 1-Demonstrate ADL Tasks, 2-Verbalize Understanding, 3- ImproveStrength/Dustin 1=Demonstrate adherence to instructed precautions during ADL tasks. 2=Patient will verbalize/demonstrate understanding of assistive devic es/modifications for ADL. 3=Patient will improve strength/tolerance for activity to enable patient to perform ADL's. Speech Roll Tender Goals Detention Goals Patient will improve communication/speech skills in order to effectively communicate. Patient will maintain adequate nutrition/hydration via safe, effective swallow function. BRENDA HAMILTON PT Jun 19, 2021 14:06
--- NOTE | 2021-06-19 14:12 | Progress Note ---
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 Excited about going home today. Objective Exam Vital Signs Date Time Temp Pulse Resp B/P (MAP) Pulse Ox O2 Delivery O2 Flow Rate FiO2 06/19/21 12:41 36.5 79 16 140/62 92 Room Air 06/19/21 09:49 Room Air 06/19/21 08:00 36.5 79 16 140/62 (88) 92 Room Air 06/18/21 21:00 93 Room Air 06/18/21 20:10 36.8 75 18 136/65 (88) 93 Room Air Capillary Refill : General Appearance: No Apparent Distress Respiratory: Lungs Clear Cardiovascular: Regular Rate, Rhythm Neurologic/Psychiatric: Alert, Oriented x3 Assessment/Plan Assessment/Plan Assess & Plan/Chief Complaint 1. 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 Polyuria/Nocturia with history of BPH--started flomax SHERIDAN DIEZ DO Jun 19, 2021 14:12
--- NOTE | 2021-06-19 15:27 | Therapy Team Discharge Summary ---
Therapy Discharge Summary Discharge Recommendations Date of Discharge Jun 19, 2021 at 12:45 Therapy D/C Recommendations: Occupational Therapy Home Care Occupational Therapy Pt admitted to ARU s/p CVA with R side weakness. At [facility], pt was independent with ADLs and functional mobility within the home, no AD/AE. His daughter to pt to/from store. Upon initial evaluation, pt required set up assistance with eating and oral care, mod A showering, max A upper body dressing, total assist lower body dressing, max A footwear and total assist toileting. OT tx focused on increasing BUE strength and activity tolerance, neuromuscular reeducation, and increasing safety and independence with ADLs and functional mobility. At discharge, pt was independent with eating, oral care, showeirng, upper body dressing, footwear and toileting, required SBA with lower body dressing. There were safety concerns with ADL performance due to balance and slow cognitive function. Pt made good progress towards goals, meeting all LTGs except lower body dressing. OT recommendations include sock aide and tub transfer bench. Pt discharged from facility, d/c from OT. Decreased Safety Aware, Impaired Funct Balance, Impaired Self-Care Skills PT Consultant Teacher Goals Consultant Teacher Goals PT Consultant Teacher Goals Time Frame: Jun 29, 2021 Roll Left to Right (QC): 6 Sit to Lying (QC): 6 Lying-Sitting on Side/Bed(QC): 6 Sit to Stand (QC): 6 Chair/Iop-hv-Sgcmn Xfer(QC): 6 Car Transfer (QC): 6 Does the Patient Walk: Yes Walk 10 feet (QC): 6 Walk 10ft-Uneven Surface(QC): 4 Walk 50ft with 2 Turns (QC): 6 Walk 150 ft (QC): 6 Wheel 50 feet with 2 turns (QC: 9 1 Step (curb) (QC): 6 4 Steps (QC): 6 12 Steps (QC): 4 Picking up an Object (QC): 4 OT Consultant Teacher Goals Correction Goals Time Frame: Jun 15, 2021 Eating (QC): 6 (met) Oral Hygiene (QC): 6 (met) Shower/Bathe Self (QC): 6 (met) Upper Body Dressing (QC): 6 (met) Lower Body Dressing (QC): 6 (not met) On/Off Footwear (QC): 6 (met) Toileting Hygiene (QC): 6 (met) Toilet/Commode Transfer (QC): 6 Additional Goals: 1-Demonstrate ADL Tasks, 2-Verbalize Understanding, 3-ImproveStrength/Dustin 1=Demonstrate adherence to instructed precautions during ADL tasks. 2=Patient will verbalize/demonstrate understanding of assistive devices/modifications for ADL. 3=Patient will improve strength/tolerance for activity to enable patient to perf orm ADL's. Speech Consultant Teacher Goals Correction Goals Patient will improve communication/speech skills in order to effectively communicate. Patient will maintain adequate nutrition/hydration via safe, effective swallow function. JOANNA WILLIAMSON OT Jun 19, 2021 15:27
== END 2021-06-19 12:45 | disposition home health service (06) | DRG 57 ==
PROVIDERS: ADMIT Internal Medicine; ATTEND Internal Medicine
DX: I69.351 Hemiplegia and hemiparesis following cerebral infarction affecting right dominant side (principal); N17.9 Acute kidney failure, unspecified; I69.322 Dysarthria following cerebral infarction; I69.318 Other symptoms and signs involving cognitive functions following cerebral infarction; R41.0 Disorientation, unspecified; I69.392 Facial weakness following cerebral infarction; N40.1 Benign prostatic hyperplasia with lower urinary tract symptoms; R35.0 Frequency of micturition; R39.11 Hesitancy of micturition; R35.1 Nocturia; I10 Essential (primary) hypertension; E78.2 Mixed hyperlipidemia; G62.9 Polyneuropathy, unspecified; B35.1 Tinea unguium; M21.70 Unequal limb length (acquired), unspecified site; Z87.891 Personal history of nicotine dependence; Z79.82 Long term (current) use of aspirin; Z95.818 Presence of other cardiac implants and grafts
CPT/HCPCS: 36415; 80053; 80061; 85025; 85027

== ENCOUNTER → 2021-06-06 | Day surgery (SDC) | payer MEDICARE, OTHER ==
[~2021-06-06] MED LIST changes: +ACET325T49 PO; +ASPI81TA64 PO; +ATOR20TA66 PO; +FAMO20TA5 PO; +LIDOCAINE 1% INJ 20 ML 20 ML VIAL INJ ONE; +LIDOCAINE 1% INJ 20 ML 20 ML VIAL ONE
== END ==
LOC: CATH 15:02
PROVIDERS: ATTEND Internal Medicine Cardiovascular Disease
DX: Z53.8 Procedure and treatment not carried out for other reasons (principal)

== ENCOUNTER 2022-01-09 19:33 | Inpatient (IN) | payer MEDICARE, OTHER ==
[~2022-01-09] VITALS: Ht 182.9 cm; Wt 88.7 kg
[~2022-01-09 19:33] MED LIST changes: +CLOP75TA28 PO; -LIDOCAINE 1% INJ 20 ML 20 ML VIAL INJ ONE; -LIDOCAINE 1% INJ 20 ML 20 ML VIAL ONE; +TMSL.4C PO
--- NOTE | 2022-01-09 20:26 | Diagnostic Imaging Report ---
EXAMINATION: Bilateral ankle radiograph EXAM DATE: 01/09/2022 COMPARISON: None available. HISTORY: Ankle pain after fall TECHNIQUE: 3 views of the bilateral ankles FINDINGS: There is an oblique spiral type fracture of the distal right fibula. There is also an oblique spiral type fracture of the distal left fibula. Ankle mortises are preserved. There is soft tissue swelling about the ankles. No dislocation or other destructive osseous process. IMPRESSION: 1. Acute fractures of the right and left distal fibulas. Dictated by: Dictated on workstation # [id number]
--- NOTE | 2022-01-09 20:42 | ED Fall/Injury ---
General Chief Complaint: Trauma-Non Activation Stated Complaint: FALL, ANKLE PAIN Nursing Triage Note: Pt fell outside in his yard earlier in the day. He fell on his knees onto his walker. Now, he has bilateral ankle pain, but his knees do not hurt. Source: patient, family Exam Limitations: no limitations History of Present Illness Date Seen by Provider: Jan 09, 2022 Time Seen by Provider: 19:59 Initial Comments This 81-year-old gentleman presents to the emergency room via EMS after having a fall in his yard. 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 While walking across the yard with his walker, he lost his footing and fell. He denies any prodrome such as lightheadedness, shortness of breath, or chest pain. Prior to the fall he was feeling fine. He initially complained of pain in both knees but now states he has pain in both ankles. Some friends were able to help him walk into the house with significant effort. He was not able to stand well at home. EMS was activated. He denies any injury above the knees. He is somewhat debilitated and is receiving daily home health services for assistance. He is accompanied by his son-in-law. He recently had a stroke that affected the function of his right upper extremity that had been recovering fairly well. Allergies and Home Medications Allergies Coded Allergies: No Known Drug Allergies (Unverified , 06/20/11) Patient Home Medication List Home Medication List Reviewed: Yes Acetaminophen (Acetaminophen) 325 Mg Tablet, 650 MG PO Q4H PRN for PAIN-MILD (1- 4) Prescribed by: SHERIDAN CARRERA on 06/01/21 1031 Aspirin (Children's Aspirin) 81 Mg Tab.chew, 81 MG PO DAILY Prescribed by: SHERIDAN CARRERA on 06/01/21 1031 Atorvastatin Calcium (Atorvastatin Calcium) 20 Mg Tablet, 20 MG PO HS Prescribed by: SHERIDAN CARRERA on 06/01/21 1031 Clopidogrel Bisulfate (Clopidogrel) 75 Mg Tablet, 75 MG PO DAILY Prescribed by: IRVING STANLEY on 06/18/212135 Famotidine (Famotidine) 20 Mg Tablet, 20 MG PO BID Prescribed by: SHERIDAN CARRERA on 06/01/21 1031 Tamsulosin HCl (Flomax) 0.4 Mg Cap, 0.4 MG PO DAILY@1800 Prescribed by: IRVING STANLEY on 06/18/212135 Review of Systems Review of Systems Constitutional: no symptoms reported Eyes: No Symptoms Reported Ears, Nose, Mouth, Throat: no symptoms reported Respiratory: no symptoms reported Cardiovascular: no symptoms reported Gastrointestinal: no symptoms reported Genitourinary: no symptoms reported Musculoskeletal: see HPI Skin: no symptoms reported Psychiatric/Neurological: No Symptoms Reported Past Qdzneve-Spxzwv-Rwukzv Hx Patient Social History Tobacco Use?: No Use of E-Cig and/or Vaping dev: No Substance use?: No Alcohol Use?: No Pt feels they are or have been: No Immunizations Up To Date First/Initial COVID19 Vaccinat: 02/14/21 Second COVID19 Vaccination Sukhi: 04/17/21 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: [employer] Seasonal Allergies Seasonal Allergies: No Past Medical History Surgeries: Yes (T&A,HERNIA REPAIR [GROIN],CARPAL TUNNEL) Abdominal, Adenoidectomy, Orthopedic, Tonsillectomy Respiratory: No Currently Using CPAP: No Currently Using BIPAP: No Cardiac: No Neurological: Yes Stroke (With right upper extremity deficits) Reproductive Disorders: No Sexually Transmitted Disease: No HIV/AIDS: No Genitourinary: No Gastrointestinal: No Musculoskeletal: Yes Fractures Endocrine: No HEENT: No Cancer: No Psychosocial: No Integumentary: No Blood Disorders: No Adverse Reaction/Blood Tranf: No Family Medical History No Pertinent Family Hx Physical Exam Vital Signs Vital Signs - First Documented 01/09/22 19:33 Temp 36.3 Pulse 70 Resp 18 B/P (MAP) 113/95 (101) Pulse Ox 95 O2 Delivery Room Air Capillary Refill : Height, Weight, BMI Height: 6'11.00" Weight: 190lbs. 6.4oz. 86.468179ie; 26.00 BMI Method:Estimated General Appearance: WD/WN, no apparent distress HEENT: PERRL/EOMI, normal ENT inspection Neck: normal inspection Cardiovascular: regular rate, rhythm, no edema, no murmur Respiratory: lungs clear, normal breath sounds, no respiratory distress Gastrointestinal: non tender, soft; No distended Extremities: no pedal edema, other (No tenderness over the hips. No significant pain with rotation of the hips. No pain with palpation or range of motion of the knees. He has scabbed abrasions on both knees. There is minor pain with palpation of the ankles bilaterally. He is able to move both ankles. Sensation and pedal pulses intact. 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, no motor/sensory deficits, alert, normal mood/affect, oriented x 3 Skin: normal color Raymond Coma Score Best Eye Response: (4) Open Spontaneously Best Verbal Response: (5) Oriented Best Motor Response: (6) Obeys Commands Raymond Total: 15 Procedures/Interventions Suture Size: 3-0, 5-0 Progress/Results/Core Measures Results/Orders Lab Results Laboratory Tests Test 01/09/22 21:05 01/09/22 21:23 Range/Units Urine Color ORANGE Urine Clarity CLEAR Urine pH 6.0 5-9 Urine Specific Barker >=1.030 1.016-1.022 Urine Protein NEGATIVE NEGATIVE Urine Glucose (UA) NEGATIVE NEGATIVE Urine Ketones NEGATIVE NEGATIVE Urine Nitrite NEGATIVE NEGATIVE Urine Bilirubin NEGATIVE NEGATIVE Urine Urobilinogen 1.0 < = 1.0 MG/DL Urine Leukocyte Esterase NEGATIVE NEGATIVE Urine RBC (Auto) NEGATIVE NEGATIVE Urine RBC NONE /HPF Urine WBC NONE /HPF Urine Crystals PRESENT H /LPF Urine Amorphous Sediment RARE ALON URATES H /LPF Urine Bacteria NEGATIVE /HPF Urine Casts NONE /LPF Urine Mucus SMALL H /LPF Urine Culture Indicated NO White Blood Count 9.3 4.3-11.0 10^3/uL Red Blood Count 4.52 4.30-5.52 10^6/uL Hemoglobin 13.7 13.3-17.7 g/dL Hematocrit 42 40-54 % Mean Corpuscular Volume 92 80-99 fL Mean Corpuscular Hemoglobin 30 25-34 pg Mean Corpuscular Hemoglobin Concent 33 32-36 g/dL Red Cell Distribution Width 13.2 10.0-14.5 % Platelet Count 270 130-400 10^3/uL Mean Platelet Volume 9.8 9.0-12.2 fL Immature Granulocyte % (Auto) 0 % Neutrophils (%) (Auto) 69 42-75 % Lymphocytes (%) (Auto) 18 12-44 % Monocytes (%) (Auto) 10 0-12 % Eosinophils (%) (Auto) 2 0-10 % Basophils (%) (Auto) 1 0-10 % Neutrophils # (Auto) 6.4 1.8-7.8 10^3/uL Lymphocytes # (Auto) 1.7 1.0-4.0 10^3/uL Monocytes # (Auto) 1.0 0.0-1.0 10^3/uL Eosinophils # (Auto) 0.1 0.0-0.3 10^3/uL Basophils # (Auto) 0.1 0.0-0.1 10^3/uL Immature Granulocyte # (Auto) 0.0 0.0-0.1 10^3/uL Sodium Level 141 135-145 MMOL/L Potassium Level 4.1 3.6-5.0 MMOL/L Chloride Level 107 98-107 MMOL/L Carbon Dioxide Level 23 21-32 MMOL/L Anion Gap 11 5-14 MMOL/L Blood Urea Nitrogen 14 7-18 MG/DL Creatinine 0.74 0.60-1.30 MG/DL Estimat Glomerular Filtration Rate 92 BUN/Creatinine Ratio 19 Glucose Level 95 70-105 MG/DL Calcium Level 8.6 8.5-10.1 MG/DL Corrected Calcium 8.8 8.5-10.1 MG/DL Magnesium Level 2.2 1.6-2.4 MG/DL Total Bilirubin 0.4 0.1-1.0 MG/DL Aspartate Amino Transf (AST/SGOT) 19 5-34 U/L Alanine Aminotransferase (ALT/SGPT) 22 0-55 U/L Alkaline Phosphatase 123 40-136 U/L Total Protein 6.8 6.4-8.2 GM/DL Albumin 3.8 3.2-4.5 GM/DL My Orders Orders - THANH DIAZ MD Cbc With Automated Diff (01/09/22 20:42) Comprehensive Metabolic Panel (01/09/22 20:42) Magnesium (01/09/22 20:42) Ua Culture If Indicated (01/09/22 20:42) Vital Signs/I&O 01/09/22 19:33 Temp 36.3 Pulse 70 Resp 18 B/P (MAP) 113/95 (101) Pulse Ox 95 O2 Delivery Room Air Blood Pressure Mean: 101 Progress Progress Note : Progress Note I discussed with Dr. Carpenter who recommended bilateral boots and nonweightbearing for probably 8 weeks. Inpatient consult was not necessary. He reviewed films himself to evaluate the patient. Patient did not require any pain medication. CAM Walker boots were applied in the ER. Patient was admitted to the [facility] to Dr. Carrera. We discussed CODE STATUS, and patient wishes to remain full code. Diagnostic Imaging Diagonstic Imaging: Xray Plain Films/CT/US/NM/MRI: leg Comments X-rays reviewed by me and report reviewed. See report below: NAME: MARYANN LAU REC#: [id number] PT STATUS: REG ER : 1940 PHYSICIAN: RENE DING APRN ADMIT DATE: 01/09/22/ER Draft Date of Exam:01/09/22 ANKLE, BILATERAL, 3 VIEWS EXAMINATION: Bilateral ankle radiograph EXAM DATE: 01/09/2022 COMPARISON: None available. HISTORY: Ankle pain after fall TECHNIQUE: 3 views of the bilateral ankles FINDINGS: There is an oblique spiral type fracture of the distal right fibula. There is also an oblique spiral type fracture of the distal left fibula. Ankle mortises are preserved. There is soft tissue swelling about the ankles. No dislocation or other destructive osseous process. IMPRESSION: 1. Acute fractures of the right and left distal fibulas. Dictated on workstation # [id number] Dict: 01/09/222022 Trans: 01/09/222024 [facility] [id number] Interpreted by: ANUPAMA STAFFORD DO Departure Communication (Admissions) Time/Spoke to Admitting Phy: 20:35 Dr. Carrera Impression Primary Impression: Fracture of distal fibula Qualified Codes: S82.839A - Other fracture of upper and lower end of uns pecified fibula, initial encounter for closed fracture Additional Impression: Fall on same level Qualified Codes: W18.30XA - Fall on same level, unspecified, initial encounter Disposition: ADMITTED INPATIENT Condition: Stable Admissions Decision to Admit Reason: Admit from ER (General) Decision to Admit/Date: Jan 09, 2022 Time/Decision to Admit Time: 20:35 Departure-Patient Inst. Referrals: SHERIDAN CARRERA DO (PCP/Family) Primary Care Physician THANH DIAZ MD Jan 09, 2022 20:42
[2022-01-09 21:15] LABS: BILIRUBIN,URINE NEGATIVE (NEGATIVE); CLARITY,URINE CLEAR; COLOR,URINE ORANGE; GLUCOSE, URINE (UA) NEGATIVE (NEGATIVE); KETONES,URINE NEGATIVE (NEGATIVE); LEUKOCYTE ESTERASE ,URINE NEGATIVE (NEGATIVE); NITRITE,URINE NEGATIVE (NEGATIVE); PROTEIN,URINE NEGATIVE (NEGATIVE)
[2022-01-09 21:23] LABS: AMORPHOUS SEDIMENT,UR RARE AMOR URATES /LPF; BACTERIA,URINE NEGATIVE /HPF
[2022-01-09 21:31] LABS: BASOPHILS # (AUTO) 0.1 10^3/uL (0.0-0.1); BASOPHILS % (AUTO) 1 % (0-10); EOSINOPHILS # (AUTO) 0.1 10^3/uL (0.0-0.3); EOSINOPHILS % (AUTO) 2 % (0-10); HEMATOCRIT 42 % (40-54); HEMOGLOBIN 13.7 g/dL (13.3-17.7); LYMPHOCYTES # (AUTO) 1.7 10^3/uL (1.0-4.0); LYMPHOCYTES % (AUTO) 18 % (12-44); MEAN CORPUSCULAR HEMOGLOBIN 30 pg (25-34); MEAN CORPUSCULAR HGB CONC 33 g/dL (32-36); MEAN CORPUSCULAR VOLUME 92 fL (80-99); MEAN PLATELET VOLUME 9.8 fL (9.0-12.2); MONOCYTES % (AUTO) 10 % (0-12); NEUTROPHILS # (AUTO) 6.4 10^3/uL (1.8-7.8); NEUTROPHILS % (AUTO) 69 % (42-75); PLATELET COUNT 270 10^3/uL (130-400); WHITE BLOOD COUNT 9.3 10^3/uL (4.3-11.0)
[2022-01-09 21:39] LABS: ALBUMIN 3.8 GM/DL (3.2-4.5); POTASSIUM 4.1 MMOL/L (3.6-5.0)
[2022-01-09 21:40] LABS: CALCIUM 8.6 MG/DL (8.5-10.1)
[2022-01-09 21:41] LABS: TOTAL PROTEIN 6.8 GM/DL (6.4-8.2)
[2022-01-09 21:43] LABS: BILIRUBIN,TOTAL 0.4 MG/DL (0.1-1.0)
[2022-01-09 21:45] LABS: CREATININE SERUM 0.74 MG/DL (0.60-1.30)
[2022-01-09 21:49] LABS: MAGNESIUM 2.2 MG/DL (1.6-2.4)
[2022-01-09 23:15] VITALS: BP 151/94
[2022-01-09] MEDS ORDERED: ONDANSETRON 4 MG (ZOFRAN) ORAL DISSOLVE TAB PO PRN (23:15)
[2022-01-09] MEDS: HYDROcodone/APAP 5 MG/325 MG (LORTAB) TAB PO PRN (23:44)
[2022-01-10 04:12] VITALS: BP 138/72
--- NOTE | 2022-01-10 07:32 | History & Physical ---
SHANTELL SALAZAR 01/10/22 0732: History of Present Illness History of Present Illness Reason for visit/HPI Deniz Mayorga is an 81y/o M with a PMH of stroke who presents for b/l distal fibular fracture. Pt reports that yesterday he was out in his yard trying to roll picker a down spout that had blown off his house. He then lost his footing and fell from his walker. Denies having any light headedness, SOB, or chest pain before his fall. Pt was brought into the ER via EMS after his fall since he was having lower extremity pain and was unable to get up. XRs were done that showed acute fractures of both distal fibula. Both legs are currently in a boot and he will need to be non weight bearing for 8 weeks. Today he reports that both legs are sore and painful. State that the pain at the current moment is manageable and it is more of an annoyance than a severe pain. Date of Admission Jan 09, 2022 at 20:35 Date Seen by a Provider: Jan 10, 2022 Time Seen by a Provider: 07:01 I consulted on this patient on 01/10/22 07:27 Attending Physician Sheridan Carrera DO Admitting Physician Sheridan Carrera DO Consult Allergies and Home Medications Allergies Coded Allergies: No Known Drug Allergies (Unverified , 06/20/11) Patient Home Medication List Home Medication List Reviewed: Yes Aspirin (Aspirin) 81 Mg Tab.chew, 81 MG PO DAILY, (Reported) Entered as Reported by: LINK BERGERON on 01/10/22 105 Last Action: Reviewed Atorvastatin Calcium (Atorvastatin Calcium) 20 Mg Tablet, 20 MG PO HS, (Reported) Entered as Reported by: LINK BERGERON on 01/10/22 105 Last Action: Reviewed Cetirizine HCl (Cetirizine HCl) 10 Mg Tablet, 10 MG PO DAILY, (Reported) Entered as Reported by: LINK BERGERON on 01/10/22 105 Last Action: Reviewed Clopidogrel Bisulfate (Plavix) 75 Mg Tablet, 75 MG PO DAILY, (Reported) Entered as Reported by: LINK BERGERON on 01/10/22 105 Last Action: Reviewed Famotidine (Famotidine) 20 Mg Tablet, 20 MG PO BID, (Reported) Entered as Reported by: LINK BERGERON on 01/10/22 105 Last Action: Reviewed Metoprolol Succinate (Metoprolol Succinate) 25 Mg Tab.er.24h, 25 MG PO DAILY, (Reported) Entered as Reported by: LINK BERGERON on 01/10/22 105 Last Action: Reviewed Tamsulosin HCl (Flomax) 0.4 Mg Cap, 0.4 MG PO HS, (Reported) Entered as Reported by: LINK BERGERON on 01/10/22 105 Last Action: Reviewed Discontinued Medications Acetaminophen (Acetaminophen) 325 Mg Tablet, 650 MG PO Q4H PRN for PAIN-MILD (1- 4) Discontinued Reason: No Longer Taking Prescribed by: SHERIDAN CARRERA on 06/01/21 103 Last Action: Discontinued Aspirin (Children's Aspirin) 81 Mg Tab.chew, 81 MG PO DAILY Discontinued Reason: No Longer Taking Prescribed by: SHERIDAN CARRERA on 06/01/21 103 Last Action: Discontinued Atorvastatin Calcium (Atorvastatin Calcium) 20 Mg Tablet, 20 MG PO HS Discontinued Reason: No Longer Taking Prescribed by: SHERIDAN CARRERA on 06/01/21 103 Last Action: Discontinued Clopidogrel Bisulfate (Clopidogrel) 75 Mg Tablet, 75 MG PO DAILY Discontinued Reason: No Longer Taking Prescribed by: IRVING STANLEY on 06/18/212135 Last Action: Discontinued Famotidine (Famotidine) 20 Mg Tablet, 20 MG PO BID Discontinued Reason: No Longer Taking Prescribed by: SHERIDAN CARRERA on 06/01/21 103 Last Action: Discontinued Tamsulosin HCl (Flomax) 0.4 Mg Cap, 0.4 MG PO DAILY@1800 Discontinued Reason: No Longer Taking Prescribed by: IRVING STANLEY on 06/18/212135 Last Action: Discontinued Past Wpzwzjv-Ulsbkt-Uzbhhz Hx Patient Social History Living Status: lives alone Employed/Student: retired Tobacco Use?: No Smoking Status: Never a Smoker Use of E-Cig and/or Vaping dev: No Substance use?: No Alcohol Use?: No Pt feels they are or have been: No Immunizations Up To Date First/Initial COVID19 Vaccinat: 02/14/21 Second COVID19 Vaccination Sukhi: 04/17/21 Tetanus Booster (TDap): Less Than 5 Years Hepatitis A: No Hepatitis B: No Seasonal Allergies Seasonal Allergies: No Current Status Communicates: Verbally Primary Language: Lithuanian Preferred Spoken Language: Lithuanian Is interpretation needed?: No Sensory deficits: Hearing impairment Past Medical History Surgeries: Abdominal, Adenoidectomy, Orthopedic, Tonsillectomy Currently Using CPAP: No Currently Using BIPAP: No Stroke (With right upper extremity deficits) Sexually Transmitted Disease: No HIV/AIDS: No Fractures Blood Disorders: No Adverse Reaction/Blood Tranf: No Family Medical History No Pertinent Family Hx Review of Systems Constitutional: No chills, No dizziness, No fever EENTM: No blurred vision, No double vision, No eye pain Respiratory: No cough, No short of breath Cardiovascular: No chest pain, No palpitations Gastrointestinal: No abdominal pain, No nausea, No vomiting Genitourinary: No dysuria, No frequency Musculoskeletal: No back pain; other (b/l LE pain) Psychiatric/Neurological: Denies Headache, Denies Numbness, Denies Tingling Physical Exam Vital Signs Vital Signs - First Documented 01/09/22 19:33 Temp 36.3 Pulse 70 Resp 18 B/P (MAP) 113/95 (101) Pulse Ox 95 O2 Delivery Room Air Capillary Refill : Height, Weight, BMI Height: 6'11.00" Weight: 190lbs. 6.4oz. 86.663317uj; 26.51 BMI Method:Estimated General Appearance: No Apparent Distress, WD/WN Neck: Non Tender, Supple Respiratory: Lungs Clear, Normal Breath Sounds, No Accessory Muscle Use, No Respiratory Distress Cardiovascular: Regular Rate, Rhythm, No Murmur, Normal Peripheral Pulses Gastrointestinal: Normal Bowel Sounds, Non Tender, Soft Extremity: Normal Capillary Refill, Other (both LE in boot ) Neurologic/Psychiatric: Alert, Oriented x3 Skin: Normal Color, Warm/Dry Lymphatic: No Adenopathy Assessment/Plan Assessment and Plan B/L distal fibula fractures- currently wearing CAM walker boots on both legs. ER did consult with Ortho last night. Pt will need to be non weight bearing for 8 weeks. He will need long term placement for his recovery. Continue giving Lortab 5mg Q6H PRN for pain control. PT and OT evaluations have been ordered. History of CVA- On Lovenox DVT prophylaxis- taking Alfonsox SHERIDAN CARRERA DO 01/10/22 1216: Allergies and Home Medications Allergies Coded Allergies: No Known Drug Allergies (Unverified , 06/20/11) Patient Home Medication List Aspirin (Aspirin) 81 Mg Tab.chew, 81 MG PO DAILY, (Reported) Entered as Reported by: LINK BERGERON on 01/10/221050 Last Action: Reviewed Atorvastatin Calcium (Atorvastatin Calcium) 20 Mg Tablet, 20 MG PO HS, (Reported) Entered as Reported by: LINK BERGERON on 01/10/221050 Last Action: Reviewed Cetirizine HCl (Cetirizine HCl) 10 Mg Tablet, 10 MG PO DAILY, (Reported) Entered as Reported by: LINK BERGERON on 01/10/221050 Last Action: Reviewed Clopidogrel Bisulfate (Plavix) 75 Mg Tablet, 75 MG PO DAILY, (Reported) Entered as Reported by: LINK BERGERON on 01/10/221050 Last Action: Reviewed Famotidine (Famotidine) 20 Mg Tablet, 20 MG PO BID, (Reported) Entered as Reported by: LINK BERGERON on 01/10/221050 Last Action: Reviewed Metoprolol Succinate (Metoprolol Succinate) 25 Mg Tab.er.24h, 25 MG PO DAILY, (Reported) Entered as Reported by: LINK BERGERON on 01/10/221050 Last Action: Reviewed Tamsulosin HCl (Flomax) 0.4 Mg Cap, 0.4 MG PO HS, (Reported) Entered as Reported by: LINK BERGERON on 01/10/221050 Last Action: Reviewed Discontinued Medications Acetaminophen (Acetaminophen) 325 Mg Tablet, 650 MG PO Q4H PRN for PAIN-MILD (1- 4) Discontinued Reason: No Longer Taking Prescribed by: SHERIDAN CARRERA on 06/01/21 103 Last Action: Discontinued Aspirin (Children's Aspirin) 81 Mg Tab.chew, 81 MG PO DAILY Discontinued Reason: No Longer Taking Prescribed by: SHERIDAN CARRERA on 06/01/21 103 Last Action: Discontinued Atorvastatin Calcium (Atorvastatin Calcium) 20 Mg Tablet, 20 MG PO HS Discontinued Reason: No Longer Taking Prescribed by: SHERIDAN CARRERA on 06/01/21 103 Last Action: Discontinued Clopidogrel Bisulfate (Clopidogrel) 75 Mg Tablet, 75 MG PO DAILY Discontinued Reason: No Longer Taking Prescribed by: IRVING STANLEY on 06/18/212135 Last Action: Discontinued Famotidine (Famotidine) 20 Mg Tablet, 20 MG PO BID Discontinued Reason: No Longer Taking Prescribed by: SHERIDAN CARRERA on 06/01/21 1031 Last Action: Discontinued Tamsulosin HCl (Flomax) 0.4 Mg Cap, 0.4 MG PO DAILY@1800 Discontinued Reason: No Longer Taking Prescribed by: IRVING STANLEY on 06/18/212135 Last Action: Discontinued Assessment/Plan Admission Diagnosis Admission Status: Inpatient Order (span 2 midnights) Reason for Inpatient Admission: Will need PT/OT for transfers and placement due to non weight bearing status. Has hydrocodone to use prn but will also add fentanyl prn if needed for PT. Supervisory-Addendum Brief Verification & Attestation Participated in pt care: history, physical Personally performed: exam, history, supervision of care Care discussed with: Medical Student Procedures: n/a Results interpretation: Verified all documentation Patient seen and assessed. Discussed with son, Jose Elias, that will need NH placement due to no weight bearing for 6-8 weeks. Will resume aspirin and atorvastatin due to history of CVA but hold plavix for now since needs lovenox for DVT prophylaxis and will need either eliquis or xarelto for DVT prophylaxis for 6-8 weeks depending on weight bearing status. SHANTELL SALAZAR Jan 10, 2022 07:32 SHERIDAN CARRERA DO Jan 10, 2022 12:16
[2022-01-10] MEDS: ENOXAPARIN 40 MG/0.4 ML (LOVENOX) SYR SC SCH (08:03)
[2022-01-10] MEDS: HYDROcodone/APAP 5 MG/325 MG (LORTAB) TAB PO PRN ×3 (08:10→17:38)
[2022-01-10 08:24] VITALS: BP 138/77
[2022-01-10] MEDS ORDERED: ASPIRIN 81 MG CHEW (CHILDREN'S ASA) PO ONE (09:00)
--- NOTE | 2022-01-10 09:24 | Physical Therapy Evaluation ---
PT Evaluation-General Medical Diagnosis Admission Date Jan 09, 2022 at 20:35 Medical Diagnosis: Bilateral ankle fracture, NWB BLEs Onset Date: Jan 09, 2022 Therapy Diagnosis Therapy Diagnosis: Gait deficit, strength deficit Height/Weight Height (Feet): 6 Height (Inches): 11.00 Weight (Pounds): 190 Weight (Ounces): 6.4 Precautions Precautions/Isolations: Fall Prevention, Standard Precautions, Pressure Ulcer Weight Bear Status Right Lower Extremity: Right Non Weight Bearing Left Lower Extremity: Left Non Weight Bearing Referral Physician: Dr. Carrera Reason for Referral: Evaluation/Treatment Medical History Pertinent Medical History: GERD, HTN Social History Home: Single Level Current Living Status: Alone Entry Into Home: Ramp, Stairs With Railing Prior Prior Level of Function SCALE: Activities may be completed with or without assistive devices. 4-Zabpsbkcts-tyacfoq completes the activity by him/herself with no assistance from a helper. 5-Set-up or Clean-up Assistance-helper sets up or cleans up; patient completes activity. [place] assists only prior to or following the activity. 4-Supervision or Touching Assistance-helper provides verbal cues and/or touching/steadying and/or contact guard assistance as patient completes activity. Assistance may be provided throughout the activity or intermittently. 3-Partial/Moderate Assistance-helper does LESS THAN HALF the effort. [place] lifts, holds or supports trunk or limbs, but provides less than half the effort. 2-Substantial/Maximal Assistance-helper does MORE THAN HALF the effort. [place] lifts or holds trunk or limbs and provides more than half the effort. 9-Zvzkqawpc-tyouef does ALL the effort. Patient does none of the effort to complete the activity. Or, the assistance of 2 or more helpers is required for the patient to complete the activity. If activity was not attempted, code reason: 7-Patient Refused. 9-Not Applicable-not attempted and the patient did not perform the activity before the current illness, exacerbation or injury. 10-Not Attempted due to Environmental Limitations-(lack of equipment, weather restraints, etc.). 88-Not Attempted due to Medical Conditions or Safety Concerns. Bed Mobility: 6 Transfers (B,C,W/C): 6 Gait: 6 Stairs: 6 Indoor Mobility (Ambulation): Independent Stairs: Independent Prior Devices Use: Walker PT Evaluation-Current Subjective Patient lying supine in bed upon PT arrival, agreeable to treatment. Patient reports pain in bilateral ankles at 7/10 currently. Objective Patient Orientation: Person ROM/Strength ROM Lower Extremities Bilateral hip and knee WFLs; bilateral ankles N/A due to fractures. Strength Lower Extremities 3+/5 bilateral hips and knees; bilateral ankles N/A Sensory Vision: Functional Hearing: Impaired Sensation Right Lower Extremit: Intact Sensation Left Lower Extremity: Intact Transfers Roll Left to Right (QC): 4 Sit to Lying (QC): 4 Lying to Sitting/Side of Bed(Q: 4 Chair/Lzw-hp-Lddrf Xfer(QC): 3 Patient performed slideboard transfer to the chair with mod A. He is able to use the slideboard an slide himself ~ 50% of the distance maintaining NWB BLEs, however fatigues and requires mod A to fully slide to the chair. Gait Does the Patient Walk?: No and Walking Goal NOT indicated Mode of Locomotion: Wheelchair Anticipated Mode of Locomotion: Wheelchair Comments/Gait Description Patient NWB BLEs for at least 8 weeks Balance Sitting Static: Good Sitting Dynamic: Fair Assessment/Needs Patient tolerated treatment well. Minimally confused at the time of assessment as he does not know where he is or what day it is. Tries to explain why he is unsure of where he is, but explanation is not logical. Patient also seems to have a difficult time understanding description of activities, but is aware that he is unable to put weight through his LEs. Patient performs all bed mobility with SBA. Patient performed slideboard transfer to the chair with mod A. He is able to use the slideboard an slide himself ~ 50% of the distance maintaining NWB BLEs, however fatigues and requires mod A to fully slide to the chair. Patient in chair post treatment with all needs met, nursing notified, call light in reach and chair alarm activated. Rehab Potential: Fair Equipment Needs Unsure at this time due to patients cognition and ability to inform this PT of what he has at home, however he will most likely need a w/c with elevating leg rests. PT Care Home Goals Care Home Goals PT Care Home Goals Time Frame: Jan 19, 2022 Roll Left & Right (QC): 6 Sit to Lying (QC): 6 Lying-Sitting on Side/Bed(QC): 6 Chair/Xfd-ut-Vjpsb Xfer(QC): 4 Toilet Transfer (QC): 4 Does the Patient Walk: No and Walking Goal NOT indicated Does the Pt use WC or Scooter?: Yes Wheel 50 feet with 2 turns (QC: 5 Type: Manual Wheel 150 feet: 5 Type: Manual PT Plan Problem List Problem List: Activity Tolerance, Functional Strength, Safety, Balance, Transfer, Bed Mobility, ROM Treatment/Plan Treatment Plan: Continue Plan of Care Treatment Plan: Bed Mobility, Education, Functional Activity Dustin, Functional Strength, Group Therapy, Safety, Therapeutic Exercise, Transfers Treatment Duration: Feb 15, 2022 Frequency: 11 times per week Patient and/or Family Agrees t: Yes Safety Risks/Education Patient Education: Transfer Techniques Teaching Recipient: Patient Teaching Methods: Demonstration, Discussion Response to Teaching: Reinforcement Needed Discharge Recommendations Target Placement SNF Time/GCodes Time In: 850 Time Out: 930 Total Billed Treatment Time: 40 Total Billed Treatment Visit, NURYS MONTANEZ JOHN A PT Jan 10, 2022 09:24
[2022-01-10] MEDS: FAMOTIDINE 20 MG (PEPCID) TABLET PO SCH ×2 (10:09→19:56)
--- NOTE | 2022-01-10 10:43 | Occupational Therapy Eval ---
OT Evaluation-General/PLF Medical Diagnosis Admission Date Jan 09, 2022 at 20:35 Medical Diagnosis: Bilateral ankle fracture, NWB BLEs Onset Date: Jan 09, 2022 Therapy Diagnosis Therapy Diagnosis: Debility, Decreased ADL skills Height/Weight Height (Feet): 6 Height (Inches): 11.00 Weight (Pounds): 190 Weight (Ounces): 6.4 Precautions Precautions/Isolations: Fall Prevention, Standard Precautions, Pressure Ulcer Weight Bear Status Weight Bearing Restriction: Non Weight Bearing Location Restriction: [place] FEET Pt. has on bilateral CAM boots and is unable to weight bear bilaterally for at least 8 weeks. Referral Physician: Dr. Carrera Referral Reason: Activity Tolerance, Self Care, Evaluation/Treatment, Strengthening/ROM Medical History Pertinent Medical History: CVA, GERD, HTN Current History Pt. was out in yard on his walker. He apparently fell when bending to grab something. Pt. fx bilateral distal fibula. He is currently non-weight bearing in bilateral LE, and wearing bilateral CAM boots. Social History Home: Single Level Current Living Status: Alone Entry Into Home: Ramp, Stairs With Railing ADL-Prior Level of Function SCALE: Activities may be completed with or without assistive devices. 6-Pezmzrgoqr-lnacdle completes the activity by him/herself with no assistance from a helper. 5-Set-up or Clean-up Assistance-helper sets up or cleans up; patient completes activity. [place] assists only prior to or following the activity. 4-Supervision or Touching Assistance-helper provides verbal cues and/or touching/steadying and/or contact guard assistance as patient completes activity. Assistance may be provided throughout the activity or intermittently. 3-Partial/Moderate Assistance-helper does LESS THAN HALF the effort. [place] lifts, holds or supports trunk or limbs, but provides less than half the effort. 2-Substantial/Maximal Assistance-helper does MORE THAN HALF the effort. [place] lifts or holds trunk or limbs and provides more than half the effort. 5-Crzibfmos-vvodrv does ALL the effort. Patient does none of the effort to complete the activity. Or, the assistance of 2 or more helpers is required for the patient to complete the activity. If activity was not attempted, code reason: 7-Patient Refused. 9-Not Applicable-not attempted and the patient did not perform the activity before the current illness, exacerbation or injury. 10-Not Attempted due to Environmental Limitations-(lack of equipment, weather restraints, etc.). 88-Not Attempted due to Medical Conditions or Safety Concerns. ADL PLOF Comments Pt. states that he was independent, and states that he lives alone. Self Care: Unknown Functional Cognition: Unknown DME/Equipment Comments Pt. has a walker. All other adaptive equipment unknown at this time. OT Current Status Subjective Pt. states that he is on a certain medicine when asked if he needs to brush his teeth. Appearance Pt. is up in chair. He has just transferred there via slide board with PT. Mental Status/Objective Patient Orientation: Confused Current Glasses/Contacts: Yes Hand Dominance: Right Upper Extremity ROM WFL Upper Extremity Strength 3+/5 ADL-Treatment Oral Hygiene (QC): 3 (Min assist with cues to brush teeth while seated.) On/Off Footwear (QC): 2 (Max assist per activity analysis with doffing/donning socks.) Other Treatments OT spoke with PT just prior to entering room. Pt. had just transferred up to chair with slide board. Required mod/max assist for transfer. OT talks with pt. and notes that pt. is somewhat confused. Pt. on chair alarm. Pt. has difficulty following cues and staying on task. OT asks him if he would like to brush his teeth and he begins to talk about medication that he is on. OT gets items to perform oral care. OT hands pt. toothbrush with toothpaste on it and at first, pt. does not know what to do with it. He then puts in mouth and OT has to direct him to sequence the steps of how to perform. OT hands him washcloth to wash his face at first, and he does not know how to do this. Cues for direction. All needs met up in chair. Education OT Patient Education: Correct positioning, Exercise program, Modified ADL techniques, Progress toward Goal/Update tx plan, Purpose of tx/functional activities, Reviewed precautions, Rehab process, Transfer techniques Teaching Recipient: Patient Teaching Methods: Demonstration, Discussion Response to Teaching: Verbalize Understanding, Return Demonstration, Reinforcement Needed OT Short Term Goals Short Term Goals Time Frame: Jan 24, 2022 Eatin Oral hygiene: 5 Toileting hygiene: 3 Shower/bathe self: 3 Upper body dressin Lower body dressin Putting on/taking off footwear: 3 (with AE) OT Sheet Music Salesperson Goals Sheet Music Salesperson Goals Time Frame: Jan 31, 2022 Eating (QC): 6 Oral Hygiene (QC): 5 Toileting Hygiene (QC): 5 Shower/Bathe Self (QC): 4 Upper Body Dressing (QC): 4 Lower Body Dressing (QC): 4 On/Off Footwear (QC): 4 Additional Goals: 1-Demonstrate ADL Tasks, 2-Verbalize Understanding, 3-ImproveStrength/Dustin 1=Demonstrate adherence to instructed precautions during ADL tasks. 2=Patient will verbalize/demonstrate understanding of assistive devices/modifications for ADL. 3=Patient will improve strength/tolerance for activity to enable patient to perform ADL's. OT Education/Plan Problem List/Assessment Assessment: Decreased Activ Tolerance, Decreased Safety Aware, Decreased UE Strength, Dependent Transfers, Impaired Bed Mobility, Impaired Cognition, Impaired Funct Balance, Impaired I ADL's, Impaired Self-Care Skills, Restricted Funct UE ROM Discharge Recommendations Plan/Recommendations: Continue POC Therapy Discharge Recommendati: Post Acute OT Comment Equipment needs and discharge location to be determined. Treatment Plan/Plan of Care Treatment,Training & Education: Yes Patient would benefit from OT for education, treatment and training to promote independence in ADL's, mobility, safety and/or upper extremity function for ADL's. Plan of Care: ADL Retraining, Functional Mobility, Group Exercise/Act as Ind, UE Funct Exercise/Act Treatment Duration: Jan 31, 2022 Frequency: 3 times per week Estimated Hrs Per Day: .25 hour per day Agreement: Yes Rehab Potential: Fair Pt. would benefit from being seen by Occupational therapy services 3-5x per week. Time/GCodes Start Time: 09:27 Stop Time: 09:40 Total Time Billed (hr/min): 13 Billed Treatment Time 1, EVH x 13minutes NATHAN SERRANO OT Jan 10, 2022 10:43
[2022-01-10] MEDS ORDERED: ATOR20TA66 PO (10:51)
[2022-01-10] MEDS ORDERED: TMSL.4C PO (10:51)
[2022-01-10] MEDS ORDERED: CLOP75TA69 PO (10:51)
[2022-01-10] MEDS ORDERED: ASPI-999 PO (10:51)
[2022-01-10] MEDS ORDERED: CETI10TA17 PO (10:51)
[2022-01-10] MEDS ORDERED: MTP25TSR PO (10:51)
[2022-01-10] MEDS ORDERED: FAMO20TA5 PO (10:51)
[2022-01-10 12:22] VITALS: BP 106/63
[2022-01-10] MEDS ORDERED: fentaNYL INJ 100 MCG/2 ML AMP IVP PRN (12:30)
--- NOTE | 2022-01-10 14:00 | Physical Therapy Daily Note ---
PT Daily Note-Current Subjective Patient reports 5/10 pain in bilateral ankles. Reports he is ready to return to bed. Transfers SCALE: Activities may be completed with or without assistive devices. 1-Gfyxvepblv-ipjyhwj completes the activity by him/herself with no assistance from a helper. 5-Set-up or Clean-up Assistance-helper sets up or cleans up; patient completes activity. [place] assists only prior to or following the activity. 4-Supervision or Touching Assistance-helper provides verbal cues and/or touching/steadying and/or contact guard assistance as patient completes activity. Assistance may be provided throughout the activity or intermittently. 3-Partial/Moderate Assistance-helper does LESS THAN HALF the effort. [place] lifts, holds or supports trunk or limbs, but provides less than half the effort. 2-Substantial/Maximal Assistance-helper does MORE THAN HALF the effort. [place] lifts or holds trunk or limbs and provides more than half the effort. 3-Izdvwfets-iqziqq does ALL the effort. Patient does none of the effort to complete the activity. Or, the assistance of 2 or more helpers is required for the patient to complete the activity. If activity was not attempted, code reason: 7-Patient Refused. 9-Not Applicable-not attempted and the patient did not perform the activity before the current illness, exacerbation or injury. 10-Not Attempted due to Environmental Limitations-(lack of equipment, weather restraints, etc.). 88-Not Attempted due to Medical Conditions or Safety Concerns. Roll Left & Right (QC): 3 Sit to Lying (QC): 3 Lying to Sitting/Side of Bed(Q: 3 Chair/Fll-ns-Mqhel Xfer(QC): 3 Weight Bearing Right Lower Extremity: Right Non Weight Bearing Left Lower Extremity: Left Non Weight Bearing Gait Training Does the Patient Walk?: No and Walking Goal NOT indicated Assessment Current Status: Fair Progress Patient tolerated treatment well. Demonstrates improved tolerance to activity and is able to perform slideboard transfer with min/mod A. Patient was able to use his UEs to slide himself from the chair to the bed, however once he was on the bed, he was unable to progress any further. He required mod A for sit to supine and to remove the slideboard. Patient in bed post treatment with all needs met, nursing notified, call light in hand. PT Mcc Goals Junior Linux Administrator Goals PT Junior Linux Administrator Goals Time Frame: Jan 19, 2022 Roll Left & Right (QC): 6 Sit to Lying (QC): 6 Lying-Sitting on Side/Bed(QC): 6 Chair/Whx-ga-Btlke Xfer(QC): 4 Toilet Transfer (QC): 4 Does the Patient Walk: No and Walking Goal NOT indicated Does the Pt use WC or Scooter?: Yes Wheel 50 feet with 2 turns (QC: 5 Type: Manual Wheel 150 feet: 5 Type: Manual PT Plan Treatment/Plan Treatment Plan: Continue Plan of Care Treatment Plan: Bed Mobility, Education, Functional Activity Dustin, Functional Strength, Group Therapy, Safety, Therapeutic Exercise, Transfers Treatment Duration: Feb 15, 2022 Frequency: 11 times per week Patient and/or Family Agrees t: Yes Safety Risks/Education Patient Education: Transfer Techniques Teaching Recipient: Patient Teaching Methods: Demonstration, Discussion Response to Teaching: Verbalize Understanding, Return Demonstration Time/GCodes Time In: 1310 Time Out: 1325 Total Billed Treatment Time: 15 Total Billed Treatment Visit, ARCELIA KRAMER PT Jan 10, 2022 14:00
[2022-01-10 16:21] VITALS: BP 135/69
[2022-01-10 19:19] VITALS: BP 114/56
[2022-01-10] MEDS: DOCUSATE SODIUM 100 MG (COLACE) CAP PO SCH (19:57)
[2022-01-11] VITALS (7 sets, daily range): BP systolic 110–172; BP diastolic 67–86
[2022-01-11] MEDS: HYDROcodone/APAP 5 MG/325 MG (LORTAB) TAB PO PRN ×4 (02:28→20:12)
--- NOTE | 2022-01-11 07:29 | Progress Note ---
Subjective Subjective Date Seen by Provider: Jan 11, 2022 Time Seen by Provider: 06:50 Mr. Lau is being followed for b/l distal fibular fractures. Today he reports pain in his legs bilaterally that is about the same as yesterday. He worked with PT yesterday with sitting up but he is non-weight bearing. He reports no pain apart from his legs. Ortho was consulted by the ED but inpatient consult was not required. MR LAU IS AN 81 Y/O MALE WHO IS A CLINIC PATIENT OF DR. 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 HE PRESENTED TO THE HOSPITAL AFTER SUSTAINING BILATERAL ANKLE F RACTURES IN A FALL OUTSIDE OF HIS HOME. THIS MORNING MR. LAU STATES THAT HE IS FATIGUED AND WEAK, HAVING PAIN IN HIS LEGS THAT IS A 6 - 7 OUT OF 10. PHYSICAL THERAPY REPORTS THAT HE WAS ABLE TO USE THE SLIDE BOARD TO AIDE IN TRANSFERS FROM THE BED TO CHAIR. Review of Systems General: No Chills, No Night Sweats HEENT: No Head Aches, No Visual Changes Pulmonary: No Dyspnea, No Cough Cardiovascular: No: Chest Pain, Palpitations Gastrointestinal: No: Nausea, Vomiting, Abdominal Pain Genitourinary: No Dysuria, No Frequency Musculoskeletal: leg pain, foot pain Neurological: No: Weakness, Confusion Objective Exam Vital Signs Vital Signs Date Time Temp Pulse Resp B/P (MAP) Pulse Ox O2 Delivery O2 Flow Rate FiO2 01/11/22 04:00 36.7 62 18 148/86 (106) 92 Room Air 01/11/22 00:00 36.8 95 19 110/77 (88) 94 Room Air 01/10/22 21:54 93 Room Air 01/10/22 20:38 93 Room Air 01/10/22 19:19 36.7 65 20 114/56 (75) 94 Room Air 01/10/22 16:21 36.5 59 18 135/69 (91) 93 Room Air 01/10/22 12:22 36.8 65 18 106/63 (77) 91 Room Air 01/10/22 08:24 37.1 69 16 138/77 (97) 92 Room Air 01/10/22 08:00 92 Room Air I & O 01/11/22 06:59 Intake Total 1130 ml Output Total 700 ml Balance 430 ml General Appearance: No Apparent Distress, WD/WN HEENT: PERRL/EOMI Neck: Non Tender, Supple; No Lymphadenopathy (L), No Lymphadenopathy (R) Respiratory: Chest Non Tender, Lungs Clear, Normal Breath Sounds, No Accessory Muscle Use, No Respiratory Distress Cardiovascular: Regular Rate, Rhythm, No Murmur, Normal Peripheral Pulses Gastrointestinal: Normal Bowel Sounds, Non Tender, Soft Extremity: Other (B/L LE in boots) Neurologic/Psychiatric: Alert, Oriented x3, No Motor/Sensory Deficits, Normal Mood/Affect Skin: Normal Color, Warm/Dry Lymphatic: No Adenopathy (Head and neck) Assessment/Plan Assessment/Plan Assessment and Plan Assessment: B/L distal fibular fractures - Patient will be non-weight bearing for 8 weeks h/o CVA - DVT ppx Plan: Ortho was consulted while the patient was in the ED but no inpatient consult was required. There is no plan for surgery. Pain control as needed DVT ppx with enoxaparin Non-weight bearing for 8 weeks Continue inpatient PT/OT D/c to SNF for recovery and PT Supervisory-Addendum Brief Verification & Attestation Participated in pt care: history, MDM, physical Personally performed: exam, history, MDM, supervision of care Care discussed with: Medical Student Procedures: n/a Results interpretation: Verified all documentation AGREE WITH STUDENT NOTE DOCUMENTED, SEE MY ADDITIONAL DOCUMENTATION BELOW. BILATERAL DISTAL FIBULAR FRACTURES UNCONTROLLED PAIN NON-WEIGHT BEARING STATUS DUE TO FRACTURES HYPERTENSION BPH HX OF STROKE CAD BILATERAL DISTAL FIBULAR FRACTURES WITH UNCONTROLLED PAIN AND PT IS NON-WEIGHT BEARING STATUS DUE TO FRACTURES - THE PATIENT WILL REQUIRE PLACEMENT IN A RESIDENTIAL DUE TO HIS NEED FOR ASSISTANCE WITH ADL'S DUE TO HIS NON WEIGHT BEARING STATUS AND LIVING AT HOME ALONE WITHOUT ANY IN-HOME CAREGIVERS TO AIDE HIS ADL'S AND IADL'S WHICH HE CANNOT CURRENTLY SAFELY PERFORM. - PT WILL BE NON-WEIGHT BEARING FOR ABOUT 8 WEEKS DEPENDING ON ORTHO'S RE- EVAL OF HIS HEALING PROCESS. - WE ARE WAITING ON PLACEMENT PLANS TO BE SOLIDIFIED. HYPERTENSION - RESUME HOME REGIMEN OF METOPROLOL. BPH - RESUME FLOMAX ARLENE ESQUIVEL Jan 11, 2022 07:29 ARIELLE YEBOAH MD Jan 11, 2022 20:40
--- NOTE | 2022-01-11 09:05 | Physical Therapy Daily Note ---
PT Daily Note-Current Subjective Patient seems more confused today, looking around and saying something about a "bag that I need to take out" and becomes somewhat irritated that he doesn't know where he is now. Reports pain in bilateral ankles is worse today, but does not give a rating. Mental Status Patient Orientation: Person Transfers SCALE: Activities may be completed with or without assistive devices. 1-Elnqhyackc-uogtgbg completes the activity by him/herself with no assistance from a helper. 5-Set-up or Clean-up Assistance-helper sets up or cleans up; patient completes activity. [place] assists only prior to or following the activity. 4-Supervision or Touching Assistance-helper provides verbal cues and/or touching/steadying and/or contact guard assistance as patient completes activity. Assistance may be provided throughout the activity or intermittently. 3-Partial/Moderate Assistance-helper does LESS THAN HALF the effort. [place] lifts, holds or supports trunk or limbs, but provides less than half the effort. 2-Substantial/Maximal Assistance-helper does MORE THAN HALF the effort. [place] lifts or holds trunk or limbs and provides more than half the effort. 1-Ufwsnqxed-tyhqhb does ALL the effort. Patient does none of the effort to complete the activity. Or, the assistance of 2 or more helpers is required for the patient to complete the activity. If activity was not attempted, code reason: 7-Patient Refused. 9-Not Applicable-not attempted and the patient did not perform the activity before the current illness, exacerbation or injury. 10-Not Attempted due to Environmental Limitations-(lack of equipment, weather restraints, etc.). 88-Not Attempted due to Medical Conditions or Safety Concerns. Roll Left & Right (QC): 4 Sit to Lying (QC): 4 Lying to Sitting/Side of Bed(Q: 4 Chair/Yad-uv-Imjuq Xfer(QC): 3 Weight Bearing Right Lower Extremity: Right Non Weight Bearing Left Lower Extremity: Left Non Weight Bearing Exercises Supine Ex: Quad Set, Glut sets Supine Reps: 20 Seated Therapy Exercises: Hip abd/add Seated Reps: 20 Assessment Current Status: Fair Progress Patient tolerated treatment fair. He demonstrates improved overall bed mobility and requires SBA for bed mobility however frequent verbal cues for process and to stay on task. Patient requires min A to finish slideboard transfer to chair, however was able to move himself further today with SBA only. Patient in chair post treatment with all needs met, nursing notified and call light in reach and chair alarm activated. PT Half-Way Goals Office Professional Goals PT Office Professional Goals Time Frame: Jan 19, 2022 Roll Left & Right (QC): 6 Sit to Lying (QC): 6 Lying-Sitting on Side/Bed(QC): 6 Chair/Fot-yf-Tjxur Xfer(QC): 4 Toilet Transfer (QC): 4 Does the Patient Walk: No and Walking Goal NOT indicated Does the Pt use WC or Scooter?: Yes Wheel 50 feet with 2 turns (QC: 5 Type: Manual Wheel 150 feet: 5 Type: Manual PT Plan Treatment/Plan Treatment Plan: Continue Plan of Care Treatment Plan: Bed Mobility, Education, Functional Activity Dustin, Functional Strength, Group Therapy, Safety, Therapeutic Exercise, Transfers Treatment Duration: Feb 15, 2022 Frequency: 11 times per week Patient and/or Family Agrees t: Yes Safety Risks/Education Patient Education: Transfer Techniques Teaching Recipient: Patient Teaching Methods: Demonstration, Discussion Response to Teaching: Verbalize Understanding, Return Demonstration Time/GCodes Time In: 825 Time Out: 851 Total Billed Treatment Time: 26 Total Billed Treatment Visit, YISEL NUNO JOHN A PT Jan 11, 2022 09:05
[2022-01-11] MEDS: ENOXAPARIN 40 MG/0.4 ML (LOVENOX) SYR SC SCH (09:57)
[2022-01-11] MEDS: DOCUSATE SODIUM 100 MG (COLACE) CAP PO SCH ×2 (09:57→20:11)
[2022-01-11] MEDS: FAMOTIDINE 20 MG (PEPCID) TABLET PO SCH ×2 (09:57→20:12)
--- NOTE | 2022-01-11 11:18 | Occupational Ther Daily Note ---
OT Current Status-Daily Note Subjective Pt alert and confused, sitting in recliner. Pt asking for Sensodyne toothpaste that was behind chair. Pt only oriented to self. Mental Status/Objective Patient Orientation: Person, Confused Attachments: IV ADL-Treatment Pt required set up for oral care. Pt was able to sequence how to use toothbrush to cleanse teeth then rinse. Pt able to wipe face while reading closed captioning on TV. Pt does state that his feet hurt. After session, pt sitting in recliner with call light/phone in reach. All needs met in room. Therapy Code Descriptions/Definitions Functional [place] Measure: 0=Not Assessed/NA 4=Minimal Assistance 1=Total Assistance 5=Supervision or Setup 2=Maximal Assistance 6=Modified [place] 3=Moderate Assistance 7=Complete IndependenceSCALE: Activities may be completed with or without assistive devices. 7-Gqxvuwgisi-qfeeoar completes the activity by him/herself with no assistance from a helper. 5-Set-up or Clean-up Assistance-helper sets up or cleans up; patient completes activity. [place] assists only prior to or following the activity. 4-Supervision or Touching Assistance-helper provides verbal cues and/or touchi ng/steadying and/or contact guard assistance as patient completes activity. Assistance may be provided throughout the activity or intermittently. 3-Partial/Moderate Assistance-helper does LESS THAN HALF the effort. [place] lifts, holds or supports trunk or limbs, but provides less than half the effort. 2-Substantial/Maximal Assistance-helper does MORE THAN HALF the effort. [place] lifts or holds trunk or limbs and provides more than half the effort. 5-Qcdgtcqeg-euytvt does ALL the effort. Patient does none of the effort to complete the activity. Or, the assistance of 2 or more helpers is required for the patient to complete the activity. If activity was not attempted, code reason: 7-Patient Refused. 9-Not Applicable-not attempted and the patient did not perform the activity before the current illness, exacerbation or injury. 10-Not Attempted due to Environmental Limitations-(lack of equipment, weather restraints, etc.). 88-Not Attempted due to Medical Conditions or Safety Concerns. Oral Hygiene (QC): 4 (supervision) OT Short Term Goals Short Term Goals Time Frame: Jan 24, 2022 Eatin Oral hygiene: 5 Toileting hygiene: 3 Shower/bathe self: 3 Upper body dressin Lower body dressin Putting on/taking off footwear: 3 (with AE) OT Metal Hanging Helper Goals Nursing Home Goals Time Frame: Jan 31, 2022 Eating (QC): 6 Oral Hygiene (QC): 5 Toileting Hygiene (QC): 5 Shower/Bathe Self (QC): 4 Upper Body Dressing (QC): 4 Lower Body Dressing (QC): 4 On/Off Footwear (QC): 4 Additional Goals: 1-Demonstrate ADL Tasks, 2-Verbalize Understanding, 3- ImproveStrength/Dustin 1=Demonstrate adherence to instructed precautions during ADL tasks. 2=Patient will verbalize/demonstrate understanding of assistive devices/modifica tions for ADL. 3=Patient will improve strength/tolerance for activity to enable patient to perform ADL's. OT Education/Plan Problem List/Assessment Assessment: Decreased Activ Tolerance, Decreased Safety Aware, Impaired Self- Care Skills Discharge Recommendations Plan/Recommendations: Continue POC Treatment Plan/Plan of Care Patient would benefit from OT for education, treatment and training to promote independence in ADL's, mobility, safety and/or upper extremity function for ADL's. Plan of Care: ADL Retraining, Functional Mobility, Group Exercise/Act as Ind, UE Funct Exercise/Act Treatment Duration: Jan 31, 2022 Frequency: 3 times per week Estimated Hrs Per Day: .25 hour per day Agreement: Yes Rehab Potential: Fair Time/GCodes Start Time: 10:40 Stop Time: 10:55 Total Time Billed (hr/min): 15 Billed Treatment Time 1 visit-ADL 1 (15 min) JAY BONILLA Jan 11, 2022 11:18
--- NOTE | 2022-01-11 14:26 | Physical Therapy Daily Note ---
PT Daily Note-Current Subjective Patient sitting in chair upon PT arrival agreeable to treatment but notes he needs to have BM. Mental Status Patient Orientation: Person Transfers SCALE: Activities may be completed with or without assistive devices. 1-Zfseyeedwr-nytqenl completes the activity by him/herself with no assistance from a helper. 5-Set-up or Clean-up Assistance-helper sets up or cleans up; patient completes activity. [place] assists only prior to or following the activity. 4-Supervision or Touching Assistance-helper provides verbal cues and/or touching/steadying and/or contact guard assistance as patient completes activity. Assistance may be provided throughout the activity or intermittently. 3-Partial/Moderate Assistance-helper does LESS THAN HALF the effort. [place] lifts, holds or supports trunk or limbs, but provides less than half the effort. 2-Substantial/Maximal Assistance-helper does MORE THAN HALF the effort. [place] lifts or holds trunk or limbs and provides more than half the effort. 2-Ymkzowraa-sbjmto does ALL the effort. Patient does none of the effort to complete the activity. Or, the assistance of 2 or more helpers is required for the patient to complete the activity. If activity was not attempted, code reason: 7-Patient Refused. 9-Not Applicable-not attempted and the patient did not perform the activity before the current illness, exacerbation or injury. 10-Not Attempted due to Environmental Limitations-(lack of equipment, weather restraints, etc.). 88-Not Attempted due to Medical Conditions or Safety Concerns. Roll Left & Right (QC): 4 Sit to Lying (QC): 4 Lying to Sitting/Side of Bed(Q: 4 Chair/Psq-bh-Ezpfg Xfer(QC): 3 Toilet Transfer (QC): 3 Weight Bearing Right Lower Extremity: Right Non Weight Bearing Left Lower Extremity: Left Non Weight Bearing Gait Training Does the Patient Walk?: No and Walking Goal NOT indicated Assessment Current Status: Fair Progress Patient tolerated treatment fair. He demonstrates improved overall bed mobility and requires SBA for bed mobility however frequent verbal cues for process and to stay on task. Patient requires min A to finish slideboard transfer from chair to BSC. Patient requires min A x 2 for slideboard transfer from BSC to the bed. Patient in bed post treatment with all needs met, nursing notified and call light in reach and bed alarm activated. PT Residential Goals Residential Goals PT Residential Goals Time Frame: Jan 19, 2022 Roll Left & Right (QC): 6 Sit to Lying (QC): 6 Lying-Sitting on Side/Bed(QC): 6 Chair/Sep-zm-Etylg Xfer(QC): 4 Toilet Transfer (QC): 4 Does the Patient Walk: No and Walking Goal NOT indicated Does the Pt use WC or Scooter?: Yes Wheel 50 feet with 2 turns (QC: 5 Type: Manual Wheel 150 feet: 5 Type: Manual PT Plan Treatment/Plan Treatment Plan: Continue Plan of Care Treatment Plan: Bed Mobility, Education, Functional Activity Dustin, Functional Strength, Group Therapy, Safety, Therapeutic Exercise, Transfers Treatment Duration: Feb 15, 2022 Frequency: 11 times per week Patient and/or Family Agrees t: Yes Safety Risks/Education Patient Education: Transfer Techniques Teaching Recipient: Patient, Family Teaching Methods: Demonstration, Discussion Response to Teaching: Reinforcement Needed Time/GCodes Time In: 1358 Time Out: 1425 Total Billed Treatment Time: 27 Total Billed Treatment Visit, FA x 2 ARCELIA PINEDA PT Jan 11, 2022 14:26
[2022-01-11] MEDS: TAMSULOSIN 0.4 MG (FLOMAX) CAP PO SCH (22:27)
[2022-01-12] VITALS: BP 155/68
[2022-01-12 04:00] VITALS: BP 146/67
[2022-01-12 07:47] VITALS: BP 147/70
--- NOTE | 2022-01-12 08:16 | Progress Note ---
Subjective Subjective Date Seen by Provider: Jan 12, 2022 Time Seen by Provider: 07:10 Mr. Mayorga is being followed for b/l distal fibular fractures. Today he was A&Ox2 oriented to person and time but not to place; he did not know he was in the hospital. He would repeatedly ask the nurse and myself to "sit in the chair" and would point to the foot of his bed. He was slightly irritable this morning upon entering his room. He reported his pain today as being worse than yesterday. Yesterday he rated his pain as a 6/10 and today it was an 8/10. When asked if the new medicine we added yesterday was helping he wasn't about to provide a clear answer. Throughout the encounter he seemed to become less irritable and more oriented with conversation. Review of Systems General: No Chills, No Night Sweats HEENT: No Head Aches, No Visual Changes Pulmonary: No Dyspnea, No Cough Cardiovascular: No: Chest Pain, Palpitations Gastrointestinal: No: Nausea, Vomiting, Abdominal Pain Genitourinary: No Dysuria, No Frequency Musculoskeletal: leg pain, foot pain Neurological: Confusion; No: Weakness Objective Exam Vital Signs Vital Signs Date Time Temp Pulse Resp B/P (MAP) Pulse Ox O2 Delivery O2 Flow Rate FiO2 01/12/22 07:47 36.2 82 20 147/70 (95) 92 Room Air 01/12/22 04:00 37.6 78 19 146/67 (93) 92 Room Air 01/12/22 00:00 37.7 80 20 155/68 (97) 90 Room Air 01/11/22 22:26 65 01/11/22 22:12 54 161/70 (100) 92 01/11/22 20:28 93 Room Air 01/11/22 19:43 37.4 82 20 172/72 (105) 93 Room Air 01/11/22 16:57 37.1 68 20 147/67 (93) 92 Room Air 01/11/22 12:00 36.7 59 18 113/71 (85) 94 Room Air 01/11/22 08:44 36.8 57 20 137/77 (97) 94 Room Air I & O 01/12/22 07:00 Intake Total 670 ml Output Total 700 ml Balance -30 ml General Appearance: No Apparent Distress, WD/WN HEENT: PERRL/EOMI Neck: Non Tender, Supple; No Lymphadenopathy (L), No Lymphadenopathy (R) Respiratory: Chest Non Tender, Lungs Clear, Normal Breath Sounds, No Accessory Muscle Use, No Respiratory Distress Cardiovascular: Regular Rate, Rhythm, No Murmur, Normal Peripheral Pulses Gastrointestinal: Normal Bowel Sounds, Non Tender, Soft Extremity: Other (B/L LE in boots) Neurologic/Psychiatric: Alert; No Oriented x3 (Oriented to person and time; not oriented to place); No Motor/Sensory Deficits, Normal Mood/Affect Skin: Normal Color, Warm/Dry Lymphatic: No Adenopathy (Head and neck) Assessment/Plan Assessment/Plan Assessment and Plan Assessment: B/L distal fibular fractures - Patient will be non-weight bearing for 8 weeks h/o CVA - DVT ppx CAD HTN BPH Plan: Ortho was consulted while the patient was in the ED but no inpatient consult was required. There is no plan for surgery. Pain control as needed Restart metoprolol and tamsulosin DVT ppx with enoxaparin Non-weight bearing for 8 weeks Continue inpatient PT/OT D/c to SNF for recovery and PT. The current plan is d/c on Friday. Supervisory-Addendum Brief Verification & Attestation Participated in pt care: history, MDM, physical Personally performed: exam, history, MDM, supervision of care Care discussed with: Medical Student Procedures: n/a Results interpretation: Verified all documentation PT IS AN 81 Y/O MALE WHO IS A PATIENT OF DR. DIEZ BILATERAL DISTAL FIBULAR FRACTURES UNCONTROLLED PAIN NON-WEIGHT BEARING STATUS DUE TO FRACTURES HYPERTENSION BPH HX OF STROKE CAD CONSTIPATION BILATERAL DISTAL FIBULAR FRACTURES WITH UNCONTROLLED PAIN AND PT IS NON-WEIGHT BEARING STATUS DUE TO FRACTURES - THE PATIENT WILL REQUIRE PLACEMENT IN A LONGTERM DUE TO HIS NEED FOR ASSISTANCE WITH ADL'S DUE TO HIS NON WEIGHT BEARING STATUS AND LIVING AT HOME ALONE WITHOUT ANY IN-HOME CAREGIVERS TO AIDE HIS ADL'S AND IADL'S WHICH HE CANNOT CURRENTLY SAFELY PERFORM. - PT WILL BE NON-WEIGHT BEARING FOR ABOUT 8 WEEKS DEPENDING ON ORTHO'S RE- EVAL OF HIS HEALING PROCESS. - WE ARE WAITING ON PLACEMENT PLANS TO BE SOLIDIFIED. - START ON LIDOCAINE PATCHES ON ANKLES TODAY HYPERTENSION - RESUME HOME REGIMEN OF METOPROLOL. BPH - RESUME FLOMAX CONSTIPATION - RELISTOR INJECTION TODAY ARLENE ESQUIVEL S Jan 12, 2022 08:16 ARIELLE YEBOAH MD Jan 12, 2022 10:40
[2022-01-12] MEDS ORDERED: METHYLNALTREXONE 12 MG/0.6 ML (RELISTOR) VIAL SQ ONE (08:45)
[2022-01-12] MEDS: FAMOTIDINE 20 MG (PEPCID) TABLET PO SCH ×2 (09:16→22:00)
[2022-01-12] MEDS: ENOXAPARIN 40 MG/0.4 ML (LOVENOX) SYR SC SCH (09:16)
[2022-01-12] MEDS: DOCUSATE SODIUM 100 MG (COLACE) CAP PO SCH ×2 (09:16→22:00)
[2022-01-12 09:17] LABS: HEMATOCRIT 37 % (40-54); HEMOGLOBIN 12.2 g/dL (13.3-17.7); MEAN CORPUSCULAR HEMOGLOBIN 30 pg (25-34); MEAN CORPUSCULAR HGB CONC 33 g/dL (32-36); MEAN CORPUSCULAR VOLUME 92 fL (80-99); MEAN PLATELET VOLUME 9.9 fL (9.0-12.2); PLATELET COUNT 229 10^3/uL (130-400); WHITE BLOOD COUNT 8.2 10^3/uL (4.3-11.0)
[2022-01-12 09:34] LABS: ALBUMIN 3.4 GM/DL (3.2-4.5); POTASSIUM 3.9 MMOL/L (3.6-5.0)
[2022-01-12 09:35] LABS: CALCIUM 8.4 MG/DL (8.5-10.1)
[2022-01-12 09:37] LABS: TOTAL PROTEIN 6.4 GM/DL (6.4-8.2)
[2022-01-12] MEDS: LIDOCAINE 4% (SALONPAS) PATCH TOP SCH (09:39)
[2022-01-12 09:40] LABS: CREATININE SERUM 0.71 MG/DL (0.60-1.30)
[2022-01-12] MEDS: HYDROcodone/APAP 5 MG/325 MG (LORTAB) TAB PO PRN ×2 (09:41→22:55)
--- NOTE | 2022-01-12 10:20 | Physical Therapy Daily Note ---
PT Daily Note-Current Subjective Patient in bed pre tx, agrees to PT, has pain in both ankles, unrated, says pain is "way up there". He did just get a pain pill from nurse. Appearance Patient in recliner post tx with nurse call, phone, tray, all needs met, chair alarm on. Mental Status Patient Orientation: Person, Confused bilateral cam boots Transfers SCALE: Activities may be completed with or without assistive devices. 3-Eihnypgvdv-otbfrxy completes the activity by him/herself with no assistance from a helper. 5-Set-up or Clean-up Assistance-helper sets up or cleans up; patient completes activity. [place] assists only prior to or following the activity. 4-Supervision or Touching Assistance-helper provides verbal cues and/or touching/steadying and/or contact guard assistance as patient completes activity. Assistance may be provided throughout the activity or intermittently. 3-Partial/Moderate Assistance-helper does LESS THAN HALF the effort. [place] lifts, holds or supports trunk or limbs, but provides less than half the effort. 2-Substantial/Maximal Assistance-helper does MORE THAN HALF the effort. [place] lifts or holds trunk or limbs and provides more than half the effort. 8-Nirxykihe-xwnfwl does ALL the effort. Patient does none of the effort to com plete the activity. Or, the assistance of 2 or more helpers is required for the patient to complete the activity. If activity was not attempted, code reason: 7-Patient Refused. 9-Not Applicable-not attempted and the patient did not perform the activity before the current illness, exacerbation or injury. 10-Not Attempted due to Environmental Limitations-(lack of equipment, weather restraints, etc.). 88-Not Attempted due to Medical Conditions or Safety Concerns. Roll Left & Right (QC): 3 Lying to Sitting/Side of Bed(Q: 3 Chair/Sdc-qr-Tppov Xfer(QC): 3 sliding board transfer mod assist to recliner from bed Weight Bearing Right Lower Extremity: Right Non Weight Bearing Left Lower Extremity: Left Non Weight Bearing Exercises Seated Therapy Exercises: Long arc quads Seated Reps: 15 Treatments bed mobility and transfers, LE strengthening Assessment Current Status: Fair Progress patient moves very slowly, needs redirecting due to confusion PT Artificial Insemination Technician Goals Artificial Insemination Technician Goals PT Correction Goals Time Frame: Jan 19, 2022 Roll Left & Right (QC): 6 Sit to Lying (QC): 6 Lying-Sitting on Side/Bed(QC): 6 Chair/Lsw-zk-Vvnah Xfer(QC): 4 Toilet Transfer (QC): 4 Does the Patient Walk: No and Walking Goal NOT indicated Does the Pt use WC or Scooter?: Yes Wheel 50 feet with 2 turns (QC: 5 Type: Manual Wheel 150 feet: 5 Type: Manual PT Plan Problem List Problem List: Activity Tolerance, Functional Strength, Safety, Balance, Gait, Transfer, Bed Mobility, ROM Treatment/Plan Treatment Plan: Continue Plan of Care Treatment Plan: Bed Mobility, Education, Functional Activity Dustin, Functional Strength, Group Therapy, Safety, Therapeutic Exercise, Transfers Treatment Duration: Feb 15, 2022 Frequency: 11 times per week Patient and/or Family Agrees t: Yes Safety Risks/Education Patient Education: Transfer Techniques, Reviewed Precautions, Correct Positioning, Safety Issues Teaching Recipient: Patient Teaching Methods: Demonstration, Discussion Response to Teaching: Reinforcement Needed Time/GCodes Time In: 1000 Time Out: 1012 Total Billed Treatment Time: 12 Total Billed Treatment 1 visit FA BRENDA BELL PT Jan 12, 2022 10:20
[2022-01-12 11:26] VITALS: BP 113/68
[2022-01-12 15:56] VITALS: BP 126/67
[2022-01-12 19:50] VITALS: BP 149/68
[2022-01-12] MEDS: polyethylene glycoL POWDER 17 GM (MIRALAX) PACK PO SCH (21:55)
[2022-01-12] MEDS: TAMSULOSIN 0.4 MG (FLOMAX) CAP PO SCH (22:00)
[2022-01-13] VITALS (7 sets, daily range): BP systolic 121–147; BP diastolic 63–71
--- NOTE | 2022-01-13 07:58 | Progress Note ---
Subjective Subjective Date Seen by Provider: Jan 13, 2022 Time Seen by Provider: 09:10 Mr. Mayorga is being followed for b/l distal fibular fractures. Today he was A&Ox2 oriented to person and time but not to place; he did not know he was in the hospital. He reports that his pain this morning is "not too bad" and is better than yesterday. He is not sure if the topical lidocaine patches seemed to make a difference. He has no other complaints, issues, or pains apart from his legs. He still has not had a bowel movement; he denies abdominal pain or discomfort. He is able to urinate okay. attending physician documentation - The patient reports that he is doing well, he denies chest pain, shortness of breath, abdominal pain, his family is wondering about if he has yet had a bowel movement. Review of Systems General: No Chills, No Night Sweats HEENT: No Head Aches, No Visual Changes Pulmonary: No Dyspnea, No Cough Cardiovascular: No: Chest Pain, Palpitations Gastrointestinal: Constipation; No: Nausea, Vomiting, Abdominal Pain Genitourinary: No Dysuria, No Frequency Musculoskeletal: leg pain, foot pain Neurological: Confusion; No: Weakness Objective Exam Vital Signs Vital Signs Date Time Temp Pulse Resp B/P (MAP) Pulse Ox O2 Delivery O2 Flow Rate FiO2 01/13/22 07:03 37.2 61 18 131/71 (91) 94 Room Air 01/13/22 04:16 37.5 65 20 124/65 (84) 92 Room Air 01/13/22 01:01 37.5 66 18 121/64 (83) 92 Room Air 01/13/22 00:00 37.5 66 18 121/64 (83) 92 Room Air 01/12/22 23:25 37.5 01/12/22 22:55 36.2 01/12/22 20:00 93 Room Air 01/12/22 19:50 36.2 74 20 149/68 (95) 92 Room Air 01/12/22 15:56 35.3 74 20 126/67 (86) 93 Room Air 01/12/22 11:26 35.7 70 20 113/68 (83) 93 Room Air 01/12/22 08:00 Room Air I & O 01/13/22 07:00 Intake Total 800 ml Output Total 1000 ml Balance -200 ml General Appearance: No Apparent Distress, WD/WN HEENT: PERRL/EOMI Neck: Non Tender, Supple; No Lymphadenopathy (L), No Lymphadenopathy (R) Respiratory: Chest Non Tender, Lungs Clear, Normal Breath Sounds, No Accessory Muscle Use, No Respiratory Distress Cardiovascular: Regular Rate, Rhythm, No Murmur, Normal Peripheral Pulses Gastrointestinal: Non Tender, Soft, Abnormal Bowel Sounds (Decreased), Distended (Mildly distended but still soft and non-tender to palpation) Extremity: Other (B/L LE in boots) Neurologic/Psychiatric: Alert, Oriented x3 (Oriented to person and time; not oriented to place), No Motor/Sensory Deficits, Normal Mood/Affect Skin: Normal Color, Warm/Dry Lymphatic: No Adenopathy (Head and neck) Results Lab Laboratory Tests 01/12/22 09:10: White Blood Count 8.2, Red Blood Count 4.01L, Hemoglobin 12.2L, Hematocrit 37L, Mean Corpuscular Volume 92, Mean Corpuscular Hemoglobin 30, Mean Corpuscular Hemoglobin Concent 33, Red Cell Distribution Width 13.2, Platelet Count 229, Mean Platelet Volume 9.9, Sodium Level 137, Potassium Level 3.9, Chloride Level 105, Carbon Dioxide Level 23, Anion Gap 9, Blood Urea Nitrogen 10, Creatinine 0.71, Estimat Glomerular Filtration Rate 93, BUN/Creatinine Ratio 14, Glucose Level 159H, Calcium Level 8.4L, Corrected Calcium 8.9, Total Bilirubin 1.0, Aspartate Amino Transf (AST/SGOT) 19, Alanine Aminotransferase (ALT/SGPT) 17, Alkaline Phosphatase 106, Total Protein 6.4, Albumin 3.4 Assessment/Plan Assessment/Plan Assessment and Plan Assessment: B/L distal fibular fractures - Patient will be non-weight bearing for 8 weeks h/o CVA - DVT ppx Constipation - No associated pain - Most likely d/t medication adverse effects and patient's limited mobility CAD HTN BPH Plan: Ortho was consulted while the patient was in the ED but no inpatient consult was required. There is no plan for surgery. Pain control as needed. Topical lidocaine patches seem to decrease patient's pain Restart metoprolol and tamsulosin Methylnaltrexone and miralax given for constipation. Continue to monitor for bowel movement DVT ppx with enoxaparin Non-weight bearing for 8 weeks. Continue inpatient PT/OT D/c to SNF for recovery and PT. Plan to d/c tomorrow to [facility]. Supervisory-Addendum Brief Verification & Attestation Participated in pt care: history, MDM, physical Personally performed: exam, history, MDM, supervision of care Care discussed with: Medical Student Procedures: n/a Results interpretation: Verified all documentation PT IS AN 81 Y/O MALE WHO IS A PATIENT OF DR. DIEZ BILATERAL DISTAL FIBULAR FRACTURES UNCONTROLLED PAIN NON-WEIGHT BEARING STATUS DUE TO FRACTURES HYPERTENSION BPH HX OF STROKE CAD CONSTIPATION BILATERAL DISTAL FIBULAR FRACTURES WITH UNCONTROLLED PAIN AND PT IS NON-WEIGHT BEARING STATUS DUE TO FRACTURES - THE PATIENT WILL REQUIRE PLACEMENT IN A LONG-TERM DUE TO HIS NEED FOR ASSISTANCE WITH ADL'S DUE TO HIS NON WEIGHT BEARING STATUS AND LIVING AT HOME ALONE WITHOUT ANY IN-HOME CAREGIVERS TO AIDE HIS ADL'S AND IADL'S WHICH HE CANNOT CURRENTLY SAFELY PERFORM. - PT WILL BE NON-WEIGHT BEARING FOR ABOUT 8 WEEKS DEPENDING ON ORTHO'S RE- EVAL OF HIS HEALING PROCESS. - WE ARE WAITING ON PLACEMENT PLANS TO BE SOLIDIFIED. - STARTED ON LIDOCAINE PATCHES ON ANKLES 01/12/22 HYPERTENSION - RESUMED HOME REGIMEN OF METOPROLOL. BPH - RESUMED FLOMAX CONSTIPATION - RELISTOR INJECTION GIVEN ON 01/12/22 WILL REPEAT ON 01/13/22 AND GIVE ENEMA TODAY ARLENE ESQUIVEL Jan 13, 2022 07:58 ARIELLE YEBOAH MD Jan 13, 2022 10:04
[2022-01-13] MEDS: ENOXAPARIN 40 MG/0.4 ML (LOVENOX) SYR SC SCH (08:27)
[2022-01-13] MEDS: DOCUSATE SODIUM 100 MG (COLACE) CAP PO SCH ×2 (08:28→20:12)
[2022-01-13] MEDS: FAMOTIDINE 20 MG (PEPCID) TABLET PO SCH ×2 (08:28→20:12)
[2022-01-13] MEDS: HYDROcodone/APAP 5 MG/325 MG (LORTAB) TAB PO PRN (08:34)
[2022-01-13] MEDS: LIDOCAINE 4% (SALONPAS) PATCH TOP SCH (08:34)
[2022-01-13] MEDS ORDERED: METHYLNALTREXONE 12 MG/0.6 ML (RELISTOR) VIAL SQ NR (10:30)
[2022-01-13] MEDS ORDERED: NS IV 1000 ML 1,000 ML ONE (14:30)
[2022-01-13] MEDS: NS IV 1000 ML 1,000 ML IV SCH (14:47)
[2022-01-13] MEDS: polyethylene glycoL POWDER 17 GM (MIRALAX) PACK PO SCH (20:12)
[2022-01-13] MEDS: TAMSULOSIN 0.4 MG (FLOMAX) CAP PO SCH (20:12)
[2022-01-14 00:17] VITALS: BP 129/75
[2022-01-14] MEDS: NS IV 1000 ML 1,000 ML IV SCH (03:32)
[2022-01-14 03:51] VITALS: BP 124/72
[2022-01-14 08:00] VITALS: BP 131/72
--- NOTE | 2022-01-14 08:01 | Progress Note ---
Subjective Subjective Date Seen by Provider: Jan 14, 2022 Time Seen by Provider: 08:50 Mr. Mayorga is being followed for b/l distal fibular fractures. Today he was A&Ox3. He reports his legs are "sore" but he isn't sure how much they hurt because he just woke up. He also says he is tired of just laying in bed. Yester day he had an enema which helped him produce a small bowel movement. He denies any abdominal pain, nausea, or vomiting. He is good with the plan of d/c to [facility] today and ready to get out of bed. Review of Systems General: No Chills, No Night Sweats HEENT: No Head Aches, No Visual Changes Pulmonary: No Dyspnea, No Cough Cardiovascular: No: Chest Pain, Palpitations Gastrointestinal: Constipation (Small bowel movement s/p enema); No: Nausea, Vomiting, Abdominal Pain Genitourinary: No Dysuria, No Frequency Musculoskeletal: leg pain, foot pain Neurological: No: Weakness, Confusion Objective Exam Vital Signs Vital Signs Date Time Temp Pulse Resp B/P (MAP) Pulse Ox O2 Delivery O2 Flow Rate FiO2 01/14/22 03:51 37.1 59 18 124/72 (89) 91 Room Air 01/14/22 00:17 37.0 67 18 129/75 (93) 92 Room Air 01/13/22 20:10 93 Room Air 01/13/22 19:31 37.0 67 20 147/63 (91) 92 Room Air 01/13/22 15:35 36.8 66 18 132/63 (86) 92 Room Air 01/13/22 11:29 37.2 63 20 124/68 (86) 91 Room Air 01/13/22 08:00 95 Room Air I & O 01/14/22 07:00 Intake Total 300 ml Output Total 625 ml Balance -325 ml General Appearance: No Apparent Distress, WD/WN HEENT: PERRL/EOMI Neck: Normal Inspection, Non Tender, Supple; No Lymphadenopathy (L), No Lymphadenopathy (R) Respiratory: Chest Non Tender, Lungs Clear, Normal Breath Sounds, No Accessory Muscle Use, No Respiratory Distress Cardiovascular: Regular Rate, Rhythm, No Murmur, Normal Peripheral Pulses Gastrointestinal: Non Tender, Soft, Abnormal Bowel Sounds (Decreased), Distended (Mildly distended but still soft and non-tender to palpation) Extremity: Other (B/L LE in boots) Neurologic/Psychiatric: Alert, Oriented x3 (Oriented to person, place, and time today), No Motor/Sensory Deficits, Normal Mood/Affect Skin: Normal Color, Warm/Dry Lymphatic: No Adenopathy (Head and neck) Assessment/Plan Assessment/Plan Assessment and Plan Assessment: B/L distal fibular fractures - Patient will be non-weight bearing for 8 weeks h/o CVA - DVT ppx Constipation - No associated pain - Most likely d/t medication adverse effects and patient's limited mobility CAD HTN BPH Plan: Pain control as needed. Topical lidocaine patches seem to decrease patient's pain Restart metoprolol and tamsulosin Plan to give another shot of methylnaltrexone today to help with constipation DVT ppx with enoxaparin Non-weight bearing for 8 weeks. Continue inpatient PT/OT D/c to SNF for recovery and PT. Plan to d/c today to [facility]. Supervisory-Addendum Brief Verification & Attestation Participated in pt care: history, MDM, physical Personally performed: exam, history, MDM, supervision of care Care discussed with: Medical Student Procedures: n/a Results interpretation: Verified all documentation agree with student note as documented please see my discharge summary for full details. ARLENE ESQUIVEL Jan 14, 2022 08:01 ARIELLE YEBOAH MD Jan 14, 2022 22:15
--- NOTE | 2022-01-14 08:59 | Discharge Summary ---
Diagnosis/Chief Complaint Date of Admission Jan 09, 2022 at 20:35 Date of Discharge Discharge Summary Discharge Physical Examination Allergies: Coded Allergies: No Known Drug Allergies (Unverified , 06/20/11) Vitals & I&Os Vital Signs Date Time Temp Pulse Resp B/P (MAP) Pulse Ox O2 Delivery O2 Flow Rate FiO2 01/14/22 08:00 37.4 59 16 131/72 (91) 91 Room Air Discharge Instructions to patient/family Please see electronic discharge instructions given to patient. Discharge Medications Reviewed and agree with Discharge Medication list on patient's Discharge Instruction sheet ARIELLE YEBOAH MD Jan 14, 2022 08:59
[2022-01-14] MEDS ORDERED: RIVA10TA PO (09:04)
[2022-01-14] MEDS ORDERED: TMSL.4C PO (09:07)
[2022-01-14] MEDS ORDERED: FAMO20TA5 PO (09:07)
[2022-01-14] MEDS ORDERED: DOCU100C37 PO (09:07)
[2022-01-14] MEDS ORDERED: ATOR20TA66 PO (09:07)
[2022-01-14] MEDS ORDERED: ACHD5005 PO (09:07)
[2022-01-14] MEDS ORDERED: MTP25TSR PO (09:07)
[2022-01-14] MEDS ORDERED: CETI10TA17 PO (09:07)
[2022-01-14] MEDS ORDERED: POLY17PO54 PO (09:07)
--- NOTE | 2022-01-14 09:10 | Discharge Inst-Skilled Nursing ---
Discharge Inst-Skilled NF Reconcile Patient Problems Problems Reviewed?: Yes Patient Instructions Patient Problems: BILATERAL DISTAL FIBULAR FRACTURES UNCONTROLLED PAIN NON-WEIGHT BEARING STATUS DUE TO FRACTURES HYPERTENSION BPH HX OF STROKE CAD CONSTIPATION Consult/Follow Up/Orders Follow Up Appt.: 1 wk with anna marie neal [address] evelyne [place] NF Admit to: Via [facility] ([facility]) I certify that [facility] services are required to be given on an inpatient basis because of the above named patient's need for jail care on a continuing basis for the conditions(s) for which he/she was receiving inpatient hospital services prior to his/her transfer to the [facility]. Shelter Facility Order: Nursing Services, [employer]-Evaluate & Treat, Physical Therapy-Evaluate & Treat, Speech Language-Evaluate & Treat Oxygen Delivery Method: Room Air Discharge Diet: Regular Diet Daily Activity as Tolerated: Yes Resuscitation Status: Full Code New & Resume Previous Orders Arielle Choudhury Jan 14, 2022 09:08 Medication List: Active Scripts Active HYDROcodone/APAP 5 MG/325 MG TAB (Acetaminophen/Hydrocodone Bitart) 1 Tab Tab 1 Ea PO Q4H PRN Docusate Sodium 100 Mg Capsule 100 Mg PO BID Polyethylene Glycol 3350 17 Gm Powd.pack 17 Gm PO HS HOLD FOR LOOSE STOOLS Flomax (Tamsulosin HCl) 0.4 Mg Cap 0.4 Mg PO HS Metoprolol Succinate 25 Mg Tab.er.24h 25 Mg PO DAILY Famotidine 20 Mg Tablet 20 Mg PO BID Cetirizine HCl 10 Mg Tablet 10 Mg PO DAILY Atorvastatin Calcium 20 Mg Tablet 20 Mg PO HS Xarelto (Rivaroxaban) 10 Mg Tablet 10 Mg PO DAILY Reported Plavix (Clopidogrel Bisulfate) 75 Mg Tablet 75 Mg PO DAILY Aspirin 81 Mg Tab.chew 81 Mg PO DAILY My orders: Orders - ARIELLE CHOUDHURY MD Soap Suds Enema (01/13/22 09:58) Methylnaltrexone Injection (Relistor Inj (01/13/22 10:30) Ns Iv 1000 Ml (Sodium Chloride 0.9%) (01/13/22 14:15) Attending Discharge Inpt/Inobs (01/14/22 09:00) ARIELLE CHOUDHURY MD Jan 14, 2022 09:10
[2022-01-14] MEDS: ENOXAPARIN 40 MG/0.4 ML (LOVENOX) SYR SC SCH (09:27)
[2022-01-14] MEDS: FAMOTIDINE 20 MG (PEPCID) TABLET PO SCH (09:27)
[2022-01-14] MEDS: LIDOCAINE 4% (SALONPAS) PATCH TOP SCH (09:27)
[2022-01-14] MEDS: DOCUSATE SODIUM 100 MG (COLACE) CAP PO SCH (09:27)
[2022-01-14 12:00] VITALS: BP 116/67
--- NOTE | 2022-01-14 14:13 | Physical Therapy Daily Note ---
PT Daily Note-Current Transfers SCALE: Activities may be completed with or without assistive devices. 9-Fwnapyyyvv-aycauhd completes the activity by him/herself with no assistance from a helper. 5-Set-up or Clean-up Assistance-helper sets up or cleans up; patient completes activity. [place] assists only prior to or following the activity. 4-Supervision or Touching Assistance-helper provides verbal cues and/or touching/steadying and/or contact guard assistance as patient completes activity. Assistance may be provided throughout the activity or intermittently. 3-Partial/Moderate Assistance-helper does LESS THAN HALF the effort. [place] lifts, holds or supports trunk or limbs, but provides less than half the effort. 2-Substantial/Maximal Assistance-helper does MORE THAN HALF the effort. [place] lifts or holds trunk or limbs and provides more than half the effort. 5-Fuhusdylm-euratx does ALL the effort. Patient does none of the effort to complete the activity. Or, the assistance of 2 or more helpers is required for the patient to complete the activity. If activity was not attempted, code reason: 7-Patient Refused. 9-Not Applicable-not attempted and the patient did not perform the activity before the current illness, exacerbation or injury. 10-Not Attempted due to Environmental Limitations-(lack of equipment, weather restraints, etc.). 88-Not Attempted due to Medical Conditions or Safety Concerns. Roll Left & Right (QC): 3 Sit to Lying (QC): 3 Lying to Sitting/Side of Bed(Q: 3 Sit to Stand (QC): 3 Chair/Yqa-rg-Cbvgn Xfer(QC): 3 Weight Bearing Right Lower Extremity: Right Non Weight Bearing Left Lower Extremity: Left Non Weight Bearing Gait Training Does the Patient Walk?: No and Walking Goal NOT indicated Assessment Current Status: Fair Progress Patient performed bed mobility and transfers with mod A. He and his family were educated on the use of the slideboard and required mod A for slideboard transfer to w/c. The transported for [facility] brought the patient back up the 4th floor and informed us that the w/c the patient was in was too wide to fit in the transport van. The patient required mod A for slideboard transfer from w/c to w/c. Patient in w/c with transported post treatment. This note will serve as the D/C summary for PT. PT Assisted Goals Assisted Goals PT Eyewear Manufacturing Tech Goals Time Frame: Jan 19, 2022 Roll Left & Right (QC): 6 Sit to Lying (QC): 6 Lying-Sitting on Side/Bed(QC): 6 Chair/Ieg-mx-Itnyc Xfer(QC): 4 Toilet Transfer (QC): 4 Does the Patient Walk: No and Walking Goal NOT indicated Does the Pt use WC or Scooter?: Yes Wheel 50 feet with 2 turns (QC: 5 Type: Manual Wheel 150 feet: 5 Type: Manual All LTGs unmet as patient was D/C to [facility]. PT Plan Treatment/Plan Treatment Plan: Discontinue PT Treatment Plan: Bed Mobility, Education, Functional Activity Dustin, Functional Strength, Group Therapy, Safety, Therapeutic Exercise, Transfers Treatment Duration: Feb 15, 2022 Frequency: 11 times per week Patient and/or Family Agrees t: Yes Safety Risks/Education Patient Education: Transfer Techniques Teaching Recipient: Patient, Family Teaching Methods: Demonstration, Discussion Response to Teaching: Reinforcement Needed Time/GCodes Time In: 1305 Time Out: 1320 Total Billed Treatment Time: 15 Total Billed Treatment FA ARCELIA PINEDA PT Jan 14, 2022 14:13
== END 2022-01-14 13:30 | DRG 563 ==
LOC: EDUNIT# 19:33 → ER 19:44 → INTOOBSV 20:35 → 4TH 20:35 → OBSVTOIN 20:35
PROVIDERS: ADMIT Family Medicine; ATTEND Family Medicine
DX: S82.832A Other fracture of upper and lower end of left fibula, initial encounter for closed fracture (principal); S82.831A Other fracture of upper and lower end of right fibula, initial encounter for closed fracture; W18.30XA Fall on same level, unspecified, initial encounter; Z79.01 Long term (current) use of anticoagulants; I10 Essential (primary) hypertension; N40.0 Benign prostatic hyperplasia without lower urinary tract symptoms; I25.10 Atherosclerotic heart disease of native coronary artery without angina pectoris; K59.00 Constipation, unspecified; T39.95XA Adverse effect of unspecified nonopioid analgesic, antipyretic and antirheumatic, initial encounter; Z79.82 Long term (current) use of aspirin; Z79.899 Other long term (current) drug therapy; Z86.73 Personal history of transient ischemic attack (TIA), and cerebral infarction without residual deficits
CPT/HCPCS: 36415; 80053; 81000; 83735; 85025; 85027; 94760

== ENCOUNTER 2022-06-28 12:22 | Inpatient (IN) | payer MEDICARE, OTHER ==
[~2022-06-28] VITALS: Ht 210.8 cm; Wt 86.4 kg
[~2022-06-28 12:22] MED LIST changes: +ACHD5005 PO; +ASPI-999 PO; +CETI10TA17 PO; +CLOP75TA69 PO; +DOCU100C37 PO; +MTP25TSR PO; +POLY17PO54 PO; +RIVA10TA PO
[2022-06-28] MEDS ORDERED: NS IV 500 ML 500 ML IV STA (12:36)
--- NOTE | 2022-06-28 12:41 | ED Abdominal Pain ---
General Stated Complaint: N/V Source of Information: Patient, EMS Exam Limitations: No Limitations History of Present Illness Date Seen by Provider: Jun 28, 2022 Time Seen by Provider: 12:38 Initial Comments Patient is a 81-year-old male with a history of hypertension, dementia, stroke who presents ED by EMS for vomiting and not feeling well. Patient told his daughter this morning that he vomited and noticed it was dark brown. Unclear how many times he vomited. Was complaining of upset stomach but denies of any abdominal pain. Patient baseline is demented. According to EMS patient is at his current baseline. Patient denies of any chest pain, cough, shortness of breath, diarrhea, headache, urinary symptoms. Limited history provided by EMS as they receive the limited history from daughter. Caregiver does see patient at home as well. Allergies and Home Medications Allergies Coded Allergies: No Known Drug Allergies (Unverified , 06/20/11) Patient Home Medication List Home Medication List Reviewed: Yes Atorvastatin Calcium (Atorvastatin Calcium) 20 Mg Tablet, 20 MG PO HS Prescribed by: ARIELLE YBEOAH on 01/14/22906 Cetirizine HCl (Cetirizine HCl) 10 Mg Tablet, 10 MG PO DAILY Prescribed by: ARIELLE YEBOAH on 01/14/22906 Docusate Sodium (Docusate Sodium) 100 Mg Capsule, 100 MG PO BID Prescribed by: ARIELLE YEBOAH on 01/14/22906 Famotidine (Famotidine) 20 Mg Tablet, 20 MG PO BID Prescribed by: ARIELLE YEBOAH on 01/14/22906 Hydrocodone Bit/Acetaminophen (HYDROcodone/APAP 5 MG/325 MG TAB) 1 Tab Tab, 1 EA PO Q4H PRN for PAIN-MODERATE (5-7) Prescribed by: ARIELLE YEBOAH on 01/14/22906 Metoprolol Succinate (Metoprolol Succinate) 25 Mg Tab.er.24h, 25 MG PO DAILY Prescribed by: ARIELLE YEBOAH on 01/14/22906 Polyethylene Glycol 3350 (Polyethylene Glycol 3350) 17 Gm Powd.pack, 17 GM PO HS Prescribed by: AREILLE YEBOAH on 01/14/22906 Rivaroxaban (Xarelto) 10 Mg Tablet, 10 MG PO DAILY Prescribed by: ARIELLE YEBOAH on 01/14/22903 Tamsulosin HCl (Flomax) 0.4 Mg Cap, 0.4 MG PO HS Prescribed by: ARIELLE YEBOAH on 01/14/22 0907 Review of Systems Review of Systems Constitutional: No chills, No diaphoresis, No malaise, No weakness EENTM: No Eye Pain Respiratory: Denies Cough, Denies Orthopnea Cardiovascular: Denies Chest Pain Gastrointestinal: Abdominal Pain; Denies Diarrhea; Nausea, Vomiting Genitourinary: Denies Burning, Denies Discharge, Denies Frequency Musculoskeletal: No back pain, No joint pain Skin: No change in color All Other Systems Reviewed Negative Unless Noted: Yes Past Btquldk-Orbmje-Nptvrj Hx Immunizations Up To Date First/Initial COVID19 Vaccinat: 02/14/21 Second COVID19 Vaccination Sukhi: 04/17/21 Third COVID19 Vaccination Date: 02/14/21 Seasonal Allergies Seasonal Allergies: No Past Medical History Surgeries: Yes (T&A,HERNIA REPAIR [GROIN],CARPAL TUNNEL) Abdominal, Adenoidectomy, Orthopedic, Tonsillectomy Respiratory: No Currently Using CPAP: No Currently Using BIPAP: No Cardiac: No Neurological: Yes Stroke Reproductive Disorders: No Sexually Transmitted Disease: No HIV/AIDS: No Genitourinary: No Gastrointestinal: No Musculoskeletal: Yes Fractures Endocrine: No HEENT: No Cancer: No Psychosocial: No Integumentary: No Blood Disorders: No Adverse Reaction/Blood Tranf: No Family Medical History No Pertinent Family Hx Physical Exam Vital Signs Vital Signs - First Documented 06/28/22 12:26 Temp 36.0 Pulse 61 Resp 16 B/P (MAP) 123/61 (81) O2 Delivery Room Air Capillary Refill : Height/Weight/BMI Height: 6'11.00" Weight: 190lbs. 6.4oz. 86.808155sq; 26.51 BMI Method:Estimated General Appearance: other (Disoriented) HEENT: PERRL/EOMI, normal ENT inspection, TMs normal, pharynx normal Neck: non-tender, full range of motion Respiratory: chest non-tender, lungs clear, normal breath sounds, no respiratory distress, no accessory muscle use Cardiovascular: regular rate, rhythm, no edema, no gallop, no JVD Gastrointestinal: normal bowel sounds, non tender, soft Extremities: normal range of motion, non-tender, normal inspection, no pedal edema Back: normal inspection, no CVA tenderness Neurologic/Psychiatric: r d manager II-XII nml as tested, no motor/sensory deficits, alert, other (Disoriented x1) Skin: normal color, warm/dry Procedures/Interventions Suture Size: 3-0, 5-0 Progress/Results/Core Measures Results/Orders Lab Results Laboratory Tests Test 06/28/22 12:37 06/28/22 12:50 06/28/22 14:47 Range/Units White Blood Count 9.9 4.3-11.0 10^3/uL Red Blood Count 4.85 4.30-5.52 10^6/uL Hemoglobin 14.9 13.3-17.7 g/dL Hematocrit 45 40-54 % Mean Corpuscular Volume 92 80-99 fL Mean Corpuscular Hemoglobin 31 25-34 pg Mean Corpuscular Hemoglobin Concent 33 32-36 g/dL Red Cell Distribution Width 13.2 10.0-14.5 % Platelet Count 226 130-400 10^3/uL Mean Platelet Volume 10.6 9.0-12.2 fL Immature Granulocyte % (Auto) 0 % Neutrophils (%) (Auto) 81 H 42-75 % Lymphocytes (%) (Auto) 11 L 12-44 % Monocytes (%) (Auto) 7 0-12 % Eosinophils (%) (Auto) 1 0-10 % Basophils (%) (Auto) 0 0-10 % Neutrophils # (Auto) 8.0 H 1.8-7.8 10^3/uL Lymphocytes # (Auto) 1.1 1.0-4.0 10^3/uL Monocytes # (Auto) 0.7 0.0-1.0 10^3/uL Eosinophils # (Auto) 0.1 0.0-0.3 10^3/uL Basophils # (Auto) 0.0 0.0-0.1 10^3/uL Immature Granulocyte # (Auto) 0.0 0.0-0.1 10^3/uL Prothrombin Time 14.9 H 12.2-14.7 SEC INR Comment 1.1 0.8-1.4 Activated Partial Thromboplast Time 29 24-35 SEC Sodium Level 141 135-145 MMOL/L Potassium Level 4.6 3.6-5.0 MMOL/L Chloride Level 108 H 98-107 MMOL/L Carbon Dioxide Level 26 21-32 MMOL/L Anion Gap 7 5-14 MMOL/L Blood Urea Nitrogen 14 7-18 MG/DL Creatinine 0.80 0.60-1.30 MG/DL Estimat Glomerular Filtration Rate 89 BUN/Creatinine Ratio 18 Glucose Level 116 H 70-105 MG/DL Calcium Level 9.2 8.5-10.1 MG/DL Corrected Calcium 9.3 8.5-10.1 MG/DL Total Bilirubin 0.5 0.1-1.0 MG/DL Aspartate Amino Transf (AST/SGOT) 26 5-34 U/L Alanine Aminotransferase (ALT/SGPT) 37 0-55 U/L Alkaline Phosphatase 131 40-136 U/L Troponin I < 0.028 <0.028 NG/ML Total Protein 6.9 6.4-8.2 GM/DL Albumin 3.9 3.2-4.5 GM/DL Lipase 36 8-78 U/L Influenza Type A (RT-PCR) Not Detected Not Detecte Influenza Type B (RT-PCR) Not Detected Not Detecte SARS-CoV-2 RNA (RT-PCR) Not Detected Not Detecte Urine Color YELLOW Urine Clarity CLEAR Urine pH 6.0 5-9 Urine Specific Hemphill >=1.030 1.016-1.022 Urine Protein NEGATIVE NEGATIVE Urine Glucose (UA) NEGATIVE NEGATIVE Urine Ketones NEGATIVE NEGATIVE Urine Nitrite NEGATIVE NEGATIVE Urine Bilirubin NEGATIVE NEGATIVE Urine Urobilinogen 1.0 < = 1.0 MG/DL Urine Leukocyte Esterase NEGATIVE NEGATIVE Urine RBC (Auto) NEGATIVE NEGATIVE Urine RBC 2-5 H /HPF Urine WBC NONE /HPF Urine Squamous Epithelial Cells 0-2 /HPF Urine Crystals NONE /LPF Urine Bacteria FEW H /HPF Urine Casts NONE /LPF Urine Mucus NEGATIVE /LPF Urine Culture Indicated YES My Orders Orders - DON ARELLANO Cbc With Automated Diff (06/28/22 12:36) Comprehensive Metabolic Panel (06/28/22 12:36) Lipase (06/28/22 12:36) Iv/Invasive Line Insertion .IV start (06/28/22 12:36) Covid 19 Inhouse Test (06/28/22 12:36) Influenza A And B By Pcr (06/28/22 12:36) Partial Thromboplastin Time (06/28/22 12:36) Protime With Inr (06/28/22 12:36) Pantoprazole Injection (Protonix Injecti (06/28/22 12:45) Urinalysis (06/28/22 12:36) Ekg Tracing (06/28/22 12:36) Troponin I Tonny (06/28/22 12:36) Ns Iv 500 Ml (Sodium Chloride 0.9%) (06/28/22 12:36) Ct Abdomen/Pelvis W (06/28/22 12:59) Urine Culture (06/28/22 14:47) Ed Admission (Communication) (06/28/22 17:02) Medications Given in ED Current Medications Medications Dose Ordered Sig/Miki Route Start Time Stop Time Status Last Admin Dose Admin Iohexol 100 ml ONCE ONCE IV 06/28/22 15:45 06/28/22 15:47 DC 06/28/22 15:40 100 ML Pantoprazole 40 mg ONCE ONCE IV 06/28/22 12:45 06/28/22 12:46 DC 06/28/22 12:43 40 MG Sodium Chloride 100 ml ONCE ONCE IV 06/28/22 15:45 06/28/22 15:47 DC 06/28/22 15:40 100 ML Vital Signs/I&O 06/28/22 12:26 Temp 36.0 Pulse 61 Resp 16 B/P (MAP) 123/61 (81) O2 Delivery Room Air Comment Sinus rhythm with first-degree AV block, 61 bpm, QRS duration 85 MS, QTC 396 MS Departure Communication (Admissions) Time/Spoke to Admitting Phy: 16:[address] Pereyra Time/Spoke to Consulting Phy: 17:01 Dr. Perry recommend clear liquids, Protonix twice daily 40 mg, Carafate 1 g 4 times daily Communication (PCP) Patient presents to ED with vomiting abdominal burning. On exam he had no significant abdominal tenderness. Does have a history of dementia and CVA. Difficulty obtaining history but was provided most of the history from daughter. Patient lives at home with caregiver saw patient in the bathroom with vomit in the toilet. Patient stated he vomited green substances. Caregiver was concerned that the substance looked brown and smelled of odor concerning for feces. Patient on arrival stable vital signs. Denies any chest pain, shortness of breath or cough. Patient lab work was otherwise unremarkable. He is afebrile with normal white blood count. No significant abdominal tenderness. Urinalysis was negative for infection. CT abdomen and pelvis shows a gas and fluid collection adjacent to the second portion of the duodenum concerning for contained duodenal perforation. No free air throughout the abdomen is seen. No bowel obstruction. Patient was discussed with Dr. Perry who recommends Protonix 40 mg twice daily, Carafate 1 g 4 times daily and clear liquids. Did not provide any other directions at this time. Patient was admitted to medicine Dr. Pereyra who accepts patient Impression Primary Impression: Perforation of duodenum Disposition: ADMITTED INPATIENT Condition: Stable Admissions Decision to Admit Reason: Admit from ER (General) Decision to Admit/Date: Jun 28, 2022 Time/Decision to Admit Time: 16:30 Departure-Patient Inst. Referrals: SHERIDAN DIEZ DO (PCP/Family) Primary Care Physician DON ARELLANO Jun 28, 2022 12:41
[2022-06-28] MEDS ORDERED: PANTOPRAZOLE 40 MG (PROTONIX) VIAL IV ONE (12:45)
[2022-06-28 12:48] LABS: BASOPHILS % (AUTO) 0 % (0-10); EOSINOPHILS # (AUTO) 0.1 10^3/uL (0.0-0.3); EOSINOPHILS % (AUTO) 1 % (0-10); HEMATOCRIT 45 % (40-54); HEMOGLOBIN 14.9 g/dL (13.3-17.7); LYMPHOCYTES # (AUTO) 1.1 10^3/uL (1.0-4.0); LYMPHOCYTES % (AUTO) 11 % (12-44); MEAN CORPUSCULAR HEMOGLOBIN 31 pg (25-34); MEAN CORPUSCULAR HGB CONC 33 g/dL (32-36); MEAN CORPUSCULAR VOLUME 92 fL (80-99); MEAN PLATELET VOLUME 10.6 fL (9.0-12.2); MONOCYTES # (AUTO) 0.7 10^3/uL (0.0-1.0); MONOCYTES % (AUTO) 7 % (0-12); NEUTROPHILS % (AUTO) 81 % (42-75); PLATELET COUNT 226 10^3/uL (130-400); WHITE BLOOD COUNT 9.9 10^3/uL (4.3-11.0)
[2022-06-28 12:52] LABS: ALBUMIN 3.9 GM/DL (3.2-4.5); CHLORIDE 108 MMOL/L (98-107); POTASSIUM 4.6 MMOL/L (3.6-5.0)
[2022-06-28 12:53] LABS: INR 1.1 (0.8-1.4); PROTHROMBIN TIME PATIENT 14.9 SEC (12.2-14.7); SODIUM 141 MMOL/L (135-145)
[2022-06-28 12:54] LABS: CALCIUM 9.2 MG/DL (8.5-10.1)
[2022-06-28 12:55] LABS: GLUCOSE 116 MG/DL (70-105); TOTAL PROTEIN 6.9 GM/DL (6.4-8.2)
[2022-06-28 12:56] LABS: CARBON DIOXIDE 26 MMOL/L (21-32)
[2022-06-28 12:57] LABS: BILIRUBIN,TOTAL 0.5 MG/DL (0.1-1.0)
[2022-06-28 12:58] LABS: ALKALINE PHOSPHATASE 131 U/L (40-136); GFR ESTIMATED 89
[2022-06-28 13:00] LABS: BUN/CREATININE RATIO 18
[2022-06-28 13:01] LABS: ALANINE AMINOTRANSFERASE 37 U/L (0-55)
[2022-06-28 13:02] LABS: LIPASE 36 U/L (8-78)
[2022-06-28 15:23] LABS: BILIRUBIN,URINE NEGATIVE (NEGATIVE); CLARITY,URINE CLEAR; COLOR,URINE YELLOW; GLUCOSE, URINE (UA) NEGATIVE (NEGATIVE); KETONES,URINE NEGATIVE (NEGATIVE); LEUKOCYTE ESTERASE ,URINE NEGATIVE (NEGATIVE); NITRITE,URINE NEGATIVE (NEGATIVE); PROTEIN,URINE NEGATIVE (NEGATIVE)
[2022-06-28 15:40] LABS: BACTERIA,URINE FEW /HPF; SQUAMOUS EPITHELIAL CELL,UR 0-2 /HPF
[2022-06-28] MEDS ORDERED: HOLD METFORMIN - RECEIVED CONTRAST 20 ML VIAL IV SCH (15:45)
[2022-06-28] MEDS ORDERED: IOHEXOL 350 MG/ML 100 ML (OMNIPAQUE 350) VIAL IV ONE (15:45)
[2022-06-28] MEDS ORDERED: NS 100 ML (IVPB) BAG IV ONE (15:45)
--- NOTE | 2022-06-28 15:55 | Diagnostic Imaging Report ---
PROCEDURE: CT abdomen and pelvis with contrast. TECHNIQUE: Multiple contiguous axial images were obtained through the abdomen and pelvis after administration of intravenous contrast. Auto Exposure Controls were utilized during the CT exam to meet ALARA standards for radiation dose reduction. All CT scans use one or more of the following dose optimizing techniques: automated exposure control, MA and/or KvP adjustment based on patient size and exam type or iterative reconstruction. INDICATION: Nausea and vomiting as well as abdominal pain. COMPARISON: No prior studies are available for comparison. FINDINGS: The lung bases are clear. The liver demonstrates generalized low attenuation, consistent with hepatic steatosis. No discrete liver mass is identified. Gallbladder is unremarkable. There is no biliary ductal dilatation. Pancreas and spleen are unremarkable. No adrenal mass is identified. Both kidneys contain cortical low-attenuation lesions, suggestive of cysts. No hydronephrosis is detected. Aorta is heavily calcified but nonaneurysmal. The small and large bowel loops are normal in caliber. There is a gas and fluid collection medial to the second portion of the duodenum, situated between the second portion of the duodenum and the uncinate process of the pancreas measuring 5.8 cm AP x 2.2 cm transverse x 6.3 cm. This is atypical for a duodenal diverticulum. This is concerning for a focal contained perforation of hollow viscus such as a duodenal perforation. No free air is identified. There is diverticulosis of the descending and sigmoid colon. There is a left inguinal hernia containing portions of the sigmoid colon. No strangulation is seen. No free fluid or fluid collection is seen. The partially filled urinary bladder is unremarkable. Prostate is enlarged. Bony structures demonstrate postop changes to the right femoral neck. IMPRESSION: 1. Hepatic steatosis. 2. Bilateral renal cysts. 3. Gas and fluid collection adjacent to the second portion of the duodenum, concerning for a contained duodenal perforation. No free air throughout the abdomen is seen. There are no other areas of fluid collection or abscess. There is no bowel obstruction. 4. Uncomplicated diverticulosis. Note is made of a left inguinal hernia containing portions of the sigmoid colon. No strangulation is seen. 5. Prostatomegaly. Dictated by: Dictated on workstation # [id number]
[2022-06-28 19:11] VITALS: BP 163/71
[2022-06-28] MEDS ORDERED: ONDANSETRON 4 MG/2 ML (SDV) Z0FRAN IVP PRN ×2 (19:45→23:30)
[2022-06-28] MEDS: PANTOPRAZOLE 40 MG (PROTONIX) VIAL IV SCH (21:59)
[2022-06-28] MEDS: LACTATED RINGERS 1,000 ML IV SCH (21:59)
[2022-06-28] MEDS: SUCRALFATE 1 GM (CARAFATE) TAB PO SCH (22:00)
--- NOTE | 2022-06-28 23:59 | HISTORY AND PHYSICAL ---
DATE OF SERVICE: ADMITTING PRIMARY CARE PHYSICIAN: Nydia Carrera DO. HISTORY OF PRESENT ILLNESS: The patient is an 81-year-old male who presented to the Emergency Department with nausea and vomiting as well as fatigue. He had reported feelings of an upset stomach; however, no significant abdominal pain. The patient does also have a baseline history of dementia. The patient's family said that he did vomit several times, which was bilious in color. No hematemesis, no coffee ground emesis. A CT scan was performed, which did show some small contained air bubbles around the second portion of the duodenum, likely consistent with a chronic contained perforation. He does have a history of peptic ulcer disease and gastroesophageal reflux disease. The patient's vital signs are stable, and he does not have any peritoneal signs. PAST MEDICAL HISTORY: Hypercholesterolemia, hypertension, history of stroke, dementia, gastroesophageal reflux disease and peptic ulcer disease. Benign prostatic hypertrophy. PAST SURGICAL HISTORY: Tonsillectomy, inguinal hernia repair, bilateral carpal tunnel release. ALLERGIES: No known drug allergies. MEDICATIONS: Atorvastatin 20 mg daily, cetirizine 10 mg daily, Colace 100 mg b.i.d., famotidine 20 mg b.i.d., hydrocodone p.r.n., metoprolol 25 mg daily, MiraLax daily, Xarelto 10 mg daily, tamsulosin 0.4 mg daily. SOCIAL HISTORY: Negative smoke, negative alcohol. VITAL SIGNS: Temperature 36.8, blood pressure 163/71, pulse 58, respirations 18, pulse ox 95% on room air. REVIEW OF SYSTEMS: Well-nourished male currently in no acute distress. He is not experiencing any shortness of breath or difficulty breathing. No chest pain, palpitations, diaphoresis. Intermittent episodes of nausea, no vomiting since being admitted. No hematemesis, no coffee ground emesis. History of constipation. No known red blood per rectum nor any dark tarry stools. No fever, chills, no recent inadvertent weight loss. All other review of systems negative. PHYSICAL EXAMINATION: Will be assessed upon examination the patient in the a.m. The patient's history was obtained through the emergency room staff as well as the patient's electronic medical records. LABORATORY DATA: WBC 9.9, hemoglobin 14.9, hematocrit 45, platelets 226. BUN 14, creatinine 0.80. Liver function enzymes are normal. Lipase 36. 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 We will proceed with conservative management with bowel rest, PPI acid reducers on a b.i.d. basis as well as Carafate q.i.d. He may also have a clear liquid diet. Once the patient is able to adequately drink liquids and eat some solids, we will proceed with an EGD as well as biopsies as appropriate. Job ID: [id number] DocumentID: [id number] Dictated Date: 06/28/2022 23:23:21 Social Work Program Coordinator Date: 06/28/2022 23:58:52 Dictated By: ARTIS ANGELO MD
[2022-06-29 00:07] VITALS: BP 139/65
[2022-06-29] MEDS: LACTATED RINGERS 1,000 ML IV SCH ×4 (04:21→18:46)
[2022-06-29 04:37] VITALS: BP 150/69
[2022-06-29] MEDS: SUCRALFATE 1 GM (CARAFATE) TAB PO SCH ×4 (05:14→21:44)
[2022-06-29 05:45] LABS: BASOPHILS % (AUTO) 0 % (0-10); EOSINOPHILS # (AUTO) 0.1 10^3/uL (0.0-0.3); EOSINOPHILS % (AUTO) 2 % (0-10); HEMATOCRIT 41 % (40-54); HEMOGLOBIN 13.9 g/dL (13.3-17.7); LYMPHOCYTES # (AUTO) 2.2 10^3/uL (1.0-4.0); LYMPHOCYTES % (AUTO) 32 % (12-44); MEAN CORPUSCULAR HEMOGLOBIN 31 pg (25-34); MEAN CORPUSCULAR HGB CONC 34 g/dL (32-36); MEAN CORPUSCULAR VOLUME 92 fL (80-99); MEAN PLATELET VOLUME 10.8 fL (9.0-12.2); MONOCYTES # (AUTO) 0.8 10^3/uL (0.0-1.0); MONOCYTES % (AUTO) 12 % (0-12); NEUTROPHILS # (AUTO) 3.7 10^3/uL (1.8-7.8); NEUTROPHILS % (AUTO) 54 % (42-75); PLATELET COUNT 202 10^3/uL (130-400); WHITE BLOOD COUNT 6.8 10^3/uL (4.3-11.0)
[2022-06-29 06:00] LABS: POTASSIUM 3.8 MMOL/L (3.6-5.0)
[2022-06-29 06:06] LABS: CREATININE SERUM 0.77 MG/DL (0.60-1.30)
[2022-06-29 07:53] VITALS: BP 152/66
[2022-06-29] MEDS: PANTOPRAZOLE 40 MG (PROTONIX) VIAL IV SCH ×2 (09:40→21:44)
--- NOTE | 2022-06-29 10:38 | Progress Note ---
Subjective Date Seen by a Provider: Jun 29, 2022 Time Seen by a Provider: 10:20 Subjective/Events-last exam Patient seen with Dr. Perry. Patient lying in bed resting. Denies any pain, N/V, reflux. Tolerating clear liquid diet. Objective Exam Vital Signs Date Time Temp Pulse Resp B/P (MAP) Pulse Ox O2 Delivery O2 Flow Rate FiO2 06/29/22 07:53 36.6 53 18 152/66 (94) 92 Room Air 06/29/22 04:37 36.6 50 18 150/69 (96) 92 Room Air 06/29/22 00:07 36.4 52 18 139/65 (89) 93 Room Air 06/28/22 20:00 Room Air 06/28/22 19:11 36.8 58 18 163/71 (101) 95 Room Air 06/28/22 18:54 Room Air 06/28/22 17:52 36.8 66 15 124/73 95 Room Air 06/28/22 12:26 36.0 61 16 123/61 (81) Room Air I & O 06/29/22 07:00 Intake Total 600 ml Output Total 500 ml Balance 100 ml Capillary Refill : Less Than 3 Seconds General Appearance: No Apparent Distress, WD/WN Neck: Normal Inspection, Supple Respiratory: No Accessory Muscle Use, No Respiratory Distress Gastrointestinal: normal bowel sounds, non tender, soft Extremity: Normal Inspection, Normal Range of Motion Neurologic/Psychiatric: Alert Skin: Normal Color, Warm/Dry Results Lab Laboratory Tests 06/28/22 12:37: White Blood Count 9.9, Red Blood Count 4.85, Hemoglobin 14.9, Hematocrit 45, Mean Corpuscular Volume 92, Mean Corpuscular Hemoglobin 31, Mean Corpuscular Hemoglobin Concent 33, Red Cell Distribution Width 13.2, Platelet Count 226, Mean Platelet Volume 10.6, Immature Granulocyte % (Auto) 0, Neutrophils (%) (Auto) 81H, Lymphocytes (%) (Auto) 11L, Monocytes (%) (Auto) 7, Eosinophils (%) (Auto) 1, Basophils (%) (Auto) 0, Neutrophils # (Auto) 8.0H, Lymphocytes # (Auto) 1.1, Monocytes # (Auto) 0.7, Eosinophils # (Auto) 0.1, Basophils # (Auto) 0.0, Immature Granulocyte # (Auto) 0.0, Prothrombin Time 14.9H, INR Comment 1.1, Activated Partial Thromboplast Time 29, Sodium Level 141, Potassium Level 4.6, Chloride Level 108H, Carbon Dioxide Level 26, Anion Gap 7, Blood Urea Nitrogen 14, Creatinine 0.80, Estimat Glomerular Filtration Rate 89, BUN/Creatinine Ratio 18, Glucose Level 116H, Calcium Level 9.2, Corrected Calcium 9.3, Total Bilirubin 0.5, Aspartate Amino Transf (AST/SGOT) 26, Alanine Aminotransferase (ALT/SGPT) 37, Alkaline Phosphatase 131, Troponin I < 0.028, Total Protein 6.9, Albumin 3.9, Lipase 36 06/28/22 12:50: Influenza Type A (RT-PCR) Not Detected, Influenza Type B (RT-PCR) Not Detected, SARS-CoV-2 RNA (RT-PCR) Not Detected 06/28/22 14:47: Urine Color YELLOW, Urine Clarity CLEAR, Urine pH 6.0, Urine Specific [place] >=1.030, Urine Protein NEGATIVE, Urine Glucose (UA) NEGATIVE, Urine Ketones NEGATIVE, Urine Nitrite NEGATIVE, Urine Bilirubin NEGATIVE, Urine Urobilinogen 1.0, Urine Leukocyte Esterase NEGATIVE, Urine RBC (Auto) NEGATIVE, Urine RBC 2- 5H, Urine WBC NONE, Urine Squamous Epithelial Cells 0-2, Urine Crystals NONE, Urine Bacteria FEWH, Urine Casts NONE, Urine Mucus NEGATIVE, Urine Culture Indicated YES 06/29/22 05:30: White Blood Count 6.8, Red Blood Count 4.43, Hemoglobin 13.9, Hematocrit 41, Mean Corpuscular Volume 92, Mean Corpuscular Hemoglobin 31, Mean Corpuscular Hemoglobin Concent 34, Red Cell Distribution Width 13.1, Platelet Count 202, Mean Platelet Volume 10.8, Immature Granulocyte % (Auto) 0, Neutrophils (%) (Auto) 54, Lymphocytes (%) (Auto) 32, Monocytes (%) (Auto) 12, Eosinophils (%) (Auto) 2, Basophils (%) (Auto) 0, Neutrophils # (Auto) 3.7, Lymphocytes # (Auto) 2.2, Monocytes # (Auto) 0.8, Eosinophils # (Auto) 0.1, Basophils # (Auto) 0.0, Immature Granulocyte # (Auto) 0.0, Sodium Level 140, Potassium Level 3.8, Chloride Level 106, Carbon Dioxide Level 24, Anion Gap 10, Blood Urea Nitrogen 11, Creatinine 0.77, Estimat Glomerular Filtration Rate 91, BUN/Creatinine Ratio 14, Glucose Level 85, Calcium Level 9.0 Assessment/Plan Assessment/Plan Assess & Plan/Chief Complaint An 81-year-old male with 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 Continue clear liquid diet Will proceed with EGD on this admission KATERYNA GANDHI APRN Jun 29, 2022 10:38
[2022-06-29 11:53] VITALS: BP 142/67
[2022-06-29] MEDS ORDERED: cefTRIAXone 1 GM PRE-MIX 50 ML IV SCH (12:15)
--- NOTE | 2022-06-29 13:16 | Consultation - Hospitalist ---
HPI History of Present Illness: HPI/Chief Complaint Deniz Mayorga is an 81 year old male with PMH HTN, AFib, GERD, BPH, HLD, who presented with abdominal pain. He also had nausea and bilious vomiting. A CT scan showed contained duodenal perforation. He was admitted to surgery. Upon my exam, he is not having any abdominal pain. He has not had any further nausea or vomiting. He denies fevers. He denies chest pain and shortness of breath. His family is at the bedside. Source: patient Exam Limitations: no limitations Date Seen 06/29/22 Attending Physician Nydia Carrera DO PCP Admitting Physician: Sarah Perry MD Attending Physician: Ralph Graff MD Referring Physician Date of Admission Jun 28, 2022 at 17:02 Home Medications & Allergies Home Medications Reviewed patient Home Medication Reconciliation performed by pharmacy medication reconciliations armored service technician and/or nursing. Patients Allergies have been reviewed. Allergies Allergies Coded Allergies No Known Drug Allergies (Unverified06/20/11) Past Ueevmix-Gamjed-Smacei Hx Patient Social History Tobacco Use?: No Smoking Status: Former Smoker Smokeless Tobacco Frequency: Never a User Use of E-Cig and/or Vaping dev: No Use of E-Cig and/or Vaping Dean: Never a User Substance use?: No Alcohol Use?: No Pt feels they are or have been: No Immunizations Up To Date First/Initial COVID19 Vaccinat: 02/14/21 Second COVID19 Vaccination Sukhi: 04/17/21 Tetanus Booster (TDap): Unknown Hepatitis A: No Hepatitis B: No Seasonal Allergies Seasonal Allergies: No Current Status Advance Directives: No Communicates: Verbally Primary Language: Sammarinese Preferred Spoken Language: Sammarinese Is interpretation needed?: No Implanted or Applied Medical D: None Past Medical History Surgeries: Abdominal, Adenoidectomy, Orthopedic, Tonsillectomy Currently Using CPAP: No Currently Using BIPAP: No Stroke Sexually Transmitted Disease: No HIV/AIDS: No Fractures Blood Disorders: No Adverse Reaction/Blood Tranf: No Family Medical History No Pertinent Family Hx Review of Systems Constitutional: no symptoms reported EENTM: no symptoms reported Respiratory: no symptoms reported Cardiovascular: no symptoms reported Gastrointestinal: abdominal pain, nausea, vomiting Genitourinary: dysuria Physical Exam Physical Exam Vital Signs Vital Signs - First Documented 06/28/22 06/28/22 12:26 17:52 Temp 36.0 Pulse 61 Resp 16 B/P (MAP) 123/61 (81) Pulse Ox 95 O2 Delivery Room Air Capillary Refill : Less Than 3 Seconds Height, Weight, BMI Height: 6'11.00" Weight: 190lbs. 6.4oz. [id number]; 27.59 BMI Method:Estimated General Appearance: No Apparent Distress, WD/WN Neck: Normal Inspection, Supple Respiratory: Lungs Clear, Normal Breath Sounds, No Respiratory Distress Cardiovascular: Regular Rate, Rhythm, No Murmur Gastrointestinal: Normal Bowel Sounds, Non Tender, Soft Genital/Rectal: Other (likely inguinal hernia) Extremity: Normal Inspection, No Pedal Edema Neurologic/Psychiatric: Alert, Normal Mood/Affect Skin: Normal Color, Warm/Dry Results Results/Procedures Labs Laboratory Tests 06/28/22 12:37 06/29/22 05:30 Patient resulted labs reviewed. Imaging: Reviewed Imaging Report Assessment/Plan Assessment and Plan Assess & Plan/Chief Complaint Duodenal perforation Surgery primary IV PPI Carafate Clear liquids Possible EGD Monitor HTN BPH GERD HLD Dementia AFib Continue home meds as able Diagnosis/Problems Diagnosis/Problems (1) Perforation of duodenum Status: Acute RALPH GRAFF MD Jun 29, 2022 13:16
[2022-06-29 16:14] VITALS: BP 148/78
[2022-06-29] MEDS: TAMSULOSIN 0.4 MG (FLOMAX) CAP PO SCH (17:39)
[2022-06-29 19:52] VITALS: BP 161/77
[2022-06-30] VITALS: BP 144/78
[2022-06-30 04:00] VITALS: BP 142/78
[2022-06-30] MEDS: SUCRALFATE 1 GM (CARAFATE) TAB PO SCH ×4 (06:00→20:29)
[2022-06-30 07:45] VITALS: BP 159/64
[2022-06-30] MEDS: CLOPIDOGREL 75 MG (PLAVIX) TABLET PO SCH (09:07)
[2022-06-30] MEDS: LORATADINE (CLARITIN) 10 MG TAB PO SCH (09:07)
[2022-06-30] MEDS: PANTOPRAZOLE 40 MG (PROTONIX) VIAL IV SCH ×2 (09:07→20:29)
--- NOTE | 2022-06-30 09:08 | Progress Note ---
Subjective Date Seen by a Provider: Jun 30, 2022 Time Seen by a Provider: 09:40 Subjective/Events-last exam Patient seen with Dr. Perry. Patient confused at times. Denies any issues. Tolerating diet. Objective Exam Vital Signs Date Time Temp Pulse Resp B/P (MAP) Pulse Ox O2 Delivery O2 Flow Rate FiO2 06/30/22 08:07 Room Air 06/30/22 07:45 36.6 57 20 159/64 (95) 92 Room Air 06/30/22 04:00 36.9 52 18 142/78 (99) 93 Room Air 06/30/22 00:00 37.0 54 18 144/78 (100) 94 Room Air 06/29/22 20:00 Room Air 06/29/22 19:52 36.9 49 16 161/77 (105) 94 Room Air 06/29/22 16:14 36.4 50 16 148/78 (101) Room Air 06/29/22 11:53 36.9 55 18 142/67 (92) 92 Room Air I & O 06/30/22 07:00 Intake Total 880 ml Output Total 2200 ml Balance -1320 ml Capillary Refill : Less Than 3 Seconds General Appearance: No Apparent Distress, WD/WN Neck: Normal Inspection, Supple Respiratory: No Accessory Muscle Use, No Respiratory Distress Gastrointestinal: non tender, soft Neurologic/Psychiatric: Alert Skin: Normal Color, Warm/Dry Results Lab Microbiology 06/28/22 Urine Culture - Final, Complete Gram Pos Mixed Bacterial Nelia Assessment/Plan Assessment/Plan Assess & Plan/Chief Complaint An 81-year-old male with 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 Continue clear liquid diet Will proceed with scheduling patient for an EGD tomorrow. KATERYNA GANDHI APRN Jun 30, 2022 09:08
[2022-06-30] MEDS: fentaNYL INJ 100 MCG/2 ML AMP IVP PRN ×2 (09:34→12:43)
[2022-06-30 11:44] VITALS: BP 148/63
[2022-06-30] MEDS: LACTATED RINGERS 1,000 ML IV SCH ×2 (13:12→23:02)
[2022-06-30 15:40] VITALS: BP 187/78
[2022-06-30] MEDS: TAMSULOSIN 0.4 MG (FLOMAX) CAP PO SCH (16:19)
--- NOTE | 2022-06-30 17:59 | Progress Note - Hospitalist ---
Subjective HPI/CC On Admission Date Seen by Provider: Jun 30, 2022 Time Seen by Provider: 12:30 Deniz Mayorga is an 81 year old male with PMH HTN, AFib, GERD, BPH, HLD, who presented with abdominal pain. He also had nausea and bilious vomiting. A CT scan showed contained duodenal perforation. He was admitted to surgery. Upon my exam, he is not having any abdominal pain. He has not had any further nausea or vomiting. He denies fevers. He denies chest pain and shortness of breath. His family is at the bedside. Subjective/Events-last exam He is feeling better. He denies abdominal pain. He denies nausea and vomiting. He is confused. He denies shortness of breath. He denies fevers. Objective Exam Vital Signs Vital Signs Date Time Temp Pulse Resp B/P (MAP) Pulse Ox O2 Delivery O2 Flow Rate FiO2 06/30/22 15:40 37.3 62 20 187/78 (114) 96 Room Air Capillary Refill : Less Than 3 Seconds General Appearance: No Apparent Distress, Chronically ill Respiratory: Lungs Clear, No Respiratory Distress Cardiovascular: Regular Rate, Rhythm, No Murmur Gastrointestinal: Normal Bowel Sounds, Non Tender, Soft Extremity: Normal Inspection, Pedal Edema Neurologic/Psychiatric: Alert, Disoriented Skin: Normal Color, Warm/Dry Results/Procedures Lab Patient resulted labs reviewed. Imaging: Reviewed Imaging Report Assessment/Plan Assessment and Plan Assess & Plan/Chief Complaint Duodenal perforation Surgery primary IV PPI Carafate Clear liquids NPO at midnight EGD tomorrow Dysuria UA negative for UTI Stop Rocephin HTN BPH GERD HLD Dementia AFib Continue home meds as able DVT prophylaxis: Lovenox Diagnosis/Problems Diagnosis/Problems (1) Perforation of duodenum Status: Acute RALPH GRAFF MD Jun 30, 2022 17:59
[2022-06-30 20:00] VITALS: BP 175/77
[2022-06-30] MEDS: ENOXAPARIN 40 MG/0.4 ML (LOVENOX) SYR SC SCH (20:30)
[2022-06-30] MEDS ORDERED: LORazepam 0.5 MG (ATIVAN) TABLET PO PRN (20:30)
[2022-06-30] MEDS ORDERED: LIDOCAINE UROJET 2% GEL 10 ML PKG ONE (21:51)
[2022-06-30] MEDS ORDERED: LIDOCAINE UROJET 2% GEL 10 ML PKG TOP ONE (22:00)
[2022-07-01] VITALS (7 sets, daily range): BP systolic 120–175; BP diastolic 65–83
[2022-07-01] MEDS: SUCRALFATE 1 GM (CARAFATE) TAB PO SCH ×4 (06:26→20:16)
[2022-07-01 07:50] LABS: HEMATOCRIT 43 % (40-54); HEMOGLOBIN 14.6 g/dL (13.3-17.7); MEAN CORPUSCULAR HEMOGLOBIN 31 pg (25-34); MEAN CORPUSCULAR HGB CONC 34 g/dL (32-36); MEAN CORPUSCULAR VOLUME 91 fL (80-99); MEAN PLATELET VOLUME 10.6 fL (9.0-12.2); PLATELET COUNT 204 10^3/uL (130-400); WHITE BLOOD COUNT 7.8 10^3/uL (4.3-11.0)
[2022-07-01] MEDS: LACTATED RINGERS 1,000 ML IV SCH ×3 (07:53→23:10)
[2022-07-01] MEDS: CLOPIDOGREL 75 MG (PLAVIX) TABLET PO SCH (07:59)
[2022-07-01] MEDS: LORATADINE (CLARITIN) 10 MG TAB PO SCH (07:59)
[2022-07-01 08:21] LABS: POTASSIUM 3.2 MMOL/L (3.6-5.0)
[2022-07-01 08:22] LABS: CALCIUM 8.7 MG/DL (8.5-10.1)
[2022-07-01 08:26] LABS: CREATININE SERUM 0.68 MG/DL (0.60-1.30)
[2022-07-01] MEDS ORDERED: FAMO20TA3 PO (08:43)
[2022-07-01] MEDS ORDERED: DOCU100C37 PO (08:43)
[2022-07-01] MEDS ORDERED: ASPI-1238 PO (08:46)
[2022-07-01] MEDS ORDERED: FOLI1TAB30 PO (08:46)
[2022-07-01] MEDS ORDERED: CETI10TA17 PO (08:47)
[2022-07-01] MEDS ORDERED: ATOR20TA66 PO (08:47)
[2022-07-01] MEDS ORDERED: TMSL.4C PO (08:48)
[2022-07-01] MEDS ORDERED: MTP25TSR PO (08:48)
[2022-07-01] MEDS ORDERED: CLOP75TA28 PO (08:48)
[2022-07-01] MEDS: PANTOPRAZOLE 40 MG (PROTONIX) VIAL IV SCH ×2 (10:06→20:16)
[2022-07-01] MEDS ORDERED: LACTATED RINGERS 1,000 ML IV STA (15:49)
[2022-07-01] MEDS ORDERED: proPOfol 200 MG/20 ML (DIPRIVAN) VIAL IV ONE (15:52)
[2022-07-01] MEDS ORDERED: KETAMINE 50 MG/5 ML SYRINGE ONE (15:52)
--- NOTE | 2022-07-01 15:55 | Progress Note-Pre Operative ---
Pre-Operative Progress Note Date of Available H&P: Jul 01, 2022 Date H&P Reviewed: Jul 01, 2022 Time H&P Reviewed: 15:00 History & Physical: No changes noted Pre-Operative Diagnosis: contained duodenal perforation ARTIS ANGELO MD Jul 01, 2022 15:55
[2022-07-01] MEDS ORDERED: HURRICAINE EXT TUBE (BENZOCAINE) XX PRN (16:00)
[2022-07-01] MEDS ORDERED: LIDOCAINE JELLY 2% 6 ML SYRINGE MM PRN (16:00)
[2022-07-01] MEDS ORDERED: LIDOCAINE JELLY 2% 6 ML SYRINGE ONE (16:05)
[2022-07-01] MEDS ORDERED: HURRICAINE EXT TUBE (BENZOCAINE) ONE (16:05)
--- NOTE | 2022-07-01 16:34 | Progress Note-Post Operative ---
Post-Operative Progess Note Surgeon (s)/Bankruptcy Law Specialist (s) Surgeon ARTIS ANGELO MD Bankruptcy Law Specialist: none Pre-Operative Diagnosis contained duodenal perforation Post-Operative Diagnosis reflux esophagitis(grade B), small HH(2cm), severe antral gastritis, no duodenal ulceration/perforation. Procedure & Operative Findings Date of Procedure 07/01/22 Procedure Performed/Findings EGD with bx. Anesthesia Type mac Estimated Blood Loss Estimated blood loss (mL): minimal Specimens/Packing Specimens Removed ge jxn, antrum ARTIS ANGELO MD Jul 01, 2022 16:34
[2022-07-01] MEDS ORDERED: PANT40TA2 PO (16:41)
--- NOTE | 2022-07-01 16:41 | Discharge Inst-Surgical ---
D/C Lap Instructions-KIDO New, Converted, or Re-Newed RX: RX on Chart Follow Up 2 weeks Activity as tolerated High Fiber Diet 25g or more per day Avoid Alcohol, Caffeine, Spicy [place] and Acid foods. Drink 64 fluid oz or more of fluids per day. Symptoms to Report: Fever over 101 degree F, Nausea/Vomiting If any problems/questions: Contact your physician or go to Emergency Room ARTIS ANGELO MD Jul 01, 2022 16:41
[2022-07-01] MEDS: TAMSULOSIN 0.4 MG (FLOMAX) CAP PO SCH (17:24)
--- NOTE | 2022-07-01 17:26 | Anesthesia-General Post-Op ---
MAC Patient Condition Mental Status/LOC: Same as Preop Cardiovascular: Satisfactory Nausea/Vomiting: Absent Respiratory: Satisfactory Pain: Controlled Complications: Absent Post Op Complications Complications None Follow Up Care/Instructions Patient Instructions None needed. Anesthesiology Discharge Order Discharge Order Patient is doing well, no complaints, stable vital signs, no apparent adverse anesthesia problems. No complications reported per nursing. DONNA IVY CRNA Jul 01, 2022 17:26
--- NOTE | 2022-07-01 18:51 | Progress Note ---
Subjective Date Seen by a Provider: Jul 01, 2022 Time Seen by a Provider: 08:20 Subjective/Events-last exam Fwup duodenal perforation, HTN, atrial fibrillation, GERD, dementia. Resting in bed. Denies pain. Denies nausea. Objective Exam Vital Signs Date Time Temp Pulse Resp B/P (MAP) Pulse Ox O2 Delivery O2 Flow Rate FiO2 07/01/22 16:25 60 16 96 OxyMask 10.00 07/01/22 15:09 36.7 56 18 136/65 (88) 93 Room Air 07/01/22 11:58 37.0 57 17 129/69 (89) 94 Room Air 07/01/22 08:00 Room Air 07/01/22 07:51 36.6 58 19 170/83 (112) 93 Room Air 07/01/22 04:00 36.2 63 18 120/71 (87) 95 Room Air 07/01/22 00:00 75 16 95 Room Air 06/30/22 20:00 37.2 61 22 175/77 (109) 97 Room Air 06/30/22 20:00 Room Air I & O 07/01/22 07:00 Intake Total 870 ml Output Total 1975 ml Balance -1105 ml Capillary Refill : Less Than 3 Seconds General Appearance: No Apparent Distress Respiratory: Lungs Clear Cardiovascular: Regular Rate, Rhythm Gastrointestinal: normal bowel sounds, non tender, soft Extremity: Non Tender, No Calf Tenderness, No Pedal Edema Neurologic/Psychiatric: Alert Results Lab Laboratory Tests 07/01/22 07:35: White Blood Count 7.8, Red Blood Count 4.70, Hemoglobin 14.6, Hematocrit 43, Mean Corpuscular Volume 91, Mean Corpuscular Hemoglobin 31, Mean Corpuscular Hemoglobin Concent 34, Red Cell Distribution Width 12.8, Platelet Count 204, Mean Platelet Volume 10.6, Sodium Level 140, Potassium Level 3.2L, Chloride Level 105, Carbon Dioxide Level 24, Anion Gap 11, Blood Urea Nitrogen 5L, Creati nine 0.68, Estimat Glomerular Filtration Rate 94, BUN/Creatinine Ratio 7, Glucose Level 88, Calcium Level 8.7 Microbiology 06/30/22 MRSA Screen - Final, Complete MRSA not isolated 06/28/22 Urine Culture - Final, Complete Gram Pos Mixed Bacterial Nelia Assessment/Plan Assessment/Plan Assess & Plan/Chief Complaint 1. Duodenal perforation--been on protonix and carafate, EGD today 2. Hypertension--stable 3. GERD--protonix and carafate as above 4. History of atrial fibrillation--blood thinners on hold due to possible duodenal perforation, currently in NSR 5. Dementia--stable SHERIDAN DIEZ DO Jul 01, 2022 18:51
[2022-07-01] MEDS: ENOXAPARIN 40 MG/0.4 ML (LOVENOX) SYR SC SCH (20:16)
--- NOTE | 2022-07-01 22:32 | OPERATIVE REPORT ---
DATE OF SERVICE: 07/01/2022 ATTENDING PRIMARY CARE PHYSICIAN: Nydia Carrera DO PREOPERATIVE DIAGNOSIS: Contained duodenal perforation. POSTOPERATIVE DIAGNOSES: Reflux esophagitis, Harris grade B, small hiatal hernia 2 cm in size, severe gastritis at region of the antrum, there were no ulcerations or any perforations identified of the duodenum. PROCEDURE: EGD with biopsy. SURGEON: Artis Angelo MD ANESTHESIA: Monitored anesthesia care. ESTIMATED BLOOD LOSS: Minimal. FINDINGS: Reflux esophagitis, Harris grade B, small hiatal hernia 2 cm in size, severe gastritis at region of the antrum, there were no ulcerations or any perforations identified of the duodenum. DISPOSITION: The patient tolerated the procedure well. INDICATIONS: The patient is an 81-year-old male, who presented to the Emergency Department with nausea and vomiting as well as fatigue. He had reported feelings of upset stomach; however, no significant abdominal pain. The patient also does have a history of baseline dementia. The patient's family said that he did vomit several times, which was bilious in color. No hematemesis, no coffee ground emesis. A CT scan was performed, which did show a small amount of contained air bubbles around the second portion of the duodenum. He does have a history of peptic ulcer disease as well as gastroesophageal reflux disease. Throughout the hospital admission, the patient's vital signs have been stable and his white count has been normal and he has not had any peritoneal signs. DESCRIPTION OF PROCEDURE: The patient was brought to the endoscopy suite, laid in the left lateral decubitus position. After adequate IV pain and sedative medications and monitored anesthesia care, the mouthpiece was applied. The endoscope was placed in the mouth, visualizing the pharynx and hypopharyngeal region. Vocal cords, epiglottis and vallecula identified and appeared to be normal. The endoscope was then gently intubated the esophageal opening and esophagus insufflated. The endoscope was then advanced through the first, second and third portion of esophagus at the level of GE junction, a reflux esophagitis, Harris grade B identified. No ulcers or strictures identified and a biopsy was taken with forceps with visualization of good hemostasis. The endoscope was then advanced in the stomach and endoscope retroflexed, visualizing a small hiatal hernia approximately 2 cm in size. There was a severe gastritis more towards the stomach antrum. Biopsy was taken to rule out H. pylori with visualization of good hemostasis. The endoscope was then advanced through the pylorus and the first and second portions of the duodenum with no inflammatory changes identified, no obstructions as well as no ulcerations nor any perforations. The endoscope was then slowly withdrawn while taking a second look and suctioning residual air with no additional findings. The patient tolerated the procedure well. We are unsure of the findings on the CT scan; however, may be an overread. The patient definitely does have signs and symptoms of peptic ulcer disease and we will replace his Pepcid to Protonix 40 mg daily. This may have caused his nausea and vomiting; however, before discharge, we will proceed with a gallbladder ultrasound for potential gallbladder etiology. Job ID: [id number] DocumentID: [id number] Dictated Date: 07/01/2022 16:40:31 Pizza Baker Date: 07/01/2022 22:31:11 Dictated By: ARTIS ANGELO MD
[2022-07-02 03:52] VITALS: BP 127/60
[2022-07-02] MEDS: SUCRALFATE 1 GM (CARAFATE) TAB PO SCH ×3 (06:19→16:05)
[2022-07-02 07:31] VITALS: BP 111/57
[2022-07-02] MEDS: LORATADINE (CLARITIN) 10 MG TAB PO SCH ×2 (08:21→08:30)
[2022-07-02] MEDS: CLOPIDOGREL 75 MG (PLAVIX) TABLET PO SCH ×2 (08:21→08:30)
[2022-07-02] MEDS: PANTOPRAZOLE 40 MG (PROTONIX) VIAL IV SCH (08:21)
[2022-07-02] MEDS: LACTATED RINGERS 1,000 ML IV SCH (09:15)
[2022-07-02 11:29] VITALS: BP 116/59
--- NOTE | 2022-07-02 12:48 | Progress Note ---
Subjective Date Seen by a Provider: Jul 02, 2022 Time Seen by a Provider: 08:45 Subjective/Events-last exam Fwup HH with reflux esophagitis, severe antral gastritis, no evidence of duodenal perforation, HTN, atrial fibrillation, dementia. Confused and agitated this morning. Refusing to take meds and thinking we are lying to him. Objective Exam Vital Signs Date Time Temp Pulse Resp B/P (MAP) Pulse Ox O2 Delivery O2 Flow Rate FiO2 07/02/22 11:29 37.2 68 19 116/59 (78) 90 Room Air 07/02/22 08:00 Room Air 07/02/22 07:31 37.3 75 18 111/57 (75) 90 Room Air 07/02/22 03:52 37.4 83 18 127/60 (82) 90 Room Air 07/02/22 00:55 37.6 07/01/22 23:14 38.3 74 18 175/79 (111) 91 Room Air 07/01/22 20:00 Room Air 07/01/22 19:12 36.4 63 18 162/68 (99) 92 Room Air 07/01/22 16:25 60 16 96 OxyMask 10.00 07/01/22 15:09 36.7 56 18 136/65 (88) 93 Room Air I & O 07/02/22 07:00 Intake Total 500 ml Output Total 850 ml Balance -350 ml Capillary Refill : Less Than 3 Seconds General Appearance: Mild Distress Respiratory: Lungs Clear Cardiovascular: Regular Rate, Rhythm Gastrointestinal: normal bowel sounds, non tender, soft Extremity: Non Tender, No Calf Tenderness, No Pedal Edema Neurologic/Psychiatric: Alert, Oriented x3 Results Lab Microbiology 06/30/22 MRSA Screen - Final, Complete MRSA not isolated 06/28/22 Urine Culture - Final, Complete Gram Pos Mixed Bacterial Nelia Assessment/Plan Assessment/Plan Assess & Plan/Chief Complaint 1. HH with Reflux Esophagitis/Severe Antral Gastritis--no duodenal perforation on EGD--abdominal US ordered for this morning, continue protonix and carafate 2. Hypertension--stable 3. History of atrial fibrillation--blood thinners on hold due to possible duodenal perforation, currently in NSR 4. Dementia--confused/agitated this morning SHERIDAN DIEZ DO Jul 02, 2022 12:48
[2022-07-02 15:27] VITALS: BP 126/64
--- NOTE | 2022-07-02 15:29 | Progress Note ---
Subjective Date Seen by a Provider: Jul 02, 2022 Time Seen by a Provider: 15:00 Subjective/Events-last exam doing ok. baseline confused. tolerating diet. no nausea/vomiting. Objective Exam Vital Signs Date Time Temp Pulse Resp B/P (MAP) Pulse Ox O2 Delivery O2 Flow Rate FiO2 07/02/22 11:29 37.2 68 19 116/59 (78) 90 Room Air 07/02/22 08:00 Room Air 07/02/22 07:31 37.3 75 18 111/57 (75) 90 Room Air 07/02/22 03:52 37.4 83 18 127/60 (82) 90 Room Air 07/02/22 00:55 37.6 07/01/22 23:14 38.3 74 18 175/79 (111) 91 Room Air 07/01/22 20:00 Room Air 07/01/22 19:12 36.4 63 18 162/68 (99) 92 Room Air 07/01/22 16:25 60 16 96 OxyMask 10.00 I & O 07/02/22 07:00 Intake Total 500 ml Output Total 850 ml Balance -350 ml Capillary Refill : Less Than 3 Seconds General Appearance: No Apparent Distress HEENT: PERRL/EOMI Neck: Full Range of Motion Respiratory: Chest Non Tender, Lungs Clear Cardiovascular: Regular Rate, Rhythm Gastrointestinal: normal bowel sounds, non tender Extremity: Normal Capillary Refill Neurologic/Psychiatric: Alert Skin: Normal Color Lymphatic: No Adenopathy Results Lab Microbiology 06/30/22 MRSA Screen - Final, Complete MRSA not isolated 06/28/22 Urine Culture - Final, Complete Gram Pos Mixed Bacterial Nelia Assessment/Plan Assessment/Plan Assess & Plan/Chief Complaint gastritis. PUD diet. 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 home with home health. ARTIS ANGELO MD Jul 02, 2022 15:29
--- NOTE | 2022-07-02 16:07 | Diagnostic Imaging Report ---
PROCEDURE: US Gallbladder. TECHNIQUE: Multiple real-time grayscale images were obtained over the right upper quadrant in various projections. INDICATION: Nausea and vomiting. FINDINGS: Liver is normal in size at approximately 15.6 cm. Portal vein is patent and shows normal direction of flow. No discrete liver mass is detected. The gallbladder is without stones or sludge. There is no wall thickening or biliary duct dilatation. Pancreas is mostly obscured by bowel gas. Proximal aorta is nonaneurysmal. The proximal IVC is patent. Right kidney measures 9.8 cm in length. No calculi or hydronephrosis is detected. There is no ascites. IMPRESSION: No evidence of cholelithiasis or acute cholecystitis. Dictated by: Dictated on workstation # [id number]
--- NOTE | 2022-07-02 16:51 | D/C HH Face to Face Order ---
D/C Face to Face Orders Instructions for Patient Via [facility], Patient Instructions/FollowUp: F/U 2 weeks. Physician to follow Patient: yes Discharge Diet for Home: Eat Small Frequent Meals, Low Residue, other diet (bland diet) Patient Data-Allergies,Ht & Wt Patient Allergies: Coded Allergies: No Known Drug Allergies (Unverified , 06/20/11) Height (Feet): 6 Height (Inches): 11.00 Weight (Pounds): 190 Weight (Ounces): 6.4 Home Health Need/Face to Face Date of Face to Face: Jul 02, 2022 Clinical Findings: Generalized weakness and fatigue, Instability, Unsteady gait I have seen Pt [id number]: Yes Discharged To: Home Diagnosis/Conditions: chronic perforated peptic ulcer disease with nausea/vomiting. Patient is Homebound due to: CognItive deficits, Cammie fall risk due to instabilty, Muscle weakness Homebound Status Due to the above stated illness, injury or surgical procedure (medical condition or diagnosis) and associated clinical findings, the patient is homebound because of his/her inability to leave home except with aid of a supportive device and/or person AND leaving the home requires a considerable and taxing effort or is medically contraindicated. Pt req the following assistanc: Aid of another person Home Health Nursing Orders Home Health Services Order: Nursing Services, Electrical Engineer Mep-Evaluate & Treat, Physical Therapy-Evaluate & Treat Home Health Infusion Therapy Line Start Date: Jun 30, 2022 Certify Stmt I certify that this patient is under my care and that I, a nurse practitioner or a physician; a physiotherapy assistant working with me, had a face to face encounter that - meets the physician face to face encounter requirements with this patient as dated. ARTIS ANGELO MD Jul 02, 2022 16:51
[2022-07-02 17:20] VITALS: BP 126/64
== END 2022-07-02 17:25 | disposition home health service (06) | DRG 392 ==
LOC: EDUNIT# 12:22 → ER 12:24 → 4TH 17:02
PROVIDERS: ADMIT Surgery; ATTEND Surgery
PROC: 0DB48ZX Excision of Esophagogastric Junction, Via Natural or Artificial Opening Endoscopic, Diagnostic (ICD-10-PCS; 2022-07-01)
PROC: 0DB78ZX Excision of Stomach, Pylorus, Via Natural or Artificial Opening Endoscopic, Diagnostic (ICD-10-PCS; principal; 2022-07-01 15:59)
DX: K29.60 Other gastritis without bleeding (principal); F05 Delirium due to known physiological condition; K44.9 Diaphragmatic hernia without obstruction or gangrene; K21.00 Gastro-esophageal reflux disease with esophagitis, without bleeding; F03.90 Unspecified dementia, unspecified severity, without behavioral disturbance, psychotic disturbance, mood disturbance, and anxiety; I10 Essential (primary) hypertension; K21.9 Gastro-esophageal reflux disease without esophagitis; E78.00 Pure hypercholesterolemia, unspecified; N40.0 Benign prostatic hyperplasia without lower urinary tract symptoms; I48.91 Unspecified atrial fibrillation; R30.0 Dysuria; Z79.01 Long term (current) use of anticoagulants; Z87.891 Personal history of nicotine dependence
CPT/HCPCS: 36415; 74177; 76705; 80048; 80053; 81000; 83690; 84484; 85025; 85027; 85610; 85730; 87081; 87088; 87636; 93005

== ENCOUNTER 2022-10-31 22:44 | Inpatient (IN) | payer MEDICARE, OTHER ==
[~2022-10-31] VITALS: Ht 175 cm; Wt 96.0 kg
[~2022-10-31 22:44] MED LIST changes: +ASPI-1238 PO; +CLOP-31 PO; -CLOP75TA69 PO; +FAMO20TA3 PO; +FOLI1TAB30 PO; +PANT40TA2 PO
[2022-10-31] MEDS ORDERED: ACETAMINOPHEN 500 MG TAB (TYLENOL) PO PRN (23:00)
[2022-10-31] MEDS ORDERED: LACTATED RINGERS 1,000 ML IV ONE (23:00)
[2022-10-31] MEDS ORDERED: LIDOCAINE UROJET 2% GEL 10 ML PKG TOP ONE (23:00)
[2022-10-31 23:14] LABS: BASOPHILS % (AUTO) 0 % (0-10); EOSINOPHILS % (AUTO) 0 % (0-10); HEMATOCRIT 42 % (40-54); HEMOGLOBIN 14.2 g/dL (13.3-17.7); LYMPHOCYTES # (AUTO) 0.7 10^3/uL (1.0-4.0); LYMPHOCYTES % (AUTO) 11 % (12-44); MEAN CORPUSCULAR HEMOGLOBIN 31 pg (25-34); MEAN CORPUSCULAR HGB CONC 34 g/dL (32-36); MEAN CORPUSCULAR VOLUME 92 fL (80-99); MEAN PLATELET VOLUME 10.2 fL (9.0-12.2); MONOCYTES # (AUTO) 1.3 10^3/uL (0.0-1.0); MONOCYTES % (AUTO) 19 % (0-12); NEUTROPHILS # (AUTO) 4.6 10^3/uL (1.8-7.8); NEUTROPHILS % (AUTO) 69 % (42-75); PLATELET COUNT 250 10^3/uL (130-400); WHITE BLOOD COUNT 6.7 10^3/uL (4.3-11.0)
[2022-10-31 23:16] LABS: BILIRUBIN,URINE NEGATIVE (NEGATIVE); CLARITY,URINE CLEAR; COLOR,URINE YELLOW; GLUCOSE, URINE (UA) NEGATIVE (NEGATIVE); KETONES,URINE NEGATIVE (NEGATIVE); LEUKOCYTE ESTERASE ,URINE NEGATIVE (NEGATIVE); NITRITE,URINE NEGATIVE (NEGATIVE); PROTEIN,URINE TRACE (NEGATIVE)
[2022-10-31 23:27] LABS: INR 1.2 (0.8-1.4); PROTHROMBIN TIME PATIENT 16.1 SEC (12.2-14.7)
[2022-10-31 23:30] LABS: ALBUMIN 3.9 GM/DL (3.2-4.5); BILIRUBIN,TOTAL 0.5 MG/DL (0.1-1.0); CREATININE SERUM 0.92 MG/DL (0.60-1.30); POTASSIUM 3.8 MMOL/L (3.6-5.0); TOTAL PROTEIN 7.3 GM/DL (6.4-8.2)
[2022-11-01] VITALS (7 sets, daily range): BP systolic 103–168; BP diastolic 63–74
[2022-11-01 00:03] LABS: BACTERIA,URINE 0 /HPF; RBC,URINE 0 /HPF; WBC,URINE 0 /HPF
[2022-11-01 00:05] LABS: LYMPHOCYTES % (MANUAL) 11 %; MONOCYTES % (MANUAL) 19 %; NEUTROPHILS % (MANUAL) 70 %; RBC MORPH NORMAL
--- NOTE | 2022-11-01 00:19 | ED General ---
General Chief Complaint: COVID19 Suspect/Confirmed Stated Complaint: AMS/WEAKNESS Nursing Triage Note: TO ED VIA [facility] FROM HOME WHERE PERSON FROM [facility] WHO CHECKS ON PT STATES HE HAD INCREASED CONFUSION AND WEAKNESS. ON ARRIVAL TO ER PT AWAKE, BUT WILL ONLY MUMBLE AND STATES MULTIPLE TIMES "I'LL HIT YOU" WITH FISTS RAISED. BLOOD SUGAR 102MG/DL AND TEMP 102 EN ROUTE PER EMS. Source of Information: EMS, Family (DAUGHTER), Old Records Exam Limitations: Other (PT WITH DEMENTIA, AND IS UNABLE TO ANSWER ANY QUESTIONS) History of Present Illness Date Seen by Provider: Oct 31, 2022 Time Seen by Provider: 22:46 Initial Comments PT ARRIVES VIA EMS FROM HOME PT LIVES ALONE, HAS "CAREGIVERS" THAT ARE MULTIPLE WOMEN FROM [facility] WHO COME FOR 3 HOURS AT A TIME. EMS REPORTS THAT A [employer] SPECIAL[employer] CALLED THEM TONIGHT FOR PT WITH FEVER OF 102, AND GENERALIZED WEAKNESS AND INCREASED CONFUSION PT WITH DEMENTIA, BUT IS NORMALLY ABLE TO AMBULATE WITH A WALKER. HE DID NOT RECEIVE ANY TYLENOL OR MOTRIN OR ANY TREATMENT OF ANY KIND PRIOR TO ARRIVAL PT IS UNABLE TO ANSWER ANY QUESTIONS, AND IS NOT FOLLOWING COMMANDS ON ARRIVAL. DAUGHTER AND SON-IN-LAW ARRIVE LATER. THEY REPORT THAT THEY LAST SAW HIM A COUPLE OF DAYS AGO AND HE WAS AT HIS NORMAL BASELINE HE IS NORMALLY ABLE TO AMBULATE WITH A WALKER, AND IS NORMALLY ABLE TO STATE HIS NAME AND FOLLOW COMMANDS. THEY REPORT THAT THE [employer] HAD TOLD THEM THAT HE WAS FINE AND AT NORMAL BASELINE EARLIER THIS AFTERNOON--AROUND NOONTIME. THEN WHEN THEY CHECKED ON HIM THIS EVENING HE WAS WEAK AND HAD INCREASED CONFUSION AND HAD FEVER. PT IS ESSENTIALLY HOME-BOUND. DAUGHTER STATES THAT SHE IS DPOA, AND PT IS A FULL CODE. DAUGHTER STATES THAT HE HAS HAD COVID VACCINE X 2, BUT NO BOOSTERS. SHE STATES HE HAS NOT HAD A FLU VACCINE. PCP:DR. DIEZ Allergies and Home Medications Allergies Coded Allergies: No Known Drug Allergies (Unverified , 06/20/11) Patient Home Medication List Home Medication List Reviewed: Yes Aspirin (Aspirin EC) 81 Mg Tablet., 81 MG PO DAILY, (Reported) Entered as Reported by: CASSI ALANIZ on 07/01/22 0846 Atorvastatin Calcium (Atorvastatin Calcium) 20 Mg Tablet, 20 MG PO DAILY, (Reported) Entered as Reported by: CASSI ALANIZ on 07/01/22 0847 Cetirizine HCl (Cetirizine HCl) 10 Mg Tablet, 10 MG PO DAILY, (Reported) Entered as Reported by: CASSI ALANIZ on 07/01/22 0847 Clopidogrel Bisulfate (Clopidogrel) 75 Mg Tablet, 75 MG PO DAILY, (Reported) Entered as Reported by: CASSI ALANIZ on 07/01/22 0848 Docusate Sodium (Docusate Sodium) 100 Mg Capsule, 100 MG PO BID, (Reported) Entered as Reported by: CASSI ALANIZ on 07/01/22 0843 Metoprolol Succinate (Metoprolol Succinate) 25 Mg Tab.er.24h, 25 MG PO DAILY, (Reported) Entered as Reported by: CASSI ALANIZ on 07/01/22 0848 Multivitamin/Iron/Folic Acid (Certavite-Antioxidant Tablet) 18 Mg Iron-400 Mcg Tablet, 1 EA PO 0800 W/MEAL, (Reported) Entered as Reported by: CASSI ALANIZ on 07/01/22 0846 Pantoprazole Sodium (Protonix) 40 Mg Tablet.dr, 40 MG PO DAILY Prescribed by: ARTIS ANGELO on 07/01/22 1641 Tamsulosin HCl (Flomax) 0.4 Mg Cap, 0.4 MG PO HS, (Reported) Entered as Reported by: CASSI ALANIZ on 07/01/22 0848 Review of Systems Review of Systems Constitutional: see HPI, fever, malaise, weakness, other (PT IS UNABLE TO ANSWE R QUESTIONS. ) Psychiatric/Neurological: See HPI Past [id number]-[id number]-[id number] Hx Patient Social History Tobacco Use?: Yes Tobacco type used: Cigarettes Smoking Status: Former Smoker Substance use?: No Alcohol Use?: No Immunizations Up To Date First/Initial COVID19 Vaccinat: 02/14/21 Second COVID19 Vaccination Sukhi: 04/17/21 Third COVID19 Vaccination Date: 02/14/21 Seasonal Allergies Seasonal Allergies: No Past Medical History Surgery/Hospitalization HX: fell and broke hip, broken both ankle Surgeries: Yes (T&A,HERNIA REPAIR [GROIN],CARPAL TUNNEL) Abdominal, Adenoidectomy, Cardiac, Orthopedic, Tonsillectomy Respiratory: No Currently Using CPAP: No Currently Using BIPAP: No Cardiac: Yes High Cholesterol, Hypertension Neurological: Yes Dementia, Stroke Reproductive Disorders: No Sexually Transmitted Disease: No HIV/AIDS: No Genitourinary: Yes Prostate Problems Gastrointestinal: Yes Gastroesophageal Reflux, Diverticulosis, Hemorrhoids Musculoskeletal: Yes (WALKS WITH WALKER) Arthritis, Fractures Endocrine: No HEENT: No Cancer: No Psychosocial: No Integumentary: No Blood Disorders: No Adverse Reaction/Blood Tranf: No Family Medical History No Pertinent Family Hx ADDITIONAL PAST MEDICAL AND SURGICAL HISTORY: -TONSILLECTOMY -INGUINAL HERNIA REPAIR -BILATERAL CARPAL TUNNEL SURGERY -RIGHT HIP FRACTURE WITH ORIF 05/[address] LEON -08/23/2016--SCREENING COLONOSCOPY BY DR. ANGELO--HEMORRHOIDS AND DIVERTICULAR DISEASE. -CVA 05/2021 WITH RIGHT FACIAL DROOP, DYSARTHRIA AND VERTIGO -LOOP RECORDER PLACED 06/06/[address] MCMULLEN -EGD 07/01/[address] ANGELO 12/2021--BILATERAL DISTAL FIBULA FRACTURES--NO SURGERY REQUIRED. Physical Exam Vital Signs Vital Signs - First Documented Capillary Refill : Less Than 3 Seconds Height, Weight, BMI Height: 6'11.00" Weight: 190lbs. 6.4oz. [id number]; 27.59 BMI Method:Estimated General Appearance: WD/WN, Other (WEAK / LETHARGIC; PT IS TALKING BUT IS MOSTLY NON-SENSICAL AND REPETITIVE AND REPEATING WHAT STAFF ARE SAYING. HE DOES NOT APPEAR TO HAVE SLURRED SPEECH, BUT IS UNABLE TO ANSWER QUESTIONS AND IS NOT FOLLOWING COMMANDS. HE DOES NOT APPEAR TO BE IN ANY ACUTE DISTRESS OR DISCOMFORT. ) HEENT: PERRL/EOMI, Other (ORAL MUCOSA DRY) Neck: Normal Inspection Respiratory: Normal Breath Sounds, No Accessory Muscle Use, No Respiratory Distress Cardiovascular: Regular Rate, Rhythm (OCCASIONAL ECTOPY), No JVD, No Murmur, Normal Peripheral Pulses Gastrointestinal: Non Tender, Soft Extremity: Normal Capillary Refill, No Pedal Edema Neurologic/Psychiatric: Alert (BUT WITH SOME GENERALIZED WEAKNESS/LETHARGY. ), No Motor/Sensory Deficits (MOVING ALL EXTREMITIES, BUT PT IS NOT FOLLOWING COMMANDS TO DO SPECIFIC NEUROLOGICAL TESTING. SPEECH DOES NOT APPEAR TO BE SLURRED, BUT IS NON-SENSICAL. ) Skin: Warm/Dry (VERY WARM AND FLUSHED); No Rash Focused Exam Sepsis Stage: Sepsis (POSSIBLE) Possible Source: Pulmonary Lactate Level 10/31/22 22:57: Lactic Acid Level 1.28 Time of Focused Exam: 23:50 Respiratory: Normal Breath Sounds, No Accessory Muscle Use, No Respiratory Distress Cardiovascular: Regular Rate, Rhythm, No Murmur Capillary Refill: Less Than 3 Seconds Skin: normal color, warm/dry Lactic Acid Level Laboratory Tests Test 10/31/22 22:57 Lactic Acid Level 1.28 MMOL/L (0.50-2.00) Within 3hrs of presentation: Admin fluids, Blood cultures prior to ABX's, Focus exam, Lactate level Procedures/Interventions Suture Size: 3-0, 5-0 Progress/Results/Core Measures Suspected Sepsis SIRS Temperature: Pulse: 86 Respiratory Rate: 18 Laboratory Tests 10/31/22 22:57: White Blood Count 6.7 Blood Pressure 139 /73 Mean: 95 10/31/22 22:57: Lactic Acid Level 1.28 Laboratory Tests 10/31/22 22:57: Creatinine 0.92, INR Comment 1.2, Platelet Count 250, Total Bilirubin 0.5 Results/Orders Lab Results Laboratory Tests Test 10/31/22 22:50 10/31/22 22:57 10/31/22 23:08 Range/Units Influenza Type A (RT-PCR) Detected H Not Detecte Influenza Type B (RT-PCR) Not Detected Not Detecte SARS-CoV-2 RNA (RT-PCR) Not Detected Not Detecte White Blood Count 6.7 4.3-11.0 10^3/uL Red Blood Count 4.60 4.30-5.52 10^6/uL Hemoglobin 14.2 13.3-17.7 g/dL Hematocrit 42 40-54 % Mean Corpuscular Volume 92 80-99 fL Mean Corpuscular Hemoglobin 31 25-34 pg Mean Corpuscular Hemoglobin Concent 34 32-36 g/dL Red Cell Distribution Width 13.2 10.0-14.5 % Platelet Count 250 130-400 10^3/uL Mean Platelet Volume 10.2 9.0-12.2 fL Immature Granulocyte % (Auto) 0 % Neutrophils (%) (Auto) 69 42-75 % Lymphocytes (%) (Auto) 11 L 12-44 % Monocytes (%) (Auto) 19 H 0-12 % Eosinophils (%) (Auto) 0 0-10 % Basophils (%) (Auto) 0 0-10 % Neutrophils # (Auto) 4.6 1.8-7.8 10^3/uL Lymphocytes # (Auto) 0.7 L 1.0-4.0 10^3/uL Monocytes # (Auto) 1.3 H 0.0-1.0 10^3/uL Eosinophils # (Auto) 0.0 0.0-0.3 10^3/uL Basophils # (Auto) 0.0 0.0-0.1 10^3/uL Immature Granulocyte # (Auto) 0.0 0.0-0.1 10^3/uL Neutrophils % (Manual) 70 % Lymphocytes % (Manual) 11 % Monocytes % (Manual) 19 % Blood Morphology Comment NORMAL Prothrombin Time 16.1 H 12.2-14.7 SEC INR Comment 1.2 0.8-1.4 Activated Partial Thromboplast Time 32 24-35 SEC Sodium Level 138 135-145 MMOL/L Potassium Level 3.8 3.6-5.0 MMOL/L Chloride Level 103 98-107 MMOL/L Carbon Dioxide Level 24 21-32 MMOL/L Anion Gap 11 5-14 MMOL/L Blood Urea Nitrogen 14 7-18 MG/DL Creatinine 0.92 0.60-1.30 MG/DL Estimat Glomerular Filtration Rate 84 BUN/Creatinine Ratio 15 Glucose Level 96 70-105 MG/DL Lactic Acid Level 1.28 0.50-2.00 MMOL/L Calcium Level 9.0 8.5-10.1 MG/DL Corrected Calcium 9.1 8.5-10.1 MG/DL Total Bilirubin 0.5 0.1-1.0 MG/DL Aspartate Amino Transf (AST/SGOT) 22 5-34 U/L Alanine Aminotransferase (ALT/SGPT) 26 0-55 U/L Alkaline Phosphatase 153 H 40-136 U/L Total Protein 7.3 6.4-8.2 GM/DL Albumin 3.9 3.2-4.5 GM/DL Procalcitonin 0.02 <0.10 NG/ML Urine Color YELLOW Urine Clarity CLEAR Urine pH 7.0 5-9 Urine Specific [place] 1.020 1.016-1.022 Urine Protein TRACE H NEGATIVE Urine Glucose (UA) NEGATIVE NEGATIVE Urine Ketones NEGATIVE NEGATIVE Urine Nitrite NEGATIVE NEGATIVE Urine Bilirubin NEGATIVE NEGATIVE Urine Urobilinogen 2.0 < = 1.0 MG/DL Urine Leukocyte Esterase NEGATIVE NEGATIVE Urine RBC (Auto) NEGATIVE NEGATIVE Urine RBC 0 /HPF Urine WBC 0 /HPF Urine Crystals 0 /LPF Urine Bacteria 0 /HPF Urine Casts NONE /LPF Urine Mucus NEGATIVE /LPF Urine Culture Indicated NO My Orders Orders - PAT PANDYA DO Ed Iv/Invasive Line Start (10/31/22 22:50) Ekg Tracing (10/31/22 22:50) Catheter(Urinary) Insert & Ass 03,15 (10/31/22 22:50) O2 (10/31/22 22:50) Monitor-Rhythm Ecg Trace Only (10/31/22 22:50) Chest 1 View, Ap/Pa Only (10/31/22 22:50) Procalcitonin (Pct) (10/31/22 22:50) Ed Iv/Invasive Line Start (10/31/22 22:50) Lactated Ringers (Lr 1000 Ml Iv Solution (10/31/22 23:00) Covid 19 Inhouse Test (10/31/22 22:50) Cbc With Automated Diff (10/31/22 22:50) Comprehensive Metabolic Panel (10/31/22 22:50) Blood Culture (10/31/22 22:50) Sputum Culture (10/31/22 22:50) Urinalysis (10/31/22 22:50) Urine Culture (10/31/22 22:50) Protime With Inr (10/31/22 22:50) Partial Thromboplastin Time (10/31/22 22:50) Acetaminophen Tablet (Tylenol Tablet) (10/31/22 23:00) Ed Iv/Invasive Line Start (10/31/22 22:50) Ed Iv/Invasive Line Start (10/31/22 22:50) Vital Signs Adult Sepsis Patie Q15M (10/31/22 22:50) O2 (10/31/22 22:50) Remove Rings In Anticipation O (10/31/22 22:50) Lactic Acid Analyzer (10/31/22 22:50) Lidocaine 2% (Urojet) (Xylocaine Urojet) (10/31/22 23:00) Influenza A And B By Pcr (10/31/22 22:50) Isolation Central Supply Req (10/31/22 22:50) Manual Differential (10/31/22 22:57) Medications Given in ED Current Medications Medications Dose Ordered Sig/Miki Route Start Time Stop Time Status Last Admin Dose Admin Acetaminophen 1,000 mg ONCE PRN PO 10/31/22 23:00 10/31/22 23:01 DC 10/31/22 23:00 1,000 MG Lactated Ringer's 1,000 ml @ 0 mls/hr Q0M ONCE IV 10/31/22 23:00 10/31/22 23:01 DC 10/31/22 23:00 999 MLS/HR Lidocaine HCl 10 ml ONCE ONCE TOP 10/31/22 23:00 10/31/22 23:01 DC 10/31/22 23:00 10 ML Vital Signs/I&O 10/31/22 10/31/22 22:45 22:45 Temp 37.6 Pulse 86 Resp 18 B/P (MAP) 139/73 (95) Pulse Ox 94 O2 Delivery Room Air Room Air Capillary Refill : Less Than 3 Seconds Blood Pressure Mean: 95 Progress Note : Progress Note PLACED IN ISOLATION ROOM FULL PPE WORN COVID AND FLU TESTING DONE SEPSIS PROTOCOL INITIATED PT WAS GIVEN: -IV FLUIDS -TYLENOL AND MOTRIN FOR FEVER NO ANTIBIOTICS WERE GIVEN PT HAS INFLUENZA A, AND NO OTHER SIGNS OF BACTERIAL INFECTION. NO DETERIORATION IN PT'S CONDITION DURING ER STAY NO COUGH NOTED NO DYSPNEA NO HYPOXIA NO VOMITING OR DIARRHEA. VITALS STABLE ALL TEST RESULTS AND PLAN OF CARE DISCUSSED WITH PT'S DAUGHTER AND SON-IN-LAW. DAUGHTER STATES PT IS A FULL CODE. DISCUSSED POSSIBLE NEED FOR REHAB AFTER HOSPITALIZATION TO REGAIN STRENGTH. REVIEWED PRIOR RECORDS FROM PREVIOUS ADMITS FOR ADDITIONAL HISTORY, INCLUDING H&P'S, CONSULTS, TEST RESULTS, PERTINENT PROCEDURES, AND DISCHARGE SUMMARIES. ECG Initial ECG Impression Date: Oct 31, 2022 Initial ECG Impression Time: 23:03 Initial ECG Rate: 89 Initial ECG Rhythm: Normal Sinus (WITH PVC'S) Initial ECG Impression: Nonspecific Changes, 1st Degree AV Block Initial ECG Comparisson: Unchanged Diagnostic Imaging Comments CXR--BILATERAL PERIHILAR OPACITIES--RIGHT> LEFT. PENDING RADIOLOGIST REVIEW Reviewed: Reviewed by Me Departure Communication (Admissions) Family Conversation SPOKE WITH DAUGHTER AND SON-IN-LAW. DAUGHTER IS DPOA. UPDATED THEM ON PT'S CONDITION AND PLAN FOR ADMIT. DAUGHTER REPORTS THAT HE IS A FULL CODE. 8720--SPOKE WITH DR. DIEZ, ACCEPTS PT FOR ADMIT. Impression Primary Impression: Influenza A Additional Impressions: Generalized weakness Dementia Disposition: ADMITTED INPATIENT Condition: Stable Admissions Decision to Admit Reason: Admit from ER (General) Decision to Admit/Date: Oct 31, 2022 Time/Decision to Admit Time: 23:55 Departure-Patient Inst. Referrals: SHERIDAN DIEZ DO (PCP/Family) Primary Care Physician PAT PANDYA DO Nov 01, 2022 00:19
[2022-11-01] MEDS ORDERED: D5 1/2 NS 1000 ML IV SOLUTION 1,000 ML IV ONE (00:56)
[2022-11-01] MEDS ORDERED: IBUPROFEN 800 MG (MOTRIN) TAB PO PRN (01:30)
[2022-11-01] MEDS ORDERED: ONDANSETRON 4 MG/2 ML (SDV) Z0FRAN IV PRN (01:30)
[2022-11-01] MEDS: OSELTAMIVIR 75 MG (TAMIFLU) CAPSULE PO SCH ×2 (01:36→20:39)
[2022-11-01] MEDS: D5 1/2 NS W/KCL 20 MEQ/L 1,000 ML IV SCH ×3 (01:36→18:26)
[2022-11-01] MEDS ORDERED: RT-ALBUTEROL SULF 2.5 MG/3 ML PRE-MIX VIAL INH PRN (01:45)
[2022-11-01 06:52] LABS: BASOPHILS % (AUTO) 1 % (0-10); EOSINOPHILS % (AUTO) 0 % (0-10); HEMATOCRIT 40 % (40-54); HEMOGLOBIN 13.4 g/dL (13.3-17.7); LYMPHOCYTES # (AUTO) 0.7 10^3/uL (1.0-4.0); LYMPHOCYTES % (AUTO) 16 % (12-44); MEAN CORPUSCULAR HEMOGLOBIN 31 pg (25-34); MEAN CORPUSCULAR HGB CONC 33 g/dL (32-36); MEAN CORPUSCULAR VOLUME 92 fL (80-99); MONOCYTES # (AUTO) 1.1 10^3/uL (0.0-1.0); MONOCYTES % (AUTO) 24 % (0-12); NEUTROPHILS # (AUTO) 2.6 10^3/uL (1.8-7.8); NEUTROPHILS % (AUTO) 59 % (42-75); PLATELET COUNT 222 10^3/uL (130-400); WHITE BLOOD COUNT 4.5 10^3/uL (4.3-11.0)
[2022-11-01 07:11] LABS: CALCIUM 8.5 MG/DL (8.5-10.1); CREATININE SERUM 0.83 MG/DL (0.60-1.30); POTASSIUM 3.7 MMOL/L (3.6-5.0)
--- NOTE | 2022-11-01 08:22 | Diagnostic Imaging Report ---
INDICATION: Fever EXAMINATION: Chest 10/31/2022 COMPARISON: 05/30/2021 FINDINGS: There is a left-sided loop recorder device. Heart is unremarkable. Pulmonary vasculature appears congested. There is bibasal atelectasis versus infiltrate right worse than left. No effusions or pneumothorax. IMPRESSION: 1. Prominence of the perihilar regions right greater than left possibly due to infiltrate. Correlate with symptoms. Dictated by: Dictated on workstation # [id number]
--- NOTE | 2022-11-01 09:04 | History & Physical ---
AANID BLANCA 11/01/22 0904: History of Present Illness History of Present Illness Reason for visit/HPI CC: influenza A with AMS and weakness HPI: 82 M on day 2 of admission for worsening AMS and weakness secondary to influenza. Pt has a pmh of dementia and was unable to provide any information today due to cognitive state. Per ER note, family was with pt a couple of days ago and was in normal state. Yesterday, pt was noted of having worsening AMS and weakness. Brought to ER and was combative. Pt tested + for Flu A Date of Admission Nov 01, 2022 at 00:01 I consulted on this patient on 11/01/22 08:58 Attending Physician Sheridan Carrera DO Admitting Physician Admitting Physician: Sheridan Carrera DO Attending Physician: Sheridan Carrera DO Consult Allergies and Home Medications Allergies Coded Allergies: No Known Drug Allergies (Unverified , 06/20/11) Patient Home Medication List Home Medication List Reviewed: Yes Aspirin (Aspirin EC) 81 Mg Tablet.dr, 81 MG PO DAILY, (Reported) Entered as Reported by: CASSI ALANIZ on 07/01/22 0846 Atorvastatin Calcium (Atorvastatin Calcium) 20 Mg Tablet, 20 MG PO DAILY, (Reported) Entered as Reported by: CASSI ALANIZ on 07/01/22 0847 Cetirizine HCl (Cetirizine HCl) 10 Mg Tablet, 10 MG PO DAILY, (Reported) Entered as Reported by: CASSI ALANIZ on 07/01/22 0847 Clopidogrel Bisulfate (Clopidogrel) 75 Mg Tablet, 75 MG PO DAILY, (Reported) Entered as Reported by: CASSI ALANIZ on 07/01/22 0848 Docusate Sodium (Docusate Sodium) 100 Mg Capsule, 100 MG PO BID, (Reported) Entered as Reported by: CASSI ALANIZ on 07/01/22 0843 Metoprolol Succinate (Metoprolol Succinate) 25 Mg Tab.er.24h, 25 MG PO DAILY, (Reported) Entered as Reported by: CASSI ALANIZ on 07/01/22 0848 Multivitamin/Iron/Folic Acid (Certavite-Antioxidant Tablet) 18 Mg Iron-400 Mcg Tablet, 1 EA PO 0800 W/MEAL, (Reported) Entered as Reported by: CASSI ALANIZ on 07/01/22 0846 Pantoprazole Sodium (Protonix) 40 Mg Tablet., 40 MG PO DAILY Prescribed by: ARTIS ANGELO on 07/01/22 1641 Tamsulosin HCl (Flomax) 0.4 Mg Cap, 0.4 MG PO HS, (Reported) Entered as Reported by: CASSI ALANIZ on 07/01/22 0848 Past Dedgboz-Pfdiog-Zeqdsl Hx Patient Social History Tobacco Use?: Yes Tobacco type used: Cigarettes Smoking Status: Former Smoker Use of E-Cig and/or Vaping dev: Unable to obtain Substance use?: No Alcohol Use?: No Immunizations Up To Date First/Initial COVID19 Vaccinat: 02/14/21 Second COVID19 Vaccination Sukhi: 04/17/21 Tetanus Booster (TDap): Unknown Hepatitis A: No Hepatitis B: No Seasonal Allergies Seasonal Allergies: No Current Status Advance Directives: Unable to obtain Communicates: Verbally Primary Language: Rwandan Preferred Spoken Language: Rwandan Is interpretation needed?: No Past Medical History Surgeries: Abdominal, Adenoidectomy, Cardiac, Orthopedic, Tonsillectomy Currently Using CPAP: No Currently Using BIPAP: No High Cholesterol, Hypertension Dementia, Stroke Sexually Transmitted Disease: No HIV/AIDS: No Prostate Problems Gastroesophageal Reflux, Diverticulosis, Hemorrhoids Arthritis, Fractures Blood Disorders: No Adverse Reaction/Blood Tranf: No Family Medical History No Pertinent Family Hx ADDITIONAL PAST MEDICAL AND SURGICAL HISTORY: -TONSILLECTOMY -INGUINAL HERNIA REPAIR -BILATERAL CARPAL TUNNEL SURGERY -RIGHT HIP FRACTURE WITH ORIF 05/[address] LEON -08/23/2016--SCREENING COLONOSCOPY BY DR. ANGELO--HEMORRHOIDS AND DIVERTICULAR DISEASE. -CVA 05/2021 WITH RIGHT FACIAL DROOP, DYSARTHRIA AND VERTIGO -LOOP RECORDER PLACED 06/06/[address] MCMULLEN -EGD 07/01/[address] ANGELO 12/2021--BILATERAL DISTAL FIBULA FRACTURES--NO SURGERY REQUIRED. Review of Systems ROS-Unable to Obtain: Unable to obtain due to cognitive state Physical Exam Vital Signs Vital Signs - First Documented 11/01/22 01:22 FiO2 21 Capillary Refill : Less Than 3 Seconds Height, Weight, BMI Height: 6'11.00" Weight: 190lbs. 6.4oz. 86.403003pe; 31.34 BMI Method:Estimated General Appearance: No Apparent Distress, Other (confused ) Eyes: Bilateral Eye Normal Inspection HEENT: Normal ENT Inspection, Moist Mucous Membranes Neck: Normal Inspection, Supple Respiratory: Lungs Clear, No Accessory Muscle Use, No Respiratory Distress Cardiovascular: Regular Rate, Rhythm, No Murmur, Normal Peripheral Pulses Gastrointestinal: Normal Bowel Sounds, No Organomegaly, No Pulsatile Mass Back: Normal Inspection Extremity: No Pedal Edema; No Inflammation Neurologic/Psychiatric: Alert, Disoriented, Other (confused ) Skin: Normal Color, Warm/Dry Lymphatic: No Adenopathy Assessment/Plan Assessment and Plan 1) Influezna A- continue supportive care, decrease IV KCl/D5/NaCl to 100, start 1x dose of IV lasix at 20mg and 1x dose of 20meq KCl PO , continue tamiflu and antipyretics, 2) AMS- continue to monitor electrolytes and mental status 3) Stroke hx- restart home medication of plavix 75mg, aspirin 81mg, protonix 20mg, and metoprolol 25mg Admission Diagnosis Influenza A with associated worsening AMS and weakness Admission Status: Inpatient Order (span 2 midnights) Reason for Inpatient Admission: worsening AMS and weakness SHERIDAN CARRERA DO 11/01/22 1143: History of Present Illness History of Present Illness Date Seen by a Provider: Nov 01, 2022 Time Seen by a Provider: 09:30 Allergies and Home Medications Allergies Coded Allergies: No Known Drug Allergies (Unverified , 06/20/11) Patient Home Medication List Home Medication List Reviewed: Yes Aspirin (Aspirin EC) 81 Mg Tablet.dr, 81 MG PO DAILY, (Reported) Entered as Reported by: CASSI ALANIZ on 07/01/22 0846 Atorvastatin Calcium (Atorvastatin Calcium) 20 Mg Tablet, 20 MG PO DAILY, (Reported) Entered as Reported by: CASSI ALANIZ on 07/01/22 0847 Cetirizine HCl (Cetirizine HCl) 10 Mg Tablet, 10 MG PO DAILY, (Reported) Entered as Reported by: CASSI ALANIZ on 07/01/22 0847 Clopidogrel Bisulfate (Clopidogrel) 75 Mg Tablet, 75 MG PO DAILY, (Reported) Entered as Reported by: CASSI ALANIZ on 07/01/22 0848 Docusate Sodium (Docusate Sodium) 100 Mg Capsule, 100 MG PO BID, (Reported) Entered as Reported by: CASSI ALANIZ on 07/01/22 0843 Metoprolol Succinate (Metoprolol Succinate) 25 Mg Tab.er.24h, 25 MG PO DAILY, (Reported) Entered as Reported by: CASSI ALANIZ on 07/01/22 0848 Multivitamin/Iron/Folic Acid (Certavite-Antioxidant Tablet) 18 Mg Iron-400 Mcg Tablet, 1 EA PO 0800 W/MEAL, (Reported) Entered as Reported by: CASSI ALANIZ on 07/01/22 0846 Pantoprazole Sodium (Protonix) 40 Mg Tablet.dr, 40 MG PO DAILY Prescribed by: ARTIS ANGELO on 07/01/22 1641 Tamsulosin HCl (Flomax) 0.4 Mg Cap, 0.4 MG PO HS, (Reported) Entered as Reported by: CASSI ALANIZ on 07/01/22 0848 Past Ylqwnbs-Dbdygl-Hktnjf Hx Patient Social History Marrital Status: Review of Systems Constitutional: fever, weakness EENTM: nose congestion Respiratory: No no symptoms reported, No see HPI, No cough, No dyspnea on exertion, No hemoptysis, No orthopnea, No phlegm, No short of breath, No stridor, No wheezing, No other Cardiovascular: No no symptoms reported, No see HPI, No chest pain, No edema, No Hx of Intervention, No palpitations, No syncope, No vascular heart diseas, No other Gastrointestinal: loss of appetite Genitourinary: No no symptoms reported, No see HPI, No decreased output, No discharge, No dysuria, No frequency, No hematuria, No hesitancy, No incontinence, No nocturia, No pain, No other Musculoskeletal: muscle weakness Skin: No no symptoms reported, No see HPI, No change in color, No change in hair/nails, No dryness, No hx of skin cancer, No lesions, No lumps, No pruritus, No rash, No other Psychiatric/Neurological: Pre-Existing Deficit, Weakness All Other Systems Reviewed Negative Unless Noted: Yes Physical Exam General Appearance: No Apparent Distress Respiratory: Crackles Cardiovascular: Regular Rate, Rhythm Neurologic/Psychiatric: Alert, Disoriented Skin: Warm/Dry Assessment/Plan Assessment and Plan 4. Pulmonary Vascular congestion on CXR--low dose IV lasix and potassium now Admission Diagnosis Admission Status: Inpatient Order (span 2 midnights) Reason for Inpatient Admission: Weakness, poor appetite, worsening confusion Supervisory-Addendum Brief Verification & Attestation Participated in pt care: history, physical Personally performed: exam, history, supervision of care Care discussed with: Medical Student Procedures: n/a Results interpretation: Verified all documentation Verification and Attestation of Medical Student E/M Service A medical student performed and documented this service in my presence. I reviewed and verified all information documented by the medical student and made modifications to such information, when appropriate. I personally performed the physical exam and medical decision making. Sheridan Carrera, Nov 01, 2022,11:41 Patient awake and confused. No longer combative. Will decrease IVFs and give low dose of lasix due to some fine crackles on exam and pulmonary vascular congestion on admitting CXR. Restart metoprolol, plavix and aspirin. Labs look good and afebrile so if appetite improves hopefully home tomorrow or Friday. ANAID BLANCA Nov 01, 2022 09:04 SHERIDAN CARRERA DO Nov 01, 2022 11:43
[2022-11-01] MEDS: ACETAMINOPHEN 500 MG TAB (TYLENOL) PO PRN (09:11)
[2022-11-01] MEDS ORDERED: FUROSEMIDE 40 MG/4 ML INJ (LASIX) IVP ONE (10:00)
[2022-11-01] MEDS ORDERED: KCL 20 MEQ TAB (K-DUR) PO ONE (10:15)
[2022-11-01] MEDS ORDERED: CLOPIDOGREL 75 MG (PLAVIX) TABLET PO NR (11:00)
[2022-11-01] MEDS ORDERED: ASPIRIN 81 MG CHEW (CHILDREN'S ASA) PO NR (11:00)
[2022-11-01] MEDS ORDERED: PANTOPRAZOLE 40 MG (PROTONIX) TAB PO NR (11:00)
[2022-11-01] MEDS ORDERED: PANT40TA52 PO (14:21)
[2022-11-02 00:19] VITALS: BP 168/73
[2022-11-02] MEDS: D5 1/2 NS W/KCL 20 MEQ/L 1,000 ML IV SCH ×3 (01:52→21:06)
[2022-11-02 04:21] VITALS: BP 166/77
[2022-11-02 07:51] VITALS: BP 148/70
[2022-11-02] MEDS: PANTOPRAZOLE 40 MG (PROTONIX) TAB PO SCH (08:59)
[2022-11-02] MEDS: CLOPIDOGREL 75 MG (PLAVIX) TABLET PO SCH (08:59)
[2022-11-02] MEDS: OSELTAMIVIR 75 MG (TAMIFLU) CAPSULE PO SCH ×2 (08:59→21:05)
[2022-11-02] MEDS ORDERED: ASPIRIN 81 MG CHEW (CHILDREN'S ASA) PO SCH (09:00)
[2022-11-02 11:28] VITALS: BP 171/78
--- NOTE | 2022-11-02 12:31 | Progress Note - Hospitalist ---
Subjective HPI/CC On Admission Date Seen by Provider: Nov 02, 2022 Time Seen by Provider: 12:15 Subjective/Events-last exam Patient sitting in his chair upon my arrival. He just hit his call light before I walked in. When asked what he needed he could not figure out how to turn the TV off. He was oriented to person only denied pain did not know where he was. He did not appear to be in acute distress. Focused Exam Lactate Level 10/31/22 22:57: Lactic Acid Level 1.28 Time of Focused Exam: 23:50 Objective Exam Vital Signs Vital Signs Date Time Temp Pulse Resp B/P (MAP) Pulse Ox O2 Delivery O2 Flow Rate FiO2 11/02/22 11:28 37.5 80 16 171/78 (109) 92 Room Air 11/01/22 01:22 21 Capillary Refill : Less Than 3 Seconds General Appearance: No Apparent Distress, Chronically ill Respiratory: Chest Non Tender, Lungs Clear, Normal Breath Sounds, No Accessory Muscle Use, No Respiratory Distress Cardiovascular: Regular Rate, Rhythm, No Murmur Gastrointestinal: Normal Bowel Sounds, No Organomegaly, No Pulsatile Mass, Non Tender, Soft Results/Procedures Lab Patient resulted labs reviewed. Assessment/Plan Assessment and Plan Assess & Plan/Chief Complaint 1. Altered mental status secondary to influenza with underlying baseline dementia. As far as I can tell this appears to predate a stroke he had in early May. 2. Patient is on dual antiplatelet therapy for CVA. A month after starting dual antiplatelet therapy he was admitted to the hospital with abdominal pain had air and fluid collection adjacent the second portion of the duodenum with secondary EGD revealing no evidence for ulceration there but he did have erosive esophagitis and severe antral gastritis at this point I considering lack of studies showing additional benefit of dual antiplatelet therapy and stroke prev ention we will discontinue aspirin and continue Plavix continuing proton pump inhibitor therapy. Probable discharge in the morning if patient's p.o. intake improves. NAKIA BONE MD Nov 02, 2022 12:31
[2022-11-02 15:49] VITALS: BP 158/70
[2022-11-02 20:39] VITALS: BP 169/77
[2022-11-03] VITALS (7 sets, daily range): BP systolic 121–161; BP diastolic 57–84
[2022-11-03] MEDS: PANTOPRAZOLE 40 MG (PROTONIX) TAB PO SCH (08:52)
[2022-11-03] MEDS: CLOPIDOGREL 75 MG (PLAVIX) TABLET PO SCH (08:52)
[2022-11-03] MEDS: OSELTAMIVIR 75 MG (TAMIFLU) CAPSULE PO SCH ×2 (08:52→20:11)
--- NOTE | 2022-11-03 11:39 | Progress Note - Hospitalist ---
Subjective HPI/CC On Admission Date Seen by Provider: Nov 03, 2022 Time Seen by Provider: 10:30 Subjective/Events-last exam Patient oriented to person arouses easily this morning voicing no complaints. Staff report there have been no care problems no meaningful history obtained secondary to underlying dementia. No significant agitation in behavior reported. Focused Exam Lactate Level 10/31/22 22:57: Lactic Acid Level 1.28 Time of Focused Exam: 23:50 Objective Exam Vital Signs Vital Signs Date Time Temp Pulse Resp B/P (MAP) Pulse Ox O2 Delivery O2 Flow Rate FiO2 11/03/22 11:09 36.3 65 18 121/57 (78) 94 Room Air 11/01/22 01:22 21 Capillary Refill : Less Than 3 Seconds General Appearance: No Apparent Distress Respiratory: Chest Non Tender, Lungs Clear, Normal Breath Sounds, No Accessory Muscle Use, No Respiratory Distress Cardiovascular: Regular Rate, Rhythm, No Edema, No Gallop, No JVD, No Murmur, Normal Peripheral Pulses Results/Procedures Lab Patient resulted labs reviewed. Assessment/Plan Assessment and Plan Assess & Plan/Chief Complaint 1. Altered mental status secondary to influenza with underlying baseline dementia. As far as I can tell this appears to predate a stroke he had in early May. 2. Patient is on dual antiplatelet therapy for CVA. A month after starting du al antiplatelet therapy he was admitted to the hospital with abdominal pain had air and fluid collection adjacent the second portion of the duodenum with secondary EGD revealing no evidence for ulceration there but he did have erosive esophagitis and severe antral gastritis at this point I considering lack of studies showing additional benefit of dual antiplatelet therapy and stroke prevention we will discontinue aspirin and continue Plavix continuing proton pump inhibitor therapy. Nurse reports family looking into placement as I do not feel they can continue to care for him at home. Otherwise the patient is ready for discharge. Will DC [facility] today and make sure the patient is able to void although I do expect incontinence. NAKIA BONE MD Nov 03, 2022 11:39
[2022-11-04] VITALS (7 sets, daily range): BP systolic 112–147; BP diastolic 57–73
--- NOTE | 2022-11-04 08:06 | Progress Note ---
ANAID BLANCA 11/04/22 0806: Subjective Date Seen by a Provider: Nov 04, 2022 Time Seen by a Provider: 07:50 Subjective/Events-last exam 82 M with pmh of dementia on day 4 of admission for worsening weakness and AMS secondary to influenza. Resting comfortably in bed with minimal arousal and faviola ears in no distress. Pt was unable to report any information due to cognitive status. [place] was dc yesterday w/o complaints and SS consult pending on post- hosp care. Review of Systems Unable to obtain due to AMS Focused Exam Time of Focused Exam: 23:50 Objective Exam Last Set of Vital Signs Vital Signs Date Time Temp Pulse Resp B/P (MAP) Pulse Ox O2 Delivery O2 Flow Rate FiO2 11/04/22 07:04 61 11/04/22 03:35 36.8 18 144/67 (92) 90 Room Air 11/04/22 01:31 21 Capillary Refill : Less Than 3 Seconds I&O Intake and Output 11/04/22 00:00 Intake Total 1130 ml Output Total 2000 ml Balance -870 ml Intake Oral 1130 ml Output Urine Total 2000 ml # Voids 1 # Bowel Movements 1 General: Alert, No Acute Distress HEENT: Atraumatic Neck: Supple, No LAD Lungs: Clear to Auscultation, Normal Air Movement Heart: Regular Rate, No Murmurs Abdomen: Normal Bowel Sounds, No Masses Extremities: No Edema, Normal Pulses Skin: No Rashes, No Significant Lesion Neuro: Other (abnormal speech) Psych/Mental Status: Other (confused ) Results Lab Microbiology 10/31/22 Blood Culture - Preliminary, Resulted No growth 10/31/22 Urine Culture - Final, Complete NO GROWTH Assessment/Plan Assessment/Plan Assess & Plan/Chief Complaint 1. Altered mental status secondary to influenza with underlying baseline dementia- continue supportive care 2. Patient is on dual antiplatelet therapy for CVA. A month after starting dual antiplatelet therapy he was admitted to the hospital with abdominal pain had air and fluid collection adjacent the second portion of the duodenum with secondary EGD revealing no evidence for ulceration there but he did have erosive esophagitis and severe antral gastritis at this point I considering lack of studies showing additional benefit of dual antiplatelet therapy and stroke prevention we will discontinue aspirin and continue Plavix continuing proton pump inhibitor therapy. Nurse reports family looking into placement as I do not feel they can continue to care for him at home. Otherwise the patient is ready for discharge. 3. Appreciate SS and contact family on post hosp placement Clinical Quality Measures Admission Status Admission Dx 1) Influezna A- continue supportive care, decrease IV KCl/D5/NaCl to 100, start 1x dose of IV lasix at 20mg and 1x dose of 20meq KCl PO , continue tamiflu and antipyretics, 2) AMS- continue to monitor electrolytes and mental status 3) Stroke hx- restart home medication of plavix 75mg, aspirin 81mg, protonix 20mg, and metoprolol 25mg SHERIDAN DIEZ DO 11/04/22 1251: Supervisory-Addendum Brief Verification & Attestation Participated in pt care: history, physical Personally performed: exam, history, supervision of care Care discussed with: Medical Student Procedures: n/a Results interpretation: Verified all documentation Verification and Attestation of Medical Student E/M Service A medical student performed and documented this service in my presence. I reviewed and verified all information documented by the medical student and made modifications to such information, when appropriate. I personally performed the physical exam and medical decision making. Sheridan Diez, Nov 04, 2022,12:51 Awaiting geriatric social worker consult for DC planning--apparently son is concerned about him going back home so need to see his preference on placement. ANAID BLANCA Nov 04, 2022 08:06 SHERIDAN DIEZ DO Nov 04, 2022 12:51
[2022-11-04] MEDS: OSELTAMIVIR 75 MG (TAMIFLU) CAPSULE PO SCH ×2 (08:45→21:18)
[2022-11-04] MEDS: CLOPIDOGREL 75 MG (PLAVIX) TABLET PO SCH (08:45)
[2022-11-04] MEDS: PANTOPRAZOLE 40 MG (PROTONIX) TAB PO SCH (08:45)
[2022-11-05 03:14] VITALS: BP 141/65
[2022-11-05] MEDS: OSELTAMIVIR 75 MG (TAMIFLU) CAPSULE PO SCH ×2 (07:48→19:44)
[2022-11-05] MEDS: PANTOPRAZOLE 40 MG (PROTONIX) TAB PO SCH (07:48)
[2022-11-05] MEDS: CLOPIDOGREL 75 MG (PLAVIX) TABLET PO SCH (07:49)
[2022-11-05 07:57] VITALS: BP 136/72
--- NOTE | 2022-11-05 11:05 | Occupational Therapy Eval ---
OT Evaluation-General/PLF Medical Diagnosis Admission Date Nov 01, 2022 at 00:01 Medical Diagnosis: Influenza A Onset Date: Nov 01, 2022 Therapy Diagnosis Therapy Diagnosis: reduced adl status Height/Weight Height (Feet): 6 Height (Inches): 11.00 Weight (Pounds): 190 Weight (Ounces): 6.4 Precautions Precautions/Isolations: Droplet Isolation, Fall Prevention Safety Interventions: Bed Exit Alarm, Reorient-Attempt Referral Referral Reason: Evaluation/Treatment Medical History Pertinent Medical History: CVA, GERD, HTN Current History Per chart pt presented to hospital with worsening weakness and AMS. Found to be positive for Influenza A. Pt is a poor historian, unsure of accuracy of responses. Chart review reveals that pt has "caregivers" that are multiple women from a women's senior living who come for 3 hours at a time. Pt states that they help him with "whatever" he needs. "If in need help (getting dressed) they help." Pt states they do all shelving supervisor and cook all meals. Pt was able to state that he uses a walker at baseline. Reviewed History: Yes Social History Current Living Status: Alone ADL-Prior Level of Function SCALE: Activities may be completed with or without assistive devices. 8-Bidhnrqjgu-ayayovf completes the activity by him/herself with no assistance from a helper. 5-Set-up or Clean-up Assistance-helper sets up or cleans up; patient completes activity. [place] assists only prior to or following the activity. 4-Supervision or Touching Assistance-helper provides verbal cues and/or touching/steadying and/or contact guard assistance as patient completes activity. Assistance may be provided throughout the activity or intermittently. 3-Partial/Moderate Assistance-helper does LESS THAN HALF the effort. [place] lifts, holds or supports trunk or limbs, but provides less than half the effort. 2-Substantial/Maximal Assistance-helper does MORE THAN HALF the effort. [place] lifts or holds trunk or limbs and provides more than half the effort. 4-Whlzillji-kgznyr does ALL the effort. Patient does none of the effort to complete the activity. Or, the assistance of 2 or more helpers is required for the patient to complete the activity. If activity was not attempted, code reason: 7-Patient Refused. 9-Not Applicable-not attempted and the patient did not perform the activity before the current illness, exacerbation or injury. 10-Not Attempted due to Environmental Limitations-(lack of equipment, weather restraints, etc.). 88-Not Attempted due to Medical Conditions or Safety Concerns. Self Care: Unknown Functional Cognition: Unknown DME/Equipment: Bath Chair, Shower Drive Self: No OT Current Status Subjective Pt denies pain, confused, difficulty following directions. Appearance Pt left sitting in recliner, all needs within reach. Mental Status/Objective Patient Orientation: Person Current Glasses/Contacts: Yes ("reading" ) Hearing Aids: No Dentures/Partials: No Hand Dominance: Left ("I used to be Right, until I left the hospital, now I'm Left." ) Upper Extremity ROM Pt requires extensive time and cues to initiate all steps. WFL Upper Extremity Strength 3+/5 grossly ADL-Treatment Pt appears confused/paranoid when asked to complete a task. He refuses all adls, unsure if he comprehends what is being asked. Unsure what pt's true baseline is at this time. Education OT Patient Education: Purpose of tx/functional activities Teaching Recipient: Patient Teaching Methods: Demonstration, Discussion Response to Teaching: Unable to Return Demonstration, Reinforcement Needed OT Band Nailer Goals Band Nailer Goals Time Frame: Nov 19, 2022 Oral Hygiene (QC): 4 Toileting Hygiene (QC): 4 Shower/Bathe Self (QC): 3 Upper Body Dressing (QC): 4 Lower Body Dressing (QC): 4 On/Off Footwear (QC): 3 Additional Goals: 1-Demonstrate ADL Tasks, 2-Verbalize Understanding, 3- ImproveStrength/Dustin 1=Demonstrate adherence to instructed precautions during ADL tasks. 2=Patient will verbalize/demonstrate understanding of assistive devices/modifications for ADL. 3=Patient will improve strength/tolerance for activity to enable patient to perform ADL's. Goals may change once baseline is identified. OT Education/Plan Problem List/Assessment Assessment: Decreased Activ Tolerance, Decreased Safety Aware, Decreased UE Strength, Impaired Cognition, Impaired Self-Care Skills Discharge Recommendations Plan/Recommendations: Continue POC Target Placement ongoing assessment Treatment Plan/Plan of Care Treatment,Training & Education: Yes Patient would benefit from OT for education, treatment and training to promote independence in ADL's, mobility, safety and/or upper extremity function for ADL's. Plan of Care: ADL Retraining, Caregiver Training, Cognitive Retraining, Functional Mobility, Group Exercise/Act as Ind, UE Funct Exercise/Act Treatment Duration: Nov 19, 2022 Frequency: 3 times per week (3-5x/week ) Estimated Hrs Per Day: .25 hour per day Rehab Potential: Guarded Time Start Time: 10:47 Stop Time: 10:57 DATE: Nov 05, 2022 Total Time Billed (hr/min): 10 Billed Treatment Time 1 visit Kassandra Ordonez OT Nov 05, 2022 11:05
[2022-11-05 11:11] VITALS: BP 113/59
--- NOTE | 2022-11-05 11:11 | Physical Therapy Evaluation ---
PT Evaluation-General Medical Diagnosis Admission Date Nov 01, 2022 at 00:01 Medical Diagnosis: Flu A/generalized weakness Onset Date: Nov 01, 2022 Therapy Diagnosis Therapy Diagnosis: generalized weakness/debility Height/Weight Height (Feet): 6 Height (Inches): 11.00 Weight (Pounds): 190 Weight (Ounces): 6.4 Precautions Precautions/Isolations: Fall Prevention Referral Physician: Deandre Reason for Referral: Evaluation/Treatment Medical History Pertinent Medical History: CVA, Dementia, GERD, HTN Current History EMS from home secondary to being found more confused and weak Reviewed History: Yes Prior Prior Level of Function SCALE: Activities may be completed with or without assistive devices. 8-Yaorchwtfo-whgqoio completes the activity by him/herself with no assistance from a helper. 5-Set-up or Clean-up Assistance-helper sets up or cleans up; patient completes activity. [place] assists only prior to or following the activity. 4-Supervision or Touching Assistance-helper provides verbal cues and/or touching/steadying and/or contact guard assistance as patient completes activity. Assistance may be provided throughout the activity or intermittently. 3-Partial/Moderate Assistance-helper does LESS THAN HALF the effort. [place] lifts, holds or supports trunk or limbs, but provides less than half the effort. 2-Substantial/Maximal Assistance-helper does MORE THAN HALF the effort. [place] lifts or holds trunk or limbs and provides more than half the effort. 0-Zrdutvdnh-omjraj does ALL the effort. Patient does none of the effort to complete the activity. Or, the assistance of 2 or more helpers is required for the patient to complete the activity. If activity was not attempted, code reason: 7-Patient Refused. 9-Not Applicable-not attempted and the patient did not perform the activity before the current illness, exacerbation or injury. 10-Not Attempted due to Environmental Limitations-(lack of equipment, weather restraints, etc.). 88-Not Attempted due to Medical Conditions or Safety Concerns. unable to determine due to patient's confusion. Per report, patient has multiple caregivers 16/06 to assist PT Evaluation-Current Subjective Patient incontinent urine but stating, repeatedly,"I have to piss." RN is aware with PCT in to assist. Objective Patient Orientation: Confused ROM/Strength ROM Lower Extremities bilateral LE WFL Strength Lower Extremities unable to formally test due to patient's confusion and inability to follow simple direction Integumentary/Posture Bladder Incontinence: Yes Posture flexed bilateral knee posture Neuromuscular (Tone, Coordination, Reflexes) diminished coordination with retropulsion with upright mobility Sensory Vision: Functional Hearing: Functional Transfers Lying to Sitting/Side of Bed(Q: 2 Sit to Stand (QC): 2 Chair/Suo-cb-Uzhqy Xfer(QC): 2 Toilet Transfer (QC): 2 Gait Mode of Locomotion: Walk Anticipated Mode of Locomotion: Walk Walk 10 feet (QC): 2 Walk 50 ft with 2 Turns(QC): 88 Walk 150 ft (QC): 88 Distance: 20' x 1/15' x 1 Gait Assistive Device: FWW Comments/Gait Description retropulsive with PT assist/shuffle gait sequence Balance Sitting Static: Fair Sitting Dynamic: Fair Standing Static: Poor Standing Dynamic: Poor Assessment/Needs 82 y.o. male will benefit from skilled PT to address functional strength and mobility to improve current LOF. Patient is very confused and unable to follow simple direction at this time. Chair alarm in recliner and activated for patient's safety. Rehab Potential: Guarded PT Intermediate Goals Engineer Technician Goals PT Intermediate Goals Time Frame: Nov 16, 2022 Roll Left & Right (QC): 4 Sit to Lying (QC): 4 Lying-Sitting on Side/Bed(QC): 4 Sit to Stand (QC): 4 Chair/Sjb-uz-Gdjfx Xfer(QC): 4 Toilet Transfer (QC): 4 Walk 10 feet (QC): 4 Walk 50ft with 2 Turns (QC): 4 Walk 150 ft (QC): 4 PT Plan Problem List Problem List: Activity Tolerance, Functional Strength, Safety, Balance, Gait, Transfer, Bed Mobility Treatment/Plan Treatment Plan: Continue Plan of Care Treatment Plan: Bed Mobility, Education, Functional Activity Dustin, Functional Strength, Gait, Safety, Therapeutic Exercise, Transfers Treatment Duration: Nov 16, 2022 Frequency: 6 times per week Estimated Hrs Per Day: .25 hour per day Time Time In: 735 Time Out: 756 DATE: Nov 05, 2022 Total Billed Treatment Time: 16 [facility] TRESSA [facility] PT Nov 05, 2022 11:11
--- NOTE | 2022-11-05 13:00 | Progress Note ---
Subjective Date Seen by a Provider: Nov 05, 2022 Time Seen by a Provider: 12:57 Subjective/Events-last exam Fwup influenza A, weakness, dementia, history of previous stroke. Sitting up in chair--complains of neck pain. More awake and alert today with understandable speech. Focused Exam Time of Focused Exam: 23:50 Objective Exam Vital Signs Date Time Temp Pulse Resp B/P (MAP) Pulse Ox O2 Delivery O2 Flow Rate FiO2 11/05/22 12:41 59 11/05/22 11:11 36.4 58 18 113/59 (77) 93 11/05/22 08:33 Room Air 11/05/22 08:00 92 Room Air 11/05/22 07:57 36.1 62 18 136/72 (93) 90 11/05/22 07:00 57 11/05/22 03:14 36.9 55 20 141/65 (90) 92 Room Air 11/05/22 01:00 56 11/04/22 23:34 36.9 59 20 131/73 (92) 92 Room Air 11/04/22 20:30 Room Air 11/04/22 19:57 36.5 57 20 146/67 (93) 92 Room Air 11/04/22 19:00 56 11/04/22 16:00 36.6 60 20 130/62 (84) 92 Room Air I & O 11/05/22 07:00 Intake Total 550 ml Balance 550 ml Capillary Refill : Less Than 3 Seconds General Appearance: No Apparent Distress Respiratory: Lungs Clear Cardiovascular: Regular Rate, Rhythm Gastrointestinal: normal bowel sounds, non tender, soft Extremity: Non Tender, No Calf Tenderness, No Pedal Edema Neurologic/Psychiatric: Alert Results Lab Microbiology 10/31/22 Blood Culture - Preliminary, Resulted No growth 10/31/22 Urine Culture - Final, Complete NO GROWTH Assessment/Plan Assessment/Plan Assess & Plan/Chief Complaint 1. Influenza A--treated 2. Weakness/Debility--OT/PT started--to SNF today or tomorrow--awaiting [facility] referral 3. Hypertension--back on home meds 4. History of stroke--on plavix Clinical Quality Measures Admission Status Admission Dx 4. Pulmonary Vascular congestion on CXR--low dose IV lasix and potassium now SHERIDAN DIEZ DO Nov 05, 2022 13:00
[2022-11-05 15:25] VITALS: BP 136/68
[2022-11-05] MEDS: ACETAMINOPHEN 500 MG TAB (TYLENOL) PO PRN (19:44)
[2022-11-05 20:43] VITALS: BP 134/76
[2022-11-06 00:24] VITALS: BP 165/76
[2022-11-06 04:30] VITALS: BP 158/74
[2022-11-06 08:00] VITALS: BP 130/76
[2022-11-06] MEDS: CLOPIDOGREL 75 MG (PLAVIX) TABLET PO SCH (08:13)
[2022-11-06] MEDS: PANTOPRAZOLE 40 MG (PROTONIX) TAB PO SCH (08:13)
--- NOTE | 2022-11-06 11:21 | Occupational Ther Daily Note ---
OT Current Status-Daily Note Subjective Pt alert, sitting in recliner. Pt very confused and perseverating on plugging in his electric razor. Pt does not acknowledge any suggestions to complete other tasks. Mental Status/Objective Patient Orientation: Person, Confused Attachments: IV ADL-Treatment Therapy Code Descriptions/Definitions Functional [place] Measure: 0=Not Assessed/NA 4=Minimal Assistance 1=Total Assistance 5=Supervision or Setup 2=Maximal Assistance 6=Modified [place] 3=Moderate Assistance 7=Complete IndependenceSCALE: Activities may be completed with or without assistive devices. 0-Kyytyquyxd-clqumxx completes the activity by him/herself with no assistance from a helper. 5-Set-up or Clean-up Assistance-helper sets up or cleans up; patient completes activity. [place] assists only prior to or following the activity. 4-Supervision or Touching Assistance-helper provides verbal cues and/or touching/steadying and/or contact guard assistance as patient completes activity. Assistance may be provided throughout the activity or intermittently. 3-Partial/Moderate Assistance-helper does LESS THAN HALF the effort. [place] lifts, holds or supports trunk or limbs, but provides less than half the effort. 2-Substantial/Maximal Assistance-helper does MORE THAN HALF the effort. [place] lifts or holds trunk or limbs and provides more than half the effort. 6-Nyberaeuc-yctnjm does ALL the effort. Patient does none of the effort to complete the activity. Or, the assistance of 2 or more helpers is required for the patient to complete the activity. If activity was not attempted, code reason: 7-Patient Refused. 9-Not Applicable-not attempted and the patient did not perform the activity before the current illness, exacerbation or injury. 10-Not Attempted due to Environmental Limitations-(lack of equipment, weather restraints, etc.). 88-Not Attempted due to Medical Conditions or Safety Concerns. Other Treatment After HENDERSON plugged pt's electric razor into outlet, pt continued to want to move to a different chair in order to plug electric razor into outlet that he could see. HENDERSON continued to prompt pt to look at where razor was plugged into and pt finally acknowledged that razor was charging and that he could stay in recliner. Pt then requested a straw to finish his chicken broth. Pt did not acknowledge any suggestions of different tasks. Pt left in recliner with call light/phone in reach. Nrsg aware of pt's position. OT Mcfp Goals Mcfp Goals Time Frame: Nov 19, 2022 Oral Hygiene (QC): 4 Toileting Hygiene (QC): 4 Shower/Bathe Self (QC): 3 Upper Body Dressing (QC): 4 Lower Body Dressing (QC): 4 On/Off Footwear (QC): 3 Additional Goals: 1-Demonstrate ADL Tasks, 2-Verbalize Understanding, 3-ImproveStrength/Dustin 1=Demonstrate adherence to instructed precautions during ADL tasks. 2=Patient will verbalize/demonstrate understanding of assistive devices/modifications for ADL. 3=Patient will improve strength/tolerance for activity to enable patient to perform ADL's. OT Education/Plan Problem List/Assessment Assessment: Decreased Activ Tolerance, Decreased Safety Aware, Impaired Cognition Discharge Recommendations Plan/Recommendations: Continue POC Treatment Plan/Plan of Care Patient would benefit from OT for education, treatment and training to promote independence in ADL's, mobility, safety and/or upper extremity function for ADL's. Plan of Care: ADL Retraining, Caregiver Training, Cognitive Retraining, Functional Mobility, Group Exercise/Act as Ind, UE Funct Exercise/Act Treatment Duration: Nov 19, 2022 Frequency: 3 times per week (3-5x/week ) Estimated Hrs Per Day: .25 hour per day Rehab Potential: Guarded Time Start Time: 10:31 Stop Time: 10:41 DATE: Nov 06, 2022 Total Time Billed (hr/min): 10 Billed Treatment Time 1 visit-FA 1 (10 min) JAY BONILLA Nov 06, 2022 11:21
[2022-11-06 12:21] VITALS: BP 143/81
--- NOTE | 2022-11-06 12:30 | Discharge Inst-Skilled Nursing ---
Discharge Inst-Skilled NF Reconcile Patient Problems Problems Reviewed?: Yes Patient Instructions Patient Problems: Dementia Hypertension History of stroke Weakness Recent Influenza A Consult/Follow Up/Orders Follow Up Appt.: 2 weeks Skilled NF Admit to: [facility] Certification (SNF) I certify that SNF services are required to be given on an inpatient basis because of the above named patient's need for nursing home care on a continuing basis for the conditions(s) for which he/she was receiving inpatient hospital services prior to his/her transfer to the SNF. Detention Facility Order: Nursing Services, Transit Bus Operator-Evaluate & Treat, Physical Therapy-Evaluate & Treat, Speech Language-Evaluate & Treat Oxygen Delivery Method: Room Air Discharge Diet: Cardiac Diet New & Resume Previous Orders Nydia Carrera Nov 06, 2022 12:29 NYDIA CARRERA DO Nov 06, 2022 12:30
--- NOTE | 2022-11-06 12:42 | Discharge Summary ---
Diagnosis/Chief Complaint Date of Admission Nov 01, 2022 at 00:01 Date of Discharge Discharge Date: Nov 06, 2022 Discharge Diagnosis 1. Influenza A 2. Anorexia/Dehydration--Improved 3. Weakness/Fall Risk--ongoing 4. Worsening Dementia 5. History of Stroke 6. Hypertension 7. Pulmonary Vascular Congestion--improved Reason Hospital Visit Discharge Summary Hospital Course Was the Problem List Reviewed?: Yes Hospital Course This is a 82 year old male who was brought to the emergency room with worsening confusion and weakness. He was found to have Influenza A. He was admitted to the medical floor and given IVFs due to dehydration with anorexia. He was given a dose of IV lasix due to pulmonary vascular congestion. He was given oral tamiflu for the influenza A. The patient had poor oral intake the first 2 days and basically slept and stayed in bed the first 2 days. His oral intake then improved but his confusion continued. He was able to get up to a chair but was very weak. PT and OT were started. The family felt that due to his weakness and high fall risk and worsening dementia that he should go to long-term on discharge. [facility] had a bed available and the patient was d ischarged to the SNF there and will follow up with me in my office in 2 weeks. Procedures None. Discharge Physical Examination Allergies: Coded Allergies: No Known Drug Allergies (Unverified , 06/20/11) Vitals & I&Os Vital Signs Date Time Temp Pulse Resp B/P (MAP) Pulse Ox O2 Delivery O2 Flow Rate FiO2 11/06/22 12:21 36.1 62 20 143/81 (101) 94 Room Air 11/04/22 01:31 21 General Appearance: Alert, No Acute Distress Respiratory: Clear to Auscultation Cardiovascular: Regular Rate Abdominal: Normal Bowel Sounds, Soft, No Tenderness Psych/Mental Status: Other (confused) Discharge Home Medications Reviewed and agree with Discharge Medication list on patient's Discharge Instruction sheet Instructions to Patient/Family Please see electronic discharge instructions given to patient. SHERIDAN DIEZ DO Nov 06, 2022 12:42
[2022-11-06 13:30] VITALS: BP 143/81
== END 2022-11-06 13:30 | DRG 195 ==
LOC: EDUNIT# 22:44 → ER 22:47 → 4TH 11-01 00:01
PROVIDERS: ADMIT Family Medicine; ATTEND Family Medicine
DX: J10.1 Influenza due to other identified influenza virus with other respiratory manifestations (principal); E86.0 Dehydration; R63.0 Anorexia; F03.90 Unspecified dementia, unspecified severity, without behavioral disturbance, psychotic disturbance, mood disturbance, and anxiety; Z86.73 Personal history of transient ischemic attack (TIA), and cerebral infarction without residual deficits; I10 Essential (primary) hypertension; R09.89 Other specified symptoms and signs involving the circulatory and respiratory systems; Z79.82 Long term (current) use of aspirin; Z79.899 Other long term (current) drug therapy; Z68.33 Body mass index [BMI] 33.0-33.9, adult; Z87.891 Personal history of nicotine dependence; E78.00 Pure hypercholesterolemia, unspecified; K21.9 Gastro-esophageal reflux disease without esophagitis; K57.90 Diverticulosis of intestine, part unspecified, without perforation or abscess without bleeding; M19.90 Unspecified osteoarthritis, unspecified site; Z20.822 Contact with and (suspected) exposure to COVID-19
CPT/HCPCS: 36415; 51702; 71045; 80048; 80053; 81000; 83605; 84145; 85007; 85025; 85027; 85610; 85730; 87040; 87088; 87636; 93005; 93041; 94640; 94760; 96360